=== PATIENT | male | born 1950 | race Caucasian/White ===

== ENCOUNTER 2021-05-01 14:42 | Outpatient (REF) | payer MEDICARE, MEDICAID, SELFPAY ==
--- NOTE | ~2021-05-01 | MR_ITS ---
EXAMINATION: MR LUMBAR SPINE WITHOUT AND WITH CONTRAST CLINICAL INFORMATION: Low back pain. COMPARISON: Lumbar spine MRI 07/14/2019. TECHNIQUE: MRI of the lumbar spine was obtained using routine sequences without and with intravenous contrast. A total of 10 mL Gadavist was intravenously administered. FINDINGS: The lumbar vertebral bodies maintain normal heights and alignment. There is mild disc height loss at L3-L4. No bone marrow edema is seen. The distal spinal cord appears normal. The conus medullaris terminates normally at the L1 level. No abnormal cauda equina nerve root enhancement is seen. The extraspinal soft tissues are within normal limits. SPINAL LEVELS: L1-L2: Disc bulging. No spinal canal or neural foraminal stenosis. L2-L3: Disc bulging with ligamentum flavum infolding and mild to moderate facet arthropathy. Asymmetric narrowing of left subarticular zone, similar to prior. Mild bilateral neural foraminal stenosis. L3-L4: Posterior decompression. Disc bulging with moderate facet arthropathy. Left foraminal protrusion results in severe left-sided neural foraminal stenosis with significant compression of the exiting left L3 nerve root. Bulging disc extends the right neural foramen and results in moderate to severe neural foraminal stenosis, similar to prior. L4-L5: Disc bulging with ligamentum flavum infolding and moderate facet arthropathy. Moderate spinal canal stenosis with compression of both traversing L5 nerve roots in the subarticular zones, progressed from prior. Mild to moderate right and mild left neural foraminal stenosis. L5-S1: Disc bulging with ligamentum flavum infolding moderate facet arthropathy resulting in bilateral subarticular stenosis with compression of the traversing right more than left S1 nerve roots, similar to prior. Mild to moderate spinal canal stenosis. MR/MR lumbar spine wo/w con IMPRESSION: Multilevel degenerative spondylotic changes with interval progression compared with 2019. At L3-L4 there is left foraminal protrusion resulting in severe left-sided neural foraminal stenosis with significant compression of the exiting left L3 nerve root, new from prior. Similar appearance of moderate to severe right-sided neural foraminal stenosis. At L4-L5 there is moderate spinal canal stenosis with compression of both traversing L5 nerve roots, progressed from prior. At L5-S1 there is bilateral subarticular stenosis with compression of the traversing right more than left S1 nerve root, similar prior. Mild to moderate spinal canal stenosis.
== END 2021-05-01 14:43 | disposition home or self-care (01) ==
LOC: HO.MRI 14:42
PROVIDERS: PCP Internal Medicine; Visit Provider Internal Medicine
DX: M54.50 Low back pain, unspecified (principal)
CPT/HCPCS: 72158; A9585

== ENCOUNTER 2023-01-08 09:56 | Outpatient (REF) | payer MEDICARE, MEDICAID, SELFPAY ==
[2023-01-08 12:16] LABS: Alanine Aminotransferase 30 U/L (0-40); Albumin Level 4.5 g/dL (3.5-5.0); Alkaline Phosphatase 42 U/L (39-117); Anion Gap 15 (12-20); Aspartate Amino Transferase 32 U/L (5-37); Bilirubin Direct 0.2 mg/dL (0.0-0.5); Bilirubin Total 0.6 mg/dL (0.0-1.0); Blood Urea Nitrogen 12 mg/dL (9-16); Calcium 9.8 mg/dL (8.4-10.2); Carbon Dioxide 23 mmol/L (22-29); Chloride 105 mmol/L (96-108); Estimated Glomerular Filt Rate > 60; Glucose Random 121 mg/dL (60-115); Potassium 4.1 mmol/L (3.3-5.1); Sodium 139 mmol/L (135-145); Total Protein 7.5 g/dL (6.5-8.0)
== END 2023-01-08 09:57 | disposition home or self-care (01) ==
LOC: HO.HHCL 09:56
PROVIDERS: Visit Provider Internal Medicine
DX: E11.42 Type 2 diabetes mellitus with diabetic polyneuropathy (principal); E78.2 Mixed hyperlipidemia; I10 Essential (primary) hypertension; Z79.4 Long term (current) use of insulin
CPT/HCPCS: 36415; 80048; 80061; 80076

== ENCOUNTER 2023-06-22 12:07 | Outpatient (REF) | payer MEDICARE, MEDICAID, SELFPAY ==
--- NOTE | ~2023-06-22 | XR_ITS ---
EXAMINATION: XR KNEE, LEFT CLINICAL INFORMATION: Left knee pain for 6 months, worsening COMPARISON: Left knee x-ray on 04/28/2013, 04/15/2013 TECHNIQUE: Four views of the left knee. FINDINGS: BONES: Bony structures are intact. Healed left tibial plateau fracture, fixation with surgical staple is again visualized. A sessile bony protuberance is seen protruding from left medial femoral condyle. There is no focal bone destruction or periosteal reaction seen. JOINTS: Alignment of joints is normal. There is mild asymmetric decrease in lateral compartment left tibiofemoral joint space. SOFT TISSUE: Soft tissue is normal. Multiple surgical clips are seen in distal left thigh. No radiopaque foreign body or abnormal air collection is seen. XR/XR knee LT 4V IMPRESSION: 1. 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 2. Unchanged chronic healed left tibial plateau fracture, fixation with surgical staple. 3. Interval development of right medial femoral condyle exostosis. 4. No acute or new fracture or dislocation or signs of osteomyelitis are found.
== END 2023-06-22 12:08 | disposition home or self-care (01) ==
LOC: HO.HHCX 12:07
PROVIDERS: Visit Provider Internal Medicine
DX: M25.562 Pain in left knee (principal)
CPT/HCPCS: 73564

== ENCOUNTER 2023-07-06 09:41 | Outpatient (AMB) | payer MEDICARE, MEDICAID, SELFPAY ==
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
[2023-07-06 09:45] VITALS: BMI 31.8
== END 2023-07-06 10:07 | disposition home or self-care (01) ==
PROVIDERS: PCP Internal Medicine; Visit Provider Orthopaedic Surgery
DX: M25.562 Pain in left knee (principal)
CPT/HCPCS: 99202

== ENCOUNTER → 2023-07-06 09:41 | Outpatient (BNVA) | payer MEDICARE, MEDICAID, SELFPAY | PROVIDERS: PCP Internal Medicine; Visit Provider Orthopaedic Surgery | DX: M25.562 Pain in left knee (principal) | CPT/HCPCS: 99202 ==

== ENCOUNTER 2023-10-11 07:35 | Day surgery (SDC) | payer MEDICARE, MEDICAID, SELFPAY ==
[2023-09-30 14:38] VITALS: BMI 31.8
[2023-10-01 13:25] VITALS: BMI 31.8
[2023-10-11 08:08] VITALS: BMI 32.0
--- NOTE | 2023-10-11 08:45 | HO.ANESPROP2 ---
HPI - Anesthesia Eval Consult details Narrative: 73 yo male patient for Right Cataract extraction, IOL insertion Anesthesia Pre-Procedure Meds Is the patient on any of the following meds?: GLP1/DPP4 (Last dose of dulaglutide 09/27/23) If yes to any meds - educate patient: Pt education - increased risk of aspiration and/or euvolemic DKA PMFSH Active Problems Active Problems: All Active Problems Left knee pain (Acute) EKG with inverted T waves on monitor. Patient asymptomatic. H/o CAD with CABGx3 2002. Review of old records reveal presence of T wave inversion in the past. No new changes. Will proceed with surgery Smoker Last dose of plavix about 6 days ago PVD CAD. Only very occasional chest pain since CABG. Sublingual NTG prn. Denies recent CP Past Medical History Medical History Ambulates with cane Wears dentures Arthritis Back pain Diabetes GERD (gastroesophageal reflux disease) Renal calculi Cataracts, bilateral Numbness and tingling of left leg HLD (hyperlipidemia) HTN (hypertension) Smoker Family History Family history of problems with anesthesia: No Surgical History Surgical History Hx of cystoscopy Hx of colonoscopy Hx of CABG (~2002) History of back surgery Hx of left knee surgery (~1981) History of Problems with Anesthesia: No Social History Social History Household Members: Spouse Housing: Apartment Are you a primary child care development specialist to a significant other at home: No Do you presently have visiting nurse or other home services: No Patient Tobacco Use Status: Current everyday Tobacco user Tobacco use type: Cigarette Cigarettes Per Day: 6 Smoked in Last 30 Days: Yes Use of substances other than those prescribed or required for medical reasons: No Have you been hit, kicked, punched, or otherwise hurt by someone within the past year? If so, by whom?: No Are you DNR?: No Advance Directives: No Advance Directives Information Provided: Yes Advance Directives on File: No Recently lost weight without trying: No Nutrition Risks: No Nutritional Risk Meds Allergies Allergy/AdvReac Type Severity Reaction Status Date / Time fenofibrate [From TRICOR] Allergy Severe RASH Verified 10/11/23 08:02 isosorbide [From Imdur] Allergy Severe H/A Verified 10/11/23 08:02 propoxyphene Allergy Severe RASH Verified 10/11/23 08:02 [From Darshannoncet-N 100] shellfish derived Allergy Severe Anaphylaxis Verified 10/11/23 08:02 gemfibrozil Allergy Itching Verified 10/11/23 08:02 Active Medications: Current Medications Povidone Iodine (Povidone Iodine 5 % Ophth Soln 30 Ml Bottle) 1 appl EYE-RIGHT PREOP PRN PRN Reason: Pre-Op Surgical Implant Prophy Home Medications ?Medication ?Instructions ?Recorded ?Confirmed ?Last Taken ?Type ezetimibe 10 mg tablet 10 mg PO DAILY 07/06/23 09/29/23 09/29/23 History ibuprofen 200 mg tablet 200 mg PO Q8H PRN mild pain 07/06/23 09/29/23 Unknown History lisinopril 20 mg tablet 20 mg PO DAILY 07/06/23 09/29/23 Unknown History metformin 500 mg tablet,extended 1,000 mg PO BID 07/06/23 09/29/23 Unknown History release 24 hr metoprolol tartrate 50 mg tablet 50 mg PO BID 07/06/23 09/29/23 10/11/23 History oxycodone 10 mg tablet,crush 10 mg PO BID 07/06/23 09/29/23 Unknown History resistant,extended release 12 hr (OxyContin) propranolol 80 mg tablet 80 mg PO BID 07/06/23 09/29/23 10/11/23 History rosuvastatin 40 mg tablet 40 mg PO BEDTIME 07/06/23 09/29/23 Unknown History albuterol sulfate 90 mcg/actuation 2 puff inhalation Q4-6H PRN 09/29/23 09/29/23 Unknown History aerosol inhaler Shortness Of Breath Or Wheezing aspirin 81 mg chewable tablet 81 mg PO DAILY 09/29/23 09/29/23 Unknown History clopidogrel 75 mg tablet 75 mg PO DAILY 09/29/23 09/29/23 Unknown History duloxetine 20 mg capsule,delayed 20 mg PO DAILY 09/29/23 09/29/23 Unknown History release hydrocodone 10 mg-acetaminophen 1 tab PO Q4H PRN severe pain 09/29/23 09/29/23 Unknown History 325 mg tablet omega 9-fpx-ugf-fish oil 1,200 mg 1 cap PO BID 09/29/23 09/29/23 Unknown History (144 mg-216 mg) capsule (Fish Oil) pantoprazole 40 mg tablet,delayed 40 mg PO BID 09/29/23 09/29/23 Unknown History release primidone 50 mg tablet 100 mg PO QPM 09/29/23 09/29/23 Unknown History primidone 50 mg tablet 150 mg PO DAILY 09/29/23 09/29/23 10/11/23 History dulaglutide 1.5 mg/0.5 mL 1.5 mg subcut .QMONDAY 10/01/23 10/01/23 Unknown History subcutaneous pen injector (Trulicity) insulin degludec 100 unit/mL 22 unit subcut BEDTIME 10/01/23 10/01/23 Unknown History subcutaneous solution (Tresiba U-100 Insulin) Exam Height,Weight and Vital Signs: Height 5 ft 6 in Weight 89.811 kg Vital Signs Temp Pulse Resp BP Pulse Ox O2 Del Method 10/11/23 08:48 96.9 F 61 18 136/61 100 Room Air Pertinent Lab Results Pertinent Lab Results: Lab Results 10/11/23 Range/Units 08:42 POC Glucose 143 H (60-115) mg/dL Airway Mallampati Class: II TM Dist: >3cm Neck ROM: Full Denture: Upper and Lower Heart: RRR Lungs: CTAB Assessment and Plan Assessment Anesthesia Assessment: Anesthesia Plan Discussed and Chart Reviewed Final Anesthetic Review Family History of Problems with Anesthesia: No History of Problems with Anesthesia: No NPO: Yes ASA Class: III Final Preanesthetic Review: No Changes in Pt Med Stat, Meds/Allgs Chart Reviewed, Consent Obtained/Reviewed and Anes Risks/Benef Reviewed Patient Risk: Intermediate Procedure Risk: Low Assessment/Block/Sedation in SS: Assess/Block/Sedation-SS Anesthetic Plan Anesthetic Plan: MAC: Disposition: Standard PACU
[2023-10-11 08:46] LABS: Glucose, Whole Blood 143 mg/dL (60-115)
[2023-10-11 08:48] VITALS: BP 136/61; PULSE 61; RESP 18; TEMP 36.1; O2SAT 100
[2023-10-11] MEDS: Tetracaine HCl/PF 0.5% Oph Sol 4 ML DROPS 1 DROP EYE-RIGHT ×2 (08:50→08:52)
[2023-10-11] MEDS: Ketorolac Tromethamine 0.5% Op 10 ML DROPS 1 DROP EYE-RIGHT ×3 (08:52→08:57)
[2023-10-11] MEDS: Cyclopentolate 1 % Ophth Sol 2 ML DRPBTL 1 DROP EYE-RIGHT ×3 (08:52→08:57)
[2023-10-11] MEDS: Tropicamide 1 % Ophth Sol 3 ML BTL 1 DROP EYE-RIGHT ×3 (08:53→08:58)
[2023-10-11] MEDS: Phenylephrine HCL 2.5% Oph SoL 2 ML BOTTLE 1 DROP EYE-RIGHT ×3 (08:53→08:57)
--- NOTE | 2023-10-11 09:11 | P.PCNO_ITS ---
Ophthalmology Procedure Procedure Date of Service: 10/11/23 Ophthalmology Viscoelastic: Healon Duet Dual Pack Pro Ophthalmology Lenses: IOL Acrysof MP - [id number] (22) Procedure Notes: PREOPERATIVE DIAGNOSIS: Decreased visual acuity right eye secondary to cataract POSTOPERATIVE DIAGNOSIS: Same PROCEDURE: Right cataract extraction with intraocular lens insertion SURGEON: Praveen Willingham M.D. ANESTHESIA: Topical/MAC ESTIMATED BLOOD LOSS: None COMPLICATIONS: None After obtaining informed consent, the patient was brought to the operating room suite and placed in the supine position. After adequate sedation per anesthesia, topical drops of Tetracaine were given to the right eye. The eye was then prepped and draped in the usual sterile fashion. The operating room microscope was then positioned over the operative eye and a lid speculum placed. A paracentesis was created. Viscoelastic was then instilled into the anterior chamber. A three plane incision was then created temporally, utilizing a 2.85 mm keratome. Capsulotomy forceps were then utilized to create a circular tear capsulotomy. Hydrodissection and hydrodelineation were carried out until adequate mobilization of the nucleus occurred. Phacoemulsification was then utilized to remove the dense central nucl eus followed by removal of the cortical material utilizing the automated aspiration irrigation unit. Viscoelastic was instilled into the posterior capsular bag followed by placement of a posterior chamber intraocular lens without difficulty. The residual Viscoelastic was then removed utilizing the automated IA machine. The wound was checked and found to be watertight. The patient tolerated the procedure well and the lid speculum was removed. Intracameral injection of Vigamox 0.1 mL followed by a subtenon injection of Kenalog-40 0.2 mL were administered. The patient will be seen in the a.m.
--- NOTE | 2023-10-11 09:11 | MHC.SHP ---
Pre-Procedural Eval Section A - 24 Hr Update-Section A only Date of Service: 10/11/23 The patient is an INPATIENT: No Changes since office visit: No Cold of Flu in the past 2 weeks, No New Medical Problems, No Changes in Medication and No Patient answered all questions The patient has been examined within 24 hours of the surgical procedure. The History & Physical has been completed within 30 days and I have reviewed it.: Yes Section B - Complete if H&P > 30 days Chief Complaint: Age-related nuclear cataract, right eye Allergies: Allergies Allergy/AdvReac Type Severity Reaction Status Date / Time fenofibrate [From TRICOR] Allergy Severe RASH Verified 10/11/23 08:02 isosorbide [From Imdur] Allergy Severe H/A Verified 10/11/23 08:02 propoxyphene Allergy Severe RASH Verified 10/11/23 08:02 [From Darvocet-N 100] shellfish derived Allergy Severe Anaphylaxis Verified 10/11/23 08:02 gemfibrozil Allergy Itching Verified 10/11/23 08:02 Plan Diagnosis/Plan: Unchanged I have reviewed the history and physical and performed a pertinent physical examination on my patient. No changes have occurred unless specified. Time Spent With Patient Time: Total time managing care of this patient today ____ minutes.
[2023-10-11 09:36] VITALS: BP 135/58; PULSE 67; RESP 16; TEMP 36.2; O2SAT 98
== END 2023-10-11 09:54 | disposition home or self-care (01) ==
PROVIDERS: PCP Internal Medicine; Visit Provider Ophthalmology
PROC: (CPT 66985; principal; 2023-10-11 09:10)
DX: H25.11 Age-related nuclear cataract, right eye (principal); H54.7 Unspecified visual loss; I10 Essential (primary) hypertension; E78.00 Pure hypercholesterolemia, unspecified; E11.9 Type 2 diabetes mellitus without complications; Z79.82 Long term (current) use of aspirin; Z79.84 Long term (current) use of oral hypoglycemic drugs; Z79.85 Long-term (current) use of injectable non-insulin antidiabetic drugs; Z79.899 Other long term (current) drug therapy; Z88.8 Allergy status to other drugs, medicaments and biological substances; F17.210 Nicotine dependence, cigarettes, uncomplicated; Z98.890 Other specified postprocedural states
CPT/HCPCS: 66984; 82947; J2250; J3010; J3301; V2630

== ENCOUNTER 2023-10-25 07:17 | Day surgery (SDC) | payer MEDICARE, MEDICAID, SELFPAY ==
[2023-09-30 14:46] VITALS: BMI 31.8
[2023-10-25 08:41] VITALS: BP 120/75; PULSE 59; RESP 18; TEMP 36.4; O2SAT 98
[2023-10-25 08:42] LABS: Glucose, Whole Blood 93 mg/dL (60-115)
[2023-10-25] MEDS: Cyclopentolate 1 % Ophth Sol 2 ML DRPBTL 1 DROP EYE-LEFT ×3 (08:45→08:47)
[2023-10-25] MEDS: Tetracaine HCl/PF 0.5% Oph Sol 4 ML DROPS 1 DROP EYE-LEFT (08:45)
[2023-10-25] MEDS: Tropicamide 1 % Ophth Sol 3 ML BTL 1 DROP EYE-LEFT ×3 (08:45→08:47)
[2023-10-25] MEDS: Lactated Ringers 500 ML 20 ML IVCONT (08:45)
[2023-10-25] MEDS: Phenylephrine HCL 2.5% Oph SoL 2 ML BOTTLE 1 DROP EYE-LEFT ×3 (08:46→08:47)
[2023-10-25] MEDS: Ketorolac Tromethamine 0.5% Op 10 ML DROPS 1 DROP EYE-LEFT ×3 (08:46→08:48)
--- NOTE | 2023-10-25 09:20 | HO.ANESPROP2 ---
HPI - Anesthesia Eval Consult details Narrative: 73 yo M presenting for left cataract extraction IOL insertion. Had right eye done previously. Anesthesia Pre-Procedure Meds Is the patient on any of the following meds?: GLP1/DPP4 If yes to any meds - educate patient: Pt education - increased risk of aspiration and/or euvolemic DKA PMFSH Active Problems Active Problems: All Active Problems Left knee pain (Acute) Past Medical History Medical History Ambulates with cane Wears dentures Arthritis Back pain Diabetes GERD (gastroesophageal reflux disease) Renal calculi Cataracts, bilateral Numbness and tingling of left leg HLD (hyperlipidemia) HTN (hypertension) Smoker Family History Family history of problems with anesthesia: No Surgical History Surgical History Hx of cystoscopy Hx of colonoscopy Hx of CABG (~2002) History of back surgery Hx of left knee surgery (~1981) History of Problems with Anesthesia: No Social History Social History Household Members: Spouse Housing: Apartment Are you a primary home care and home health aides teacher to a significant other at home: No Do you presently have visiting nurse or other home services: No Patient Tobacco Use Status: Current everyday Tobacco user Tobacco use type: Cigarette Cigarettes Per Day: 6 Smoked in Last 30 Days: Yes Use of substances other than those prescribed or required for medical reasons: No Have you been hit, kicked, punched, or otherwise hurt by someone within the past year? If so, by whom?: No Are you DNR?: No Advance Directives: No Advance Directives Information Provided: Yes Advance Directives on File: No Healthcare Proxy: No Recently lost weight without trying: No Nutrition Risks: No Nutritional Risk Meds Allergies Allergy/AdvReac Type Severity Reaction Status Date / Time fenofibrate [From TRICOR] Allergy Severe RASH Verified 10/11/23 08:02 isosorbide [From Imdur] Allergy Severe H/A Verified 10/11/23 08:02 propoxyphene Allergy Severe RASH Verified 10/11/23 08:02 [From Darvocet-N 100] shellfish derived Allergy Severe Anaphylaxis Verified 10/11/23 08:02 gemfibrozil Allergy Itching Verified 10/11/23 08:02 Active Medications: Current Medications Lactated Ringer's (Lr) 500 mls @ 20 mls/hr IVCONT .Q24H DALI Last Admin: 10/25/23 08:45 Dose: 20 mls/hr Povidone Iodine (Povidone Iodine 5 % Ophth Soln 30 Ml Bottle) 1 appl EYE-LEFT PREOP PRN PRN Reason: Pre-Op Surgical Implant Prophy Home Medications ?Medication ?Instructions ?Recorded ?Confirmed ?Last Taken ?Type ezetimibe 10 mg tablet 10 mg PO DAILY 07/06/23 09/29/23 10/25/23 History ibuprofen 200 mg tablet 200 mg PO Q8H PRN mild pain 07/06/23 09/29/23 Unknown History lisinopril 20 mg tablet 20 mg PO DAILY 07/06/23 09/29/23 Unknown History metformin 500 mg tablet,extended 1,000 mg PO BID 07/06/23 09/29/23 Unknown History release 24 hr metoprolol tartrate 50 mg tablet 50 mg PO BID 07/06/23 09/29/23 10/25/23 History oxycodone 10 mg tablet,crush 10 mg PO BID 07/06/23 09/29/23 10/25/23 History resistant,extended release 12 hr (OxyContin) propranolol 80 mg tablet 80 mg PO BID 07/06/23 09/29/23 10/11/23 History rosuvastatin 40 mg tablet 40 mg PO BEDTIME 07/06/23 09/29/23 Unknown History albuterol sulfate 90 mcg/actuation 2 puff inhalation Q4-6H PRN 09/29/23 09/29/23 Unknown History aerosol inhaler Shortness Of Breath Or Wheezing aspirin 81 mg chewable tablet 81 mg PO DAILY 09/29/23 09/29/23 Unknown History clopidogrel 75 mg tablet 75 mg PO DAILY 09/29/23 09/29/23 10/05/23 History duloxetine 20 mg capsule,delayed 20 mg PO DAILY 09/29/23 09/29/23 Unknown History release hydrocodone 10 mg-acetaminophen 1 tab PO Q4H PRN severe pain 09/29/23 09/29/23 10/25/23 History 325 mg tablet omega 8-ven-jrp-fish oil 1,200 mg 1 cap PO BID 09/29/23 09/29/23 Unknown History (144 mg-216 mg) capsule (Fish Oil) pantoprazole 40 mg tablet,delayed 40 mg PO BID 09/29/23 09/29/23 10/25/23 History release primidone 50 mg tablet 100 mg PO QPM 09/29/23 09/29/23 Unknown History primidone 50 mg tablet 150 mg PO DAILY 09/29/23 09/29/23 10/25/23 History dulaglutide 1.5 mg/0.5 mL 1.5 mg subcut .QMONDAY 10/01/23 10/01/23 10/18/23 History subcutaneous pen injector (Trulicity) insulin degludec 100 unit/mL 22 unit subcut BEDTIME 10/01/23 10/01/23 Unknown History subcutaneous solution (Tresiba U-100 Insulin) Exam Exam Date and Time: October 25, 2023921 Height,Weight and Vital Signs: Height 5 ft 6 in Weight 89.358 kg Last Vital Signs Temp 97.6 F 10/25/23 08:41 Pulse 59 10/25/23 08:41 Resp 18 10/25/23 08:41 BP 120/75 10/25/23 08:41 Pulse Ox 98 10/25/23 08:41 O2 Del Method Room Air 10/25/23 08:41 Pertinent Lab Results Pertinent Lab Results: Laboratory Tests 10/25/23 08:38 POC Glucose 93 Airway Mallampati Class: II TM Dist: >3cm Neck ROM: Full Denture: Upper and Lower Heart: S1S2 Lungs: CTAB Assessment and Plan Assessment Anesthesia Assessment: Anesthesia Plan Discussed and Chart Reviewed Final Anesthetic Review Family History of Problems with Anesthesia: No History of Problems with Anesthesia: No NPO: Yes ASA Class: III Final Preanesthetic Review: No Changes in Pt Med Stat, Meds/Allgs Chart Reviewed, Consent Obtained/Reviewed and Anes Risks/Benef Reviewed Patient Risk: Intermediate Procedure Risk: Low Anesthetic Plan Anesthetic Plan: MAC: and Agree w/ Assess. and Plan Disposition: Standard PACU
--- NOTE | 2023-10-25 09:43 | MHC.SHP ---
Pre-Procedural Eval Section A - 24 Hr Update-Section A only Date of Service: 10/25/23 The patient is an INPATIENT: No Changes since office visit: Yes Cold of Flu in the past 2 weeks, Yes New Medical Problems, Yes Changes in Medication and Yes Patient answered all questions Section B - Complete if H&P > 30 days Chief Complaint: Age-related nuclear cataract, left eye Allergies: Allergies Allergy/AdvReac Type Severity Reaction Status Date / Time fenofibrate [From TRICOR] Allergy Severe RASH Verified 10/11/23 08:02 isosorbide [From Imdur] Allergy Severe H/A Verified 10/11/23 08:02 propoxyphene Allergy Severe RASH Verified 10/11/23 08:02 [From Darvocet-N 100] shellfish derived Allergy Severe Anaphylaxis Verified 10/11/23 08:02 gemfibrozil Allergy Itching Verified 10/11/23 08:02 Plan I have reviewed the history and physical and performed a pertinent physical examination on my patient. No changes have occurred unless specified. Time Spent With Patient Time: Total time managing care of this patient today ____ minutes.
--- NOTE | 2023-10-25 09:44 | MHC.SHP ---
Pre-Procedural Eval Section A - 24 Hr Update-Section A only Date of Service: 10/25/23 The patient is an INPATIENT: No Changes since office visit: No Cold of Flu in the past 2 weeks, No New Medical Problems, No Changes in Medication and No Patient answered all questions The patient has been examined within 24 hours of the surgical procedure. The History & Physical has been completed within 30 days and I have reviewed it.: Yes Section B - Complete if H&P > 30 days Chief Complaint: Age-related nuclear cataract, left eye Allergies: Allergies Allergy/AdvReac Type Severity Reaction Status Date / Time fenofibrate [From TRICOR] Allergy Severe RASH Verified 10/11/23 08:02 isosorbide [From Imdur] Allergy Severe H/A Verified 10/11/23 08:02 propoxyphene Allergy Severe RASH Verified 10/11/23 08:02 [From Darvocet-N 100] shellfish derived Allergy Severe Anaphylaxis Verified 10/11/23 08:02 gemfibrozil Allergy Itching Verified 10/11/23 08:02 Plan Diagnosis/Plan: Unchanged I have reviewed the history and physical and performed a pertinent physical examination on my patient. No changes have occurred unless specified. Time Spent With Patient Time: Total time managing care of this patient today ____ minutes.
--- NOTE | 2023-10-25 09:44 | HO.PNOPHT ---
Ophthalmology Procedure Procedure Date of Service: 10/25/23 Ophthalmology Viscoelastic: Healon Duet Dual Pack Pro Ophthalmology Lenses: IOL Acrysof MP - MA60AC (22) Procedure Notes: PREOPERATIVE DIAGNOSIS: Decreased visual acuity left eye secondary to cataract POSTOPERATIVE DIAGNOSIS: Same PROCEDURE: Left cataract extraction with intraocular lens insertion SURGEON: Praveen Willingham M.D. ANESTHESIA: Topical/MAC ESTIMATED BLOOD LOSS: None COMPLICATIONS: None After obtaining informed consent, the patient was brought to the operation room suite and placed in the supine position. After adequate sedation per anesthesia, topical drops of Tetracaine were given to the left eye. The eye was then prepped and draped in the usual sterile fashion. The operating room microscope was then positioned over the operative eye and a lid speculum placed. A paracentesis was created. Viscoelastic was then instilled into the anterior chamber. A three plane incision was then created temporally, utilizing a 2.85 mm keratome. Capsulotomy forceps were then utilized to create a circular tear capsulotomy. Hydrodissection and hydrodelineation were carried out until adequate mobilization of the nucleus occurred. Phacoemulsification was then utilized to remove the dense central nucleus followed by removal of the cortical material utilizing the automated aspiration irrigation unit. Viscoat elastic was instilled into the posterior capsular bag followed by placement of a posterior chamber intraocular lens without difficulty. The residual Viscoat elastic was then removed utilizing the automated IA machine. The wound was check and found to be watertight. The patient tolerated the procedure well and the lid speculum was removed. Intracameral injection of Vigamox 0.1 mL followed by a subtenon injection of Kenalog-40 0.2 mL were administered. The patient will be seen in the a.m.
[2023-10-25 10:07] VITALS: BP 111/53; PULSE 60; RESP 16; TEMP 36.2; O2SAT 97
== END 2023-10-25 10:23 | disposition home or self-care (01) ==
PROVIDERS: PCP Internal Medicine; Visit Provider Ophthalmology
PROC: (CPT 66985; principal; 2023-10-25 09:30)
DX: H25.12 Age-related nuclear cataract, left eye (principal); H54.7 Unspecified visual loss; E11.42 Type 2 diabetes mellitus with diabetic polyneuropathy; I10 Essential (primary) hypertension; E78.00 Pure hypercholesterolemia, unspecified; Z79.4 Long term (current) use of insulin; Z79.84 Long term (current) use of oral hypoglycemic drugs; Z79.85 Long-term (current) use of injectable non-insulin antidiabetic drugs; Z79.82 Long term (current) use of aspirin; Z79.899 Other long term (current) drug therapy; Z88.8 Allergy status to other drugs, medicaments and biological substances; F17.210 Nicotine dependence, cigarettes, uncomplicated
CPT/HCPCS: 66984; 82947; J2250; J3301; V2630

== ENCOUNTER 2023-12-02 10:02 | Outpatient (REF) | payer MEDICARE, MEDICAID, SELFPAY ==
[2023-12-02 11:10] LABS: MANUAL DIFF FLAG NO
[2023-12-02 11:21] LABS: Basophils Absolute Auto 0.1 X10*3/uL (0.0-0.2); Basophils Percent Auto 1.1 % (0-2); Eosinophils Absolute Auto 0.1 X10*3/uL (0.0-0.4); Hematocrit 35.9 % (42.0-52.0); Hemoglobin 11.6 g/dl (14.0-18.0); Imm Gran Abs Auto 0.02 X10*3/uL (0.00-0.03); Imm Gran Pct Auto 0.4 % (0.0-0.4); Lymphocytes Absolute Auto 2.2 X10*3/uL (1.2-4.9); Lymphocytes Percent Auto 39.6 % (20-40); Mean Corpuscular HGB Conc 32.3 g/dl (31.0-36.0); Mean Corpuscular Hemoglobin 29.1 pg (27.0-33.0); Mean Platelet Volume 9.7 fL (9.4-12.4); Monocytes Absolute Auto 0.7 X10*3/uL (0.1-1.2); Monocytes Percent Auto 13.1 % (2-11); Neutrophils Absolute Auto 2.4 x10*3/uL (2.0-8.3); Neutrophils Percent Auto 43.8 % (45-73); Platelet Count 269 X10*3/uL (160-400); Red Blood Count 3.99 X10*6/uL (4.60-5.80); Red Cell Distribution Width 15.4 % (11.0-16.0); White Blood Count 5.5 X10*3/uL (4.8-10.8)
[2023-12-02 11:54] LABS: Alanine Aminotransferase 87 U/L (0-40); Albumin Level 4.1 g/dL (3.5-5.0); Alkaline Phosphatase 60 U/L (39-117); Anion Gap 14 (12-20); Aspartate Amino Transferase 118 U/L (5-37); Bilirubin Total 0.3 mg/dL (0.0-1.0); Blood Urea Nitrogen 11 mg/dL (9-16); Calcium 9.7 mg/dL (8.4-10.2); Carbon Dioxide 25 mmol/L (22-29); Chloride 106 mmol/L (96-108); Cholesterol 140 mg/dL (<200); Estimated Glomerular Filt Rate > 60; Glucose Random 106 mg/dL (60-115); HDL Cholesterol 47 mg/dL (>40); LDL Cholesterol Calculated 58 mg/dL (<100); Potassium 4.6 mmol/L (3.3-5.1); Sodium 140 mmol/L (135-145); Triglycerides 177 mg/dL (<150)
[2023-12-02 12:03] LABS: Microalbum/Creatinine Ratio Ur 45.1 ug/mg cr (<30)
[2023-12-02 12:09] LABS: Prostate Specific Antigen Scr 0.59 ng/mL (<0.05-4.0)
== END 2023-12-02 10:03 | disposition home or self-care (01) ==
LOC: HO.HHCL 10:02
PROVIDERS: Visit Provider Internal Medicine
DX: Z00.00 Encounter for general adult medical examination without abnormal findings (principal); E11.42 Type 2 diabetes mellitus with diabetic polyneuropathy; Z79.4 Long term (current) use of insulin; E78.2 Mixed hyperlipidemia; L98.491 Non-pressure chronic ulcer of skin of other sites limited to breakdown of skin; Z12.5 Encounter for screening for malignant neoplasm of prostate
CPT/HCPCS: 36415; 80053; 80061; 82043; 82570; 84153; 85025

== ENCOUNTER 2023-12-08 12:02 | Outpatient (REF) | payer MEDICARE, MEDICAID, SELFPAY ==
[2023-12-08 13:43] LABS: Alanine Aminotransferase 58 U/L (0-40); Albumin Level 4.5 g/dL (3.5-5.0); Alkaline Phosphatase 60 U/L (39-117); Aspartate Amino Transferase 34 U/L (5-37); Bilirubin Direct 0.2 mg/dL (0.0-0.5); Bilirubin Total 0.6 mg/dL (0.0-1.0); Total Protein 7.7 g/dL (6.5-8.0)
[2023-12-08 13:58] LABS: ~HepC Num1 0.16 S/CO (0.00-0.79); ~Hepatitis C Antibody Nonreactive (Nonreactive)
[2023-12-08 14:14] LABS: Hepatitis A Antibody IgM 0.22 Index (0-0.79); ~Hepatitis A Antibody IgM Nonreactive (Nonreactive)
== END 2023-12-08 12:03 | disposition home or self-care (01) ==
LOC: HO.HHCL 12:02
PROVIDERS: Visit Provider Internal Medicine
DX: Z00.00 Encounter for general adult medical examination without abnormal findings (principal); E11.42 Type 2 diabetes mellitus with diabetic polyneuropathy; Z79.4 Long term (current) use of insulin; E78.2 Mixed hyperlipidemia; R79.89 Other specified abnormal findings of blood chemistry; K75.9 Inflammatory liver disease, unspecified
CPT/HCPCS: 36415; 80076; 86709; 86803

== ENCOUNTER 2024-06-16 14:07 | Outpatient (REF) | payer MEDICARE, MEDICAID, SELFPAY ==
--- OUTSIDE RECORDS SUMMARY | 2024-06-16 15:49 | XMS_ITS | Encounter Summary ---
Author Organization [employer] Address [address] [facility] 7[address] [place] [address] Care Team Providers Care Insurance Customer Service Specialist Name Role Phone Santi Landry MD Primary Care Provide r Reason for Visit * Reason Onset Date Comments Med Refill 09/15/2023 Encounter Details Date Type Department Care Team ([facility] st Contact Info) Description 09/15/2023 Refill [facility] MEDICINE [address] [place] [address] Santi Landry MD [address] [place] [address] Social History Tobacco Use Types Packs/Day Years Used Date Smoking Tobacco: Some Days Cigarettes Passive Smoke Exposure: Current Smokeless Tobacco: Never Alcohol Use Standard Drinks/Week Comments Never 0 (1 standard drink = 0.6 oz pur e alcohol) Depression Answer Date Recorded Patient Health Questionnaire-9 Score 6 06/22/2023 Patient Health Questionnaire-9 Score 6 06/22/2023 Last PHQ-9: Questionnaire Data Not on file 0 06/22/2023 Housing Stability Answer Date Recorded What is your housing situation today? I have shorty sing 06/22/[address] you li ve. Do you have problems with any of the following? None of the above 06/22/2023 Food Insecurity Answer Date Recorded Within the past 12 months, y ou worried that your food would run out before you got money to buy more: Never True 06/22/2023 Within the past 12 months,th e food you bought just didn't last and you didn't have enough money to get more: Never True Transportation Answer Date Recorded In the past 12 months, has l ack of transportation kept you from medical appts, meetings, work or from getting things needed for daily living? No 06/22/2023 Utilities Answer Date Recorded In the past 12 months, has t he electric, gas, oil or water company threatened to shut off services in your home? No 06/22/2023 Depression Answer Date Recorded Patient Health Questionnaire-2 Score 2 06/22/2023 Sex and Gender Information Value Date Recorded Sex Assigned at Male 02/02/2022 10:16 AM EDT Legal Sex Male 10:16 AM EDT Gender Identity Male 02/02/2022 10:16 AM EDT Sexual Orientation Straight 02/02/2022 10 :16 AM EDT documented as of this encounter Plan of Treatment Upcoming Encounters Date Type Department Care Team (Late st Contact Info) Description 09/11/2024 10:00 AM EDT Telemedicine [facility] MED & PEDS [address] [place] [address] Karishma Rose, RN [address] [place] [address] documented as of this encounter Visit Diagnoses Not on filedocumented in this encounter Additional Health Concerns Assessment Noted Time PHQ-9 Depression Total Score: 6 06/22/19 24 11:07 AM EDT documented as of this encounter Care Teams Insurance Customer Service Specialist Relationship Specialty Start Date End Date Santi Landry MD [address] [place] [address] PCP - General Internal Medicine 06/14/14 documented as of this encounter
--- OUTSIDE RECORDS SUMMARY | 2024-06-16 15:49 | XMS_ITS | Encounter Summary ---
Author Organization [employer] Address [address] [place] [address] [address] [address] Care Team Providers Care Press Assistant And Feeder Name Role Phone Santi Landry MD Primary Care Provide r Reason for Visit * Reason Onset Date Comments Med Refill 10/01/2022 Encounter Details Date Type Department Care Team ([facility] Contact Info) Description 10/01/2022 Refill [facility] MEDICINE [address] [place] [address] Santi Landry MD [address] [place] [address] Chronic midline low back pain without sciatica Social History Tobacco Use Types Packs/Day Years Used Date Smoking Tobacco: Former Cigarettes Smokeless Tobacco: Never Alcohol Use Standard Drinks/Week Comments Never 0 (1 standard drink = 0.6 oz pur e alcohol) Depression Answer Date Recorded Patient Health Questionnaire-9 Score 0 06/09/2022 Depression Answer Date Recorded Patient Health Questionnaire-2 Score 0 06/09/2022 Sex and Gender Information Value Date Recorded Sex Assigned at Male 02/02/2022 10:16 AM EDT Legal Sex Male 10:16 AM EDT Gender Identity Male 02/02/2022 10:16 AM EDT Sexual Orientation Straight 02/02/2022 10 :16 AM EDT documented as of this encounter Plan of Treatment Upcoming Encounters Date Type Department Care Team ([facility] Contact Info) Description 09/11/2024 10:00 AM EDT Telemedicine [facility] & PEDS [address] [place] [address] Karishma Rose, FATEMEH [address] [place] [address] documented as of this encounter Visit Diagnoses Diagnosis Chronic midline low back pain without sciatica documented in this encounter Additional Health Concerns Assessment Noted Time PHQ-9 Depression Total Score: 0 06/10/19 23 11:13 AM EST documented as of this encounter Care Teams Press Assistant And Feeder Relationship Specialty Start Date End Date Santi Landry MD [address] [place] [id number] PCP - General Internal Medicine 06/14/14 documented as of this encounter
--- OUTSIDE RECORDS SUMMARY | 2024-06-16 15:49 | XMS_ITS | Encounter Summary ---
Author Organization [employer] Address [address] [facility] 7[address] [place] [address] Care Team Providers Care Information Systems Audit Manager Name Role Phone Santi Landry MD Primary Care Provide r Reason for Visit * Reason Comments Med Refill Encounter Details Date Type Department Care Team ([facility] st Contact Info) Description 06/05/2024 Refill [facility] MEDICINE [address] [place], [place] [phone] Santi Landry MD [address] [place] [address] Atherosclerosis of [place] coronary artery of [place] heart without angina pectoris Social History Tobacco Use Types Packs/Day Years Used Date Smoking Tobacco: Former Cigarettes Passive Smoke Exposure: Past Smokeless Tobacco: Never Alcohol Use Standard Drinks/Week Comments Never 0 (1 standard drink = 0.6 oz pur e alcohol) Depression Answer Date Recorded Patient Health Questionnaire-9 Score 0 11/09/2023 Patient Health Questionnaire-9 Score 0 11/09/2023 Last PHQ-9: Questionnaire Data Not on file 0 11/09/2023 Housing Stability Answer Date Recorded What is your housing situation today? I have shorty trevizo 06/22/[address] you li [...] Date Recorded Patient Health Questionnaire-2 Score 0 11/09/2023 Sex and Gender Information Value Date Recorded Sex Assigned at Male 02/02/2022 10:16 AM EDT Legal Sex Male 10:16 AM EDT Gender Identity Male 02/02/2022 10:16 AM EDT Sexual Orientation Straight 02/02/2022 10 :16 AM EDT documented as of this encounter Plan of Treatment Upcoming Encounters Date Type Department Care Team ([facility] st Contact Info) Description 09/11/2024 10:00 AM EDT Telemedicine [facility] MED & PEDS [address] [place] [address] Karishma Rose, RN [address] [place] [address] documented as of this encounter Visit Diagnoses Diagnosis Atherosclerosis of [place] coronary artery of [place] heart without angina pectoris documented in this encounter Additional Health Concerns Assessment Noted Time PHQ-9 Depression Total Score: 0 11/09/19 24 10:18 AM EDT documented as of this encounter Care Teams Information Systems Audit Manager Relationship Specialty Start Date End Date Santi Landry MD [address] [place] [id number] PCP - General Internal Medicine 06/14/14 documented as of this encounter
--- OUTSIDE RECORDS SUMMARY | 2024-06-16 15:49 | XMS_ITS | Encounter Summary ---
Author Organization [employer] Address [address] [place] [address] [address] [address] Care Team Providers Care Roller Leveler Name Role Phone Santi Landry MD Primary Care Provide r Reason for Visit * Reason Comments Med Refill Encounter Details Date Type Department Care Team ([facility] Contact Info) Description 12/21/2022 Refill [facility] MEDICINE [address] [place] [address] Santi Landry MD [address] [place] [address] Social History Tobacco Use Types Packs/Day Years [...] Upcoming Encounters Date Type Department Care Team ([facility] Contact Info) Description 09/11/2024 10:00 AM EDT Telemedicine [facility] MED & PEDS [address] [place], [place] [phone] Karishma Rose RN [address] [place] [address] documented as of this encounter Visit Diagnoses Not on filedocumented in this encounter Additional Health Concerns Assessment Noted Time PHQ-9 Depression Total Score: 0 06/10/19 23 11:13 AM EST documented as of this encounter Care Teams Roller Leveler Relationship Specialty Start Date End Date Santi Landry MD [address] [facility] [place] [address] PCP - General Internal Medicine 06/14/14 documented as of this encounter
--- OUTSIDE RECORDS SUMMARY | 2024-06-16 15:49 | XMS_ITS | Encounter Summary ---
Author Organization [employer] Address [address] [place] [address] Care Team Providers Care Reflexologist Name Role Phone Santi Landry MD Primary Care Provide r Encounter Details Date Type Department Care Team (Latest Contact Info) Description 06/16/2024 Travel Social History Tobacco Use Types Packs/Day Years [...] Info) Description 09/11/2024 10:00 AM EDT Telemedicine [facility] MED & PEDS [address] [place] [address] Karishma Rose, FATEMEH [address] [place] [address] documented as of this encounter Visit Diagnoses Not on filedocumented in this encounter Additional Health Concerns Assessment Noted Time PHQ-9 Depression Total Score: 0 11/09/19 24 10:18 AM EDT documented as of this encounter Care Teams Reflexologist Relationship Specialty Start Date End Date Santi Landry MD [address] [place] [address] PCP - General Internal Medicine 06/14/14 documented as of this encounter
--- OUTSIDE RECORDS SUMMARY | 2024-06-16 15:49 | XMS_ITS | Encounter Summary ---
Author Organization [employer] Address [address] [facility] [address] [place] [address] Care Team Providers Care Electroplater Automatic Name Role Phone Santi Landry MD Primary Care Provide r Reason for Visit * Reason Onset Date Comments Med Refill 08/18/2023 Encounter Details Date Type Department Care Team ([facility] st Contact Info) Description 08/18/2023 Refill [facility] MEDICINE [address] [place] [address] Michelle Carmona MD [address] [place] [address] Social History Tobacco Use Types Packs/Day Years [...] Upcoming Encounters Date Type Department Care Team ([facility] st Contact Info) Description 09/11/2024 10:00 AM EDT Telemedicine [facility] MED & PEDS [address] [place] [address] Karishma Rose, FATEMEH [address] [place] [address] documented as of this encounter Visit Diagnoses Not on filedocumented in this encounter Additional Health Concerns Assessment Noted Time PHQ-9 Depression Total Score: 6 06/22/19 24 11:07 AM EDT documented as of this encounter Care Teams Electroplater Automatic Relationship Specialty Start Date End Date Santi Landry MD [address] [place] [address] PCP - General Internal Medicine 06/14/14 documented as of this encounter
--- OUTSIDE RECORDS SUMMARY | 2024-06-16 15:49 | XMS_ITS | Clinical Summary ---
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 022 Active albuterol 108 (90 Base) MCG/ACT inhaler Inhale 2 puffs every 4 (four) hours if needed. 020 Active metFORMIN XR (Glucophage-XR) 500 MG 24 hr tabletIndicatio ns:Type 2 diabetes mellitus with diabetic polyneuropathy, with long-term current use of insulin (CMS/HCC) TAKE 2 TABLETS BY MOUTH TWICE DAILY 360 tablet 1 024 Active dulaglutide (Trulicity) 1.5 MG/0.5ML solution pen-injectorInd ications:Type 2 diabetes mellitus with diabetic polyneuropathy, with long-term current use of insulin (CMS/HCC) Inject 1.5 mg under the skin 1 (one) time per week. 4 each 024 Active ezetimibe (Zetia) 10 MG tablet TAKE 1 TABLET BY MOUTH EVERY DAY 90 tablet 1 024 Active lisinopril 20 MG tablet TAKE 1 TABLET BY MOUTH EVERY DAY 90 tablet 1 024 Active pantoprazole (ProtoNix) 40 MG EC tabletIndicatio ns:Gastroesopha geal reflux disease, unspecified whether esophagitis present TAKE 1 TABLET(40 MG) BY MOUTH TWICE DAILY. DO NOT CRUSH, CHEW, OR SPLIT 180 tablet 1 024 Active glucose blood (FREESTYLE LITE) test strip USE TO TEST BLOOD SUGAR EVERY DAY 50 strip 11 Active bacitracin 500 UNIT/GM ointmentIndicat ions:Chronic skin ulcer, limited to breakdown of skin (CMS/HCC) APPLY 1 GRAM TOPICALLY TO AFFECTED AREA(S) TWICE DAILY DIRECTED 14 g 3 024 Active lactulose (Chronulac) 10 GM/15ML solution TAKE 15ML BY MOUTH EVERY DAY NEEDED FOR CONSTIPATION 1350 mL 024 Active insulin syringe 29G X 1/2 0.5 mL misc USE TO INJECT EVERY DAY DIRECTED 100 each 1 024 Active Blood Pressure Monitoring (Omron 3 Series BP Monitor) deviceIndicatio ns:Type 2 diabetes mellitus with diabetic polyneuropathy, with long-term current use of insulin ([facility]),Prima ry hypertension USE TO CHECK BLOOD PRESSURE EVERY DAY 1 each 024 Active FreeStyle lancets 1 each by Other route 3 times daily. USE TO TEST BLOOD SUGAR THREE TIMES A DAY 100 each 11 024 Active pen needle 32G x 4 mm misc Use to inject insulin once daily 100 each 2 024 Active clopidogrel (Plavix) 75 MG tabletIndicatio ns:Type 2 diabetes mellitus with diabetic polyneuropathy, with long-term current use of insulin ([facility]) TAKE 1 TABLET BY MOUTH EVERY DAY 90 tablet 024 Active DULoxetine (Cymbalta) [address] capsule TAKE 1 CAPSULE BY MOUTH EVERY DAY 90 capsule 024 Active metoprolol tartrate (Lopressor) 50 MG tabletIndicatio ns:Primary hypertension TAKE 1 TABLET BY MOUTH TWICE DAILY 180 tablet 1 025 Active Insulin Degludec FlexTouch 100 UNIT/ML solution pen-injector Inject 22 Units under the skin at bedtime. 3 mL 2 025 Active nitroglycerin (Nitrostat) 0.4 MG SL tabletIndicatio ns:[place] coronary artery [place] heart without angina pectoris DISSOLVE 1 TABLET UNDER THE TONGUE EVERY 5 MINUTES UP TO 3 TIMES NEEDED FOR CHEST PAIN 100 tablet 025 Active gabapentin (Neurontin) 800 MG tablet TAKE 1 TABLET BY MOUTH THREE TIMES DAILY 90 tablet 2 025 Active oxyCODONE ER (OxyCONTIN) 10 MG 12 hr tabletIndicatio ns:Chronic midline low back pain without sciatica Take 1 tablet (10 mg) by mouth every 12 (twelve) hours. Do not crush, chew, or split. Do not start before June 13, 2024. 56 tablet 025 Active naloxone (Narcan) 4 mg/0.1 mL nasal spray Administer 1 spray (4 mg) into affected nostril(s) if needed for opioid reversal. May repeat every 2-3 minutes if needed, alternating nostrils, until medical assistance becomes available. 2 each 2 025 2025 Active rosuvastatin (Crestor) 40 MG tablet TAKE 1 TABLET BY MOUTH EVERY DAY AT BEDTIME 90 tablet 025 Active nitroglycerin (Nitrostat) 0.4 MG SL tabletIndicatio ns:[place]theros[place] coronary artery of [place] heart without angina pectoris DISSOLVE 1 TABLET UNDER THE TONGUE EVERY 5 MINUTES IF NEEDED FOR CHEST PAIN 100 tablet 023 2024 Discontinued insulin degludec (Tresiba) 100 UNIT/ML injection Inject 22 Units under the skin at bedtime. 10 mL 11 024 2024 Discontinued(F ormulary change) metoprolol tartrate (Lopressor) 50 MG tabletIndicatio ns:Primary hypertension TAKE 1 TABLET BY MOUTH TWICE DAILY 180 tablet 1 024 2024 Discontinued gabapentin (Neurontin) 800 MG tablet TAKE 1 TABLET BY MOUTH THREE TIMES A DAY 90 tablet 2 024 2024 Discontinued insulin degludec (Tresiba FlexTouch) 100 UNIT/ML injection Inject 22 Units under the skin at bedtime. 3 mL 1 024 2024 Discontinued(F ormulary change) rosuvastatin (Crestor) 40 MG tablet TAKE 1 TABLET BY MOUTH EVERY DAY AT BEDTIME 90 tablet 024 2024 Discontinued(R eorder (will not trigger notification to Pharmacy)) HYDROcodone-brien taminophen ([place]) 10-325 MG tabletIndicatio ns:Chronic midline low back pain without sciatica Take 1 tablet by mouth every 4 (four) hours if needed for severe pain for up to 28 days. 168 tablet 025 2024 OxyCONTIN 10 MG 12 hr tabletIndicatio ns:Chronic midline low back pain without sciatica TAKE 1 TABLET BY MOUTH EVERY TWELVE HOURS FOR 28 DAYS. DO NOT BREAK, CRUSH, DISSOLVE OR CHEW. 56 tablet 025 2024 Discontinued(R eorder (will not trigger notification to Pharmacy)) Active Problems Problem Noted Date Diagnosed Date Long-term current use of opiate analgesic 2024 Acute pseudomembranous candidiasis of mouth 04/06 Preventative health care 11/09/2023 Assessment & Plan (11/09/2023 10:41 AM EDT): PSA: 01/01/2022 : Normal 0.26 Colonoscopy: 02/08/2019 Dr Estrada Tubular Adenoma, 5 yr f/u needed. Pneumovax: 04/02/04 Non-healing ulcer 11/09/2023 Assessment & Plan (12/09/2023 12:56 PM EDT): Previous visit . Patient presented with multiple non healing ulcers on his back and abdomen x 3 weeks associated with itching, no discharge, no other associated symptoms Patient was referred to Derm clinic, appointment scheduled for next month Might need Biopsy. For now will use topical antibiotic to prevent superinfection CBC showed mild anemia Assessment & Plan (11/09/2023 10:50 AM EDT): Pt with multiple non healing ulcers on his back and abdomen x 3 weeks associated with itching, no discharge, no other associated symptoms Plan: will refer to Derm clinic, Obtain CBC, BMP. Might need Biopsy. For now will use topical antibiotic to prevent superinfection Age-related cataract of both eyes 09/30/2023 Assessment & Plan (09/30/2023 1:25 PM EDT): Patient is here for a preoperative exam Patient is scheduled for:cataract surgery On:October 10 and the left of October 24 right By: [facility] Anesthesia: local After careful review of patient's medical conditions EKG: Not needed And today's Physical examination I do not see any contraindication for patient to undergo this: low Risk surgical intervention. 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 Hx of injury in the past Plan: Plain films left knee Ortho eval Complete edentulism 05/11/2023 Class 1 obesity due to exces s calories with serious comorbidity in adult 03/18/2023 Assessment & Plan (11/09/2023 10:43 AM EDT): Patient has been counseled and educated about diet and exercise. Personal goal of weight loss discussedPatient has comorbidity of: DM Assessment & Plan (03/18/2023 1:12 PM EST): Patient has been counseled and educated about diet and exercise. Personal goal of weight loss discussedPatient has comorbidity of: DM Retained dental root 03/09/2023 Dental abscess 03/09/2023 Dental caries 01/20/2023 Intention tremor 03/06/2022 Assessment & Plan (03/06/2022 4:27 PM EST): Pt with c/o bilateral intention tremor seen in the past by Neurologist Dr Craven previous visit referred back He was last seen by Neurologist 11/26/2021, started on Primidone 50 mg 2 tabs BID It appears he was also started on Propranolol 80 mg BID but unclear if he is actually taking it He recommended a 3 month f/u Lesion of liver greater than 1 cm in diameter with no liver disease or history of malignant neoplasm 03/06/2022 Assessment & Plan (03/06/2022 4:31 PM EST): Pt had an incidental finding of a liver lesion while undergoing a CT for abdominal pain. done on 09/29/2015. Radiologist recommended an MRI of liver MRI showed : Nonspecific focal signal abnormality as well as marginal enhancement is noted within the gallbladder bed and adjacent part of the liver parenchyma. Differential diagnostic consideration would include recent postsurgical changes versus developing phlegmon/abscess formation. Clinical correlation as well as lab correlation and if appropriate, follow-up targeted ultrasound and/or image-guided aspiration as appropriate may be considered for further clarification. Given this findings Us was done and showed: Status post cholecystectomy with heterogeneous 2.9 x 3.5 x 2.9 cm collection within the gallbladder fossa. This finding requires additional clinical correlation. If patient has postoperative right upper quadrant pain and fever, then abscess would be considered. A postoperative hematoma could have a similar appearance. Case discussed with surgeon Dr Damon who recommended NO further work up or intervention since these are likely post op changes in the setting of a 100% asymptomatic pt. Hx of CABG 03/06/2022 Chronic low back pain 02/20/2022 Overview (03/06/2022): Previously cased discussed with Pain management ctr and pt's rough rounder, pt did not qualify for treatment given that he is on both Asa and Plavix, Assessment & Plan (06/09/2022 11:23 AM EST): Patient is here for a f/u visit patient with chronic and severe low back pain. 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 No focal disc protrusion. Mild central canal stenosis at L2-L3. Severe central canal stenosis and thecal sac compression at L3-L4. [id number] central canal stenosis at L4-L5 with spondylitic Changes. Hypertrophic facet arthropathy and mild disc bulge at L5-S1 with moderate central canal stenosis and bony spurring encroaching upon the right subarticular zone. Pt sent for Neurosurgery evaluation 09/15/2016 who recommended a Left L3-L4 laminoforaminotomy through a minimally invasive approach, as well as a contralateral decompression of the right lateral recess and ligamentum flavum. Repeat MRI 05/01/2021 showed: Multilevel degenerative spondylotic changes with interval progression compared with 2019. At L3-L4 there is left foraminal protrusion resulting in severe left-sided neural foraminal stenosis with significant compression of the exiting left L3 nerve root, new from prior. Similar appearance of moderate to severe right-sided neural foraminal stenosis. At L4-L5 there is moderate spinal canal stenosis with compression of both traversing L5 nerve roots, progressed from prior. At L5-S1 there is bilateral subarticular stenosis with compression of the traversing right more than left S1 nerve root, similar prior. Mild to moderate spinal canal stenosis. Patient was finally seen [place] [facility] [place] Their impression was that he was not a candidate for neuraxial intervention given his Hx of CAD and PVD ( risk to jennifer o discontinue DAPT for 10 day They recommended to continue Cymbalta and Vicodin per PCP pain/cramping/burning suggestive of neuropathic component Patient did not tolerate the higher dose of Cymbalta Pt was interested in going to back to Neurosurgery to review the MRI and discuss if any surgical options available Pt was seen 09/08/[address] Sparrow recommended unroofing of nerve root via complete facetectomy Current Medical Regimen: Oxycontin 10 mg once a day, Hydrocodone 10 q 4 hrs and Gabapentin 800 mg TID Pt underwent ALIF 10/03/2021 still c/o pain but not the cramps. Today pt c/o pain 8/10 despite medical regimen, discussed risks of increasing narcotic regimen, pt verbalized understanding Plan: Increase Oxycontin to 10 mg po BID f/u 3 months Assessment & Plan (03/06/2022 4:24 PM EST): Patient is here for a f/u visit patient with chronic and severe low back pain. 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 No focal disc protrusion. Mild central canal stenosis at L2-L3. Severe central canal stenosis and thecal sac compression at L3-L4. [id number] central canal stenosis at L4-L5 with spondylitic Changes. Hypertrophic facet arthropathy and mild disc bulge at L5-S1 with moderate central canal stenosis and bony spurring encroaching upon the right subarticular zone. Pt sent for Neurosurgery evaluation 09/15/2016 who recommended a Left L3-L4 laminoforaminotomy through a minimally invasive approach, as well as a contralateral decompression of the right lateral recess and ligamentum flavum. Repeat MRI 05/01/2021 showed: Multilevel degenerative spondylotic changes with interval progression compared with 2019. At L3-L4 there is left foraminal protrusion resulting in severe left-sided neural foraminal stenosis with significant compression of the exiting left L3 nerve root, new from prior. Similar appearance of moderate to severe right-sided neural foraminal stenosis. At L4-L5 there is moderate spinal canal stenosis with compression of both traversing L5 nerve roots, progressed from prior. At L5-S1 there is bilateral subarticular stenosis with compression of the traversing right more than left S1 nerve root, similar prior. Mild to moderate spinal canal stenosis. Patient was finally seen at [facility] 03/31/2021 Their impression was that he was not a candidate for neuraxial intervention given his Hx of CAD and PVD ( risk to jennifer o discontinue DAPT for 10 day They recommended to continue Cymbalta and Vicodin per PCP pain/cramping/burning suggestive of neuropathic component Patient did not tolerate the higher dose of Cymbalta Pt was interested in going to back to Neurosurgery to review the MRI and discuss if any surgical options available Pt was seen 09/08/[address] Sparrow recommended unroofing of nerve root via complete facetectomy Current Medical Regimen: Oxycontin 10 mg once a day, Hydrocodone 10 q 4 hrs and Gabapentin 800 mg TID Pt underwent ALIF 10/03/2021 still c/o pain but not the cramps. Plan: continue current regimen f/u 3 months PAD (peripheral artery disease) 02/20/2022 Assessment & Plan (06/22/2023 11:13 AM EDT): He has a long hx of Severe PVD, unable to walk 1 block without having significant pain. Pt follows with Dr Bell now . He had balloon angioplasty and a stent put in previously. Had a previous Hospitalization for acute LLE ischemia and underwent a Left AK pop bypass with PTFE graft fasciotomies by Dr. Bell 03/14 LLE US to r/o a DVT was negative Pt will continue with Vascular surgeon per pts report. Last seen 06/03/2023. He recommended conservative management and f/u with them in 6 months Assessment & Plan (12/29/2022 10:44 AM EDT): He has a long hx of Severe PVD, unable to walk 1 block without having significant pain. Pt follows with Dr Arabella garibay . He had balloon angioplasty and a stent put in previously. Had a previous Hospitalization for acute LLE ischemia and underwent a Left AK pop bypass with PTFE graft fasciotomies by Dr. Bell 03/14 LLE US to r/o a DVT was negative Pt will continue with Vascular surgeon per pts report. Last seen 10/07/2022. He recommended conservative management and f/u with them in 6 months Assessment & Plan (03/06/2022 4:29 PM EST): He has a long hx of Severe PVD, unable to walk 1 block without having significant pain. Pt follows with Dr Arabella garibay . He had balloon angioplasty and a stent put in previously. Had a previous Hospitalization for acute LLE ischemia and underwent a Left AK pop bypass with PTFE graft fasciotomies by Dr. Bell 03/14 LLE US to r/o a DVT was negative Pt will continue with Vascular surgeon per pts report. Last seen 08/28/2021. 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 Discussed with patient that the use of Nitrostat is an ABSOLUTE CONTRAINDICATION, and that he cannot take Viagra while using Nitrostat, pt assures me that he has not taken Nitrostat in months and in the past rarely used it. He also tells me that he knows very well that he should not take Nitrostat when taking Viagra and promised not to ever do it. 5 pills with no refills given. I also asked that he discuss with his Technology Architect to let him know that he will be taking it. Primary hypertension 12/21/2013 Assessment & Plan (09/30/2023 1:29 PM EDT): Patient here for a f/u Blood pressure currently slightly elevated on a regimen of: Lisinopril 20 MG PO daily and Metoprolol 50 MG bid For now will continue with current medical regimen. If elevated in one month will adjust regimen Most recent electrolytes, Bun and Creatinine done on: 01/08/2023 were within normal limits. Patient advised to adhere to a low sodium diet, encouraged about medication compliance, counseled about weight loss. 3 months f/u In terms of his surgical procedure he has been advised to take both of his antihypertensive medications the morning of the procedure with a small sip of water Assessment & Plan (03/18/2023 1:20 PM EST): Patient here for a f/u Blood pressure currently slightly elevated on a regimen of: Lisinopril 20 MG PO daily and Metoprolol 50 MG bid For now will continue with current medical regimen. If elevated in one month will adjust regimen Most recent electrolytes, Bun and Creatinine done on: 01/08/2023 were within normal limits. Patient advised to adhere to a low sodium diet, encouraged about medication compliance, counseled about weight loss. 3 months f/u Assessment & Plan (12/29/2022 11:01 AM EDT): Patient here for a f/u Blood pressure currently slightly elevated on a regimen of: Lisinopril 20 MG PO daily and Metoprolol 50 MG bid For now will continue with current medical regimen. If elevated in one month will adjust regimen Most recent electrolytes, Bun and Creatinine done on: 03/03/2022 were within normal limits. Patient advised to adhere to a low sodium diet, encouraged about medication compliance, counseled about weight loss. 1 month f/u Will repeat Labs Assessment & Plan (06/09/2022 11:17 AM EST): Patient here for a f/u Blood pressure currently controlled on a regimen of: Lisinopril 20 MG PO daily and Metoprolol 50 MG bid Given adequate blood pressure control will continue with current medical regimen. Most recent electrolytes, Bun and Creatinine done on: 03/03/2022 were within normal limits. Patient advised to adhere to a low sodium diet, encouraged about medication compliance, counseled about weight loss. 3 month f/u Assessment & Plan (03/06/2022 4:18 PM EST): Patient here for a f/u Blood pressure currently controlled on a regimen of: Lisinopril 20 MG PO daily and Metoprolol 50 MG bid Given adequate blood pressure control will continue with current medical regimen. Most recent electrolytes, Bun and Creatinine done on: 03/03/2022 were within normal limits. Patient advised to adhere to a low sodium diet, encouraged about medication compliance, counseled about weight loss. 3 month f/u Kidney stone 12/21/2013 Gastroesophageal reflux disease 06/21/2013 Atherosclerosis of coronary artery 12/18/2011 Assessment & Plan (03/10/2022 10:21 AM EST): Pt is under [facility] last note 11/2020, recommendation was for pt to f/u with Dr Baig. Depressive disorder 12/18/2011 Hyperlipidemia 12/18/2011 Assessment & Plan (12/09/2023 12:54 PM EDT): Patient is here for a f/u Most recent lipid profile from: Lab Results Component Value Date TRIG 177 (H) 12/02/2023 TRIG 230 (H) 01/08/2023 CHOL 140 12/02/2023 CHOL 137 01/08/2023 LDLCHOLCAL 58 12/02/2023 LDLCHOLCAL 46 01/08/2023 HDL 47 12/02/2023 HDL 45 01/08/2023 Currently on a regimen of: Crestor 40mg po daily, Zetia 10mg po daily and Fish oil 1000 mg po TID. For now will continue with current regimen. Patient advised to try to adhere to a low cholesterol diet, counseled and educated about diet and exercise, Patient encouraged to come up with a personal goal for weight loss. Assessment & Plan (11/09/2023 10:42 AM EDT): Patient is here for a f/u Most recent lipid profile from: 01/08/2023 shows Component Ref Range & Units (01/08/23) (03/03/22) (04/14/21) (04/14/21) Triglycerides <150 mg/dL 230 High 491 High CM 434 High CM 434 Abnormal R Comment: Desirable Triglyceride: less than 150 mg/dLBorderline High Triglyceride 150-199 mg/dLHigh Triglyceride: 200-499 mg/dLVery High Triglyceride: greater than or equal to 5OO mg/dL Cholesterol <200 mg/dL 137 195 R Comment: Desirable Cholesterol: less than 200 mg/dLBorderline High Cholesterol: 200-239 mg/dLHigh Cholesterol: greater than 239 mg/dL LDL Cholesterol Calculated <100 mg/dL 46 Comment: Desirable LDL: less than 100 mg/dLNear Optimal/Above Optimal LDL: 110- 129 mg/dLBorderline High LDL: 130-159 mg/dLHigh LDL: 160-189 mg/dLVery High LDL: greater than or equal to 190 mg/dL HDL Cholesterol >40 mg/dL 45 36 Low R 35 Low R Currently on a regimen of: Crestor 40mg po daily, Zetia 10mg po daily and Fish oil 1000 mg po TID. For now will continue with current regimen. Patient advised to try to adhere to a low cholesterol diet, counseled and educated about diet and exercise, Patient encouraged to come up with a personal goal for weight loss. Assessment & Plan (03/18/2023 1:00 PM EST): Patient is here for a f/u Most recent lipid profile from: 01/08/2023 shows Component Ref Range & Units 2 mo ago (01/08/23) 1 yr ago (03/03/22) 1 yr ago (04/14/21) 1 yr ago (04/14/21) Triglycerides <150 mg/dL 230??High?? 491??High?? CM 434??High?? CM 434??Abnormal?? R Comment: Desirable Triglyceride: ? less than 150 mg/dLBorderline High Triglyceride ??150-199 mg/dLHigh Triglyceride: ?200-499 mg/dLVery High Triglyceride: ? greater than or equal to ?5OO mg/dL Cholesterol <200 mg/dL 137 195 R Comment: Desirable Cholesterol: ?less than 200 mg/dLBorderline High Cholesterol: ??200-239 mg/dLHigh Cholesterol: ? greater than 239 mg/dL LDL Cholesterol Calculated <100 mg/dL 46 Comment: Desirable LDL: ? less than 100 mg/dLNear Optimal/Above Optimal LDL: ??110-129 mg/dLBorderline High LDL: ? 130-159 mg/dLHigh LDL: ?160-189 mg/dLVery High LDL: ? greater than or equal to ? 190 mg/dL HDL Cholesterol >40 mg/dL 45 36??Low?? R 35??Low?? R Currently on a regimen of: Crestor 40mg po daily, Zetia 10mg po daily and Fish oil 1000 mg po TID. For now will continue with current regimen. Patient advised to try to adhere to a low cholesterol diet, counseled and educated about diet and exercise, Patient encouraged to come up with a personal goal for weight loss. Assessment & Plan (12/29/2022 10:45 AM EDT): Patient is here for a f/u Most recent lipid profile from: 03/03/2022 shows a total cholesterol 204 Triglycerides 491 HDL of: 36 and LDL of: not performed due to elevated triglycerides Currently on a regimen of: Crestor 40mg po daily, Zetia 10mg po daily and Fish oil 1000 mg po TID. For now will continue with current regimen. Will repeat Lipid profile Patient advised to try to adhere to a low cholesterol diet, counseled and educated about diet and exercise, Patient encouraged to come up with a personal goal for weight loss. Assessment & Plan (06/09/2022 11:20 AM EST): Patient is here for a f/u Most recent lipid profile from: 03/03/2022 shows a total cholesterol 204 Triglycerides 491 HDL of: 36 and LDL of: not performed due to elevated triglycerides Currently on a regimen of: Crestor 40mg po daily, Zetia 10mg po daily and Fish oil 1000 mg po TID. For now will continue with current regimen. Patient advised to try to adhere to a low cholesterol diet, counseled and educated about diet and exercise, Patient encouraged to come up with a personal goal for weight loss. Assessment & Plan (03/06/2022 4:20 PM EST): Patient is here for a f/u Most recent lipid profile from: 03/03/2022 shows a total cholesterol 204 Triglycerides 491 HDL of: 36 and LDL of: not performed due to elevated triglycerides Currently on a regimen of: Crestor 40mg po daily, Zetia 10mg po daily and Fish oil 1000 mg po TID. For now will continue with current regimen. Patient advised to try to adhere to a low cholesterol diet, counseled and educated about diet and exercise, Patient encouraged to come up with a personal goal for weight loss. Type 2 diabetes mellitus wit h neurologic complication, with long-term current use of insulin 12/18/2011 Assessment & Plan (12/09/2023 1:07 PM EDT): Pt here for f/u He is on a regimen of Tresiba 22 units sc q pm, Metformin XR 500 mg 2 tabs po BID and Trulicity 1.5 mg once a week Hgb A1c 12/09/2023: 7 from 7.5 Pt denies any Hx of pancreatitis or Medullary thyroid CA or Fam hx of thyroid CA. Eye exam 03/23/2023 Dr. Leal Microalbumin 04/14/2021 was 3.9. Pt on an BRIEN inhibitor will repeat Pt reports compliance with Asa 81 mg po daily Plan: Continue current regimen follow up in 4 months Pt advised to: adhere to diabetic diet check your blood sugars regularly check your feet on a daily basis Assessment & Plan (11/09/2023 10:39 AM EDT): Pt here for f/u He is on a regimen of Tresiba 22 units sc q pm, Metformin XR 500 mg 2 tabs po BID and Trulicity 1.5 mg once a week Hgb A1c 11/09/2023: from 7.5 from 8.3 Pt denies any Hx of pancreatitis or Medullary thyroid CA or Fam hx of thyroid CA. Eye exam 03/23/2023 Dr. Leal Microalbumin 04/14/2021 was 3.9. Pt on an BRIEN inhibitor will repeat Pt reports compliance with Asa 81 mg po daily Plan: follow up in 4 months Pt advised to: adhere to diabetic diet check your blood sugars regularly check your feet on a daily basis Assessment & Plan (09/30/2023 1:41 PM EDT): Pt here for f/u He is on a regimen of Tresiba 22 units sc q pm, Metformin XR 500 mg 2 tabs po BID and Trulicity 1.5 mg once a week Hgb A1c 09/30/2023: 7.5 from 8.3 Pt denies any Hx of pancreatitis or Medullary thyroid CA or Fam hx of thyroid CA. Eye exam 03/23/2023 Dr. Leal Microalbumin 04/14/2021 was 3.9. Pt on an BRIEN inhibitor Pt reports compliance with Asa 81 mg po daily Plan: follow up in 3 months Pt advised to: adhere to diabetic diet check your blood sugars regularly check your feet on a daily basis In terms of the suegical procedure he was instructed to : inject only half of his usual dose of Levemir the night prior to the procedure. Hold the morning dose of Metformin the day of the procedure and continue with Trulicity as prescribed Assessment & Plan (06/22/2023 11:16 AM EDT): Pt here for f/u He is on a regimen of Levemir 22 units sc q pm, Metformin XR 500 mg 2 tabs po BID and Trulicity 1.5 mg once a week Hgb A1c 06/22/2023: 8.3 Pt denies any Hx of pancreatitis or Medullary thyroid CA or Fam hx of thyroid CA. Eye exam 03/23/2023 Dr. Leal Microalbumin 04/14/2021 was 3.9. Pt on an BRIEN inhibitor Pt reports compliance with Asa 81 mg po daily Plan: follow up in 3 months Pt advised to: adhere to diabetic diet check your blood sugars regularly check your feet on a daily basis Assessment & Plan (03/18/2023 1:20 PM EST): Pt here for f/u He is on a regimen of Levemir 22 units sc q pm, Metformin XR 500 mg 2 tabs po BID and Trulicity 0.75 mg once a week Hgb A1c 03/18/2023: 8.1 Pt denies any Hx of pancreatitis or Medukllary thyroid CA or Fam hx of thyroid CA. Eye exam 03/06/2016 Dr. Jaimie Atkins Microalbumin 04/14/2021 was 3.9. Pt on an BRIEN inhibitor Pt reports compliance with Asa 81 mg po daily Plan: Increase Trulicity 1.5 once a week Pt advised to: adhere to diabetic diet check your blood sugars regularly check your feet on a daily basis f/u 3 months Assessment & Plan (12/29/2022 10:52 AM EDT): Pt here for f/u He is on a regimen of Levemir 22 units sc q pm, Metformin XR 500 mg 2 tabs po BID and Glipizide 10 mg po daily Hgb A1c 12/29/2022: 7.8 On 02/05/2022 I recommended to start Trulicity 0.7 mg once a week. Pt denies any Hx of pancreatitis or Medukllary thyroid CA or Fam hx of thyroid CA. Pt never started it because he wanted to try with adhering to a diabetic diet Eye exam 03/06/2016 Dr. Jaimie Atkins Microalbumin 04/14/2021 was 3.9. Pt on an BRIEN inhibitor Pt reports compliance with Asa 81 mg po daily Plan: Stop Glipizide start Trulicity 0.75 once a week Pt advised to: adhere to diabetic diet check your blood sugars regularly check your feet on a daily basis f/u 1 month Assessment & Plan (06/09/2022 11:27 AM EST): Pt here for f/u He is on a regimen of Levemir 22 units sc q pm, Metformin XR 500 mg 2 tabs po BID and Glipizide 10 mg po BID Hgb A1c 06/09/2022 was: 6.6 Pt reports BG readings as low as 65 On 02/05/2022 I recommended to start Trulicity 0.7 mg once a week. Pt denies any Hx of pancreatitis or Medukllary thyroid CA or Fam hx of thyroid CA. Pt never started it because he wanted to try with adhering to a diabetic diet Eye exam 03/06/2016 Dr. Jaimie Atkins Microalbumin 04/14/2021 was 3.9. Pt on an BRIEN inhibitor Pt reports compliance with Asa 81 mg po daily Plan: lower glipizide to 10 mg po daily Pt advised to: adhere to diabetic diet check your blood sugars regularly check your feet on a daily basis f/u 3 months Assessment & Plan (03/10/2022 10:18 AM EST): Pt here for f/u Last visit pt's DM was uncontrolled He is on a regimen of Levemir 22 units sc q pm, Metformin XR 500 mg 2 tabs po BID and Glipizide 10 mg po BID Hgb A1c 02/05/2022 was 8.6 On 02/05/2022 I recommended to start Trulicity 0.7 mg once a week. Pt denies any Hx of pancreatitis or Medukllary thyroid CA or Fam hx of thyroid CA. Today patient tells me he never started it because he wanted to try with adhering to a diabetic diet and glucometer now shows average of 126 Eye exam 03/06/2016 Dr. Jaimie Atkins Microalbumin 04/14/2021 was 3.9. Pt on an BRIEN inhibitor Foot check today is risk of: zero Pt reports compliance with Asa 81 mg po daily Plan: STOP Trulicity (Pt never used) continue with current regimen Pt advised to: adhere to diabetic diet check your blood sugars regularly check your feet on a daily basis f/u 3 months Resolved Problems Problem Noted Date Diagnosed Date Resolved Date Constipation 06/21/2013 03/06/2022 Migraine 12/18/2011 03/06/2022 Encounters Date Type Department Care Team Description 06/16/2024 10:30 AM EDT Clinical Support [facility] [address] [place], [place] [address], [place] [address] Karishma Rose RN Chronic midline low back pain without sciatica (Primary Dx); Long-term current use of opiate analgesic 06/16/2024 Travel 06/12/2024 Refill [facility] [address] [facility] [place] [address] Santi Landry MD Chronic midline low back pain without sciatica 06/09/2024 Refill [facility] [address] [facility] [place] [address] Santi Landry MD 06/09/2024 Refill [facility] [address] [facility] [place] [address] Santi Landry MD Type 2 diabetes mellitus without complications ([facility]) 06/09/2024 Refill [facility] [address] [facility] [place] [address] Santi Landry MD Chronic midline low back pain without sciatica 06/07/2024 Refill [facility] [address] [facility] [place] [address] Santi Landry MD 06/06/2024 Refill [facility] [address] [facility] [place] [address] Santi Landry MD Chronic midline low back pain without sciatica 06/05/2024 Refill [facility] [address] [facility] [place] [address] Santi Landry MD Atherosclerosis of [place] coronary artery of [place] heart without angina pectoris 06/05/2024 Refill [facility] [address] [facility] [place] [address] Michelle Carmona MD Atherosclerosis of [place] coronary artery of [place] heart without angina pectoris 06/04/2024 Telephone [facility] [address] [facility] [address] [place], [place] [phone] Santi Landry MD Med Refill 05/23/2024 Refill [facility] [address] [facility] [place] [address] Gregoria Sinclair RN 05/23/2024 Refill [facility] [address] [place] [address] Santi Landry MD Primary hypertension 05/15/2024 Refill [facility] [address] [place] [address] Santi Landry MD Chronic midline low back pain without sciatica 05/15/2024 Refill [facility] [address] [place] [address] Santi Landry MD Chronic midline low back pain without sciatica 05/12/2024 Refill [facility] [address] [place], [place] [phone] Santi Landry MD Chronic midline low back pain without sciatica 04/26/2024 10:00 AM EST Office Visit [facility] [address] [place] [address] Jeovanny Katz DDS Acute pseudomembranous candidiasis of mouth (Primary Dx) 04/18/2024 Refill [facility] [address] [place] [address] Santi Landry MD Chronic midline low back pain without sciatica 04/17/2024 Refill [facility] [address] [place] [address] Santi Landry MD Chronic midline low back pain without sciatica 04/17/2024 Refill [facility] [address] [place] [address] Santi Landry MD Chronic midline low back pain without sciatica 04/14/2024 Refill [facility] [address] [place], [place] [phone] Santi Landry MD Chronic midline low back pain without sciatica 03/27/2024 10:00 AM EST Telemedicine [facility] [address] [place] [address] Karishma Rose RN Chronic midline low back pain without sciatica 03/27/2024 Travel 03/20/2024 Refill [facility] [address] [place] [address] Santi Landry MD Chronic midline low back pain without sciatica 03/20/2024 Refill [facility] [address] [place] [address] Santi Landry MD Type 2 diabetes mellitus with diabetic polyneuropathy, with long-term current use of insulin ([facility]) 03/20/2024 Refill [facility] [address] [place] [address] Santi Landry MD Chronic midline low back pain without sciatica 03/20/2024 Refill [facility] [address] [place] [address] Santi Landry MD Chronic midline low back pain without sciatica 03/18/2024 Refill [facility] [address] [place] [address] Santi Landry MD 03/18/2024 Refill [facility] [address] [place] [address] Queenie Saini DO Type 2 diabetes mellitus with diabetic polyneuropathy, with long-term current use of insulin ([facility]) from Last 3 Months Immunizations Name Administration Dates Next Due Influenza High-dose Quadriva lent Preservative Free 02/05/2022,01/16/2021 Influenza injectable quadriv alent IIV4 with preservative 04/20/2017 Influenza injectable quadriv alent preservative free 12/29/2022,01/10/2019,03/08/2018,07/23 Influenza, IIV3, injectable 12/21/2013, 0 Influenza, Split (incl. gordo fied surface antigen) 12/18/2011 Pfizer Covid-19 Vaccine 12+ 06/12/2021,,10/01/2020 Pfizer Covid-19 Vaccine 12+ alexey-sucrose ([place] Cap) 06/12/2021 Pneumococcal Conjugate PCV 13 11/11/2016, 017 Pneumococcal Polysaccharide PPSV23 01/16/2021,,04/02/2004 TD (adult), 2 Lf tetanus tox oid, preservative free, adsorbed 09/03/2004 Tdap 07/23/2016 Social History Tobacco Use Types Packs/Day Years Used Date Smoking Tobacco: Former Cigarettes Passive Smoke Exposure: Past Smokeless Tobacco: Never Tobacco Cessation:Counseling Given: Not Answered Alcohol Use Standard Drinks/Week Comments Never 0 [...] Orientation Straight 02/02/2022 10 :16 AM EDT Last Filed Vital Signs Vital Sign Reading Time Taken Comments Blood Pressure 126/80 04/26/2024 9:36 AM EST Pulse 68 12/09/2023 12:57 PM EDT Temperature 35.5 ??C (95.9 ??F) 12/09/2023 12:57 PM E DT Respiratory Rate 20 12/09/2023 12:57 PM EDT Oxygen Saturation 98% 12/09/2023 12:57 PM EDT Inhaled Oxygen Concentration - - Weight 86.6 kg (191 lb) 12/09/2023 12:57 PM EDT Height 167.6 cm (5' 6 ) 12/09/2023 12:57 PM EDT Body Mass Index 30.83 12/09/2023 12:57 PM EDT Plan of Treatment Upcoming Encounters Date Type Department Care Team (Late st Contact Info) Description 09/11/2024 10:00 AM EDT Telemedicine [facility] [address] [place] [address] Karishma Rose, RN [address] [place] [address] Health Maintenance Due Date Last Done Comments CT Colonography 1950 FIT DNA/Cologuard 1950 FIT 1950 FOBT 1950 Sigmoidoscopy 1950 Diabetes: Foot Exam 1960 Eye Exam 1960 Alcohol/Substance Use Screening 1962 Hepatitis A Vaccines (1 of 2 - Risk 2-dose series) 1969 Zoster Vaccines (1 of 2) 2000 Hepatitis B Vaccines (1 of 3 - Risk 3-dose series) 2010 RSV Patients and Patients Aged 60 years or older (1 - Risk 60-74 years 1-dose series) 2010 Dental Prophylaxis 08/22/2013 02/21/2013 Dental X-Ray: Bitewings 05/10/2014 05/09/2013, 06/23 Dental Oral Exam 07/23/2023 01/20/2023, 05/09/2013 COVID-19 Vaccine ( season) 2023 06/12/2021, 06/12/2021, 10/31/2020, Additional history exists Influenza Vaccine (#1) 2023 , 02/05/2022, 01/16/2021, Additional history exists Colonoscopy 02/09/2024 02/08/2019 Colorectal Cancer Screening 02/09/2024 Diabetes: Hemoglobin A1C 03/09/2024 024, 09/30/2023, 06/22/2023, Additional history exists SDOH Screening 06/21/2024 06/22/2023 Depression Screening 11/08/2024 11/09/2023, 11/09/19 Diabetes: Urine Protein Screening 12/01/2024 12/02/2023, 04/14/2021 Lipid Panel 12/01/2024 12/02/2023, 10/0 09/2022, 03/03/2022, Additional history exists Tobacco Screening 04/26/2025 04/26/2024 DTaP/Tdap/Td Vaccines (2 - Td or Tdap) 07/23/2026 07/23/2016, 09/03/2004 Dental X-Ray: Full Mouth 04/27/2027 025, 01/20/2023, 06/23/2012 Pneumococcal Vaccine: 50+ Years Completed 01/16/2021, 11/11/2016, 07/23/2016, Additional history exists Hepatitis C Screening Completed 12/08/2023, 022 HIB Vaccines Aged Out No longer eligi ble based on patient's age to complete this topic HPV Vaccines Aged Out No longer eligi ble based on patient's age to complete this topic IPV Vaccines Aged Out No longer eligi ble based on patient's age to complete this topic Meningococcal Vaccine Aged Out No tristan wil eligible based on patient's age to complete this topic RSV under 20 months Aged Out No longe r eligible based on patient's age to complete this topic Rotavirus Vaccines Aged Out No longer eligible based on patient's age to complete this topic Procedures Procedure Name Priority Date/Time Associated Diagnosis Comments POCT OSCAR-14 URINE DRUG SCREEN Routine 06/16/2024 10:36 AM EDT Long-term current use of opiate analgesic Chronic midline low back pain without sciatica LIMITED ORAL EVALUATION - PROBLEM FOCUSED Routine 04/26/2024 10:00 AM EST CASE PRESENTATION, DETAILED AND EXTENSIVE TREATMENT PLANNING Routine 04/26/2024 10:00 AM EST PANORAMIC RADIOGRAPHIC IMAGE Routine 04/26/2024 10:00 AM EST POCT GLYCATED HEMOGLOBIN, TOTAL Routine 12/09/2023 12:59 PM EDT Type 2 diabetes mellitus with diabetic polyneuropathy, with long-term current use of insulin ([facility]) HEPATITIS C AB W/REFL TO HCV RNA, QN, PCR Routine 12/08/2023 12:04 PM EDT Type 2 diabetes mellitus with diabetic polyneuropathy, with long-term current use of insulin ([facility]) Preventative health care Mixed hyperlipidemia Elevated LFTs Hepatitis ALBUMIN, RANDOM URINE W/CREATININE Routine 12/02/2023 10:25 AM EDT Type 2 diabetes mellitus with diabetic polyneuropathy, with long-term current use of insulin ([facility]) LIPID PANEL, STANDARD Routine 12/02/2023 10:09 AM EDT Mixed hyperlipidemia PERIODIC ORAL EVALUATION - ESTABLISHED PATIENT Routine 01/20/2023 9:00 AM EDT HM COLONOSCOPY Routine 02/08/2019 BITEWINGS - 4 RADIOGRAPHIC IMAGES Routine 05/09/2013 12:00 AM EST PROPHYLAXIS - ADULT Routine 02/21/2013 1 2:00 AM EST from Last 3 Months or Most Recently Relevant to Health Maintenance Results * POCT OSCAR-14 Urine Drug Screen (06/16/2024 10:36 AM EDT) Opiate Screen, Urine Positive Barbiturate Screen, Urine Positive Oxycodone Screen, Urine Positive Urine Urine specimen obtained by clean catch procedure / Unknown 06/16/2024 10:36 AM EDT Santi Toscano MD POINT OF CARE TEST EN TER/EDIT ORDERABLES Final Result * (ABNORMAL) POCT HGB A1C (12/09/2023 12:59 PM EDT) Hemoglobin A1C 7.0(A) 4.0 - 6.0 % QC Media Lot # [id number] Lot# Expiration Date [id number] Blood 12/09/2023 12:5 9 PM EDT us Santi Toscano MD POINT OF CARE TEST EN TER/EDIT ORDERABLES Final Result * Hepatitis C Antibody with Reflex to HCV, RNA, Quantitative, Real-Time PCR (12/08/2023 12:04 PM EDT) Hepatitis C Antibody Nonreactive Nonreactive [facility] Comment:Antibodies to HCV no t detected; does not exclude early acuteHCV infection. Blood Venous blood specimen / Unknown 12/08/2023 12:04 PM EDT 12/08/2023 1:14 PM EDT us Santi Toscano MD LAB BLOOD ORDERABLES Final Result Performing Organization Address [facility] Co de Phone Number [facility] [address] [place] [phone] * (ABNORMAL) Albumin, Random Urine W/Creatinine (12/02/2023 10:25 AM EDT) Creatinine, Urine 427.73 mg/dL [facility] Microalbumin Urine 193.0 mg/L H [facility] Microalbum Creatinine Ratio Ur 45.1(H) <30 ug/mg cr [facility] Comment:Albumin/Creatinine R atio Reference Ranges: Normal: < 30 ug/mg creatinine Microalbuminuria: 30 - 300 ug/mg creatinineClinical Albuminuria: > 300 ug/mg creatinine Urine (Urine, Random) 12/02/2023 10:25 AM EDT 12/02/2023 10:58 AM EDT us Santi Toscano MD LAB URINE ORDERABLES Final Result Performing Organization Address City/[facility]/ZIP Co de Phone Number [facility] [address] [place] [phone] * (ABNORMAL) Lipid Panel, Standard (12/02/2023 10:09 AM EDT) Triglycerides 177(H) <150 mg/dL [facility] Comment:Desirable Triglyceri de: less than 150 mg/dLBorderline High Triglyceride 150-199 mg/dLHigh Triglyceride: 200-499 mg/dLVery High Triglyceride: greater than or equal to 5OO mg/dL Cholesterol 140 <200 mg/dL [facility] Comment:Desirable Cholestero l: less than 200 mg/dLBorderline High Cholesterol: 200-239 mg/dLHigh Cholesterol: greater than 239 mg/dL LDL Cholesterol Calculated 58 <100 mg/dL [facility] Comment:Desirable LDL: less than 100 mg/dLNear Optimal/Above Optimal LDL: 110- 129 mg/dLBorderline High LDL: 130-159 mg/dLHigh LDL: 160-189 mg/dLVery High LDL: greater than or equal to 190 mg/dL HDL Cholesterol 47 >40 mg/dL [facility] Comment:Desirable HDL: great er than 40 mg/dL Note: This HDL assay may give artificially low results in patients with liver disease. Blood Venous blood specimen / Unknown 12/02/2023 10:09 AM EDT 12/02/2023 11:05 AM EDT Santi Toscano MD LAB BLOOD ORDERABLES Final Result [facility] [address] [place] [phone] * Colonoscopy (02/08/2019) Colonoscopy Tubular Adenoma Comment:Dr Estrada Historical Provider HEALTH MAINTENANCE Edited Result - Final from Last 3 Months or Most Recently Relevant to Health Maintenance [facility] Care Teams Elevator Mechanic Apprentice Relationship Specialty Start Date End Date Santi Landry MD [address] [place] [address] PCP - General Internal Medicine 06/14/14
--- OUTSIDE RECORDS SUMMARY | 2024-06-16 15:49 | XMS_ITS | Encounter Summary ---
Author Organization [employer] Address [address] [place] [address] Care Team Providers Care Metal Room Dental Technician Name Role Phone Santi Landry MD Primary Care Provide r Reason for Visit * Reason Onset Date Comments Med Refill 08/31/2023 Encounter Details Date Type Department Care Team ([facility] st Contact Info) Description 08/31/2023 Refill [facility] [address] [place] [address] Santi Landry MD [address] [place] [address] Social History Tobacco Use Types Packs/Day Years [...] Info) Description 09/11/2024 10:00 AM EDT Telemedicine [facility] [address] [place] [address] Karishma Rose, RN [address] [place] [address] documented as of this encounter Visit Diagnoses Not on filedocumented in this encounter Additional Health Concerns Assessment Noted Time PHQ-9 Depression Total Score: 6 06/22/19 24 11:07 AM EDT documented as of this encounter Care Teams Metal Room Dental Technician Relationship Specialty Start Date End Date Santi Landry MD [address] [place] [address] PCP - General Internal Medicine 06/14/14 documented as of this encounter
--- OUTSIDE RECORDS SUMMARY | 2024-06-16 15:49 | XMS_ITS | Encounter Summary ---
Author Organization [employer] Address [address] [facility] 7t [place] [address] Care Team Providers Care Box Stamper Name Role Phone Santi Landry MD Primary Care Provide r Reason for Visit * Reason Comments controlled substance treatment Encounter Details Date Type Department Care Team (Latest Contact Info) Description 06/16/2024 10:30 AM EDT Clinical Support [facility] MEDICINE [address] [place] [address] Karishma Rose RN 505 [place] [address] Chronic midline low back pain without sciatica (Primary Dx); Long-term current use of opiate analgesic Social History Tobacco Use Types Packs/Day Years [...] your housing situation today? I have shorty joseline 06/22/[address] you li [...] AM EDT documented as of this encounter Progress Notes * Karishma Rose RN - 06/16/2024 10:30 AM EDT S: SAMPLE TESTER GRINDER Televisit. Current rx Oxycontin 10 mg q 12 hrs and Hydrocodone/ Acetaminophen 10/325 one tablet q 4 hrs prn. States has been taking as prescribed. States he just woke up and took medications. Reports no adverse reactions. Current pain level 8/10 located in shoulders, lower back, legs. Statesmedications provide about 30% pain relief. Patient denies ETOH or illicit drug use. States recentlyquit smoking cigarettes, congratulated! Last visit with PCP 12/09/23. .Chronic pain group pamphlet given, patient not interested at this time, but maybe in the future. No questions/ concerns at this time. O: APPLICATIONS PACKAGER verified. Pill count performed. Pt has 49 Oxycontin pills at this time, at least 49 expected. Pt has 105 Hydrocodone pills, 99 expected. Medications are not overused by patient. .BPI updated today. Pain severity score of (8), activity interference score of (7.5). Previous BPI completed (10/15/23) with pain severity score of (7.5), activity interference score of (8). Utox performed, positivefor OXY, MOP, BAR. negative AMP, BUP, BZO, DONOVAN, FTY, MDMA, MET, MTD, PCP, TCA, THC. Sending it out to the lab for BAR confirmation. PCP notified. A: SAMPLE TESTER GRINDER Visit; Chronic opioid use related to pain. P: Patient to continue taking medication only as prescribed; Next SAMPLE TESTER GRINDER NV appointment scheduled for 09/11/24 at 10 am. Reminder slip given. f/u sooner PRN. Patient verbalized understanding and agreed toplan. documented in this encounter Plan of Treatment Upcoming Encounters Date Type Department Care Team ([facility] st Contact Info) Description 09/11/2024 10:00 AM EDT Telemedicine [facility] MED & PEDS [address] [place] [address] Karishma Rose RN [address] [place] [address] Scheduled Orders Name Type Priority Associated Diagnoses Orde r Schedule Barbiturates, Urine Lab Routine Long-term current use of opiate analgesic Chronic midline low back pain without sciatica Ordered: 06/16/2024 documented as of this encounter Procedures Procedure Name Priority Date/Time Associated Diagnosis Comments POCT OSCAR-14 URINE DRUG SCREEN Routine 06/16/2024 10:36 AM EDT Long-term current use of opiate analgesic Chronic midline low back pain without sciatica documented in this encounter Results * POCT OSCAR-14 Urine Drug Screen (06/16/2024 10:36 AM EDT) Opiate Screen, Urine Positive Barbiturate Screen, Urine Positive Oxycodone Screen, Urine Positive Urine Urine specimen obtained by clean catch procedure / Unknown 06/16/2024 10:36 AM EDT Santi Toscano MD POINT OF CARE TEST EN TER/EDIT ORDERABLES Final Result documented in this encounter Visit Diagnoses Diagnosis Chronic midline low back pain without sciatica- Primary Long-term current use of opiate analgesic Encounter for long-term (current) use of other medications documented in this encounter Additional Health Concerns Assessment Noted Time PHQ-9 Depression Total Score: 0 11/09/19 24 10:18 AM EDT documented as of this encounter Care Teams Box Stamper Relationship Specialty Start Date End Date Santi Landry MD [address] [place] [address] PCP - General Internal Medicine 06/14/14 documented as of this encounter
--- OUTSIDE RECORDS SUMMARY | 2024-06-16 15:49 | XMS_ITS | Encounter Summary ---
Author Organization [employer] Address [address] [facility] 7t [place] [address] Care Team Providers Care Telephone Engineer Name Role Phone Santi Landry MD Primary Care Provide r Reason for Visit * Reason Onset Date Comments Med Refill 09/24/2023 Encounter Details Date Type Department Care Team ([facility] st Contact Info) Description 09/24/2023 Refill [facility] MEDICINE [address] [place] [address] Santi Landry MD 230 [place] [address] Social History Tobacco Use Types Packs/Day Years [...] Info) Description 09/11/2024 10:00 AM EDT Telemedicine [facility] MED & PEDS 505 [place] [address] Karishma Rose, RN 505 [place] [address] documented as of this encounter Visit Diagnoses Not on filedocumented in this encounter Additional Health Concerns Assessment Noted Time PHQ-9 Depression Total Score: 6 06/22/19 24 11:07 AM EDT documented as of this encounter Care Teams Telephone Engineer Relationship Specialty Start Date End Date Santi Landry MD [address] [place] [address] PCP - General Internal Medicine 06/14/14 documented as of this encounter
--- OUTSIDE RECORDS SUMMARY | 2024-06-16 15:49 | XMS_ITS | Encounter Summary ---
Author Organization [employer] Address [address] [place] [address] [address], [place] [address] Care Team Providers Care Clinical Biostatistician Name Role Phone Santi Landry MD Primary Care Provide r Reason for Visit * Reason Onset Date Comments Med Refill 10/01/2022 Encounter Details Date Type Department Care Team ([facility] st Contact Info) Description 10/01/2022 Telephone [facility] MEDICINE 230 [place] [address] Santi Landry MD [address] [place] [address] Med Refill Social History Tobacco Use Types Packs/Day Years [...] AM EDT documented as of this encounter Miscellaneous Notes * Telephone Encounter - Catrachita Beverlynez - 10/01/2022 8:47 AM EDT Tc from patient requesting a med refill on medication hydrocodone 10 mg and oxycodone ER [address] Messina documented in this encounter Plan of Treatment Upcoming Encounters Date Type Department Care Team (Late st Contact Info) Description 09/11/2024 10:00 AM EDT Telemedicine [facility] MED & PEDS 505 [place] [address] Karishma Rose, RN 505 [place] [address] documented as of this encounter Visit Diagnoses Not on filedocumented in this encounter Additional Health Concerns Assessment Noted Time PHQ-9 Depression Total Score: 0 06/10/19 23 11:13 AM EST documented as of this encounter Care Teams Clinical Biostatistician Relationship Specialty Start Date End Date Santi Landry MD 230 [place] [address] PCP - General Internal Medicine 06/14/14 documented as of this encounter
--- OUTSIDE RECORDS SUMMARY | 2024-06-16 15:49 | XMS_ITS | Encounter Summary ---
Author Organization [employer] Address [address] [facility] 7t [place] [address] Care Team Providers Care Child Monitor Name Role Phone Santi Landry MD Primary Care Provide r Reason for Visit * Reason Onset Date Comments Med Refill 09/15/2023 Encounter Details Date Type Department Care Team ([facility] st Contact Info) Description 09/15/2023 Refill [facility] MEDICINE [address] [place] [address] Santi Landry MD [address] [place] [address] Social History Tobacco Use Types Packs/Day Years [...] Description 09/11/2024 10:00 AM EDT Telemedicine [facility] MED & PEDS [address] [place] [address] Karishma Rose, RN 505 [place] [address] documented as of this encounter Visit Diagnoses Not on filedocumented in this encounter Additional Health Concerns Assessment Noted Time PHQ-9 Depression Total Score: 6 06/22/19 24 11:07 AM EDT documented as of this encounter Care Teams Child Monitor Relationship Specialty Start Date End Date Santi Landry MD [address] [place] [address] PCP - General Internal Medicine 06/14/14 documented as of this encounter
--- OUTSIDE RECORDS SUMMARY | 2024-06-16 15:49 | XMS_ITS | Encounter Summary ---
Author Organization [employer] Address [address] [facility] 7t [place] [address] Care Team Providers Care Vault Attendant Name Role Phone Santi Landry MD Primary Care Provide r Reason for Visit * Reason Onset Date Comments Med Refill 09/28/2023 Encounter Details Date Type Department Care Team ([facility] st Contact Info) Description 09/28/2023 Refill [facility] MED [facility]EDS [address] [place] [address] Santi Landry MD [address] [place] [address] Social History Tobacco Use Types Packs/Day Years [...] is your housing situation today? I have shortymedina trevizo 06/22/[address] you [...] Upcoming Encounters Date Type Department Care Team ([facility] st Contact Info) Description 09/11/2024 10:00 AM EDT Telemedicine [facility] MED & PEDS 505 [place] [address] Karishma Rose, RN 505 [place] [address] documented as of this encounter Visit Diagnoses Not on filedocumented in this encounter Additional Health Concerns Assessment Noted Time PHQ-9 Depression Total Score: 6 06/22/19 24 11:07 AM EDT documented as of this encounter Care Teams Vault Attendant Relationship Specialty Start Date End Date Santi Landry MD [address] [place] [address] PCP - General Internal Medicine 06/14/14 documented as of this encounter
--- OUTSIDE RECORDS SUMMARY | 2024-06-16 15:49 | XMS_ITS | Encounter Summary ---
Author Organization [employer] Address [address] [facility] 7[address] [place] [address] Care Team Providers Care Extrusion Process Operator Name Role Phone Santi Landry MD Primary Care Provide r Reason for Visit * Reason Onset Date Comments Med Refill 08/11/2023 Encounter Details Date Type Department Care Team ([facility] st Contact Info) Description 08/11/[address] [facility] MEDICINE 230 [place] [address] Santi Landry MD 230 [place] [address] Med Refill Social History Tobacco Use Types [...] encounter Miscellaneous Notes * Telephone Encounter - Manoj Toscano - 08/12/2023 3:25 PM EDT Tc from the patients spouse requesting status in regards to the message below * Telephone Encounter - Cari Cancino - 08/11/2023 11:05 AM EDT TC from pt requesting medication refill. Medications needing refill : HYDROcodone-acetaminophen ([place]) 10-325 MG tablet To be sent to: [facility] - [place], [place] - [address] [facility] documented in this encounter Plan of Treatment Upcoming Encounters Date Type Department Care Team (Late st Contact Info) Description 09/11/2024 10:00 AM EDT Telemedicine [facility] MED & PEDS 505 [place] [address] Karishma Rose, FATEMEH 505 [place] [address] documented as of this encounter Visit Diagnoses Not on filedocumented in this encounter Additional Health Concerns Assessment Noted Time PHQ-9 Depression Total Score: 6 06/22/19 24 11:07 AM EDT documented as of this encounter Care Teams Extrusion Process Operator Relationship Specialty Start Date End Date Santi Landry MD [address] [place] [address] PCP - General Internal Medicine 06/14/14 documented as of this encounter
--- OUTSIDE RECORDS SUMMARY | 2024-06-16 15:49 | XMS_ITS | Encounter Summary ---
Author Organization [employer] Address [address] [facility] 7t [place] [address] Care Team Providers Care Cephalometric Tracer Name Role Phone Santi Landry MD Primary Care Provide r Reason for Visit * Reason Onset Date Comments Med Refill 06/12/2024 Encounter Details Date Type Department Care Team ([facility] st Contact Info) Description 06/12/2024 Refill [facility] MEDICINE 230 [place] [address] Santi Landry MD [address] [place] [address] Chronic midline low back pain without sciatica [...] Info) Description 09/11/2024 10:00 AM EDT Telemedicine [facility] MED & PEDS 505 [place] [address] Karishma Rose, FATEMEH 505 [place] [address] documented as of this encounter Visit Diagnoses Diagnosis Chronic midline low back pain without sciatica documented in this encounter Additional Health Concerns Assessment Noted Time PHQ-9 Depression Total Score: 0 11/09/19 24 10:18 AM EDT documented as of this encounter Care Teams Cephalometric Tracer Relationship Specialty Start Date End Date Santi Landry MD [address] [place] [address] PCP - General Internal Medicine 06/14/14 documented as of this encounter
--- OUTSIDE RECORDS SUMMARY | 2024-06-16 15:49 | XMS_ITS | Encounter Summary ---
Author Organization [employer] Address [address] [facility] 7t [place] [address] Care Team Providers Care Clinical Staff Rn Name Role Phone Santi Landry MD Primary Care Provide r Reason for Visit * Reason Onset Date Comments Med Refill 09/07/2023 Encounter Details Date Type Department Care Team ([facility] st Contact Info) Description 09/07/2023 Refill [facility] PEDS [address] [place] [address] Santi Landry MD [address] [place] [address] Social History Tobacco Use Types Packs/Day Years [...] Upcoming Encounters Date Type Department Care Team ([facility] st Contact Info) Description 09/11/2024 10:00 AM EDT Telemedicine [facility] MED & PEDS 505 [place] [address] Karishma Rose, RN 505 [place] [address] documented as of this encounter Visit Diagnoses Not on filedocumented in this encounter Additional Health Concerns Assessment Noted Time PHQ-9 Depression Total Score: 6 06/22/19 24 11:07 AM EDT documented as of this encounter Care Teams Clinical Staff Rn Relationship Specialty Start Date End Date Santi Landry MD [address] [place] [address] PCP - General Internal Medicine 06/14/14 documented as of this encounter
--- OUTSIDE RECORDS SUMMARY | 2024-06-16 15:49 | XMS_ITS | Encounter Summary ---
Author Organization [employer] Address [address] [facility] 7t [place] [address] Care Team Providers Care Business Practices Officer Name Role Phone Santi Landry MD Primary Care Provide r Reason for Visit * Reason Onset Date Comments Med Refill 08/18/2023 Encounter Details Date Type Department Care Team ([facility] st Contact Info) Description 08/18/2023 Refill [facility] MEDICINE 230 [place] [address] Santi Landry MD 230 [place] [address] Social History Tobacco Use Types Packs/Day Years [...] 09/11/2024 10:00 AM EDT Telemedicine [facility] MED & PEDS 505 [place] [address] Karishma Rose, RN 505 [place] [address] documented as of this encounter Visit Diagnoses Not on filedocumented in this encounter Additional Health Concerns Assessment Noted Time PHQ-9 Depression Total Score: 6 06/22/19 24 11:07 AM EDT documented as of this encounter Care Teams Business Practices Officer Relationship Specialty Start Date End Date Santi Landry MD [address] [place] [address] PCP - General Internal Medicine 06/14/14 documented as of this encounter
--- OUTSIDE RECORDS SUMMARY | 2024-06-16 15:49 | XMS_ITS | Encounter Summary ---
Author Organization [employer] Address [address] [facility] 7t [place] [address] Care Team Providers Care Electrical And Instrument Engineer Name Role Phone Santi Landry MD Primary Care Provide r Reason for Visit * Reason Onset Date Comments Med Refill 08/30/2023 Encounter Details Date Type Department Care Team ([facility] st Contact Info) Description 08/30/2023 Refill [facility] MEDICINE 230 [place] [address] Santi Landry MD 230 [place] [address] Social History Tobacco Use Types Packs/Day Years [...] Info) Description 09/11/2024 10:00 AM EDT Telemedicine [facility] MED & PEDS 505 [place] [address] Karishma Rose, RN 505 [place] [address] documented as of this encounter Visit Diagnoses Not on filedocumented in this encounter Additional Health Concerns Assessment Noted Time PHQ-9 Depression Total Score: 6 06/22/19 24 11:07 AM EDT documented as of this encounter Care Teams Electrical And Instrument Engineer Relationship Specialty Start Date End Date Santi Landry MD [address] [place] [address] PCP - General Internal Medicine 06/14/14 documented as of this encounter
--- OUTSIDE RECORDS SUMMARY | 2024-06-16 15:49 | XMS_ITS | Encounter Summary ---
Author Organization [employer] Address [address] [facility] 7t [place] [address] Care Team Providers Care Child Care Center Assistant Director Name Role Phone Santi Landry MD Primary Care Provide r Reason for Visit * Reason Onset Date Comments Med Refill 05/24/2023 Encounter Details Date Type Department Care Team ([facility] st Contact Info) Description 05/24/2023 Refill [facility] MEDICINE [address] [place] [address] Michelle Carmona MD [address] [place] [address] Type 2 diabetes mellitus with diabetic polyneuropathy, with long-term current use of insulin ([facility]) Social History Tobacco Use Types Packs/Day Years Used Date Smoking Tobacco: Former Cigarettes Passive Smoke Exposure: Past Smokeless Tobacco: Never Alcohol Use Standard Drinks/Week Comments Never 0 (1 standard drink = 0.6 oz pur e alcohol) Depression Answer Date Recorded Patient Health Questionnaire-9 Score 0 06/09/2022 Housing Stability Answer Date Recorded What is your housing situation today? I have shortymedina trevizo 01/18/[address] you li ve. Do you have problems with any of the following? None of the above 01/18/2023 Food Insecurity Answer Date Recorded Within the past 12 months, y ou worried that your food would run out before you got money to buy more: Never True 01/18/2023 Within the past 12 months,th e food you bought just didn't last and you didn't have enough money to get more: Never True 10/ Transportation Answer Date Recorded In the past 12 months, has l ack of transportation kept you from medical appts, meetings, work or from getting things needed for daily living? No 01/18/2023 Utilities Answer Date Recorded In the past 12 months, has t he electric, gas, oil or water company threatened to shut off services in your home? No 01/18/2023 Depression Answer Date Recorded Patient Health Questionnaire-2 Score 0 06/09/2022 Sex and Gender Information Value Date Recorded Sex Assigned at Male 02/02/2022 10:16 AM EDT Legal Sex Male 10:16 AM EDT Gender Identity Male 02/02/2022 10:16 AM EDT Sexual Orientation Straight 02/02/2022 10 :16 AM EDT documented as of this encounter Plan of Treatment Upcoming Encounters Date Type Department Care Team ([facility] st Contact Info) Description 09/11/2024 10:00 AM EDT Telemedicine [facility] MED & PEDS 505 [place] [address] Karishma Rose RN 505 [place] [address] documented as of this encounter Visit Diagnoses Diagnosis Type 2 diabetes mellitus with diabetic polyneuropathy, with long-term current use of insulin ([facility]) documented in this encounter Additional Health Concerns Assessment Noted Time PHQ-9 Depression Total Score: 0 06/10/19 23 11:13 AM EST documented as of this encounter Care Teams Child Care Center Assistant Director Relationship Specialty Start Date End Date Santi Landry MD [address] [place] [address] PCP - General Internal Medicine 06/14/14 documented as of this encounter
--- OUTSIDE RECORDS SUMMARY | 2024-06-16 15:49 | XMS_ITS | Encounter Summary ---
Author Organization [employer] Address [address] [place] [address], [place] [address] Care Team Providers Care Cell Manager Name Role Phone Santi Landry MD Primary Care Provide r Reason for Visit * Reason Onset Date Comments Med Refill 11/24/2022 Encounter Details Date Type Department Care Team ([facility] Contact Info) Description 11/24/2022 Refill [facility] MEDICINE 230 [place] [address] Santi Landry MD 230 [place] [address] Chronic midline low back pain without sciatica [...] Upcoming Encounters Date Type Department Care Team ([facility] Contact Info) Description 09/11/2024 10:00 AM EDT Telemedicine [facility] PEDS 505 [place] [address] Karishma Rose, FATEMEH 505 [place] [address] documented as of this encounter Visit Diagnoses Diagnosis Chronic midline low back pain without sciatica documented in this encounter Additional Health Concerns Assessment Noted Time PHQ-9 Depression Total Score: 0 06/10/19 23 11:13 AM EST documented as of this encounter Care Teams Cell Manager Relationship Specialty Start Date End Date Santi Landry MD [address] [place] [address] PCP - General Internal Medicine 06/14/14 documented as of this encounter
--- OUTSIDE RECORDS SUMMARY | 2024-06-16 15:49 | XMS_ITS | Encounter Summary ---
Author Organization [employer] Address [address] [place] [address] 7 [place] [address] Care Team Providers Care Pawn Broker Name Role Phone Santi Landry MD Primary Care Provide r Encounter Details Date Type Department Care Team ([facility] Contact Info) Description 12/22/2022 Orders Only [facility] MED & PEDS [address] [place] [address] Essie Can LPN Social History Tobacco Use Types Packs/Day Years [...] Encounters Date Type Department Care Team (Late Contact Info) Description 09/11/2024 10:00 AM EDT Telemedicine [facility] MED & PEDS [address] [place] [address] Karishma Rose, FATEMEH 505 [place] [address] documented as of this encounter Procedures Procedure Name Priority Date/Time Associated Diagnosis Comments GLUCOSE, WHOLE BLOOD Routine 10/25/2023 8:38 AM EDT GLUCOSE, WHOLE BLOOD Routine 10/11/2023 8:42 AM EDT documented in this encounter Results * Glucose, Whole Blood (10/25/2023 8:38 AM EDT) Glucose, Whole Blood 93 60 - 115 mg/dL [facility] Comment:METER #: [id number] 10/25/2023 8:38 AM EDT 10/25/2023 8:42 AM EDT us Generic External Data Provider LAB BLOOD ORDERAB LES Final Result Performing Organization Address [facility]/ZIP Co de Phone Number [facility] [address] [place] [phone] * (ABNORMAL) Glucose, Whole Blood (10/11/2023 8:42 AM EDT) Glucose, Whole Blood 143(H) 60 - 115 mg/dL [facility] Comment:METER #: [id number] 10/11/2023 8:42 AM EDT 10/11/2023 8:46 AM EDT us Generic External Data Provider LAB BLOOD ORDERAB LES Final Result Performing Organization Address City/[facility]/ZIP Co de Phone Number [facility] [address] [place] [phone] documented in this encounter Visit Diagnoses Not on filedocumented in this encounter Additional Health Concerns Assessment Noted Time PHQ-9 Depression Total Score: 0 06/10/19 23 11:13 AM EST documented as of this encounter Care Teams Pawn Broker Relationship Specialty Start Date End Date Santi Landry MD [address] [place] [id number] PCP - General Internal Medicine 06/14/14 documented as of this encounter
--- OUTSIDE RECORDS SUMMARY | 2024-06-16 15:50 | XMS_ITS | Encounter Summary ---
Author Organization [employer] Address 75 [facility] 7t [place] [address] Care Team Providers Care Access Specialist Name Role Phone Santi Landry MD Primary Care Provide r Reason for Visit * Reason Onset Date Comments Med Refill 03/18/2024 Encounter Details Date Type Department Care Team ([facility] st Contact Info) Description 03/18/2024 Refill [facility] MEDICINE 230 [place] [address] Queenie Saini DO 230 [place] [address] Type 2 diabetes mellitus with diabetic polyneuropathy, with long-term current use of insulin ([facility]) Social History Tobacco Use Types Packs/Day Years [...] Description 09/11/2024 10:00 AM EDT Telemedicine [facility] MED & PEDS 505 [place] [address] Karishma Rose, FATEMEH 505 [place] [address] documented as of this encounter Visit Diagnoses Diagnosis Type 2 diabetes mellitus with diabetic polyneuropathy, with long-term current use of insulin ([facility]) documented in this encounter Additional Health Concerns Assessment Noted Time PHQ-9 Depression Total Score: 0 11/09/19 24 10:18 AM EDT documented as of this encounter Care Teams Access Specialist Relationship Specialty Start Date End Date Santi Landry MD [address] [place] [address] PCP - General Internal Medicine 06/14/14 documented as of this encounter
--- OUTSIDE RECORDS SUMMARY | 2024-06-16 15:50 | XMS_ITS | Encounter Summary ---
Author Organization [employer] Address 75 [facility] 7t [place] [address] Care Team Providers Care Assistant Dean Name Role Phone Santi Landry MD Primary Care Provide r Reason for Visit * Reason Onset Date Comments Med Refill 04/17/2024 Encounter Details Date Type Department Care Team ([facility] st Contact Info) Description 04/17/2024 Refill [facility] & PEDS [address] [place] [address] Santi Landry MD [address] [place] [address] Chronic midline low back pain without sciatica [...] Description 09/11/2024 10:00 AM EDT Telemedicine [facility] MED & PEDS 505 [place] [address] Karishma Rose, FATEMEH 505 [place] [address] documented as of this encounter Visit Diagnoses Diagnosis Chronic midline low back pain without sciatica documented in this encounter Additional Health Concerns Assessment Noted Time PHQ-9 Depression Total Score: 0 11/09/19 24 10:18 AM EDT documented as of this encounter Care Teams Assistant Dean Relationship Specialty Start Date End Date Santi Landry MD [address] [place] [address] PCP - General Internal Medicine 06/14/14 documented as of this encounter
--- OUTSIDE RECORDS SUMMARY | 2024-06-16 15:50 | XMS_ITS | Encounter Summary ---
Author Organization [employer] Address 75 [facility] 7t [place] [address] Care Team Providers Care Hospital Clinic Assistant Name Role Phone Santi Landry MD Primary Care Provide r Reason for Visit * Reason Onset Date Comments Med Refill 04/08/2023 Encounter Details Date Type Department Care Team ([facility] st Contact Info) Description 04/08/2023 Refill [facility] MEDICINE 230 [place] [address] Santi Landry MD 230 [place] [address] Type 2 diabetes mellitus with diabetic polyneuropathy, with long-term current use of insulin ([facility]) Social History Tobacco Use Types Packs/Day Years Used Date Smoking Tobacco: Former Cigarettes Passive Smoke Exposure: Past Smokeless Tobacco: Never Alcohol Use Standard Drinks/Week Comments Never 0 (1 standard drink = 0.6 oz pur e alcohol) Depression Answer Date Recorded Patient Health Questionnaire-9 Score 0 06/09/2022 Housing Stability Answer Date Recorded What is your housing situation today? I have shortymedina rtevizo 01/18/[address] you li [...] Info) Description 09/11/2024 10:00 AM EDT Telemedicine [facility] MED & PEDS 505 [place] [address] Karishma Rose RN 505 [place] [address] documented as of this encounter Visit Diagnoses Diagnosis Type 2 diabetes mellitus with diabetic polyneuropathy, with long-term current use of insulin ([facility]) documented in this encounter Additional Health Concerns Assessment Noted Time PHQ-9 Depression Total Score: 0 06/10/19 23 11:13 AM EST documented as of this encounter Care Teams Hospital Clinic Assistant Relationship Specialty Start Date End Date Santi Landry MD [address] [place] [address] PCP - General Internal Medicine 06/14/14 documented as of this encounter
--- OUTSIDE RECORDS SUMMARY | 2024-06-16 15:50 | XMS_ITS | Encounter Summary ---
Author Organization [employer] Address 75 [facility] 7t [place] [address] Care Team Providers Care Applications Consultant Name Role Phone Santi Landry MD Primary Care Provide r Reason for Visit * Reason Onset Date Comments Med Refill 02/15/2023 Encounter Details Date Type Department Care Team ([facility] st Contact Info) Description 02/15/2023 Refill [facility] MEDICINE 230 [place] [address] Santi Landry MD 230 [place] [address] Chronic midline low back pain without sciatica [...] housing situation today? I have shorty trevizo 01/18/[address] you [...] Description 09/11/2024 10:00 AM EDT Telemedicine [facility] MED & PEDS 505 [place] [address] Karishma Rose, FATEMEH 505 [place] [address] documented as of this encounter Visit Diagnoses Diagnosis Chronic midline low back pain without sciatica documented in this encounter Additional Health Concerns Assessment Noted Time PHQ-9 Depression Total Score: 0 06/10/19 23 11:13 AM EST documented as of this encounter Care Teams Applications Consultant Relationship Specialty Start Date End Date Santi Landry MD 230 [place] [address] PCP - General Internal Medicine 06/14/14 documented as of this encounter
--- OUTSIDE RECORDS SUMMARY | 2024-06-16 15:50 | XMS_ITS | Encounter Summary ---
Author Organization [employer] Address 75 [facility] 7t [place] [address] Care Team Providers Care Senior Android Software Engineer Name Role Phone Santi Landry MD Primary Care Provide r Reason for Visit * Reason Onset Date Comments Med Refill 03/12/2023 Encounter Details Date Type Department Care Team ([facility] st Contact Info) Description 03/12/2023 Refill [facility] MEDICINE 230 [place] [address] Santi Landry MD 230 [place] [address] Chronic midline low back pain without sciatica [...] [facility] 505 [place] [address] Karishma Rose, FATEMEH 505 [place] [address] documented as of this encounter Visit Diagnoses Diagnosis Chronic midline low back pain without sciatica documented in this encounter Additional Health Concerns Assessment Noted Time PHQ-9 Depression Total Score: 0 06/10/19 23 11:13 AM EST documented as of this encounter Care Teams Senior Android Software Engineer Relationship Specialty Start Date End Date Santi Landry MD [address] [place] [address] PCP - General Internal Medicine 06/14/14 documented as of this encounter
--- OUTSIDE RECORDS SUMMARY | 2024-06-16 15:50 | XMS_ITS | Encounter Summary ---
Author Organization [employer] Address 75 [facility] 7[place] [address] Care Team Providers Care Cash Applications Clerk Name Role Phone Santi Landry MD Primary Care Provide r Reason for Visit * Reason Onset Date Comments Med Refill 05/10/2023 Encounter Details Date Type Department Care Team ([facility] st Contact Info) Description 05/10/2023 Refill [facility] MEDICINE 230 [place] [address] Santi Landry MD 230 [place] [address] Social History Tobacco Use Types Packs/Day Years [...] Info) Description 09/11/2024 10:00 AM EDT Telemedicine [facility] MED & PEDS 505 [place] [address] Karishma Rose RN 505 [place] [address] documented as of this encounter Visit Diagnoses Not on filedocumented in this encounter Additional Health Concerns Assessment Noted Time PHQ-9 Depression Total Score: 0 06/10/19 23 11:13 AM EST documented as of this encounter Care Teams Cash Applications Clerk Relationship Specialty Start Date End Date Santi Landry MD 230 [place] [address] PCP - General Internal Medicine 06/14/14 documented as of this encounter
--- OUTSIDE RECORDS SUMMARY | 2024-06-16 15:50 | XMS_ITS | Encounter Summary ---
Author Organization [employer] Address 75 [facility] 7t [place] [address] Care Team Providers Care Ceo Na Name Role Phone Santi Landry MD Primary Care Provide r Reason for Visit * Reason Onset Date Comments Med Refill 01/24/2024 Encounter Details Date Type Department Care Team ([facility] st Contact Info) Description 01/24/2024 Refill [facility] MEDICINE 230 [place] [address] Santi Landry MD 230 [place] [address] Chronic midline low back pain without sciatica [...] 09/11/2024 10:00 AM EDT Telemedicine [facility] MED & PEDS 505 [place] [address] Karishma Rose, FATEMEH 505 [place] [address] documented as of this encounter Visit Diagnoses Diagnosis Chronic midline low back pain without sciatica documented in this encounter Additional Health Concerns Assessment Noted Time PHQ-9 Depression Total Score: 0 11/09/19 24 10:18 AM EDT documented as of this encounter Care Teams Ceo Na Relationship Specialty Start Date End Date Santi Landry MD [address] [place] [address] PCP - General Internal Medicine 06/14/14 documented as of this encounter
--- OUTSIDE RECORDS SUMMARY | 2024-06-16 15:50 | XMS_ITS | Encounter Summary ---
Author Organization [employer] Address 75 [facility] 7t [place] [address] Care Team Providers Care Wedding Day Coordinator Name Role Phone Santi Landry MD Primary Care Provide r Reason for Visit * Reason Onset Date Comments Med Refill 06/05/2024 Encounter Details Date Type Department Care Team ([facility] st Contact Info) Description 06/05/2024 Refill [facility] MEDICINE 230 [place] [address] Michelle Carmona MD 230 [place] [address] Atherosclerosis of [place] coronary artery of [place] heart without angina pectoris Social History Tobacco [...] 09/11/2024 10:00 AM EDT Telemedicine [facility] MED & PEDS 505 [place] [address] Karishma Rose, FATEMEH 505 [place] [address] documented as of this encounter Visit Diagnoses Diagnosis Atherosclerosis of [place] coronary artery of [place] heart without angina pectoris documented in this encounter Additional Health Concerns Assessment Noted Time PHQ-9 Depression Total Score: 0 11/09/19 24 10:18 AM EDT documented as of this encounter Care Teams Wedding Day Coordinator Relationship Specialty Start Date End Date Santi Landry MD [address] [place] [address] PCP - General Internal Medicine 06/14/14 documented as of this encounter
--- OUTSIDE RECORDS SUMMARY | 2024-06-16 15:50 | XMS_ITS | Encounter Summary ---
Author Organization [employer] Address 75 [facility] 7t [place] [address] Care Team Providers Care Motorized Squad Captain Name Role Phone Santi Landry MD Primary Care Provide r Reason for Visit * Reason Comments Med Refill Encounter Details Date Type Department Care Team ([facility] st Contact Info) Description 03/20/2024 Refill [facility] MED & PEDS [address] [place], [place] [phone] Santi Landry MD [address] [place] [address] Chronic midline low back pain without sciatica [...] Upcoming Encounters Date Type Department Care Team ([facility] st Contact Info) Description 09/11/2024 10:00 AM EDT Telemedicine [facility] MED & PEDS 505 [place] [address] Karishma Rose, RN 505 [place] [address] documented as of this encounter Visit Diagnoses Diagnosis Chronic midline low back pain without sciatica documented in this encounter Additional Health Concerns Assessment Noted Time PHQ-9 Depression Total Score: 0 11/09/19 24 10:18 AM EDT documented as of this encounter Care Teams Motorized Squad Captain Relationship Specialty Start Date End Date Santi Landry MD [address] [place] [address] PCP - General Internal Medicine 06/14/14 documented as of this encounter
--- OUTSIDE RECORDS SUMMARY | 2024-06-16 15:50 | XMS_ITS | Encounter Summary ---
Author Organization [employer] Address 75 [facility] 7t [place] [address] Care Team Providers Care Oil Well Service Unit Operator Name Role Phone Santi Landry MD Primary Care Provide r Reason for Visit * Reason Onset Date Comments Med Refill 06/04/2024 Encounter Details Date Type Department Care Team ([facility] st Contact Info) Description 06/04/2024 Telephone [facility] MED & PEDS [address] [place], [place] [phone] Santi Landry MD 230 [place] [address] Med Refill Social History Tobacco Use Types [...] encounter Miscellaneous Notes * Telephone Encounter - Karishma Rose RN - 06/16/2024 10:37 AM EDT Fyi. Pt here for STEAM METER READER. Utox pos. BAR, sending out to the lab for BAR confirmation. * Telephone Encounter - Karishma Rose RN - 06/16/2024 10:17 AM EDT .What STEAM METER READER Tier would you like this patient to be? Tier 1 = HIGH RISK, Monthly STEAM METER READER visits Tier 2 = MODerate RISK, Q3 Month visits Tier 3 = LOW RISK = Q4-6 month visits documented in this encounter Plan of Treatment Upcoming Encounters Date Type Department Care Team (Late st Contact Info) Description 09/11/2024 10:00 AM EDT Telemedicine [facility] MED & PEDS 505 [place] [address] Karishma Rose RN 505 [place] [address] documented as of this encounter Visit Diagnoses Diagnosis Chronic midline low back pain without sciatica documented in this encounter Additional Health Concerns Assessment Noted Time PHQ-9 Depression Total Score: 0 11/09/19 24 10:18 AM EDT documented as of this encounter Care Teams Oil Well Service Unit Operator Relationship Specialty Start Date End Date Santi Landry MD [address] [place] [address] PCP - General Internal Medicine 06/14/14 documented as of this encounter
--- OUTSIDE RECORDS SUMMARY | 2024-06-16 15:50 | XMS_ITS | Encounter Summary ---
Author Organization [employer] Address 75 [facility] 7t [place] [address] Care Team Providers Care Rail Splitter Name Role Phone Santi Landry MD Primary Care Provide r Reason for Visit * Reason Comments Med Refill Encounter Details Date Type Department Care Team ([facility] st Contact Info) Description 02/29/2024 Refill [facility] MEDICINE 230 [place] [address] Michelle Carmona MD 230 [place] [address] Type 2 diabetes mellitus without complications (CMS/HCC) Social History Tobacco Use Types Packs/Day Years [...] Upcoming Encounters Date Type Department Care Team ([facility] st Contact Info) Description 09/11/2024 10:00 AM EDT Telemedicine [facility] MED & PEDS 505 [place] [address] Karishma Rose, RN 505 [place] [address] documented as of this encounter Visit Diagnoses Diagnosis Type 2 diabetes mellitus without complications (CMS/HCC) documented in this encounter Additional Health Concerns Assessment Noted Time PHQ-9 Depression Total Score: 0 11/09/19 24 10:18 AM EDT documented as of this encounter Care Teams Rail Splitter Relationship Specialty Start Date End Date Santi Landry MD [address] [place] [address] PCP - General Internal Medicine 06/14/14 documented as of this encounter
--- OUTSIDE RECORDS SUMMARY | 2024-06-16 15:50 | XMS_ITS | Encounter Summary ---
Author Organization [employer] Address 75 [facility] 7t [place] [address] Care Team Providers Care Twenty One Dealer Name Role Phone Santi Landry MD Primary Care Provide r Reason for Visit * Reason Onset Date Comments Med Refill 06/06/2024 Encounter Details Date Type Department Care Team ([facility] st Contact Info) Description 06/06/2024 Refill [facility] MEDICINE 230 [place] [address] Santi Landry MD 230 [place] [address] Chronic midline low back pain without sciatica [...] Info) Description 09/11/2024 10:00 AM EDT Telemedicine [facility] MED & PEDS 505 [place] [address] Karishma Rose, FATEMEH 505 [place] [address] documented as of this encounter Visit Diagnoses Diagnosis Chronic midline low back pain without sciatica documented in this encounter Additional Health Concerns Assessment Noted Time PHQ-9 Depression Total Score: 0 11/09/19 24 10:18 AM EDT documented as of this encounter Care Teams Twenty One Dealer Relationship Specialty Start Date End Date Santi Landry MD [address] [place] [address] PCP - General Internal Medicine 06/14/14 documented as of this encounter
--- OUTSIDE RECORDS SUMMARY | 2024-06-16 15:50 | XMS_ITS | Encounter Summary ---
Author Organization [employer] Address 75 [facility] [address] [address] Care Team Providers Care Director Pediatric Name Role Phone Santi Landry MD Primary Care Provide r Reason for Visit * Reason Onset Date Comments Med Refill 02/12/2023 Encounter Details Date Type Department Care Team ([facility] st Contact Info) Description 02/12/2023 Refill [facility] MEDICINE 230 [place] [address] Santi Landry MD 230 [place] [address] Social History Tobacco Use Types Packs/Day Years [...] Info) Description 09/11/2024 10:00 AM EDT Telemedicine [facility] MED & PEDS 505 [place] [address] Karishma Rose RN 505 [place] [address] documented as of this encounter Visit Diagnoses Not on filedocumented in this encounter Additional Health Concerns Assessment Noted Time PHQ-9 Depression Total Score: 0 06/10/19 23 11:13 AM EST documented as of this encounter Care Teams Director Pediatric Relationship Specialty Start Date End Date Santi Landry MD 230 [place] [address] PCP - General Internal Medicine 06/14/14 documented as of this encounter
--- OUTSIDE RECORDS SUMMARY | 2024-06-16 15:50 | XMS_ITS | Encounter Summary ---
Author Organization [employer] Address 75 [facility] 7t [place] [address] Care Team Providers Care Inspector Precision Assembly Name Role Phone Santi Landry MD Primary Care Provide r Reason for Visit * Reason Onset Date Comments Med Refill 06/09/2024 Encounter Details Date Type Department Care Team ([facility] st Contact Info) Description 06/09/2024 Refill [facility] MEDICINE 230 [place] [address] Santi Landry MD 230 [place] [address] Chronic midline low back pain without sciatica [...] Description 09/11/2024 10:00 AM EDT Telemedicine [facility] MED & PEDS 505 [place] [address] Karishma Rose, FATEMEH 505 [place] [address] documented as of this encounter Visit Diagnoses Diagnosis Chronic midline low back pain without sciatica documented in this encounter Additional Health Concerns Assessment Noted Time PHQ-9 Depression Total Score: 0 11/09/19 24 10:18 AM EDT documented as of this encounter Care Teams Inspector Precision Assembly Relationship Specialty Start Date End Date Santi Landry MD [address] [place] [address] PCP - General Internal Medicine 06/14/14 documented as of this encounter
--- OUTSIDE RECORDS SUMMARY | 2024-06-16 15:50 | XMS_ITS | Encounter Summary ---
Author Organization [employer] Address 75 [facility] 7t [place] [address] Care Team Providers Care Financial Management Analyst Name Role Phone Santi Landry MD Primary Care Provide r Reason for Visit * Reason Onset Date Comments Med Refill 05/23/2024 Encounter Details Date Type Department Care Team ([facility] st Contact Info) Description 05/23/2024 Refill [facility] MEDICINE 230 [place] [address] Gregoria Sinclair, RN 230 [place] [address] Social History Tobacco Use Types Packs/Day Years [...] encounter Miscellaneous Notes * Telephone Encounter - Gregoria Sinclair RN - 05/23/2024 1:51 PM EST Incoming fax from [facility] in pharmacy that states Tresiba pen no longer covered by insurance. They are requesting we send new script for generic Insulin Degludac pen as that is new preferred drug by pt's insurance. Queued. documented in this encounter Plan of Treatment Upcoming Encounters Date Type Department Care Team (Late st Contact Info) Description 09/11/2024 10:00 AM EDT Telemedicine [facility] MED & PEDS 505 [place] [address] Karishma Rose, RN 505 [place] [address] documented as of this encounter Visit Diagnoses Not on filedocumented in this encounter Additional Health Concerns Assessment Noted Time PHQ-9 Depression Total Score: 0 11/09/19 24 10:18 AM EDT documented as of this encounter Care Teams Financial Management Analyst Relationship Specialty Start Date End Date Santi Landry MD [address] [place] [address] PCP - General Internal Medicine 06/14/14 documented as of this encounter
--- OUTSIDE RECORDS SUMMARY | 2024-06-16 15:50 | XMS_ITS | Encounter Summary ---
Author Organization [employer] Address 75 [facility] 7t [place] [address] Care Team Providers Care Motor Coach Chauffeur Name Role Phone Santi Landry MD Primary Care Provide r Reason for Visit * Reason Comments Med Refill Encounter Details Date Type Department Care Team ([facility] st Contact Info) Description 02/22/2024 Refill [facility] MEDICINE 230 [place], [place] [phone] Santi Landry MD 230 [place], [place] [phone] Chronic midline low back pain without sciatica [...] Upcoming Encounters Date Type Department Care Team ([facility] st Contact Info) Description 09/11/2024 10:00 AM EDT Telemedicine [facility] MED & PEDS 505 [place] [address] Karishma Rose, FATEMEH 505 [place] [address] documented as of this encounter Visit Diagnoses Diagnosis Chronic midline low back pain without sciatica documented in this encounter Additional Health Concerns Assessment Noted Time PHQ-9 Depression Total Score: 0 11/09/19 24 10:18 AM EDT documented as of this encounter Care Teams Motor Coach Chauffeur Relationship Specialty Start Date End Date Santi Landry MD 230 [place] [address] PCP - General Internal Medicine 06/14/14 documented as of this encounter
--- OUTSIDE RECORDS SUMMARY | 2024-06-16 15:50 | XMS_ITS | Encounter Summary ---
Author Organization [email or web address] Address 75 [facility] 7t [place] [address] Care Team Providers Care Paster Hat Lining Name Role Phone Santi Landry MD Primary Care Provide r Reason for Visit * Reason Onset Date Comments Med Refill 05/15/2024 Encounter Details Date Type Department Care Team ([facility] st Contact Info) Description 05/15/2024 Refill [facility] MED & PEDS [address] [place] [address] Santi Landry MD [address] [place] [address] Chronic midline low back pain without sciatica [...] Info) Description 09/11/2024 10:00 AM EDT Telemedicine [facility] MED & PEDS 505 [place] [address] Karishma Rose, FATEMEH 505 [place] [address] documented as of this encounter Visit Diagnoses Diagnosis Chronic midline low back pain without sciatica documented in this encounter Additional Health Concerns Assessment Noted Time PHQ-9 Depression Total Score: 0 11/09/19 24 10:18 AM EDT documented as of this encounter Care Teams Paster Hat Lining Relationship Specialty Start Date End Date Santi Landry MD [address] [place] [phone] PCP - General Internal Medicine 06/14/14 documented as of this encounter
--- OUTSIDE RECORDS SUMMARY | 2024-06-16 15:50 | XMS_ITS | Encounter Summary ---
Author Organization [employer] Address [address] [place] [address] 7[place] [address] Care Team Providers Care Dry Pan Operator Name Role Phone Santi Landry MD Primary Care Provide r Encounter Details Date Type Department Care Team (Late Contact Info) Description 02/20/2022 Abstract [facility] MEDICINE 230 [place] [address] Santi Landry MD 230 [place] [address] Social History Tobacco Use Types Packs/Day Years Used Date Smoking Tobacco: Never Assessed Sex and Gender Information Value Date Recorded Sex Assigned at Male 02/02/2022 10:16 AM EDT Legal Sex Male 10:16 AM EDT Gender Identity Male 02/02/2022 10:16 AM EDT Sexual Orientation Straight 02/02/2022 10 :16 AM EDT documented as of this encounter Plan of Treatment Upcoming Encounters Date Type Department Care Team (Late Contact Info) Description 09/11/2024 10:00 AM EDT Telemedicine [facility] CH[facility] MED & PEDS 505 [place] [address] Karishma Rose, FATEMEH 505 [place] [address] documented as of this encounter Procedures Procedure Name Priority Date/Time Associated Diagnosis Comments LIPID PANEL, STANDARD Routine 04/14/2021 BASIC METABOLIC PANEL Routine 04/14/2021 HM COLONOSCOPY Routine 02/08/2019 documented in this encounter Results * (ABNORMAL) Lipid Panel, Standard (04/14/2021) LDL HDL Ratio 5.6 Triglycerides 434(A) 40 - 160 mg/dL Cholesterol 195 0 - 200 mg/dL HDL Cholesterol 35 35 - 70 mg/dL Blood Venous blood specimen / Unknown Historical Provider LAB BLOOD ORDERABLES Lilly l Result * Basic Metabolic Panel (04/14/2021) Glucose 139 mg/dL Creatinine 1.0 0.6 - 1.3 mg/dL Potassium 4.7 3.4 - 5.5 mmol/L Sodium 137 137 - 147 mmol/L Blood Venous blood specimen / Unknown [facility] Provider LAB BLOOD ORDERABLES Lilly l Result * Colonoscopy (02/08/2019) Colonoscopy Tubular Adenoma Comment:Dr Estrada Historical Provider [facility] Edited Result - Final documented in this encounter Visit Diagnoses Not on filedocumented in this encounter Care Teams Dry Pan Operator Relationship Specialty Start Date End Date Santi Landry MD [address] [place] [id number] PCP - General Internal Medicine 06/14/14 documented as of this encounter
--- OUTSIDE RECORDS SUMMARY | 2024-06-16 15:50 | XMS_ITS | Encounter Summary ---
Author Organization [employer] Address 75 [facility] 7t [place] [address] Care Team Providers Care Photostat Operator Helper Name Role Phone Santi Landry MD Primary Care Provide r Reason for Visit * Reason Comments Med Refill Encounter Details Date Type Department Care Team ([facility] st Contact Info) Description 03/17/2023 Refill [facility] MEDICINE 230 [place], [place] [phone] Santi Landry MD 230 [place], [place] [phone] Chronic midline low back pain without sciatica [...] Upcoming Encounters Date Type Department Care Team ([facility] st Contact Info) Description 09/11/2024 10:00 AM EDT Telemedicine [facility] MED & PEDS 505 [place] [address] Karishma Rose, FATEMEH 505 [place] [address] documented as of this encounter Visit Diagnoses Diagnosis Chronic midline low back pain without sciatica documented in this encounter Additional Health Concerns Assessment Noted Time PHQ-9 Depression Total Score: 0 06/10/19 23 11:13 AM EST documented as of this encounter Care Teams Photostat Operator Helper Relationship Specialty Start Date End Date Santi Landry MD [address] [place] [address] PCP - General Internal Medicine 06/14/14 documented as of this encounter
--- OUTSIDE RECORDS SUMMARY | 2024-06-16 15:50 | XMS_ITS | Encounter Summary ---
Author Organization [employer] Address 75 [facility] [address] [place] [address] Care Team Providers Care Sales Representative Sales Manager Name Role Phone Santi Landry MD Primary Care Provide r Reason for Visit * Reason Onset Date Comments Med Refill 06/03/2023 Encounter Details Date Type Department Care Team ([facility] st Contact Info) Description 06/03/2023 Refill [facility] MEDICINE 230 [place] [address] Santi Landry MD 230 [place] [address] Social History Tobacco Use Types Packs/Day Years [...] Info) Description 09/11/2024 10:00 AM EDT Telemedicine [facility] CH[facility] MED & PEDS 505 [place] [address] Karishma Rose RN 505 [place] [address] documented as of this encounter Visit Diagnoses Not on filedocumented in this encounter Additional Health Concerns Assessment Noted Time PHQ-9 Depression Total Score: 0 06/10/19 23 11:13 AM EST documented as of this encounter Care Teams Sales Representative Sales Manager Relationship Specialty Start Date End Date Santi Landry MD 230 [place] [address] PCP - General Internal Medicine 06/14/14 documented as of this encounter
--- OUTSIDE RECORDS SUMMARY | 2024-06-16 15:50 | XMS_ITS | Encounter Summary ---
Author Organization [employer] Address [address] [facility] 7t [place] [address] Care Team Providers Care Vp Global Marketing [employer] Name Role Phone Santi Landry MD Primary Care Provide r Reason for Visit * Reason Onset Date Comments Med Refill 03/11/2023 Encounter Details Date Type Department Care Team ([facility] st Contact Info) Description 03/11/2023 Refill [facility] MEDICINE 230 [place] [address] Santi Landry MD 230 [place] [address] Type 2 diabetes mellitus with diabetic polyneuropathy, with long-term current use of insulin ([facility]) Social History Tobacco Use Types Packs/Day Years [...] [facility] MED & PEDS 505 [place] [address] Karishma Rose RN 505 [place] [address] documented as of this encounter Visit Diagnoses Diagnosis Type 2 diabetes mellitus with diabetic polyneuropathy, with long-term current use of insulin ([facility]) documented in this encounter Additional Health Concerns Assessment Noted Time PHQ-9 Depression Total Score: 0 06/10/19 23 11:13 AM EST documented as of this encounter Care Teams Vp Global Marketing [employer] Relationship Specialty Start Date End Date Santi Landry MD [address] [place] [phone] PCP - General Internal Medicine 06/14/14 documented as of this encounter
--- OUTSIDE RECORDS SUMMARY | 2024-06-16 15:50 | XMS_ITS | Encounter Summary ---
Author Organization [employer] Address 75 [facility] 7t [place] [address] Care Team Providers Care Dialysis Chief Equipment Technician Name Role Phone Santi Landry MD Primary Care Provide r Reason for Visit * Reason Onset Date Comments Med Refill 01/21/2024 Encounter Details Date Type Department Care Team ([facility] st Contact Info) Description 01/21/2024 Refill [facility] MED & PEDS [address] [place] [address] Santi Landry MD [address] [place] [address] Chronic midline low back pain without sciatica [...] Description 09/11/2024 10:00 AM EDT Telemedicine [facility] MED & PEDS 505 [place] [address] Karishma Rose, FATEMEH 505 [place] [address] documented as of this encounter Visit Diagnoses Diagnosis Chronic midline low back pain without sciatica documented in this encounter Additional Health Concerns Assessment Noted Time PHQ-9 Depression Total Score: 0 11/09/19 24 10:18 AM EDT documented as of this encounter Care Teams Dialysis Chief Equipment Technician Relationship Specialty Start Date End Date Santi Landry MD [address] [place] [address] PCP - General Internal Medicine 06/14/14 documented as of this encounter
--- OUTSIDE RECORDS SUMMARY | 2024-06-16 15:50 | XMS_ITS | Encounter Summary ---
Author Organization [employer] Address 75 [facility] 7t [place] [address] Care Team Providers Care Client Leader Name Role Phone Santi Landry MD Primary Care Provide r Reason for Visit * Reason Comments Med Refill Encounter Details Date Type Department Care Team ([facility] st Contact Info) Description 06/09/2024 Refill [facility] MEDICINE 230 [place], [place] [phone] Santi Landry MD 230 [place], [place] [phone] Type 2 diabetes mellitus without complications (CMS/HCC) [...] Upcoming Encounters Date Type Department Care Team ([facility] st Contact Info) Description 09/11/2024 10:00 AM EDT Telemedicine [facility] MED & PEDS 505 [place] [address] Karishma Rose, RN 505 [place] [address] documented as of this encounter Visit Diagnoses Diagnosis Type 2 diabetes mellitus without complications (CMS/HCC) documented in this encounter Additional Health Concerns Assessment Noted Time PHQ-9 Depression Total Score: 0 11/09/19 24 10:18 AM EDT documented as of this encounter Care Teams Client Leader Relationship Specialty Start Date End Date Santi Landry MD [address] [place] [address] PCP - General Internal Medicine 06/14/14 documented as of this encounter
--- OUTSIDE RECORDS SUMMARY | 2024-06-16 15:50 | XMS_ITS | Encounter Summary ---
Author Organization [employer] Address 75 [facility] 7t [place] [address] Care Team Providers Care Elementary School Reading Teacher Name Role Phone Santi Landry MD Primary Care Provide r Reason for Visit * Reason Onset Date Comments Med Refill 02/12/2023 Encounter Details Date Type Department Care Team ([facility] st Contact Info) Description 02/12/2023 Refill [facility] MED & PEDS [address] [place] [address] Santi Landry MD 230 [place] [address] Social History Tobacco Use Types Packs/Day Years [...] Description 09/11/2024 10:00 AM EDT Telemedicine [facility] MED & PEDS 505 [place] [address] Karishma Rose, FATEMEH 505 [place] [address] documented as of this encounter Visit Diagnoses Not on filedocumented in this encounter Additional Health Concerns Assessment Noted Time PHQ-9 Depression Total Score: 0 06/10/19 23 11:13 AM EST documented as of this encounter Care Teams Elementary [employer] Reading Teacher Relationship Specialty Start Date End Date Santi Landry MD [address] [place] [address] PCP - General Internal Medicine 06/14/14 documented as of this encounter
--- OUTSIDE RECORDS SUMMARY | 2024-06-16 15:50 | XMS_ITS | Encounter Summary ---
Author Organization [employer] Address 75 [facility] 7t [place] [address] Care Team Providers Care Pressed Or Blown Glass Worker Name Role Phone Santi Landry MD Primary Care Provide r Reason for Visit * Reason Onset Date Comments Med Refill 05/10/2023 Encounter Details Date Type Department Care Team ([facility] st Contact Info) Description 05/10/2023 Refill [facility] MEDICINE 230 [place] [address] Michelle Carmona MD 230 [place] [address] Type 2 diabetes mellitus with diabetic polyneuropathy, with long-term current use of insulin ([facility]) Social History Tobacco Use Types Packs/Day Years [...] Upcoming Encounters Date Type Department Care Team ([facility] st Contact Info) Description 09/11/2024 10:00 AM EDT Telemedicine [facility] MED & PEDS 505 [place] [address] Karishma Rose RN 505 [place] [address] documented as of this encounter Visit Diagnoses Diagnosis Type 2 diabetes mellitus with diabetic polyneuropathy, with long-term current use of insulin ([facility]) documented in this encounter Additional Health Concerns Assessment Noted Time PHQ-9 Depression Total Score: 0 06/10/19 23 11:13 AM EST documented as of this encounter Care Teams Pressed Or Blown Glass Worker Relationship Specialty Start Date End Date Santi Landry MD [address] [place] [address] PCP - General Internal Medicine 06/14/14 documented as of this encounter
--- OUTSIDE RECORDS SUMMARY | 2024-06-16 15:50 | XMS_ITS | Encounter Summary ---
Author Organization [employer] Address 75 [facility] 7t [place] [address] Care Team Providers Care Ice Carver Name Role Phone Santi Landry MD Primary Care Provide r Reason for Visit * Reason Onset Date Comments Med Refill 04/14/2023 Encounter Details Date Type Department Care Team ([facility] st Contact Info) Description 04/14/2023 Refill [facility] MEDICINE 230 [place] [address] Santi Landry MD 230 [place] [address] Type 2 diabetes mellitus with diabetic polyneuropathy, with long-term current use of insulin ([facility]) Social History Tobacco Use Types Packs/Day Years [...] Info) Description 09/11/2024 10:00 AM EDT Telemedicine [facility] MED & PEDS 505 [place] [address] Karishma Rose RN 505 [place] [address] documented as of this encounter Visit Diagnoses Diagnosis Type 2 diabetes mellitus with diabetic polyneuropathy, with long-term current use of insulin ([facility]) documented in this encounter Additional Health Concerns Assessment Noted Time PHQ-9 Depression Total Score: 0 06/10/19 23 11:13 AM EST documented as of this encounter Care Teams Ice Carver Relationship Specialty Start Date End Date Santi Landry MD [address] [place] [phone] PCP - General Internal Medicine 06/14/14 documented as of this encounter
--- OUTSIDE RECORDS SUMMARY | 2024-06-16 15:50 | XMS_ITS | Encounter Summary ---
Author Organization [employer] Address [address] [facility] [address] 7t [place] [address] Care Team Providers Care Cinema Operator Name Role Phone Santi Landry MD Primary Care Provide r Reason for Visit * Reason Onset Date Comments Med Refill 04/20/2023 Encounter Details Date Type Department Care Team ([facility] st Contact Info) Description 04/20/2023 Refill [facility] MED & PEDS [address] [place], [place] [phone] Santi Landry MD [address] [place] [address] Chronic midline low back pain without sciatica [...] Info) Description 09/11/2024 10:00 AM EDT Telemedicine [facility] MED & PEDS 505 [place] [address] Karishma Rose, RN 505 [place] [address] documented as of this encounter Visit Diagnoses Diagnosis Chronic midline low back pain without sciatica documented in this encounter Additional Health Concerns Assessment Noted Time PHQ-9 Depression Total Score: 0 06/10/19 23 11:13 AM EST documented as of this encounter Care Teams Cinema Operator Relationship Specialty Start Date End Date Santi Landry MD 230 [place] [address] PCP - General Internal Medicine 06/14/14 documented as of this encounter
--- OUTSIDE RECORDS SUMMARY | 2024-06-16 15:50 | XMS_ITS | Encounter Summary ---
Author Organization [employer] Address 75 [facility] 7t [place] [address] Care Team Providers Care Financial Service Representative Name Role Phone Santi Landry MD Primary Care Provide r Reason for Visit * Reason Comments Med Refill Encounter Details Date Type Department Care Team ([facility] st Contact Info) Description 06/07/2024 Refill [facility] MEDICINE 230 [place], [place] [phone] Santi Landry MD 230 [place] [address] Social History Tobacco Use Types Packs/Day Years [...] [facility] MED & PEDS 505 [place] [address] Karishma Rose RN 505 [place] [address] documented as of this encounter Visit Diagnoses Not on filedocumented in this encounter Additional Health Concerns Assessment Noted Time PHQ-9 Depression Total Score: 0 11/09/19 24 10:18 AM EDT documented as of this encounter Care Teams Financial Service Representative Relationship Specialty Start Date End Date Santi Landry MD 230 [place] [address] PCP - General Internal Medicine 06/14/14 documented as of this encounter
--- OUTSIDE RECORDS SUMMARY | 2024-06-16 15:50 | XMS_ITS | Encounter Summary ---
Author Organization [employer] Address 75 [facility] 7t [place] [address] Care Team Providers Care Core Loader Name Role Phone Santi Landry MD Primary Care Provide r Reason for Visit * Reason Comments Med Refill Encounter Details Date Type Department Care Team ([facility] st Contact Info) Description 05/23/2024 Refill [facility] MEDICINE 230 [place], [place] [phone] Santi Landry MD 230 [place] [address] Primary hypertension Social History Tobacco Use Types Packs/Day Years [...] 09/11/2024 10:00 AM EDT Telemedicine [facility] MED & PEDS 505 [place] [address] Karishma Rose RN 505 [place] [address] documented as of this encounter Visit Diagnoses Diagnosis Primary hypertension Unspecified essential hypertension documented in this encounter Additional Health Concerns Assessment Noted Time PHQ-9 Depression Total Score: 0 11/09/19 24 10:18 AM EDT documented as of this encounter Care Teams Core Loader Relationship Specialty Start Date End Date Santi Landry MD 230 [place] [address] PCP - General Internal Medicine 06/14/14 documented as of this encounter
--- OUTSIDE RECORDS SUMMARY | 2024-06-16 15:50 | XMS_ITS | Encounter Summary ---
Author Organization [employer] Address 75 [facility] 7 [place] [address] Care Team Providers Care Accounts Manager Name Role Phone Santi Landry MD Primary Care Provide r Reason for Visit * Reason Onset Date Comments Med Refill 06/09/2024 Encounter Details Date Type Department Care Team ([facility] st Contact Info) Description 06/09/2024 Refill [facility] MEDICINE 230 [place] [address] Santi Landry MD 230 [place] [address] Social History Tobacco Use Types Packs/Day Years [...] [facility]S 505 [place] [address] Karishma Rose, RN 505 [place] [address] documented as of this encounter Visit Diagnoses Not on filedocumented in this encounter Additional Health Concerns Assessment Noted Time PHQ-9 Depression Total Score: 0 11/09/19 24 10:18 AM EDT documented as of this encounter Care Teams Accounts Manager Relationship Specialty Start Date End Date Santi Landry MD 230 [place] [address] PCP - General Internal Medicine 06/14/14 documented as of this encounter
--- OUTSIDE RECORDS SUMMARY | 2024-06-16 15:50 | XMS_ITS | Encounter Summary ---
Author Organization [employer] Address 75 [facility] 7t [place] [address] Care Team Providers Care Neuroscience Specialist Name Role Phone Santi Landry MD Primary Care Provide r Reason for Visit * Reason Comments Med Refill Encounter Details Date Type Department Care Team ([facility] st Contact Info) Description 04/18/[address] [facility] MED & PEDS [address] [place], [place] [phone] Santi Landry MD [address] [place] [address] Chronic midline low back pain without sciatica [...] Upcoming Encounters Date Type Department Care Team ([facility] st Contact Info) Description 09/11/2024 10:00 AM EDT Telemedicine [facility] MED & PEDS 505 [place] [address] Karishma Rose, RN 505 [place] [address] documented as of this encounter Visit Diagnoses Diagnosis Chronic midline low back pain without sciatica documented in this encounter Additional Health Concerns Assessment Noted Time PHQ-9 Depression Total Score: 0 11/09/19 24 10:18 AM EDT documented as of this encounter Care Teams Neuroscience Specialist Relationship Specialty Start Date End Date Santi Landry MD [address] [place] [address] PCP - General Internal Medicine 06/14/14 documented as of this encounter
--- OUTSIDE RECORDS SUMMARY | 2024-06-16 15:50 | XMS_ITS | Encounter Summary ---
Author Organization [employer] Address 75 [facility] 7t [place] [address] Care Team Providers Care Polish Compounder Name Role Phone Santi Landry MD Primary Care Provide r Reason for Visit * Reason Onset Date Comments Med Refill 02/12/2023 Encounter Details Date Type Department Care Team ([facility] st Contact Info) Description 02/12/2023 Refill [facility]C MED & PEDS [address] [place], [place] [phone] Santi Landry MD [address] [place] [address] Type 2 diabetes mellitus with diabetic polyneuropathy, with long-term current use of insulin ([facility]) Social History Tobacco Use Types Packs/Day [...] 09/11/2024 10:00 AM EDT Telemedicine [facility] MED & PEDS 505 [place] [address] Karishma Rose RN 505 [place] [address] documented as of this encounter Visit Diagnoses Diagnosis Type 2 diabetes mellitus with diabetic polyneuropathy, with long-term current use of insulin ([facility]) documented in this encounter Additional Health Concerns Assessment Noted Time PHQ-9 Depression Total Score: 0 06/10/19 23 11:13 AM EST documented as of this encounter Care Teams Polish Compounder Relationship Specialty Start Date End Date Santi Landry MD [address] [place] [id number] PCP - General Internal Medicine 06/14/14 documented as of this encounter
--- OUTSIDE RECORDS SUMMARY | 2024-06-16 15:50 | XMS_ITS | Encounter Summary ---
Author Organization [employer] Address [address] [facility] 7t [place] [address] Care Team Providers Care Platform Material Handler Manager Name Role Phone Santi Landry MD Primary Care Provide r Reason for Visit * Reason Onset Date Comments Med Refill 03/20/2024 Encounter Details Date Type Department Care Team ([facility] st Contact Info) Description 03/20/2024 Refill [facility] & [facility]EDS [address] [place] [address] Santi Landry MD [address] [place] [address] Chronic midline low back pain without sciatica [...] [facility] MED & PEDS 505 [place] [address] Karishma Rose, FATEMEH 505 [place] [address] documented as of this encounter Visit Diagnoses Diagnosis Chronic midline low back pain without sciatica documented in this encounter Additional Health Concerns Assessment Noted Time PHQ-9 Depression Total Score: 0 11/09/19 24 10:18 AM EDT documented as of this encounter Care Teams Platform Material Handler Manager Relationship Specialty Start Date End Date Santi Landry MD [address] [place] [id number] PCP - General Internal Medicine 06/14/14 documented as of this encounter
--- OUTSIDE RECORDS SUMMARY | 2024-06-16 15:50 | XMS_ITS | Encounter Summary ---
Author Organization [employer] Address [address] [facility] 7t [place] [address] Care Team Providers Care Dragsaw Operator Name Role Phone Santi Landry MD Primary Care Provide r Reason for Visit * Reason Onset Date Comments Med Refill 12/26/2023 Encounter Details Date Type Department Care Team ([facility] st Contact Info) Description 12/26/2023 Refill [facility] MEDICINE 230 [place] [address] Santi Landry MD 230 [place] [address] Social History Tobacco Use Types Packs/Day Years [...] Description 09/11/2024 10:00 AM EDT Telemedicine [facility] MED & PEDS 505 [place] [address] Karishma Rose, RN 505 [place] [address] documented as of this encounter Visit Diagnoses Not on filedocumented in this encounter Additional Health Concerns Assessment Noted Time PHQ-9 Depression Total Score: 0 11/09/19 24 10:18 AM EDT documented as of this encounter Care Teams Dragsaw Operator Relationship Specialty Start Date End Date Santi Landry MD 230 [place] [address] PCP - General Internal Medicine 06/14/14 documented as of this encounter
--- OUTSIDE RECORDS SUMMARY | 2024-06-16 15:50 | XMS_ITS | Encounter Summary ---
Author Organization [employer] Address [address] [facility] 7 [place] [address] Care Team Providers Care Plumbing Foreman Name Role Phone Santi Landry MD Primary Care Provide r Reason for Visit * Reason Onset Date Comments Med Refill 01/02/2024 Encounter Details Date Type Department Care Team ([facility] st Contact Info) Description 01/02/2024 Refill [facility] 230 [place] [address] Santi Landry MD 230 [place] [address] Social History Tobacco Use Types Packs/Day Years [...] Info) Description 09/11/2024 10:00 AM EDT Telemedicine [facility] MED & PEDS 505 [place] [address] Karishma Rose, RN 505 [place] [address] documented as of this encounter Visit Diagnoses Not on filedocumented in this encounter Additional Health Concerns Assessment Noted Time PHQ-9 Depression Total Score: 0 11/09/19 24 10:18 AM EDT documented as of this encounter Care Teams Plumbing Foreman Relationship Specialty Start Date End Date Santi Landry MD 230 [place] [address] PCP - General Internal Medicine 06/14/14 documented as of this encounter
--- OUTSIDE RECORDS SUMMARY | 2024-06-16 15:50 | XMS_ITS | Encounter Summary ---
Author Organization [employer] Address [address] [facility] 7t [place] [address] Care Team Providers Care Wallet Assembler Name Role Phone Santi Landry MD Primary Care Provide r Reason for Visit * Reason Onset Date Comments Med Refill 05/18/2023 Encounter Details Date Type Department Care Team ([facility] st Contact Info) Description 05/18/[address] [facility] MEDICINE 230 [place] [address] Michelle Carmona MD 230 [place] [address] Social History Tobacco Use Types Packs/Day Years [...] Encounters Date Type Department Care Team ([facility] st Contact Info) Description 09/11/2024 10:00 AM EDT Telemedicine [facility] MED & PEDS 505 [place] [address] Karishma Rose, RN 505 [place] [address] documented as of this encounter Visit Diagnoses Not on filedocumented in this encounter Additional Health Concerns Assessment Noted Time PHQ-9 Depression Total Score: 0 06/10/19 23 11:13 AM EST documented as of this encounter Care Teams Wallet Assembler Relationship Specialty Start Date End Date Santi Landry MD 230 [place] [address] PCP - General Internal Medicine 06/14/14 documented as of this encounter
--- OUTSIDE RECORDS SUMMARY | 2024-06-16 15:50 | XMS_ITS | Encounter Summary ---
Author Organization [employer] Address 75 [facility] 7t [place] [address] Care Team Providers Care Wind Instrument Repairer Name Role Phone Santi Landry MD Primary Care Provide r Reason for Visit * Reason Onset Date Comments Med Refill 03/17/2023 Encounter Details Date Type Department Care Team ([facility] st Contact Info) Description 03/17/2023 Telephone [facility]IC[facility] 230 [place] [address] Santi Landry MD 230 [place] [address] Med Refill Social History Tobacco Use Types [...] encounter Miscellaneous Notes * Telephone Encounter - Wilbur Ugalde - 03/17/2023 9:17 AM EST Tc from pt requesting medication HYDROcodone-acetaminophen (Joaquin) 10-325 MG tablet and oxyCODONE ER (OxyCONTIN) 10 MG 12 hr tablet be sent to [facility] - [place], [place] - [address] [facility] instead of [id number] - [place], [place] - [address] [facility] documented in this encounter Plan of Treatment Upcoming Encounters Date Type Department Care Team ([facility] st Contact Info) Description 09/11/2024 10:00 AM EDT Telemedicine [facility] MED & PEDS 505 [place] [address] Karishma Rose RN 505 [place] [address] documented as of this encounter Visit Diagnoses Not on filedocumented in this encounter Additional Health Concerns Assessment Noted Time PHQ-9 Depression Total Score: 0 06/10/19 23 11:13 AM EST documented as of this encounter Care Teams Wind Instrument Repairer Relationship Specialty Start Date End Date Santi Landry MD 230 [place] [address] PCP - General Internal Medicine 06/14/14 documented as of this encounter
--- OUTSIDE RECORDS SUMMARY | 2024-06-16 15:50 | XMS_ITS | Encounter Summary ---
Author Organization [employer] Address [address] [facility] 7t [place] [address] Care Team Providers Care Board Finisher Name Role Phone Santi Landry MD Primary Care Provide r Reason for Visit * Reason Onset Date Comments Med Refill 03/14/2023 Encounter Details Date Type Department Care Team ([facility] st Contact Info) Description 03/14/2023 Refill [facility] MEDICINE 230 [place] [address] Santi Landry MD 230 [place] [address] Chronic midline low back pain without sciatica [...] EDT Telemedicine [facility] MED & PEDS 505 [place] [address] Karishma Rose, FATEMEH 505 [place] [address] documented as of this encounter Visit Diagnoses Diagnosis Chronic midline low back pain without sciatica documented in this encounter Additional Health Concerns Assessment Noted Time PHQ-9 Depression Total Score: 0 06/10/19 23 11:13 AM EST documented as of this encounter Care Teams Board Finisher Relationship Specialty Start Date End Date Santi Landry MD 230 [place] [address] PCP - General Internal Medicine 06/14/14 documented as of this encounter
--- OUTSIDE RECORDS SUMMARY | 2024-06-16 15:50 | XMS_ITS | Encounter Summary ---
Author Organization [employer] Address [address] [facility] 7t [place] [address] Care Team Providers Care Watch Parts Grinder Name Role Phone Santi Landry MD Primary Care Provide r Reason for Visit * Reason Onset Date Comments Med Refill 03/18/2024 Encounter Details Date Type Department Care Team ([facility] st Contact Info) Description 03/18/2024 Refill [facility]EDS [address] [place] [address] Santi Landry MD 230 [place] [address] Social History Tobacco Use Types Packs/Day Years [...] [facility] 505 [place] [address] Karishma Rose, RN 505 [place] [address] documented as of this encounter Visit Diagnoses Not on filedocumented in this encounter Additional Health Concerns Assessment Noted Time PHQ-9 Depression Total Score: 0 11/09/19 24 10:18 AM EDT documented as of this encounter Care Teams Watch Parts Grinder Relationship Specialty Start Date End Date Santi Landry MD 230 [place] [address] PCP - General Internal Medicine 06/14/14 documented as of this encounter
--- OUTSIDE RECORDS SUMMARY | 2024-06-16 15:50 | XMS_ITS | Encounter Summary ---
Author Organization [employer] Address 75 [facility] 7t [place] [address] Care Team Providers Care Floatman Name Role Phone Santi Landry MD Primary Care Provide r Reason for Visit * Reason Comments Med Refill Encounter Details Date Type Department Care Team ([facility] st Contact Info) Description 04/17/2024 Refill [facility] MED & PEDS [address] [place], [place] [phone] Santi Landry MD [address] [place] [address] Chronic midline low back pain without sciatica [...] Upcoming Encounters Date Type Department Care Team ([facility] st Contact Info) Description 09/11/2024 10:00 AM EDT Telemedicine [facility] MED & PEDS 505 [place] [address] Karishma Rose, RN 505 [place] [address] documented as of this encounter Visit Diagnoses Diagnosis Chronic midline low back pain without sciatica documented in this encounter Additional Health Concerns Assessment Noted Time PHQ-9 Depression Total Score: 0 11/09/19 24 10:18 AM EDT documented as of this encounter Care Teams Floatman Relationship Specialty Start Date End Date Santi Landry MD [address] [place] [address] PCP - General Internal Medicine 06/14/14 documented as of this encounter
--- OUTSIDE RECORDS SUMMARY | 2024-06-16 15:51 | XMS_ITS | Encounter Summary ---
Author Organization [employer] Address [address] [facility] 7t [place] [address] Care Team Providers Care Hack Saw Operator Name Role Phone Santi Landry MD Primary Care Provide r Reason for Visit * Reason Onset Date Comments Med Refill 02/12/2023 Encounter Details Date Type Department Care Team ([facility] st Contact Info) Description 02/12/2023 Refill [facility] MED & PEDS [address] [place] [address] Santi Landry MD 230 [place] [address] Social History Tobacco Use Types Packs/Day Years [...] [facility] 505 [place] [address] Karishma Rose, FATEMEH 505 [place] [address] documented as of this encounter Visit Diagnoses Not on filedocumented in this encounter Additional Health Concerns Assessment Noted Time PHQ-9 Depression Total Score: 0 06/10/19 23 11:13 AM EST documented as of this encounter Care Teams Hack Saw Operator Relationship Specialty Start Date End Date Santi Landry MD [address] [place] [address] PCP - General Internal Medicine 06/14/14 documented as of this encounter
--- OUTSIDE RECORDS SUMMARY | 2024-06-16 15:51 | XMS_ITS | Encounter Summary ---
Author Organization [employer] Address [address] [facility] [address] [place] [address] Care Team Providers Care Hand Collator Name Role Phone Santi Landry MD Primary Care Provide r Reason for Visit * Reason Onset Date Comments Med Refill 02/12/2023 Encounter Details Date Type Department Care Team ([facility] st Contact Info) Description 02/12/2023 Refill [facility] MEDICINE 230 [place] [address] Santi Landry MD 230 [place] [address] Social History Tobacco Use Types Packs/Day Years [...] Info) Description 09/11/2024 10:00 AM EDT Telemedicine [facility] MED & PEDS 505 [place] [address] Karishma Rose RN 505 [place] [address] documented as of this encounter Visit Diagnoses Not on filedocumented in this encounter Additional Health Concerns Assessment Noted Time PHQ-9 Depression Total Score: 0 06/10/19 23 11:13 AM EST documented as of this encounter Care Teams Hand Collator Relationship Specialty Start Date End Date Santi Landry MD 230 [place] [address] PCP - General Internal Medicine 06/14/14 documented as of this encounter
--- OUTSIDE RECORDS SUMMARY | 2024-06-16 15:51 | XMS_ITS | Encounter Summary ---
Author Organization [employer] Address [address] [facility] 7t [place] [address] Care Team Providers Care Compound Coating Machine Offbearer Name Role Phone Santi aLndry MD Primary Care Provide r Reason for Visit * Reason Onset Date Comments Med Refill 02/12/2023 Encounter Details Date Type Department Care Team ([facility] st Contact Info) Description 02/12/2023 Refill [facility] MEDICINE 230 [place] [address] Santi Landry MD 230 [place] [address] Type 2 diabetes mellitus with diabetic polyneuropathy, with long-term current use of insulin ([facility]) Social History Tobacco Use Types Packs/Day [...] Info) Description 09/11/2024 10:00 AM EDT Telemedicine [facility] MED & PEDS 505 [place] [address] Karishma Rose RN 505 [place] [address] documented as of this encounter Visit Diagnoses Diagnosis Type 2 diabetes mellitus with diabetic polyneuropathy, with long-term current use of insulin ([facility]) documented in this encounter Additional Health Concerns Assessment Noted Time PHQ-9 Depression Total Score: 0 06/10/19 23 11:13 AM EST documented as of this encounter Care Teams Compound Coating Machine Offbearer Relationship Specialty Start Date End Date Santi Landry MD [address] [place] [address] PCP - General Internal Medicine 06/14/14 documented as of this encounter
--- OUTSIDE RECORDS SUMMARY | 2024-06-16 15:51 | XMS_ITS | Encounter Summary ---
Author Organization [employer] Address [address] [facility] 7t [place] [address] Care Team Providers Care International Bank Manager Name Role Phone Santi Landry MD Primary Care Provide r Reason for Visit * Reason Onset Date Comments Med Refill 11/18/2023 Encounter Details Date Type Department Care Team ([facility] st Contact Info) Description 11/18/2023 Refill [facility] MEDICINE 230 [place] [address] Santi Landry MD 230 [place] [address] Social History Tobacco Use Types Packs/Day Years [...] Info) Description 09/11/2024 10:00 AM EDT Telemedicine [facility] MED & PEDS 505 [place] [address] Karishma Rose, RN 505 [place] [address] documented as of this encounter Visit Diagnoses Not on filedocumented in this encounter Additional Health Concerns Assessment Noted Time PHQ-9 Depression Total Score: 0 11/09/19 24 10:18 AM EDT documented as of this encounter Care Teams International Bank Manager Relationship Specialty Start Date End Date Santi Landry MD 230 [place] [address] PCP - General Internal Medicine 06/14/14 documented as of this encounter
--- OUTSIDE RECORDS SUMMARY | 2024-06-16 15:51 | XMS_ITS | Encounter Summary ---
Author Organization [employer] Address 75 [facility] 7t [place] [address] Care Team Providers Care Incident Manager Name Role Phone Santi Landry MD Primary Care Provide r Reason for Visit * Reason Onset Date Comments Med Refill 02/12/2023 Encounter Details Date Type Department Care Team ([facility] st Contact Info) Description 02/12/2023 Refill [facility] MED & PEDS [address] [place] [address] Santi Landry MD 230 [place] [address] Social History Tobacco Use Types Packs/Day Years Used Date Smoking Tobacco: Former Cigarettes Passive Smoke Exposure: Past Smokeless Tobacco: Never Alcohol Use Standard Drinks/Week Comments Never 0 (1 standard drink = 0.6 oz pur e alcohol) Depression Answer Date Recorded Patient Health Questionnaire-9 Score 0 06/09/2022 Housing Stability Answer Date Recorded What is your housing situation today? I have shotry trevizo 01/18/[address] you [...] Description 09/11/2024 10:00 AM EDT Telemedicine [facility] MED & PEDS 505 [place] [address] Karishma Rose, FATEMEH 505 [place] [address] documented as of this encounter Visit Diagnoses Not on filedocumented in this encounter Additional Health Concerns Assessment Noted Time PHQ-9 Depression Total Score: 0 06/10/19 23 11:13 AM EST documented as of this encounter Care Teams Incident Manager Relationship Specialty Start Date End Date Santi Landry MD [address] [place] [address] PCP - General Internal Medicine 06/14/14 documented as of this encounter
--- OUTSIDE RECORDS SUMMARY | 2024-06-16 15:51 | XMS_ITS | Encounter Summary ---
Author Organization [employer] Address [address] [facility] 7t [place] [address] Care Team Providers Care Dollyman Name Role Phone Santi Landry MD Primary Care Provide r Reason for Visit * Reason Onset Date Comments Med Refill 02/12/2023 Encounter Details Date Type Department Care Team ([facility] st Contact Info) Description 02/12/2023 Refill [facility] MEDICINE 230 [place] [address] Santi Landry MD 230 [place] [address] Gastroesophageal reflux disease, unspecified whether esophagitis present Social History Tobacco Use Types Packs/Day Years [...] Info) Description 09/11/2024 10:00 AM EDT Telemedicine [facility] MED & PEDS 505 [place] [address] Karishma Rose, RN 505 [place] [address] documented as of this encounter Visit Diagnoses Diagnosis Gastroesophageal reflux disease, unspecified whether esophagitis present documented in this encounter Additional Health Concerns Assessment Noted Time PHQ-9 Depression Total Score: 0 06/10/19 23 11:13 AM EST documented as of this encounter Care Teams Dollyman Relationship Specialty Start Date End Date Santi Landry MD 230 [place] [address] PCP - General Internal Medicine 06/14/14 documented as of this encounter
--- OUTSIDE RECORDS SUMMARY | 2024-06-16 15:51 | XMS_ITS | Encounter Summary ---
Author Organization [employer] Address [address] [facility] 7t [place] [address] Care Team Providers Care Curb Attendant Name Role Phone Santi Landry MD Primary Care Provide r Reason for Visit * Reason Comments Med Refill Encounter Details Date Type Department Care Team ([facility] st Contact Info) Description 11/02/2023 Refill [facility] MEDICINE 230 [place], [place] [phone] Santi Landry MD 230 [place], [place] [phone] Chronic midline low back pain without sciatica [...] Info) Description 09/11/2024 10:00 AM EDT Telemedicine [facility] MED & PEDS 505 [place] [address] Karishma Rose, RN 505 [place] [address] documented as of this encounter Visit Diagnoses Diagnosis Chronic midline low back pain without sciatica documented in this encounter Additional Health Concerns Assessment Noted Time PHQ-9 Depression Total Score: 6 06/22/19 24 11:07 AM EDT documented as of this encounter Care Teams Curb Attendant Relationship Specialty Start Date End Date Santi Landry MD 230 [place] [address] PCP - General Internal Medicine 06/14/14 documented as of this encounter
--- OUTSIDE RECORDS SUMMARY | 2024-06-16 15:51 | XMS_ITS | Encounter Summary ---
Author Organization [employer] Address [address] [facility] 7t [place] [address] Care Team Providers Care Infrastructure Manager Name Role Phone Santi Landry MD Primary Care Provide r Reason for Visit * Reason Onset Date Comments Med Refill 11/18/2023 Encounter Details Date Type Department Care Team ([facility] st Contact Info) Description 11/18/2023 Refill [facility] MEDICINE [address] [place] [address] Santi Landry MD 230 [place] [address] Social History Tobacco Use Types Packs/Day Years [...] [facility] MED & PEDS 505 [place] [address] Karishma Rose, RN 505 [place] [address] documented as of this encounter Visit Diagnoses Not on filedocumented in this encounter Additional Health Concerns Assessment Noted Time PHQ-9 Depression Total Score: 0 11/09/19 24 10:18 AM EDT documented as of this encounter Care Teams Infrastructure Manager Relationship Specialty Start Date End Date Santi Landry MD 230 [place] [address] PCP - General Internal Medicine 06/14/14 documented as of this encounter
--- OUTSIDE RECORDS SUMMARY | 2024-06-16 15:51 | XMS_ITS | Encounter Summary ---
Author Organization [employer] Address [address] [facility] [address] [place] [address] Care Team Providers Care Heat Treat Operator Name Role Phone Santi Landry MD Primary Care Provide r Reason for Visit * Reason Onset Date Comments Med Refill 11/05/2023 Encounter Details Date Type Department Care Team ([facility] st Contact Info) Description 11/05/2023 Telephone [facility] MEDICINE 230 [place] [address] Santi Landry MD [address] [place] [address] Med Refill Social History Tobacco Use Types [...] encounter Miscellaneous Notes * Telephone Encounter - Sandrine Manley - 11/05/2023 11:02 AM EDT TC from pt requesting medication refill. Medications needing refill : OxyContin 10 mg To be sent to: [facility] Pharmacy documented in this encounter Plan of Treatment Upcoming Encounters Date Type Department Care Team (Late st Contact Info) Description 09/11/2024 10:00 AM EDT Telemedicine [facility] MED & PEDS [address] [place] [address] Karishma Roes, FATEMEH 505 [place] [address] documented as of this encounter Visit Diagnoses Not on filedocumented in this encounter Additional Health Concerns Assessment Noted Time PHQ-9 Depression Total Score: 6 06/22/19 24 11:07 AM EDT documented as of this encounter Care Teams Heat Treat Operator Relationship Specialty Start Date End Date Santi Landry MD [address] [place] [address] PCP - General Internal Medicine 06/14/14 documented as of this encounter
--- OUTSIDE RECORDS SUMMARY | 2024-06-16 15:51 | XMS_ITS | Encounter Summary ---
Author Organization [employer] Address [address] [facility] 7t [place] [address] Care Team Providers Care Knitting Machine Operator Automatic Name Role Phone Santi Landry MD Primary Care Provide r Reason for Visit * Reason Onset Date Comments Med Refill 02/12/2023 Encounter Details Date Type Department Care Team ([facility] st Contact Info) Description 02/12/2023 Refill [facility] MEDICINE [address] [place] [address] Santi Landry MD 230 [place] [address] Primary hypertension Social History Tobacco Use Types [...] [facility] MED [facility] PED[facility] [address] [place] [address] Karishma Rose, FATEMEH [address] [place] [address] documented as of this encounter Visit Diagnoses Diagnosis Primary hypertension Unspecified essential hypertension documented in this encounter Additional Health Concerns Assessment Noted Time PHQ-9 Depression Total Score: 0 06/10/19 23 11:13 AM EST documented as of this encounter Care Teams Knitting Machine Operator Automatic Relationship Specialty Start Date End Date Santi Landry MD [address] [place] [address] PCP - General Internal Medicine 06/14/14 documented as of this encounter
--- OUTSIDE RECORDS SUMMARY | 2024-06-16 15:51 | XMS_ITS | Encounter Summary ---
Author Organization [employer] Address [address] [facility] [address] [place] [address] Care Team Providers Care Fireworks Assembler Name Role Phone Santi Landry MD Primary Care Provide r Reason for Visit * Reason Onset Date Comments Med Refill 02/12/2023 Encounter Details Date Type Department Care Team ([facility] st Contact Info) Description 02/12/2023 Refill [facility] MEDICINE 230 [place] [address] Santi Landry MD 230 [place] [address] Social History Tobacco Use Types Packs/Day Years [...] Info) Description 09/11/2024 10:00 AM EDT Telemedicine [facility] MED & PEDS 505 [place] [address] Karishma Rose RN 505 [place] [address] documented as of this encounter Visit Diagnoses Not on filedocumented in this encounter Additional Health Concerns Assessment Noted Time PHQ-9 Depression Total Score: 0 06/10/19 23 11:13 AM EST documented as of this encounter Care Teams Fireworks Assembler Relationship Specialty Start Date End Date Santi Landry MD [address] [place] [address] PCP - General Internal Medicine 06/14/14 documented as of this encounter
--- OUTSIDE RECORDS SUMMARY | 2024-06-16 15:51 | XMS_ITS | Encounter Summary ---
Author Organization [employer] Address [address] [facility] [address] [place] [address] Care Team Providers Care Auto Seat Cover Installer Name Role Phone Santi Landry MD Primary Care Provide r Reason for Visit * Reason Onset Date Comments Med Refill 02/12/2023 Encounter Details Date Type Department Care Team ([facility] st Contact Info) Description 02/12/2023 Refill [facility] MEDICINE 230 [place] [address] Santi Landry MD 230 [place] [address] Social History Tobacco Use Types Packs/Day Years [...] Info) Description 09/11/2024 10:00 AM EDT Telemedicine [facility] MED & PEDS 505 [place] [address] Karishma Rose RN 505 [place] [address] documented as of this encounter Visit Diagnoses Not on filedocumented in this encounter Additional Health Concerns Assessment Noted Time PHQ-9 Depression Total Score: 0 06/10/19 23 11:13 AM EST documented as of this encounter Care Teams Auto Seat Cover Installer Relationship Specialty Start Date End Date Santi Landry MD 230 [place] [address] PCP - General Internal Medicine 06/14/14 documented as of this encounter
--- OUTSIDE RECORDS SUMMARY | 2024-06-16 15:51 | XMS_ITS | Encounter Summary ---
Author Organization [employer] Address [address] [facility] 7t [place] [address] Care Team Providers Care Commercial Insurance Underwriter Name Role Phone Santi Landry MD Primary Care Provide r Reason for Visit * Reason Onset Date Comments Med Refill 11/18/2023 Encounter Details Date Type Department Care Team ([facility] st Contact Info) Description 11/18/2023 Refill [facility] MEDICINE 230 [place] [address] Santi Landry MD [address] [place] [address] Primary hypertension Social History Tobacco Use Types [...] [facility] 505 [place] [address] Karishma Rose, RN 505 [place] [address] documented as of this encounter Visit Diagnoses Diagnosis Primary hypertension Unspecified essential hypertension documented in this encounter Additional Health Concerns Assessment Noted Time PHQ-9 Depression Total Score: 0 11/09/19 24 10:18 AM EDT documented as of this encounter Care Teams Commercial Insurance Underwriter Relationship Specialty Start Date End Date Santi Landry MD 230 [place] [address] PCP - General Internal Medicine 06/14/14 documented as of this encounter
--- OUTSIDE RECORDS SUMMARY | 2024-06-16 15:51 | XMS_ITS | Encounter Summary ---
Author Organization [employer] Address [address] [facility] 7t [place] [address] Care Team Providers Care General Repair Mechanic Name Role Phone Santi Landry MD Primary Care Provide r Reason for Visit * Reason Onset Date Comments Med Refill 02/12/2023 Encounter Details Date Type Department Care Team ([facility] st Contact Info) Description 02/12/2023 Refill [facility] MEDICINE [address] [place] [address] Michelle Carmona MD 230 [place] [address] Social History Tobacco Use Types Packs/Day Years [...] Encounters Date Type Department Care Team ([facility] st Contact Info) Description 09/11/2024 10:00 AM EDT Telemedicine [facility] MED & PEDS 505 [place] [address] Karishma Rose, RN 505 [place] [address] documented as of this encounter Visit Diagnoses Not on filedocumented in this encounter Additional Health Concerns Assessment Noted Time PHQ-9 Depression Total Score: 0 06/10/19 23 11:13 AM EST documented as of this encounter Care Teams General Repair Mechanic Relationship Specialty Start Date End Date Santi Landry MD 230 [place] [address] PCP - General Internal Medicine 06/14/14 documented as of this encounter
--- OUTSIDE RECORDS SUMMARY | 2024-06-16 15:51 | XMS_ITS | Encounter Summary ---
Author Organization [employer] Address 75 [facility] 7t [place] [address] Care Team Providers Care Wood Dowel Machine Operator Name Role Phone Santi Landry MD Primary Care Provide r Reason for Visit * Reason Onset Date Comments Med Refill 11/08/2023 Encounter Details Date Type Department Care Team ([facility] st Contact Info) Description 11/08/2023 Refill [facility] MEDICINE 230 [place] [address] Santi Landry MD 230 [place] [address] Primary hypertension Social History Tobacco Use Types [...] 09/11/2024 10:00 AM EDT Telemedicine [facility] MED & PEDS 505 [place] [address] Karishma Rose, RN 505 [place] [address] documented as of this encounter Visit Diagnoses Diagnosis Primary hypertension Unspecified essential hypertension documented in this encounter Additional Health Concerns Assessment Noted Time PHQ-9 Depression Total Score: 6 06/22/19 24 11:07 AM EDT documented as of this encounter Care Teams Wood Dowel Machine Operator Relationship Specialty Start Date End Date Santi Landry MD 230 [place] [address] PCP - General Internal Medicine 06/14/14 documented as of this encounter
--- OUTSIDE RECORDS SUMMARY | 2024-06-16 15:51 | XMS_ITS | Encounter Summary ---
Author Organization [employer] Address [address] [facility] 7t [place] [address] Care Team Providers Care Oncology Registrar Name Role Phone Santi Landry MD Primary Care Provide r Reason for Visit * Reason Onset Date Comments Med Refill 02/12/2023 Encounter Details Date Type Department Care Team ([facility] st Contact Info) Description 02/12/[address] 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
[2024-06-16 17:52] LABS: Barbiturates, Urine POSITIVE (Not Detect)
== END 2024-06-16 14:08 | disposition home or self-care (01) ==
LOC: HO.HHCLNP 14:07
PROVIDERS: Visit Provider Internal Medicine
DX: M54.50 Low back pain, unspecified (principal); G89.29 Other chronic pain; Z79.891 Long term (current) use of opiate analgesic
CPT/HCPCS: 80307

== ENCOUNTER 2024-11-14 08:19 | Outpatient (REF) | payer MEDICARE, MEDICAID, SELFPAY ==
--- NOTE | ~2024-11-14 | XR_ITS ---
EXAMINATION: XR SHOULDER 2 OR MORE VIEWS BILATERAL HISTORY: M25.511 - Pain in right shoulder COMPARISON: Comparison is made with the prior examination of the right shoulder dated 03/14/2018 and the prior examination of the left shoulder dated 10/01/2016. FINDINGS: Four views of the bilateral shoulders are submitted. Osseous mineralization is normal. There is no fracture or dislocation. There is moderate osteoarthritis of the AC joints with joint space narrowing and osteophyte formation. The glenohumeral joints are maintained. There are soft tissue calcifications in the muscles overlying the proximal humeral metaphyses of both shoulders. XR/XR Shoulder Ihsan min 2V IMPRESSION: 1. 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 2. Soft tissue calcifications in the muscles overlying the proximal humeral metaphyses of both shoulders which may represent myositis ossificans. Electronically signed by: Colton Cristina MD 11/15/2024 07:26 AM EDT
--- OUTSIDE RECORDS SUMMARY | 2024-11-15 08:25 | XMS_ITS | Encounter Summary ---
Author Organization [employer] Address 75 [facility] 7 [place] [address] Care Team Providers Care Protection Specialist Name Role Phone Santi Landry MD Primary Care Provide r Reason for Visit * Reason Onset Date Comments Med Refill 09/28/2023 Encounter Details Date Type Department Care Team ([facility] st Contact Info) Description 09/28/2023 Refill [facility] MED & PEDS [address] [place] [address] Santi Landry MD [address] [place] [address] Social History Tobacco Use Types Packs/Day Years [...] Care Team (Late st Contact Info) Description 12/28/2024 2:00 PM EDT Clinical Support [facility] MED & PEDS [address] [place] [address] Karishma Rose, RN [address] [place] [address] 01/30/2025 11:30 AM EDT Office Visit [facility] MEDICINE [address] [place] [address] Santi Landry MD [address] [place] [address] documented as of this encounter Visit Diagnoses Not on filedocumented in this encounter Additional Health Concerns Assessment Noted Time PHQ-9 Depression Total Score: 6 06/22/19 24 11:07 AM EDT documented as of this encounter Care Teams Protection Specialist Relationship Specialty Start Date End Date Santi Landry MD [address] [place] [address] PCP - General Internal Medicine 06/14/14 documented as of this encounter
--- OUTSIDE RECORDS SUMMARY | 2024-11-15 08:25 | XMS_ITS | Patient Health Record ---
Author Organization [facility] Address [address] [place] [address] Care Team Providers Care Vice President Fixed Income Name Role Phone Mayuri Toscano MD, Santi Primary Care Provide Colton Queen [phone] Allergies Allergen (clinical drug ingredient) Drug/Non Drug [...] Problem Status W/U Status Risk Notes Problem 451283588 Encounter for screening for malignant neoplasm of colon (Z12.11) Active confirmed Problem 579601689 History of adenomatous polyp of colon (Z86.010) Active confirmed Problem 699241576833873 Preprocedural examination (Z01.818) Active confirmed Problem 372562097 Long-term use of aspirin therapy (Z79.82) Active confirmed Plan Of Treatment Pending Test Test Name Order Date GI BIOPSY 02/08/2019 Future Test Test Name Order Date COLONOSCOPY 06/20/2013 COLONOSCOPY 12/08/2018 Next Appt Details Provider Name:Colotn Estrada , 03/15/2025 11:00:00 AM, [address] [facility], [address], [place], [address], Insurance Providers Payer Name Payer Address Payer Phone Subscriber Number Group Number Insured Name Patient Relationship to Insured Coverage Start Date Coverage End Date MEDICARE OF [place] [address] [place] [id number] NANCY MONTES DE OCA Self - patient is the insured [facility] [address] [place] [address] [id number] NANCY MONTES DE OCA Self - patient is the insured Medical (General) History Medical History History ICD Code 02/09/2003 Colonoscopy--neg except hyperplastic polyps and internal hemorrhoids HTN IDDM Hyperlipidemia 2001-large duodenal ulcer an d a small gastric ulcer with a GI bleed--treated for H.pylori--F/U EGD in 2002 revealed healing of the ulcers-bx was neg for H.pylori Coronary artery disease--no [place]-3V CABG 2 003--fine since Denies [place],CVA,Lung disease,renal disease diabetes mellitus PVD--has a stent in the RLE Kidney stone on left Arthritis-especially, shoulders and back Colonoscopy 08/2013 with a all tubular adenoma, diverticulosis, and internal hemorrhoids Surgical History Surgery Date(Month/Year) CABG as above 2002 Knee surgery-left Left LE vascular surgery 03/14/2018 Back surgery [facility] [address] Damon
== END 2024-11-14 08:20 | disposition home or self-care (01) ==
LOC: HO.HOSX 08:19
PROVIDERS: Visit Provider Orthopaedic Surgery
DX: M75.42 Impingement syndrome of left shoulder (principal); M25.811 Other specified joint disorders, right shoulder; M25.512 Pain in left shoulder; M25.511 Pain in right shoulder
CPT/HCPCS: 20610; 73030; 99212; J1010; J2003

== ENCOUNTER 2024-11-14 15:03 | Outpatient (AMB) | payer MEDICARE, MEDICAID, SELFPAY ==
--- NOTE | 2024-11-14 15:14 | A.OFFVIS_ITS ---
Vital Signs 11/14/24 15:18 Height 5 ft 6 in Weight 190 lb BMI 30.7 Intake Visit Reasons: OV-B/L shoulder pain Intake Note: Immanuel is a 74 year old male right hand dominant who presents with complaints of bilateral shoulder pains. He describes his pains as sharp in nature. He has tried Tylenol and ibuprofen which gave him mild relief. He did have cortisone injections given into his shoulder several years ago which gave him fairly good relief. He has tried physical therapy exercises which aggravated his pain. Allergies fenofibrate (From TRICOR) Allergy (Severe, Verified 11/14/24 15:18) RASH isosorbide (From Imdur) Allergy (Severe, Verified 11/14/24 15:18) H/A propoxyphene (From Darvocet-N 100) Allergy (Severe, Verified 11/14/24 15:18) RASH shellfish derived Allergy (Severe, Verified 11/14/24 15:18) Anaphylaxis gemfibrozil Allergy (Verified 11/14/24 15:18) Itching Medication List - Last Reconciled 11/14/24 by Nathan Ackerman MD albuterol sulfate 90 mcg/actuation 2 puffs inhalation Q4-6H PRN aspirin 81 mg PO DAILY bupropion HCl 100 mg PO BID clopidogrel 75 mg PO DAILY cyclobenzaprine 5 mg PO DAILY PRN dulaglutide (Trulicity) 1.5 mg subcut .QMONDAY duloxetine 40 mg PO DAILY ezetimibe 10 mg PO DAILY famotidine 20 mg PO DAILY glipizide 10 mg PO DAILY hydrocodone-acetaminophen 10-325 mg 1 tab PO Q4H PRN hydroxyzine HCl 25 mg PO Q8H PRN ibuprofen 200 mg PO Q8H PRN insulin degludec (Tresiba U-100 Insulin) 22 units subcut BEDTIME insulin detemir U-100 units subcut lactulose 10 grams PO DAILY lisinopril 20 mg PO DAILY metformin ER 500 mg PO DAILY metoprolol tartrate 50 mg PO BID omega 2-rqp-nrt-fish oil 1,200 (144-216) mg (Fish Oil) 1 cap PO BID omeprazole 40 mg PO DAILY oxycodone ER (OxyContin) 10 mg PO BID primidone 150 mg PO DAILY propranolol 120 mg PO BID rosuvastatin 40 mg PO BEDTIME sertraline 50 mg PO DAILY PFSH Medical History Coronary artery disease Low back pain Anxiety and depression High cholesterol Vasculopathy Ambulates with cane Wears dentures Arthritis Back pain Diabetes GERD (gastroesophageal reflux disease) Renal calculi Cataracts, bilateral Numbness and tingling of left leg HLD (hyperlipidemia) HTN (hypertension) Smoker Surgical History (Updated 10/05/24 @ 10:57 by Sharon Sinclair MA) S/P triple vessel bypass Hx of cystoscopy Hx of colonoscopy Hx of CABG (~2002) History of back surgery Hx of left knee surgery (~1981) Family History (Updated 10/02/24 @ 15:00 by Sharon Sinclair MA) Father Heart attack Hypertension Daughter Heart attack Hypertension Social History (Updated 11/14/24 @ 15:19 by Eliana Alva) Household Members: Spouse Housing: Apartment Are you a primary healthcare administration internship to a significant other at home: No Do you presently have visiting nurse or other home services: No Patient Tobacco Use Status: Current everyday Tobacco user Tobacco use type: Cigarette Cigarettes Per Day: 6 Current occupational status: disabled Physical Exam Vital Signs: BMI result Body Mass Index 30.7 Const Other: Well-nourished well-developed very friendly male awake alert and oriented x3 in no acute distress Extrem Other: Bilateral shoulder examination shows tenderness over his acromioclavicular joint, 4+ out of 5 strength with supraspinatus testing, positive impingement signs, no instability Office Procedures AMB Joint Injection/Aspiration Joint Injection/Aspiration Primary Site: left shoulder Prep: site was prepped using aseptic technique Injected: 40 mg of, DepoMedrol and 1% plain lidocaine Procedure: The patient tolerated the procedure well Coding 42277 - Large joint Procedure code (CPT) selection complete AMB Joint Injection/Aspiration Joint Injection/Aspiration Primary Site: right shoulder Prep: site was prepped using aseptic technique Injected: 40 mg of, DepoMedrol and 1% plain lidocaine Procedure: The patient tolerated the procedure well Coding 65231 - Large joint Procedure code (CPT) selection complete Results Reviewed Results Reviewed: X-rays of the patient's bilateral shoulders show severe acromioclavicular joint narrowing type 2 acromion, no acute bony abnormalities Assessment & Plan Assessment & Plan (1) Impingement syndrome of left shoulder: Code(s): M75.42 - Impingement syndrome of left shoulder Category: Medical (2) Impingement of right shoulder: Code(s): M25.811 - Other specified joint disorders, right shoulder Category: Medical Plan Mr. Aftab Medina presents with bilateral shoulder pains due to impingement syndrome. The risks and benefits of bilateral shoulder cortisone injections were discussed at length with the patient. The patient wished to proceed. He tolerated the injections well. He will continue with his home stretching program. Will contact me prior to his follow-up appointment in 3 months should any questions or concerns arise. Feel free to call me at any time should questions regarding his orthopedic management arise. I spent 20 minutes in reviewing the patient's records and imaging studies, seeing the patient and documenting in the medical record. Orders: Orders AMB Joint Injection/Aspiration Today M25.811 - Other specified joint disorders, right shoulder XR Shoulder Ihsan min 2V Today M25.511 - Pain in right shoulder, M25.512 - Pain in left shoulder AMB Joint Injection/Aspiration Today M75.42 - Impingement syndrome of left shou lder Coding Level of Care Code Est Pt Level 3 (63524) Complex EM visit Add On G2211 Diagnoses Impingement syndrome of left shoulder M75.42 Impingement of right shoulder M25.811 CPT Codes Coding - 76663 Large joint: 45646 - Large joint ([id number]) Coding - 72991 Large joint: 28771 - Large joint ([id number])
[2024-11-14 15:18] VITALS: BMI 30.7
--- OUTSIDE RECORDS SUMMARY | 2024-11-14 15:55 | XMS_ITS | Patient Health Record ---
Author Organization [facility] Address [address] [place] [address] Care Team Providers Care Terminal Operator Name Role Phone Mayuri Toscano MD, Santi Primary Care Provide Colton Queen [phone] Allergies Allergen (clinical drug ingredient) Drug/Non Drug Allergy documented on EMR Reaction Allergy Type Onset Date Status fenofibrate Tricor Unknown Drug Allergy Activ e Endur-Acin Unknown Drug Allergy Active Darvocet A500 Unknown Drug Allergy Act xi Reason For Referral No Information Medications Medication SIG (Take, Route, Frequency, Duration) Notes Start Date End Date Status Aspir-Low 81 MG 1 tablet Orally Once a day for 30 day(s) Active NitroQuick .04mg prn po prn Ac tive Vicodin 5-300 MG 1 tablet as needed O rally every 6 hrs Active Fish Oil 1200 MG 1 capsule Orally Twi ce a day Active metFORMIN HCl 1000 MG 1 tablet with a me al Orally twice a day Active Zetia 10 MG 1 tablet Orally Once a day Active Metoprolol Tartrate 50 MG 1 tablet with food Orally Twice a day Active glipiZIDE ER 10 MG TK 1 T PO Q 12 H Ora l Once a day Active Plavix 75 MG 1 tablet Orally Once a day Active Levemir 100 UNIT/ML ADM 22 UNI SC QD HS Subcutaneous as directed Active Omeprazole 20 MG 1 capsule Orally Once a day Active Lisinopril 20 MG 1 tablet Orally Once a day Active Crestor 40 MG 1 tablet Orally Once a day Active Immunizations Vaccine Route Administration Date Status Comme nts Influenza Unknown 12/30/2017 Administered Social History Tobacco Use: Social History Observation Description Date Details (start date - stop date) Former Smoker NA - NA Tobacco Use/Smoking Question Answer Notes Patient is a former smoker How long has it been since you last smoked? 1-5 years Section Notes: Nonsmoker since 2011; no sig alcohol Nonsmoker since 2015; no sig alcohol Problems Problem Type SNOMED Code ICD Code Onset Dates Problem Status W/U Status Risk Notes Problem 070916338 Encounter for screening for malignant neoplasm of colon (Z12.11) Active confirmed Problem 182328899 History of adenomatous polyp of colon (Z86.010) Active confirmed Problem 720556369456450 Preprocedural examination (Z01.818) Active confirmed Problem 258336638 Long-term use of aspirin therapy (Z79.82) Active confirmed Plan Of Treatment Pending Test Test Name Order Date GI BIOPSY 02/08/2019 Future Test Test Name Order Date COLONOSCOPY 06/20/2013 COLONOSCOPY 12/08/2018 Next Appt Details Provider Name:Colton Estrada , 03/15/2025 11:00:00 AM, [address] [facility], [address], [place], [address], Insurance Providers Payer Name Payer Address Payer Phone Subscriber Number Group Number Insured Name Patient Relationship to Insured Coverage Start Date Coverage End Date MEDICARE OF [place] [address] [place] [id number] NANCY MONTES DE OCA Self - patient is the insured [facility]ID OF [facility] [address] [place] [address] [id number] NANCY MONTES DE OCA Self - patient is the insured Medical (General) History Medical History History ICD Code 02/09/2003 Colonoscopy--neg except hyperplastic polyps and internal hemorrhoids HTN IDDM Hyperlipidemia 2001-large duodenal ulcer an d a small gastric ulcer with a GI bleed--treated for H.pylori--F/U EGD in 2002 revealed healing of the ulcers-bx was neg for H.pylori Coronary artery disease--no [place]-3V CABG 2 003--fine since Denies [place],CVA,Lung disease,renal disease diabetes mellitus PVD--has a stent in the RLE Kidney stone on left Arthritis-especially, shoulders and back Colonoscopy 08/2013 with a all tubular adenoma, diverticulosis, and internal hemorrhoids Surgical History Surgery Date(Month/Year) CABG as above 2002 Knee surgery-left Left LE vascular surgery 03/14/2018 Back surgery [facility] [address] Damon
== END 2024-11-14 15:47 | disposition home or self-care (01) ==
LOC: HO.HOS 15:04
PROVIDERS: PCP Internal Medicine; Visit Provider Orthopaedic Surgery
DX: M75.42 Impingement syndrome of left shoulder (principal); M25.811 Other specified joint disorders, right shoulder
CPT/HCPCS: 20610; 99213

== ENCOUNTER → 2024-11-14 15:08 | Outpatient (BNV) | payer MEDICARE, MEDICAID, SELFPAY | PROVIDERS: Visit Provider Radiology Diagnostic Radiology | DX: M19.011 Primary osteoarthritis, right shoulder (principal); M19.012 Primary osteoarthritis, left shoulder | CPT/HCPCS: 73030 ==

== ENCOUNTER 2024-11-17 09:55 | Outpatient (AMB) | payer MEDICARE, MEDICAID, SELFPAY ==
--- NOTE | 2024-11-17 09:59 | MHC.OFFVIS ---
Vital Signs 11/17/24 10:09 Height 5 ft 6 in Weight 194 lb BMI 31.3 BP 117/56 L Blood Pressure Location Rt brachial Position Sitting Pulse 80 Pulse Source Pulse Oximeter Pulse Oximetry (%) 97 Oxygen Delivery Method Room Air Intake Visit Reasons: CHRONIC MIDLINE LOW BACK PAIN Intake Note: Pain today 12/13 Project Archivist Required: No Project Archivist Name: Janina- daughter Accompanied by: Daughter Allergies fenofibrate (From TRICOR) Allergy (Severe, Verified 11/17/24 10:11) RASH isosorbide (From Imdur) Allergy (Severe, Verified 11/17/24 10:11) H/A propoxyphene (From Darvocet-N 100) Allergy (Severe, Verified 11/17/24 10:11) RASH shellfish derived Allergy (Severe, Verified 11/17/24 10:11) Anaphylaxis gemfibrozil Allergy (Verified 11/17/24 10:11) Itching Medication List - Last Reconciled 11/17/24 by KANNAN Vargas albuterol sulfate 90 mcg/actuation 2 puffs inhalation Q4-6H PRN aspirin 81 mg PO DAILY bupropion HCl 100 mg PO BID clopidogrel 75 mg PO DAILY cyclobenzaprine 5 mg PO DAILY PRN dulaglutide (Trulicity) 1.5 mg subcut .QMONDAY duloxetine 40 mg PO DAILY ezetimibe 10 mg PO DAILY famotidine 20 mg PO DAILY gabapentin 800 mg PO TID glipizide 10 mg PO DAILY hydrocodone-acetaminophen 10-325 mg 1 tab PO Q4H PRN hydroxyzine HCl 25 mg PO Q8H PRN ibuprofen 200 mg PO Q8H PRN insulin degludec (Tresiba U-100 Insulin) 22 units subcut BEDTIME insulin detemir U-100 units subcut lactulose 10 grams PO DAILY lisinopril 20 mg PO DAILY metformin ER 500 mg PO DAILY metoprolol tartrate 50 mg PO BID naloxone 4 mg/actuation intranasal omega 0-wby-wso-fish oil 1,200 (144-216) mg (Fish Oil) 1 cap PO BID omeprazole 40 mg PO DAILY oxycodone ER (OxyContin) 10 mg PO BID primidone 150 mg PO DAILY propranolol 120 mg PO BID rosuvastatin 40 mg PO BEDTIME sertraline 50 mg PO DAILY HPI Comments Details: The patient is a 74-year-old male presenting with chronic low back pain. The pain is described as severe and chronic, affecting the mid and lower back, with a constant stabbing quality and a pain level of 8 to 9 out of 10. The pain radiates to both legs, more pronounced on the right side, and is exacerbated by movement, weather changes, and walking. 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 He underwent a neurosurgery evaluation in 2016, which recommended a left L3-L4 laminectomy with a minimally invasive approach. A repeat lumbar spine MRI in 2021 showed multilevel degenerative changes with interval progression compared to 2019. The patient has been on long-term opioid therapy, including Oxycontin and hydrocodone, and has tried physical and massage therapy with minimal improvement. He is not a candidate for physical therapy due to severe peripheral vascular disease and has been advised against neuroaxial interventions due to high risk associated with his chronic arterial disease. The patient reports widespread body pain affecting daily activities, sleep, and mobility, with pain described as cramping, tingling, stinging, and aching. He has a history of type 2 diabetes mellitus, managed with insulin and metformin, with a recent A1c of approximately 7. The patient also has a history of peripheral artery disease, status post triple vessel coronary artery bypass grafting, and chronic tremors. He denies smoking or drinking; consumes 4 to 5 cups of black coffee daily. - Onset and Timing: Chronic, severe pain present for several years - Quality and Character: Constant stabbing, cramping, tingling, stinging, aching, heavy, radiating, and spreading pain - Severity: Constant, 8-9/10 - Primary Location: Mid and lower back - Areas of Radiation: Radiates to both legs, more pronounced on the right - Exacerbating Factors: Movement, weather changes, walking - Relieving Factors: Laying down provides minimal relief - Interference with Activities: Affects daily activities, functioning, sleeping, and mobility - Affect: Pain impacts daily activities and functioning, causing disability - Analgesia: Currently on Oxycontin 10 mg BID, hydrocodone 10 mg every 4 hours, and gabapentin 800 mg TID - Adverse Effects: No specific adverse effects discussed - Activities of Daily Living: Pain interferes with daily activities, sleep, and mobility - Aberrant Drug Related Behaviors: No aberrant behaviors reported, but issues with prescription timing and pharmacy delays noted Oswestry Neck Pain Disability Score=41 PFSH Medical History Coronary artery disease Low back pain Anxiety and depression High cholesterol Vasculopathy Ambulates with cane Wears dentures Arthritis Back pain Diabetes GERD (gastroesophageal reflux disease) Renal calculi Cataracts, bilateral Numbness and tingling of left leg HLD (hyperlipidemia) HTN (hypertension) Smoker Surgical History S/P triple vessel bypass Hx of cystoscopy Hx of colonoscopy Hx of CABG (~2002) History of back surgery Hx of left knee surgery (~1981) Family History Father Heart attack Hypertension Daughter Heart attack Hypertension Social History Household Members: Spouse Housing: Apartment Are you a primary acute care registered nurse to a significant other at home: No Do you presently have visiting nurse or other home services: No Patient Tobacco Use Status: Current everyday Tobacco user Tobacco use type: Cigarette Cigarettes Per Day: 6 Current occupational status: disabled Review of Systems Const Details: - Musculoskeletal: Reports chronic, severe mid and lower back pain, radiating to both legs, more pronounced on the right; reports cramping, tingling, stinging, aching, and heaviness - Neurological: Reports chronic tremors, denies bladder or bowel dysfunction or saddle anesthesia All systems reviewed & are unremarkable except as noted in HPI and below Physical Exam Vital Signs: Last Vital Signs Pulse 80 11/17/24 10:09 BP 117/56 L 11/17/24 10:09 Pulse Ox 97 11/17/24 10:09 Oxygen Delivery Method Room Air 11/17/24 10:09 BMI result Body Mass Index 31.3 General: Appears afebrile. Alert and oriented. Mood and affect appropriate. Follows and participates in conversation appropriately. Respiratory effort is unlabored. No cough. Able to transition from sit to stand unassisted. Uses cane with ambulation. Ambulates with bilaterally normal heel strike and toe off. Back/Spine/Pelvis Cervical Spine: cervical muscular tenderness, pain with cervical ROM and No Cervical spine tenderness Thoracic/Lumbar Spine: thoracic and lumbar spine normal to inspection, Thoracic/lumbar spine scar(s), Lasegue's sign negative, straight leg raise negative bilaterally, pain with thoraco-lumbar ROM, paraspinal muscle tenderness, thoraco-lumbar ROM limited, No thoracic spinal tenderness and No lumbar spinal tenderness Sacroiliac joints: bilaterally tender to palpation Results Reviewed Results Reviewed: MR LUMBAR SPINE WITHOUT AND WITH CONTRAST 05/01/21 CLINICAL INFORMATION: Low back pain. COMPARISON: Lumbar spine MRI 07/14/2019. TECHNIQUE: MRI of the lumbar spine was obtained using routine sequences without and with intravenous contrast. A total of 10 mL Gadavist was intravenously administered. FINDINGS: The lumbar vertebral bodies maintain normal heights and alignment. There is mild disc height loss at L3-L4. No bone marrow edema is seen. The distal spinal cord appears normal. The conus medullaris terminates normally at the L1 level. No abnormal cauda equina nerve root enhancement is seen. The extraspinal soft tissues are within normal limits. SPINAL LEVELS: L1-L2: Disc bulging. No spinal canal or neural foraminal stenosis. L2-L3: Disc bulging with ligamentum flavum infolding and mild to moderate facet arthropathy. Asymmetric narrowing of left subarticular zone, similar to prior. Mild bilateral neural foraminal stenosis. L3-L4: Posterior decompression. Disc bulging with moderate facet arthropathy. Left foraminal protrusion results in severe left-sided neural foraminal stenosis with significant compression of the exiting left L3 nerve root. Bulging disc extends the right neural foramen and results in moderate to severe neural foraminal stenosis, similar to prior. L4-L5: Disc bulging with ligamentum flavum infolding and moderate facet arthropathy. Moderate spinal canal stenosis with compression of both traversing L5 nerve roots in the subarticular zones, progressed from prior. Mild to moderate right and mild left neural foraminal stenosis. L5-S1: Disc bulging with ligamentum flavum infolding moderate facet arthropathy resulting in bilateral subarticular stenosis with compression of the traversing right more than left S1 nerve roots, similar to prior. Mild to moderate spinal canal stenosis. IMPRESSION: Multilevel degenerative spondylotic changes with interval progression compared with 2019. At L3-L4 there is left foraminal protrusion resulting in severe left-sided neural foraminal stenosis with significant compression of the exiting left L3 nerve root, new from prior. Similar appearance of moderate to severe right-sided neural foraminal stenosis. At L4-L5 there is moderate spinal canal stenosis with compression of both traversing L5 nerve roots, progressed from prior. At L5-S1 there is bilateral subarticular stenosis with compression of the traversing right more than left S1 nerve root, similar prior. Mild to moderate spinal canal stenosis. Assessment & Plan Assessment & Plan (1) Chronic low back pain with sciatica: Code(s): M54.40 - Lumbago with sciatica, unspecified side; G89.29 - Other chronic pain Category: Medical (2) Lumbar post-laminectomy syndrome: Code(s): M96.1 - Postlaminectomy syndrome, not elsewhere classified Category: Medical (3) Chronic pain syndrome: Code(s): G89.4 - Chronic pain syndrome Category: Medical Plan The patient is advised to consider opioid rotation as a potential strategy to manage his chronic pain, given the current limitations with his opioid regimen. A spinal cord stimulator trial was discussed as a potential intervention to manage his chronic low back pain and associated symptoms, with the possibility of a permanent implant if successful. Other options such as radiofrequency ablation and neuromodulation with Sprint PNS trial were also presented as alternatives to manage his pain. The patient is hesitant towards intervenitonal treatments, he is encouraged to discuss these options with his family and consider the potential benefits and risks of each intervention. Informational pamphlets were provided in Panamanian for family and Irish for patient. All questions and concerns have been answered and patient agreed with the treatment plan. Follow up as needed. Patient was informed and verbally consented to the use of an ambient scribe for clinic note documentation during this visit. Coding Level of Care Code New Pt Level 4 (07012) Diagnoses Chronic low back pain with sciatica M54.40; G89.29 Lumbar post-laminectomy syndrome M96.1 Chronic pain syndrome G89.4
[2024-11-17 10:09] VITALS: BP 117/56; PULSE 80; O2SAT 97; BMI 31.3
--- OUTSIDE RECORDS SUMMARY | 2024-11-17 10:12 | XMS_ITS | Patient Health Record ---
Author Organization [facility] Address [address] [place] [address] Care Team Providers Care Hydraulic Jack Adjuster Name Role Phone Mayuri Toscano MD, Santi Primary Care Provide Colton Queen [phone] Allergies Allergen (clinical drug ingredient) Drug/Non Drug [...] Problem Status W/U Status Risk Notes Problem [id number] Encounter for screening for malignant neoplasm of colon (Z12.11) Active confirmed Problem 006777165 History of adenomatous polyp of colon (Z86.010) Active confirmed Problem [id number] Preprocedural examination (Z01.818) Active confirmed Problem [id number] Long-term use of aspirin therapy (Z79.82) Active confirmed Plan Of Treatment Pending Test Test Name Order Date GI BIOPSY 02/08/2019 Future Test Test Name Order Date COLONOSCOPY 06/20/2013 COLONOSCOPY 12/08/2018 Next Appt Details Provider Name:Colton Estrada , 03/15/2025 11:00:00 AM, [address] [facility], [address], [place], [address], Insurance Providers Payer Name Payer Address Payer Phone Subscriber Number Group Number Insured Name Patient Relationship to Insured Coverage Start Date Coverage End Date MEDICARE OF [place] [address] [place] [id number] NANCY MONTES DE OCA Self - patient is the insured [facility] [address] [place] [address] [id number] NANCY MONTES DE OCA Self - patient is the insured Medical (General) History Medical History History ICD Code 02/09/2003 Colonoscopy--neg except hyperplastic polyps and internal hemorrhoids HTN IDDM Hyperlipidemia 2001-large duodenal ulcer an d a small gastric ulcer with a GI bleed--treated for H.pylori--F/U EGD in 2002 revealed healing of the ulcers-bx was neg for H.pylori Coronary artery disease--no NC-3V CABG 2 003--fine since Denies NC,CVA,Lung disease,renal disease diabetes mellitus PVD--has a stent in the RLE Kidney stone on left Arthritis-especially, shoulders and back Colonoscopy 08/2013 with a all tubular adenoma, diverticulosis, and internal hemorrhoids Surgical History Surgery Date(Month/Year) CABG as above 2002 Knee surgery-left Left LE vascular surgery 03/14/2018 Back surgery [facility] [address] Damon
--- OUTSIDE RECORDS SUMMARY | 2024-11-17 10:12 | XMS_ITS | Encounter Summary ---
Author Organization [employer] [facility] Address [address] [facility] 7 [place] [address] Care Team Providers Care Tint Layer Name Role Phone Santi Landry MD Primary Care Provide r Reason for Visit * Reason Onset Date Comments Med Refill 09/28/2023 Encounter Details Date Type Department Care Team ([facility] st Contact Info) Description 09/28/2023 Refill [facility] [address] [place] [address] Santi Landry MD [address] [place] [address] Social History Tobacco Use Types Packs/Day Years [...] Description 12/28/2024 2:00 PM EDT Clinical Support [facility] [address] [place] [address] Karishma Rose, RN [address] [place] [address] 01/30/2025 11:30 AM EDT Office Visit [facility] [address] [place] [address] Santi Landry MD [address] [place] [address] documented as of this encounter Visit Diagnoses Not on filedocumented in this encounter Additional Health Concerns Assessment Noted Time PHQ-9 Depression Total Score: 6 06/22/19 24 11:07 AM EDT documented as of this encounter Care Teams Tint Layer Relationship Specialty Start Date End Date Santi Landry MD [address] [place] [id number] PCP - General Internal Medicine 06/14/14 documented as of this encounter
== END 2024-11-17 10:43 | disposition home or self-care (01) ==
LOC: HO.PMC 09:56
PROVIDERS: PCP Internal Medicine; Visit Provider Nurse Practitioner Family
DX: M54.40 Lumbago with sciatica, unspecified side (principal); G89.29 Other chronic pain; M96.1 Postlaminectomy syndrome, not elsewhere classified; G89.4 Chronic pain syndrome
CPT/HCPCS: 99204

== ENCOUNTER → 2024-11-17 09:55 | Outpatient (BNVA) | payer MEDICARE, MEDICAID, SELFPAY | PROVIDERS: PCP Internal Medicine; Visit Provider Nurse Practitioner Family | DX: M54.50 Low back pain, unspecified (principal); M96.1 Postlaminectomy syndrome, not elsewhere classified; G89.4 Chronic pain syndrome | CPT/HCPCS: 99202 ==

== ENCOUNTER 2024-11-29 09:26 | Outpatient (REF) | payer MEDICARE, MEDICAID, SELFPAY ==
--- NOTE | ~2024-11-29 | XR_ITS ---
EXAMINATION: XR HIP 2 OR MORE VIEWS RIGHT HISTORY: right hip pain COMPARISON: Comparison is made with the prior examination of the pelvis dated 03/14/2018. FINDINGS: Two views of the right hip are submitted. Osseous mineralization is normal. There is no fracture or dislocation. There is mild joint space narrowing. There is soft tissue calcifications adjacent to the greater trochanter. There are vascular calcifications. XR/XR hip RT min 2V IMPRESSION: Mild joint space narrowing. Electronically signed by: Colton Cristina MD 11/29/2024 10:28 AM EDT
--- OUTSIDE RECORDS SUMMARY | 2024-11-29 10:01 | XMS_ITS | Encounter Summary ---
Author Organization [employer] Address [address] [facility] 7 [place] [address] Care Team Providers Care Hr Shared Services Consultant Name Role Phone Santi Landry MD Primary Care Provide r Reason for Visit * Reason Comments Med Refill Encounter Details Date Type Department Care Team ([facility] st Contact Info) Description 07/04/2024 Refill [facility] MED [facility] PEDS [address] [place], [place] [phone] Santi Landry MD [address] [place] [address] Chronic midline low back pain without sciatica [...] Description 12/28/2024 2:00 PM EDT Clinical Support [facility] [address] [place] [address] Karishma Rose, RN [address] [place] [address] 01/30/2025 11:30 AM EDT Office Visit [facility] [address] [place] [address] Santi Landry MD [address] [place] [address] documented as of this encounter Visit Diagnoses Diagnosis Chronic midline low back pain without sciatica documented in this encounter Additional Health Concerns Assessment Noted Time PHQ-9 Depression Total Score: 0 11/09/19 24 10:18 AM EDT documented as of this encounter Care Teams Hr Shared Services Consultant Relationship Specialty Start Date End Date Santi Landry MD [address] [place] [phone] PCP - General Internal Medicine 06/14/14 documented as of this encounter
--- OUTSIDE RECORDS SUMMARY | 2024-11-29 10:01 | XMS_ITS | Encounter Summary ---
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 [...] Description 12/28/2024 2:00 PM EDT Clinical Support [facility] [address] [place] [address] Karishma Rose, FATEMEH [address] [place] [address] 01/30/2025 11:30 AM EDT Office Visit [facility] [address] [place] [address] Santi Landry MD [address] [place] [address] documented as of this encounter Visit Diagnoses Diagnosis Chronic midline low back 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
--- OUTSIDE RECORDS SUMMARY | 2024-11-29 10:01 | XMS_ITS | Encounter Summary ---
Author Organization [employer] Address [address] [facility] 7 [place] [address] Care Team Providers Care Fuel Assembler Name Role Phone Santi Landry MD Primary Care Provide r Reason for Visit * Reason Onset Date Comments Med Refill 09/28/2023 Encounter Details Date Type Department Care Team ([facility] st Contact Info) Description 09/28/2023 Refill [facility] [address] [place] [address] Santi Landry MD [address] [place] [address] Social History Tobacco Use Types Packs/Day Years [...] Description 12/28/2024 2:00 PM EDT Clinical Support [facility] [address] [place] [address] Karishma Rose, RN [address] [place] [address] 01/30/2025 11:30 AM EDT Office Visit [facility] [address] [place] [address] Santi Landry MD [address] [place] [address] documented as of this encounter Visit Diagnoses Not on filedocumented in this encounter Additional Health Concerns Assessment Noted Time PHQ-9 Depression Total Score: 6 06/22/19 24 11:07 AM EDT documented as of this encounter Care Teams Fuel Assembler Relationship Specialty Start Date End Date Santi Landry MD [address] [place] [phone] PCP - General Internal Medicine 06/14/14 documented as of this encounter
--- OUTSIDE RECORDS SUMMARY | 2024-11-29 10:01 | XMS_ITS | Encounter Summary ---
Author Organization [employer] Address [address] [place] [address] [address] [place] [address] Care Team Providers Care Principal Cloud Architect Name Role Phone Santi Landry MD Primary Care Provide r Reason for Visit * Reason Onset Date Comments Med Refill 08/31/2023 Encounter Details Date Type Department Care Team ([facility] st Contact Info) Description 08/31/2023 Refill [facility] [address] [place] [address] Santi Landry MD [address] [place] [address] Social History Tobacco Use Types Packs/Day Years [...] 2:00 PM EDT Clinical Support [facility] [address] [place] [address] Karishma Rose, RN [address] [place] [address] 01/30/2025 11:30 AM EDT Office Visit [facility] [address] [place] [address] Santi Landry MD [address] [place] [address] documented as of this encounter Visit Diagnoses Not on filedocumented in this encounter Additional Health Concerns Assessment Noted Time PHQ-9 Depression Total Score: 6 06/22/19 24 11:07 AM EDT documented as of this encounter Care Teams Principal Cloud Architect Relationship Specialty Start Date End Date Santi Landry MD [address] [place] [phone] PCP - General Internal Medicine 06/14/14 documented as of this encounter
--- OUTSIDE RECORDS SUMMARY | 2024-11-29 10:01 | XMS_ITS | Encounter Summary ---
Author Organization [employer] Address [address] [place] [address] 7 [place] [address] Care Team Providers Care Water Taxi Driver Name Role Phone Santi Landry MD Primary Care Provide r Reason for Visit * Reason Onset Date Comments Med Refill 2024 Encounter Details Date Type Department [facility] Description 2024 Telephone [facility] [address] [place] [address] Santi Landry MD [address] [place] [address] Med Refill Social History Tobacco Use Types [...] encounter Miscellaneous Notes * Telephone Encounter - Ayana Aceves - 2024 11:09 AM EDT TC from pt requesting medication refill. Medications needing refill : HYDROcodone-acetaminophen ([place]) 10-325 MG tablet To be sent to: [facility] - [place], [place] - [address] [place] [address] documented in this encounter Plan of Treatment Upcoming Encounters Date Type Department Care Team (Late st Contact Info) Description 12/28/2024 2:00 PM EDT Clinical Support [facility] [address] [place] [address] Karishma Rose RN [address] [place] [address] 01/30/2025 11:30 AM EDT Office Visit [facility] [address] [place] [address] Santi Landry MD [address] [place] [address] documented as of this encounter Visit Diagnoses Not on filedocumented in this encounter Additional Health Concerns Assessment Noted Time PHQ-9 Depression Total Score: 0 11/09/19 24 10:18 AM EDT documented as of this encounter Care Teams Water Taxi Driver Relationship Specialty Start Date End Date Santi Landry MD [address] [place] [address] PCP - General Internal Medicine 06/14/14 documented as of this encounter
--- OUTSIDE RECORDS SUMMARY | 2024-11-29 10:01 | XMS_ITS | Patient Health Record ---
Author Organization [facility] Address [address] [place] [address] Care Team Providers Care Egg Factory Worker Name Role Phone Mayuri Toscano MD, Santi Primary Care Provide Colton Queen [phone] Allergies Allergen (clinical drug ingredient) Drug/Non Drug [...] Problem Status W/U Status Risk Notes Problem 886919105 Encounter for screening for malignant neoplasm of colon (Z12.11) Active confirmed Problem 534041278 History of adenomatous polyp of colon (Z86.010) Active confirmed Problem [id number] Preprocedural examination (Z01.818) Active confirmed Problem 887624163 Long-term use of aspirin therapy (Z79.82) Active confirmed Plan Of Treatment Pending Test Test Name Order Date GI BIOPSY 02/08/2019 Future Test Test Name Order Date COLONOSCOPY 06/20/2013 COLONOSCOPY 12/08/2018 Next Appt Details Provider Name:Colton Estrada , 03/15/2025 11:00:00 AM, [address] [facility], [address], [place], [address], Insurance Providers Payer Name Payer Address Payer Phone Subscriber Number Group Number Insured Name Patient Relationship to Insured Coverage Start Date Coverage End Date MEDICARE OF [place] [address] [place] [id number] NANCY MONTES DE OCA Self - patient is the insured [facility] [address] [place] [address] [id number] NANCY MONTES DE OCA Self - patient is the insured Medical (General) History Medical History History ICD Code 02/09/2003 Colonoscopy--neg except hyperplastic polyps and internal hemorrhoids HTN IDDM Hyperlipidemia 2001-large duodenal ulcer an d a small gastric ulcer with a GI bleed--treated for H.pylori--F/U EGD in 2002 revealed healing of the ulcers-bx was neg for H.pylori Coronary artery disease--no [place]-3V CABG 2 003--fine since Denies [place],CVA,Lung disease,renal disease diabetes mellitus PVD--has a stent in the RLE Kidney stone on left Arthritis-especially, shoulders and back Colonoscopy 08/2013 with a all tubular adenoma, diverticulosis, and internal hemorrhoids Surgical History Surgery Date(Month/Year) CABG as above 2002 Knee surgery-left Left LE vascular surgery 03/14/2018 Back surgery [facility] [address] Damon
--- OUTSIDE RECORDS SUMMARY | 2024-11-29 10:01 | XMS_ITS | Encounter Summary ---
Author Organization [employer] Address [address] [facility] 7 [place] [address] Care Team Providers Care Manager Center Name Role Phone Santi Landry MD Primary Care Provide r Reason for Visit * Reason Onset Date Comments Med Refill 09/07/2023 Encounter Details Date Type Department Care Team ([facility] st Contact Info) Description 09/07/2023 Refill [facility] [address] [place] [address] Santi Landry MD 230 [place] [address] Social History Tobacco Use Types Packs/Day Years [...] Description 12/28/2024 2:00 PM EDT Clinical Support [facility] 505 [place] [address] Karishma Rose, RN 505 [place] [address] 01/30/2025 11:30 AM EDT Office Visit [facility] 230 [place] [address] Santi Landry MD [address] [place] [address] documented as of this encounter Visit Diagnoses Not on filedocumented in this encounter Additional Health Concerns Assessment Noted Time PHQ-9 Depression Total Score: 6 06/22/19 24 11:07 AM EDT documented as of this encounter Care Teams Manager Center Relationship Specialty Start Date End Date Santi Landry MD [address] [place] [address] PCP - General Internal Medicine 06/14/14 documented as of this encounter
--- OUTSIDE RECORDS SUMMARY | 2024-11-29 10:01 | XMS_ITS | Encounter Summary ---
Author Organization [employer] Address [address] [place] [address] 7 [place] [address] Care Team Providers Care Sugar Trucker Name Role Phone Santi Landry MD Primary Care Provide r Reason for Visit * Reason Onset Date Comments Med Refill 2024 Encounter Details Date Type Department Care Team ([facility] st Contact Info) Description 2024 Refill [facility]INE 230 [place] [address] Santi Landry MD 230 [place] [address] Social History Tobacco Use Types Packs/Day Years [...] 2:00 PM EDT Clinical Support [facility] 505 [place] [address] Karishma Rose, RN 505 [place] [address] 01/30/2025 11:30 AM EDT Office Visit [facility] [address] [place] [address] Santi Landry MD [address] [place] [address] documented as of this encounter Visit Diagnoses Not on filedocumented in this encounter Additional Health Concerns Assessment Noted Time PHQ-9 Depression Total Score: 0 11/09/19 24 10:18 AM EDT documented as of this encounter Care Teams Sugar Trucker Relationship Specialty Start Date End Date Santi Landry MD [address] [place] [address] PCP - General Internal Medicine 06/14/14 documented as of this encounter
--- OUTSIDE RECORDS SUMMARY | 2024-11-29 10:01 | XMS_ITS | Encounter Summary ---
Author Organization [employer] Address [address] [place] [address] 7 [place] [address] Care Team Providers Care Resource Management Specialist Name Role Phone Santi Landry MD Primary Care Provide r Reason for Visit * Reason Onset Date Comments Med Refill 10/04/2024 Encounter Details Date Type Department Care Team ([facility] Contact Info) Description 10/04/2024 Telephone [facility]INE 230 [place] [address] Santi Landry MD 230 [place] [address] Med Refill Social History Tobacco Use Types [...] encounter Miscellaneous Notes * Telephone Encounter - Gustavo Melchor - 10/04/2024 12:12 PM EDT TC from pt requesting medication refill. Medications needing refill : oxyCODONE ER (OxyCONTIN) 10 MG 12 hr tablet To be sent to: [facility] - [place], [place] - [address] [place] [address] documented in this encounter Plan of Treatment Upcoming Encounters Date Type Department Care Team ([facility] st Contact Info) Description 12/28/2024 2:00 PM EDT Clinical Support [facility] 505 [place] [address] Karishma Rose RN 505 [place] [address] 01/30/2025 11:30 AM EDT Office Visit [facility] 230 [place] [address] Santi Landry MD 230 [place] [address] documented as of this encounter Visit Diagnoses Not on filedocumented in this encounter Additional Health Concerns Assessment Noted Time PHQ-9 Depression Total Score: 0 11/09/19 24 10:18 AM EDT documented as of this encounter Care Teams Resource Management Specialist Relationship Specialty Start Date End Date Santi Landry MD 230 [place] [address] PCP - General Internal Medicine 06/14/14 documented as of this encounter
--- OUTSIDE RECORDS SUMMARY | 2024-11-29 10:01 | XMS_ITS | Encounter Summary ---
Author Organization [employer] Address [address] [place] [address] 7 [place] [address] Care Team Providers Care Aquatics Lifeguard Name Role Phone Santi Landry MD Primary Care Provide r Reason for Visit * Reason Onset Date Comments Med Refill 06/30/2024 Encounter Details Date Type Department Care Team ([facility] st Contact Info) Description 06/30/2024 Refill [facility]INE [address] [place] [address] Santi Landry MD 230 [place] [address] Social History Tobacco Use Types Packs/Day Years [...] Description 12/28/2024 2:00 PM EDT Clinical Support [facility] 505 [place] [address] Karishma Rose, RN 505 [place] [address] 01/30/2025 11:30 AM EDT Office Visit [facility] 230 [place] [address] Santi Landry MD [address] [place] [address] documented as of this encounter Visit Diagnoses Not on filedocumented in this encounter Additional Health Concerns Assessment Noted Time PHQ-9 Depression Total Score: 0 11/09/19 24 10:18 AM EDT documented as of this encounter Care Teams Aquatics Lifeguard Relationship Specialty Start Date End Date Santi Landry MD [address] [place] [address] PCP - General Internal Medicine 06/14/14 documented as of this encounter
--- OUTSIDE RECORDS SUMMARY | 2024-11-29 10:01 | XMS_ITS | Encounter Summary ---
Author Organization [employer] Address [address] [place] [address] 7 [place] [address] Care Team Providers Care Blindstitch Machine Operator Name Role Phone Santi Landry MD Primary Care Provide r Reason for Visit * Reason Onset Date Comments Med Refill 09/24/2023 Encounter Details Date Type Department Care Team ([facility] st Contact Info) Description 09/24/2023 Refill [facility] 230 [place] [address] Santi Landry MD 230 [place] [address] Social History Tobacco Use Types Packs/Day Years [...] Description 12/28/2024 2:00 PM EDT Clinical Support [facility] 505 [place] [address] Karishma Rose, RN 505 [place] [address] 01/30/2025 11:30 AM EDT Office Visit [facility] 230 [place] [address] Santi Landry MD [address] [place] [address] documented as of this encounter Visit Diagnoses Not on filedocumented in this encounter Additional Health Concerns Assessment Noted Time PHQ-9 Depression Total Score: 6 06/22/19 24 11:07 AM EDT documented as of this encounter Care Teams Blindstitch Machine Operator Relationship Specialty Start Date End Date Santi Landry MD [address] [place] [address] PCP - General Internal Medicine 06/14/14 documented as of this encounter
--- OUTSIDE RECORDS SUMMARY | 2024-11-29 10:01 | XMS_ITS | Encounter Summary ---
Author Organization [employer] Address [address] [place] [address] 7 [place] [address] Care Team Providers Care Clinical Data Programmer Name Role Phone Santi Landry MD Primary Care Provide r Reason for Visit * Reason Onset Date Comments Med Refill 06/21/2024 Encounter Details Date Type Department Care Team ([facility] st Contact Info) Description 06/21/2024 Refill [facility] 230 [place] [address] Santi Landry MD 230 [place] [address] Type 2 diabetes mellitus with diabetic polyneuropathy, with long-term current use of insulin ([facility]) Social History Tobacco Use Types Packs/Day Years [...] 2:00 PM EDT Clinical Support [facility] 505 [place] [address] Karishma Rose, FATEMEH 505 [place] [address] 01/30/2025 11:30 AM EDT Office Visit [facility] 230 [place] [address] Santi Ladnry MD 230 [place] [address] documented as of this encounter Visit Diagnoses Diagnosis Type 2 diabetes mellitus with diabetic polyneuropathy, with long-term current use of insulin ([facility]) documented in this encounter Additional Health Concerns Assessment Noted Time PHQ-9 Depression Total Score: 0 11/09/19 24 10:18 AM EDT documented as of this encounter Care Teams Clinical Data Programmer Relationship Specialty Start Date End Date Santi Landry MD [address] [place] [address] PCP - General Internal Medicine 06/14/14 documented as of this encounter
--- OUTSIDE RECORDS SUMMARY | 2024-11-29 10:01 | XMS_ITS | Encounter Summary ---
Author Organization [employer] Address [address] [place] [address] 7 [place] [address] Care Team Providers Care Locate Technician Name Role Phone Santi Landry MD Primary Care Provide r Reason for Visit * Reason Onset Date Comments Med Refill 08/18/2023 Encounter Details Date Type Department Care Team ([facility] st Contact Info) Description 08/18/2023 Refill [facility] 230 [place] [address] Santi Landry MD 230 [place] [address] Social History Tobacco Use Types Packs/Day Years [...] 2:00 PM EDT Clinical Support [facility] 505 [place] [address] Karishma Rose, RN 505 [place] [address] 01/30/2025 11:30 AM EDT Office Visit [facility] 230 [place] [address] Santi Landry MD [address] [place] [address] documented as of this encounter Visit Diagnoses Not on filedocumented in this encounter Additional Health Concerns Assessment Noted Time PHQ-9 Depression Total Score: 6 06/22/19 24 11:07 AM EDT documented as of this encounter Care Teams Locate Technician Relationship Specialty Start Date End Date Santi Landry MD [address] [place] [address] PCP - General Internal Medicine 06/14/14 documented as of this encounter
--- OUTSIDE RECORDS SUMMARY | 2024-11-29 10:01 | XMS_ITS | Encounter Summary ---
Author Organization [employer] Address [address] [place] [address] 7 [place] [address] Care Team Providers Care Director Of Critical Care Name Role Phone Santi Landry MD Primary Care Provide r Reason for Visit * Reason Onset Date Comments Med Refill 08/30/2023 Encounter Details Date Type Department Care Team ([facility] st Contact Info) Description 08/30/2023 Refill [facility] 230 [place] [address] Santi Landry MD 230 [place] [address] Social History Tobacco Use Types Packs/Day Years [...] Description 12/28/2024 2:00 PM EDT Clinical Support [facility] 505 [place] [address] Karishma Rose, RN 505 [place] [address] 01/30/2025 11:30 AM EDT Office Visit [facility] [address] [place] [address] Santi Landry MD [address] [place] [address] documented as of this encounter Visit Diagnoses Not on filedocumented in this encounter Additional Health Concerns Assessment Noted Time PHQ-9 Depression Total Score: 6 06/22/19 24 11:07 AM EDT documented as of this encounter Care Teams Director Of Critical Care Relationship Specialty Start Date End Date Santi Landry MD [address] [place] [address] PCP - General Internal Medicine 06/14/14 documented as of this encounter
--- OUTSIDE RECORDS SUMMARY | 2024-11-29 10:01 | XMS_ITS | Encounter Summary ---
Author Organization [employer] Address [address] [place] [address] 7 [place] [address] Care Team Providers Care Employment Clerk Name Role Phone Santi Landry MD Primary Care Provide r Reason for Visit * Reason Onset Date Comments Med Refill 09/15/2023 Encounter Details Date Type Department Care Team ([facility] st Contact Info) Description 09/15/2023 Refill [facility] 230 [place] [address] Santi Landry MD 230 [place] [address] Social History Tobacco Use Types Packs/Day Years [...] Description 12/28/2024 2:00 PM EDT Clinical Support [facility] 505 [place] [address] Karishma Rose, RN 505 [place] [address] 01/30/2025 11:30 AM EDT Office Visit [facility] 230 [place] [address] Santi Landry MD [address] [place] [address] documented as of this encounter Visit Diagnoses Not on filedocumented in this encounter Additional Health Concerns Assessment Noted Time PHQ-9 Depression Total Score: 6 06/22/19 24 11:07 AM EDT documented as of this encounter Care Teams Employment Clerk Relationship Specialty Start Date End Date Santi Landry MD [address] [place] [address] PCP - General Internal Medicine 06/14/14 documented as of this encounter
--- OUTSIDE RECORDS SUMMARY | 2024-11-29 10:01 | XMS_ITS | Encounter Summary ---
Author Organization [employer] Address [address] [place] [address] 7 [place] [address] Care Team Providers Care Guest Service Supervisor Name Role Phone Santi Landry MD Primary Care Provide r Reason for Visit * Reason Onset Date Comments Med Refill 09/15/2023 Encounter Details Date Type Department Care Team ([facility] st Contact Info) Description 09/15/2023 Refill [facility] 230 [place] [address] Santi Landry MD 230 [place] [address] Social History Tobacco Use Types Packs/Day Years [...] Description 12/28/2024 2:00 PM EDT Clinical Support [facility] 505 [place] [address] Karishma Rose, RN 505 [place] [address] 01/30/2025 11:30 AM EDT Office Visit [facility] 230 [place] [address] Santi Landry MD [address] [place] [address] documented as of this encounter Visit Diagnoses Not on filedocumented in this encounter Additional Health Concerns Assessment Noted Time PHQ-9 Depression Total Score: 6 06/22/19 24 11:07 AM EDT documented as of this encounter Care Teams Guest Service Supervisor Relationship Specialty Start Date End Date Santi Landry MD [address] [place] [address] PCP - General Internal Medicine 06/14/14 documented as of this encounter
--- OUTSIDE RECORDS SUMMARY | 2024-11-29 10:02 | XMS_ITS | Encounter Summary ---
Author Organization [employer] Address [address] [place] [address] 7 [place] [address] Care Team Providers Care Cnc Milling Machine Operator Name Role Phone Santi Landry MD Primary Care Provide r Encounter Details Date Type Department Care Team ([facility] Contact Info) Description 12/22/2022 Orders Only [facility] [address] [place] [address] Essie Can LPN Social History Tobacco Use [...] Upcoming Encounters Date Type Department Care Team ([facility] Contact Info) Description 12/28/2024 2:00 PM EDT Clinical Support [facility] [address] [place] [address] Karishma Rose, FATEMEH 505 [place] [address] 01/30/2025 11:30 AM EDT Office Visit [facility] MEDICINE 230 [place] [address] Santi Landry MD 230 [facility] [place] [address] documented as of this encounter Procedures Procedure Name Priority Date/Time Associated Diagnosis Comments GLUCOSE, WHOLE BLOOD Routine 10/25/2023 8:38 AM EDT GLUCOSE, WHOLE BLOOD Routine 10/11/2023 8:42 AM EDT documented in this encounter Results * Glucose, Whole Blood (10/25/2023 8:38 AM EDT) Glucose, Whole Blood 93 60 - 115 mg/dL [facility] Comment:METER #: [id number] 10/25/2023 8:38 AM EDT 10/25/2023 8:42 AM EDT us Generic External Data Provider LAB BLOOD ORDERAB LES Final Result Performing Organization Address City/[facility]/ZIP Co de Phone Number [facility] [address] [place] [phone] * (ABNORMAL) Glucose, Whole Blood (10/11/2023 8:42 AM EDT) Glucose, Whole Blood 143(H) 60 - 115 mg/dL [facility] Comment:METER #: [id number] 10/11/2023 8:42 AM EDT 10/11/2023 8:46 AM EDT Generic External Data Provider LAB BLOOD ORDERAB LES Final Result Performing Organization Address City/[facility] Co de Phone Number [facility] [address] [place] [phone] documented in this encounter Visit Diagnoses Not on filedocumented in this encounter Additional Health Concerns Assessment Noted Time PHQ-9 Depression Total Score: 0 06/10/19 23 11:13 AM EST documented as of this encounter Care Teams Cnc Milling Machine Operator Relationship Specialty Start Date End Date Santi Landry MD 230 [place] [address] PCP - General Internal Medicine 06/14/14 documented as of this encounter
--- OUTSIDE RECORDS SUMMARY | 2024-11-29 10:02 | XMS_ITS | Encounter Summary ---
Author Organization [employer] Address [address] [place] [address] 7 [place] [address] Care Team Providers Care Hide Dyer Name Role Phone Santi Landry MD Primary Care Provide r Reason for Visit * Reason Onset Date Comments Med Refill 07/17/2024 Encounter Details Date Type Department Care Team ([facility] st Contact Info) Description 07/17/2024 Refill [facility] MEDICINE 230 [place] [address] Santi Landry MD 230 [place] [address] Social History Tobacco Use Types Packs/Day Years [...] Description 12/28/2024 2:00 PM EDT Clinical Support [facility]S 505 [place] [address] Karishma Rose, RN 505 [place] [address] 01/30/2025 11:30 AM EDT Office Visit [facility] MEDICINE 230 [place] [address] Santi Landry MD [address] [place] [address] documented as of this encounter Visit Diagnoses Not on filedocumented in this encounter Additional Health Concerns Assessment Noted Time PHQ-9 Depression Total Score: 0 11/09/19 24 10:18 AM EDT documented as of this encounter Care Teams Hide Dyer Relationship Specialty Start Date End Date Santi Landry MD [address] [place] [address] PCP - General Internal Medicine 06/14/14 documented as of this encounter
--- OUTSIDE RECORDS SUMMARY | 2024-11-29 10:02 | XMS_ITS | Encounter Summary ---
Author Organization [employer] Address [address] [place] [address] 7 [place] [address] Care Team Providers Care Development Engineer Name Role Phone Santi Landry MD Primary Care Provide r Reason for Visit * Reason Onset Date Comments Med Refill 08/11/2023 Encounter Details Date Type Department Care Team ([facility] Contact Info) Description 08/11/2023 Telephone [facility] MEDICINE 230 [place] [address] Santi Landry MD 230 [place] [address] Med Refill Social History Tobacco Use Types [...] medication refill. Medications needing refill : HYDROcodone-acetaminophen ([place]) 10-325 MG tablet To be sent to: [facility] - [place], [place] - [address] [place] [address] documented in this encounter Plan of Treatment Upcoming Encounters Date Type Department Care Team (Late st Contact Info) Description 12/28/2024 2:00 PM EDT Clinical Support [facility] 505 [place] [address] Karishma Rose, FATEMEH 505 [place] [address] 01/30/2025 11:30 AM EDT Office Visit [facility] MED[facility]INE [address] [place] [address] Santi Landry MD [address] [place] [address] documented as of this encounter Visit Diagnoses Not on filedocumented in this encounter Additional Health Concerns Assessment Noted Time PHQ-9 Depression Total Score: 6 06/22/19 24 11:07 AM EDT documented as of this encounter Care Teams Development Engineer Relationship Specialty Start Date End Date Santi Landry MD [address] [facility] [place] [address] PCP - General Internal Medicine 06/14/14 documented as of this encounter
--- OUTSIDE RECORDS SUMMARY | 2024-11-29 10:02 | XMS_ITS | Encounter Summary ---
Author Organization [employer] Address [address] [facility] 7 [place] [address] Care Team Providers Care Date Night Caregiver Name Role Phone Santi Landry MD Primary Care Provide r Reason for Visit * Reason Onset Date Comments Med Refill 05/24/2023 Encounter Details Date Type Department Care Team ([facility] st Contact Info) Description 05/24/2023 Refill [facility] MEDICINE [address] [place] [address] Michelle Carmona MD 230 [place] [address] Type 2 diabetes mellitus with diabetic polyneuropathy, with long-term current use of insulin ([facility]) Social History Tobacco Use Types [...] Description 12/28/2024 2:00 PM EDT Clinical Support [facility] CHC MED & PEDS 505 [place] [address] Karishma Rose RN 505 [place] [address] 01/30/2025 11:30 AM EDT Office Visit [facility] MEDICINE [address] [place] [address] Santi Landry MD [address] [place] [address] documented as of this encounter Visit Diagnoses Diagnosis Type 2 diabetes mellitus with diabetic polyneuropathy, with long-term current use of insulin ([facility]) documented in this encounter Additional Health Concerns Assessment Noted Time PHQ-9 Depression Total Score: 0 06/10/19 23 11:13 AM EST documented as of this encounter Care Teams Date Night Caregiver Relationship Specialty Start Date End Date Santi Landry MD [address] [place] [address] PCP - General Internal Medicine 06/14/14 documented as of this encounter
--- OUTSIDE RECORDS SUMMARY | 2024-11-29 10:02 | XMS_ITS | Encounter Summary ---
Author Organization [employer] Address 75 [facility] 7 [place] [address] Care Team Providers Care Education Program Manager Name Role Phone Santi Landry MD Primary Care Provide r Reason for Visit * Reason Comments Med Refill Encounter Details Date Type Department Care Team ([facility] st Contact Info) Description 04/17/2024 Refill [facility] CHC MED & PEDS [address] [place], [place] [phone] Santi Landry MD [address] [place] [address] Chronic midline low back pain without sciatica [...] Description 12/28/2024 2:00 PM EDT Clinical Support [facility] CHC MED & PEDS 505 [place] [address] Karishma Rose, RN 505 [place] [address] 01/30/2025 11:30 AM EDT Office Visit [facility] MEDICINE 230 [place] [address] Santi Landry MD [address] [place] [address] documented as of this encounter Visit Diagnoses Diagnosis Chronic midline low back pain without sciatica documented in this encounter Additional Health Concerns Assessment Noted Time PHQ-9 Depression Total Score: 0 11/09/19 24 10:18 AM EDT documented as of this encounter Care Teams Education Program Manager Relationship Specialty Start Date End Date Santi Landry MD [address] [place] [address] PCP - General Internal Medicine 06/14/14 documented as of this encounter
--- OUTSIDE RECORDS SUMMARY | 2024-11-29 10:02 | XMS_ITS | Encounter Summary ---
Author Organization [email or web address] Address 75 [facility] 7 [place] [address] Care Team Providers Care Leadership Development Manager Name Role Phone Santi Landry MD Primary Care Provide r Reason for Visit * Reason Comments Med Refill Encounter Details Date Type Department Care Team ([facility] st Contact Info) Description 07/31/2024 Refill [facility] CHC MED & PEDS [address] [place], [place] [phone] Santi Landry MD [address] [place] [address] Chronic midline low back pain without sciatica [...] Description 12/28/2024 2:00 PM EDT Clinical Support [facility] CHC MED & PEDS 505 [place] [address] Karishma Rose, RN 505 [place] [address] 01/30/2025 11:30 AM EDT Office Visit [facility] MEDICINE 230 [place] [address] Santi Landry MD [address] [place] [address] documented as of this encounter Visit Diagnoses Diagnosis Chronic midline low back pain without sciatica documented in this encounter Additional Health Concerns Assessment Noted Time PHQ-9 Depression Total Score: 0 11/09/19 24 10:18 AM EDT documented as of this encounter Care Teams Leadership Development Manager Relationship Specialty Start Date End Date Santi Landry MD [address] [place] [address] PCP - General Internal Medicine 06/14/14 documented as of this encounter
--- OUTSIDE RECORDS SUMMARY | 2024-11-29 10:02 | XMS_ITS | Encounter Summary ---
Author Organization [employer] Address 75 [facility] 7 [place] [address] Care Team Providers Care Waybill Clerk Name Role Phone Santi Landry MD Primary Care Provide r Reason for Visit * Reason Comments Med Refill Encounter Details Date Type Department Care Team ([facility] st Contact Info) Description 04/18/2024 Refill [facility] CHC MED & PEDS [address] [place], [place] [phone] Santi Landry MD [address] [place] [address] Chronic midline low back pain without sciatica [...] Description 12/28/2024 2:00 PM EDT Clinical Support [facility] CHC MED & PEDS 505 [place] [address] Karishma Rose, RN 505 [place] [address] 01/30/2025 11:30 AM EDT Office Visit [facility] MEDICINE 230 [place] [address] Santi Landry MD [address] [place] [address] documented as of this encounter Visit Diagnoses Diagnosis Chronic midline low back pain without sciatica documented in this encounter Additional Health Concerns Assessment Noted Time PHQ-9 Depression Total Score: 0 11/09/19 24 10:18 AM EDT documented as of this encounter Care Teams Waybill Clerk Relationship Specialty Start Date End Date Santi Landry MD [address] [place] [phone] PCP - General Internal Medicine 06/14/14 documented as of this encounter
--- OUTSIDE RECORDS SUMMARY | 2024-11-29 10:02 | XMS_ITS | Encounter Summary ---
Author Organization [employer] Address 75 [facility] 7 [place] [address] Care Team Providers Care Food Services Manager Name Role Phone Santi Landyr MD Primary Care Provide r Reason for Visit * Reason Onset Date Comments Med Refill 06/05/2024 Encounter Details Date Type Department Care Team ([facility] st Contact Info) Description 06/05/2024 Refill [facility] MEDICINE [address] [place] [address] Michelle Carmona MD 230 [place] [address] Atherosclerosis of [place] coronary artery of [place] heart without angina pectoris Social History Tobacco [...] Description 12/28/2024 2:00 PM EDT Clinical Support [facility] CHC MED & PEDS 505 [place] [address] Karishma Rose RN 505 [place] [address] 01/30/2025 11:30 AM EDT Office Visit [facility] MEDICINE [address] [place] [address] Santi Landry MD 230 [place] [address] documented as of this encounter Visit Diagnoses Diagnosis Atherosclerosis of [place] coronary artery of [place] heart without angina pectoris documented in this encounter Additional Health Concerns Assessment Noted Time PHQ-9 Depression Total Score: 0 11/09/19 24 10:18 AM EDT documented as of this encounter Care Teams Food Services Manager Relationship Specialty Start Date End Date Santi Landry MD 230 [place] [address] PCP - General Internal Medicine 06/14/14 documented as of this encounter
--- OUTSIDE RECORDS SUMMARY | 2024-11-29 10:02 | XMS_ITS | Encounter Summary ---
Author Organization [employer] Address [address] [place] [address] 7 [place] [address] Care Team Providers Care American History Professor Name Role Phone Santi Landry MD Primary Care Provide r Reason for Visit * Reason Onset Date Comments Med Refill 11/02/2024 Encounter Details Date Type Department Care Team ([facility] Contact Info) Description 11/02/2024 Telephone [facility] MEDICINE 230 [place] [address] Santi Landry MD 230 [place] [address] Med Refill Social History Tobacco Use Types Packs/Day Years Used Date Smoking Tobacco: Former Cigarettes Passive Smoke Exposure: Past Smokeless Tobacco: Never Alcohol Use Standard Drinks/Week Comments Never 0 (1 standard drink = 0.6 oz pur e alcohol) Depression Answer Date Recorded Patient Health Questionnaire-9 Score 21 11/02/2024 Patient Health Questionnaire-9 Score 21 11/02/2024 Last PHQ-9: Questionnaire Data Not on file 0 11/02/2024 Housing Stability Answer Date Recorded What is your housing situation today? I have shorty trevizo 10/26/[address] you li ve. Do you have problems with any of the following? None of the above 10/26/2024 Food Insecurity Answer Date Recorded Within the past 12 months, y ou worried that your food would run out before you got money to buy more: Never True 10/26/2024 Within the past 12 months,th e food you bought just didn't last and you didn't have enough money to get more: Never True Transportation Answer Date Recorded In the past 12 months, has l ack of transportation kept you from medical appts, meetings, work or from getting things needed for daily living? No 10/26/2024 Utilities Answer Date Recorded In the past 12 months, has t he electric, gas, oil or water company threatened to shut off services in your home? No 10/26/2024 Depression Answer Date Recorded Patient Health Questionnaire-2 Score 6 11/02/2024 Internet Access Answer Date Recorded Internet Access Q1 Yes 10/26/2024 Internet Access Q2 Not on file 10/26/2024 Sex and Gender Information Value Date Recorded Sex Assigned at Male 02/02/2022 10:16 AM EDT Legal Sex Male 10:16 AM EDT Gender Identity Male 02/02/2022 10:16 AM EDT Sexual Orientation Straight 02/02/2022 10 :16 AM EDT documented as of this encounter Functional Status * Over the past 2 weeks, how often have you been bothered by any of the following problems? Question Answer Date of Assessment Author Patient Health Questionnaire-2 Score 6 11/02/2024 10:16 AM EDT Jas Ferguson MA * Little interest or pleasure in doing things Answer Date of Assessment Author Nearly every day 11/02/2024 10:16 AM EDT Alta Rivera MA * Feeling down, depressed, or hopeless Answer Date of Assessment Author Nearly every day 11/02/2024 10:16 AM EDT Alta Rivera MA * Trouble falling or staying asleep, or sleeping too much Answer Date of Assessment Author Nearly every day 11/02/2024 10:16 AM EDT Alta Rivera MA * Feeling tired or having little energy Answer Date of Assessment Author Nearly every day 11/02/2024 10:16 AM KACYT Alta Rivera MA * Poor appetite or overeating Answer Date of Assessment Author Nearly every day 11/02/2024 10:16 AM KACYT Alta Rivera MA * Feeling bad about yourself - or that you are a failure or have let yourself or your family down Answer Date of Assessment Author Not at all 11/02/2024 10:16 AM Alta Rasheed MA * Trouble concentrating on things, such as reading the newspaper or watching television Answer Date of Assessment Author Nearly every day 11/02/2024 10:16 AM Alta Paz MA * Moving or speaking so slowly that other people could have noticed? Or the opposite - being so fidgety or restless that you have been moving around a lot more than usual. Answer Date of Assessment Author Nearly every day 11/02/2024 10:16 AM Alta Paz MA * Thoughts that you would be better off or hurting yourself in some way Answer Date of Assessment Author Not at all 11/02/2024 10:16 AM Alta Rasheed MA * Patient Health Questionnaire-9 Score Answer Date of Assessment Author 11/02/2024 10:16 AM Alta Rasheed MA * How difficult have these problems made it for you to do your work, take care of things at home, or get along with other people? Answer Date of Assessment Author Very difficult 11/02/2024 10:16 AM Alta Rasheed MA * Over the last 2 weeks, how often have you been bothered by any of the following problems? Question Answer Date of Assessment Author Feeling nervous, anxious, or on edge 1 11/02/2024 10:15 AM Anand Rasheed MA Not being able to stop or control worrying 3 11/02/2024 10:15 AM Anand Rasheed MA Worrying too much about different things 3 11/02/2024 10:15 AM Anand Rasheed MA Trouble relaxing 1 11/02/2024 10:15 AM Alta Rasheed MA Being so restless that it is hard to sit still 0 11/02/2024 10:15 AM Anand Rasheed MA Becoming easily annoyed or irritable 0 11/02/2024 10:15 AM Anand Rasheed MA Feeling afraid as if something awful might happen 0 11/02/2024 10:15 AM EDT Alta Rivera MA LAURI-7 Total Score 8 11/02/2024 10:15 AM EDT Alta Ferguson MA documented as of this encounter Miscellaneous Notes * Telephone Encounter - Alem Diamond - 11/02/2024 12:28 PM EDT TC from pt requesting medication refill. Medications needing refill : - OxyCONTIN 10 MG 12 hr tablet To be sent to: - [facility] [place] - [address] [place] [address] documented in this encounter Plan of Treatment Upcoming Encounters Date Type Department Care Team (Late st Contact Info) Description 12/28/2024 2:00 PM EDT Clinical Support [facility] MED & PEDS 505 [place] [address] Karsihma Rose, RN 505 [place] [address] 01/30/2025 11:30 AM EDT Office Visit [facility] MEDICINE 230 [place] [address] Santi Landry MD 230 [place] [address] documented as of this encounter Visit Diagnoses Not on filedocumented in this encounter Additional Health Concerns Assessment Noted Time PHQ-9 Depression Total Score: 21 025 10:16 AM EDT documented as of this encounter Care Teams American History Professor Relationship Specialty Start Date End Date Santi Landry MD 230 [place] [address] PCP - General Internal Medicine 06/14/14 documented as of this encounter
--- OUTSIDE RECORDS SUMMARY | 2024-11-29 10:02 | XMS_ITS | Encounter Summary ---
Author Organization [employer] Address 75 [facility] 7 [place] [address] Care Team Providers Care Wedding Photographer Name Role Phone Santi Landry MD Primary Care Provide r Reason for Visit * Reason Onset Date Comments Med Refill 06/04/2024 Encounter Details Date Type Department Care Team ([facility] st Contact Info) Description 06/04/2024 Telephone [facility] CHC MED & PEDS [address] [place], [place] [phone] Santi Landry MD 230 [place] [address] Med Refill Social History Tobacco Use Types [...] 10:37 AM EDT Fyi. Pt here for REVERSER. Utox pos. BAR, sending out to the lab for BAR confirmation. * Telephone Encounter - Karishma Rose RN - 06/16/2024 10:17 AM EDT .What REVERSER Tier would you like this patient to be? Tier 1 = HIGH RISK, Monthly REVERSER visits Tier 2 = MODerate RISK, Q3 Month visits Tier 3 = LOW RISK = Q4-6 month visits documented in this encounter Plan of Treatment Upcoming Encounters Date Type Department Care Team (Late st Contact Info) Description 12/28/2024 2:00 PM EDT Clinical Support [facility] CHC MED & PEDS 505 [place] [address] Karishma Rose, FATEMEH 505 [place] [address] 01/30/2025 11:30 AM EDT Office Visit [facility] MEDICINE 230 [place] [address] Santi Landry MD 230 [place] [address] documented as of this encounter Visit Diagnoses Diagnosis Chronic midline low back pain without sciatica documented in this encounter Additional Health Concerns Assessment Noted Time PHQ-9 Depression Total Score: 0 11/09/19 24 10:18 AM EDT documented as of this encounter Care Teams Wedding Photographer Relationship Specialty Start Date End Date Santi Landry MD 230 [place] [address] PCP - General Internal Medicine 06/14/14 documented as of this encounter
--- OUTSIDE RECORDS SUMMARY | 2024-11-29 10:02 | XMS_ITS | Encounter Summary ---
Author Organization [employer] Address [address] [place] [address] 7 [place] [address] Care Team Providers Care Moth Proofer Name Role Phone Santi Landry MD Primary Care Provide r Reason for Visit * Reason Comments Med Refill Encounter Details Date Type Department Care Team ([facility] Contact Info) Description 11/28/2024 Refill [facility] MEDICINE 230 [place], [place] [phone] Santi Landry MD 230 [place], [place] [phone] Chronic midline low back pain without sciatica [...] housing situation today? I have shorty joseline 10/26/[address] you li [...] Description 12/28/2024 2:00 PM EDT Clinical Support [facility] CHC MED & PEDS 505 [place] [address] Karishma Rose RN 505 [place] [address] 01/30/2025 11:30 AM EDT Office Visit [facility] MEDICINE 230 [place] [address] Santi Landry MD 230 [place] [address] documented as of this encounter Visit Diagnoses Diagnosis Chronic midline low back pain without sciatica documented in this encounter Additional Health Concerns Assessment Noted Time PHQ-9 Depression Total Score: 21 025 10:16 AM EDT documented as of this encounter Care Teams Moth Proofer Relationship Specialty Start Date End Date Santi Landry MD [address] [place] [address] PCP - General Internal Medicine 06/14/14 documented as of this encounter
--- OUTSIDE RECORDS SUMMARY | 2024-11-29 10:02 | XMS_ITS | Encounter Summary ---
Author Organization [employer] Address [address] [place] [address] 7 [place] [address] Care Team Providers Care Farm Instructor Name Role Phone Santi Landry MD Primary Care Provide r Reason for Visit * Reason Onset Date Comments Med Refill 06/03/2023 Encounter Details Date Type Department Care Team ([facility] st Contact Info) Description 06/03/2023 Refill [facility] MEDICINE [address] [place] [address] Santi Landry MD 230 [place] [address] Social History Tobacco Use Types Packs/Day Years [...] 2:00 PM EDT Clinical Support [facility] CHC MED & PEDS 505 [place] [address] Karishma Rose RN 505 [place] [address] 01/30/2025 11:30 AM EDT Office Visit [facility] MEDICINE [address] [place] [address] Santi Landry MD 230 [place] [address] documented as of this encounter Visit Diagnoses Not on filedocumented in this encounter Additional Health Concerns Assessment Noted Time PHQ-9 Depression Total Score: 0 06/10/19 23 11:13 AM EST documented as of this encounter Care Teams Farm Instructor Relationship Specialty Start Date End Date Santi Landry MD 230 [place] [address] PCP - General Internal Medicine 06/14/14 documented as of this encounter
--- OUTSIDE RECORDS SUMMARY | 2024-11-29 10:02 | XMS_ITS | Encounter Summary ---
Author Organization [employer] Address [address] [place] [address] 7 [place] [address] Care Team Providers Care Senior Teradata Developer Name Role Phone Santi Landry MD Primary Care Provide r Reason for Visit * Reason Onset Date Comments Med Refill 08/18/2023 Encounter Details Date Type Department Care Team ([facility] st Contact Info) Description 08/18/2023 Refill [facility] MEDICINE 230 [place] [address] Michelle Carmona MD [address] [place] [address] Social History Tobacco Use Types Packs/Day Years [...] Description 12/28/2024 2:00 PM EDT Clinical Support [facility] CHC MED & PEDS 505 [place] [address] Karishma Rose, RN 505 [place] [address] 01/30/2025 11:30 AM EDT Office Visit [facility] MEDICINE 230 [place] [address] Santi Landry MD [address] [place] [address] documented as of this encounter Visit Diagnoses Not on filedocumented in this encounter Additional Health Concerns Assessment Noted Time PHQ-9 Depression Total Score: 6 06/22/19 24 11:07 AM EDT documented as of this encounter Care Teams Senior Teradata Developer Relationship Specialty Start Date End Date Santi Landry MD [address] [place] [address] PCP - General Internal Medicine 06/14/14 documented as of this encounter
--- OUTSIDE RECORDS SUMMARY | 2024-11-29 10:02 | XMS_ITS | Encounter Summary ---
Author Organization [employer] Address [address] [place] [address] 7 [place] [address] Care Team Providers Care Linotype Mechanic Name Role Phone Santi Landry MD Primary Care Provide r Reason for Visit * Reason Comments Med Refill Encounter Details Date Type Department Care Team ([facility] Contact Info) Description 11/02/2024 Refill [facility] MEDICINE 230 [place], [place] [phone] Santi Landry MD 230 [place], [place] [phone] Chronic midline low back pain without sciatica [...] 10:16 AM KACYT Alta Rivera MA * Trouble falling or staying asleep, or sleeping too much Answer Date of Assessment Author Nearly every day 11/02/2024 10:16 AM Alta Paz MA * Feeling tired or having little [...] Ferguson MA documented as of this encounter Plan of Treatment Upcoming Encounters Date Type Department Care Team (Late st Contact Info) Description 12/28/2024 2:00 PM EDT Clinical Support [facility] CHC MED & PEDS [address] [facility] [place] [address] Karishma Rose, FATEMEH 505 [place] [address] 01/30/2025 11:30 AM EDT Office Visit [facility] MEDICINE 230 [facility] [address] Santi Landry MD 230 [place] [address] documented as of this encounter Visit Diagnoses Diagnosis Chronic midline low back pain without sciatica documented in this encounter Additional Health Concerns Assessment Noted Time PHQ-9 Depression Total Score: 21 025 10:16 AM EDT documented as of this encounter Care Teams Linotype Mechanic Relationship Specialty Start Date End Date Santi Landry MD 230 [place] [address] PCP - General Internal Medicine 06/14/14 documented as of this encounter
--- OUTSIDE RECORDS SUMMARY | 2024-11-29 10:02 | XMS_ITS | Encounter Summary ---
Author Organization [employer] Address [address] [place] [address] Care Team Providers Care Restaurant And Bar Manager Name Role Phone Santi Landry MD Primary Care Provide r Reason for Visit * Reason Comments Med Refill Encounter Details Date Type Department Care Team ([facility] Contact Info) Description 12/21/2022 Refill [facility] MEDICINE [address] [place] [address] Santi Landry MD [address] [place] [address] Social History Tobacco Use Types Packs/Day Years [...] Upcoming Encounters Date Type Department Care Team ([facility] Contact Info) Description 12/28/2024 2:00 PM EDT Clinical Support [facility] CHC MED & PEDS 505 [place], [place] [phone] Karishma Rose RN 505 [place] [address] 01/30/2025 11:30 AM EDT Office Visit [facility] MEDICINE [address] [place] [address] Santi Landry MD [address] [place] [address] documented as of this encounter Visit Diagnoses Not on filedocumented in this encounter Additional Health Concerns Assessment Noted Time PHQ-9 Depression Total Score: 0 06/10/19 23 11:13 AM EST documented as of this encounter Care Teams Restaurant And Bar Manager Relationship Specialty Start Date End Date Santi Landry MD [address] [place] [address] PCP - General Internal Medicine 06/14/14 documented as of this encounter
--- OUTSIDE RECORDS SUMMARY | 2024-11-29 10:02 | XMS_ITS | Encounter Summary ---
Author Organization [employer] Address [address] [place] [address] 7 [place] [address] Care Team Providers Care Utility Tractor Operator Name Role Phone Santi Landry MD Primary Care Provide r Reason for Visit * Reason Comments Med Refill Encounter Details Date Type Department Care Team ([facility] Contact Info) Description 06/09/2024 Refill [facility] [address] [place], [place] [phone] Santi Landry MD [address] [place], [place] [phone] Type 2 diabetes mellitus without complications (CMS/HCC) [...] Description 12/28/2024 2:00 PM EDT Clinical Support [facility] [address] [place] [address] Karishma Rose, FATEMEH [address] [place] [address] 01/30/2025 11:30 AM EDT Office Visit [facility] [address] [place] [address] Santi Landry MD [address] [place] [phone] documented as of this encounter Visit Diagnoses Diagnosis Type 2 diabetes mellitus without complications (CMS/HCC) documented in this encounter Additional Health Concerns Assessment Noted Time PHQ-9 Depression Total Score: 0 11/09/19 24 10:18 AM EDT documented as of this encounter Care Teams Utility Tractor Operator Relationship Specialty Start Date End Date Santi Landry MD [address] [place] [id number] PCP - General Internal Medicine 06/14/14 documented as of this encounter
--- OUTSIDE RECORDS SUMMARY | 2024-11-29 10:02 | XMS_ITS | Encounter Summary ---
Author Organization [employer] Address [address] [place] [address] Care Team Providers Care Aerophysics Engineer Name Role Phone Santi Landry MD Primary Care Provide r Reason for Visit * Reason Onset Date Comments Med Refill 11/24/2022 Encounter Details Date Type Department Care Team ([facility] Contact Info) Description 11/24/2022 Refill [facility] [address] [place] [address] Santi Landry MD [address] [place] [address] Chronic midline low back pain without sciatica [...] Upcoming Encounters Date Type Department Care Team ([facility] Contact Info) Description 12/28/2024 2:00 PM EDT Clinical Support [facility] [address] [place] [address] Karishma Rose, RN [address] [place] [address] 01/30/2025 11:30 AM EDT Office Visit [facility] [address] [place] [address] Santi Landry MD [address] [place] [phone] documented as of this encounter Visit Diagnoses Diagnosis Chronic midline low back pain without sciatica documented in this encounter Additional Health Concerns Assessment Noted Time PHQ-9 Depression Total Score: 0 06/10/19 23 11:13 AM EST documented as of this encounter Care Teams Aerophysics Engineer Relationship Specialty Start Date End Date Santi Landry MD [address] [place] [id number] PCP - General Internal Medicine 06/14/14 documented as of this encounter
--- OUTSIDE RECORDS SUMMARY | 2024-11-29 10:02 | XMS_ITS | Encounter Summary ---
Author Organization [employer] Address [address] [place] [address] 7 [place] [address] Care Team Providers Care Advertising Space Clerk Name Role Phone Santi Landry MD Primary Care Provide r Reason for Visit * Reason Onset Date Comments Med Refill 05/18/2023 Encounter Details Date Type Department Care Team ([facility] st Contact Info) Description 05/18/2023 Refill [facility] [address] [place] [address] Michelle Carmona MD [address] [place] [address] Social History Tobacco Use Types Packs/Day Years [...] 12/28/2024 2:00 PM EDT Clinical Support [facility] [address] [place] [address] Karishma Rose RN [address] [place] [address] 01/30/2025 11:30 AM EDT Office Visit [facility] [address] [place] [address] Santi Landry MD [address] [place] [address] documented as of this encounter Visit Diagnoses Not on filedocumented in this encounter Additional Health Concerns Assessment Noted Time PHQ-9 Depression Total Score: 0 06/10/19 23 11:13 AM EST documented as of this encounter Care Teams Advertising Space Clerk Relationship Specialty Start Date End Date Santi Landry MD [address] [place] [address] PCP - General Internal Medicine 06/14/14 documented as of this encounter
--- OUTSIDE RECORDS SUMMARY | 2024-11-29 10:02 | XMS_ITS | Encounter Summary ---
Author Organization [employer] Address [address] [place] [id number] Care Team Providers Care Silk Presser Name Role Phone Santi Landry MD Primary Care Provide r Reason for Visit * Reason Onset Date Comments Med Refill 10/01/2022 Encounter Details Date Type Department Care Team ([facility] st Contact Info) Description 10/01/2022 Telephone [facility] [address] [place] [address] Santi Landry MD [address] [place] [address] Med Refill Social History Tobacco Use Types [...] Description 12/28/2024 2:00 PM EDT Clinical Support [facility] [address] [place] [address] Karishma Rose, RN [address] [place] [address] 01/30/2025 11:30 AM EDT Office Visit [facility] [address] [place] [address] Santi Landry MD [address] [place] [address] documented as of this encounter Visit Diagnoses Not on filedocumented in this encounter Additional Health Concerns Assessment Noted Time PHQ-9 Depression Total Score: 0 06/10/19 23 11:13 AM EST documented as of this encounter Care Teams Silk Presser Relationship Specialty Start Date End Date Santi Landry MD [address] [place] [address] PCP - General Internal Medicine 06/14/14 documented as of this encounter
--- OUTSIDE RECORDS SUMMARY | 2024-11-29 10:02 | XMS_ITS | Encounter Summary ---
Author Organization [employer] Address [address] [place] [address] 7 [place] [address] Care Team Providers Care Electrolog Operator Name Role Phone Santi Landry MD Primary Care Provide r Reason for Visit * Reason Onset Date Comments Med Refill 05/10/2023 Encounter Details Date Type Department Care Team ([facility] st Contact Info) Description 05/10/2023 Refill [facility] [address] [place] [address] Santi Landry MD [address] [place] [address] Social History Tobacco Use Types Packs/Day Years [...] Description 12/28/2024 2:00 PM EDT Clinical Support [facility] [address] [place] [address] Karishma Rose RN [address] [place] [address] 01/30/2025 11:30 AM EDT Office Visit [facility] [address] [place] [address] Santi Landry MD [address] [place] [address] documented as of this encounter Visit Diagnoses Not on filedocumented in this encounter Additional Health Concerns Assessment Noted Time PHQ-9 Depression Total Score: 0 06/10/19 23 11:13 AM EST documented as of this encounter Care Teams Electrolog Operator Relationship Specialty Start Date End Date Santi Landry MD [address] [place] [address] PCP - General Internal Medicine 06/14/14 documented as of this encounter
--- OUTSIDE RECORDS SUMMARY | 2024-11-29 10:02 | XMS_ITS | Encounter Summary ---
Author Organization [employer] Address [address] [place] [address] 7 [place] [address] Care Team Providers Care [facility] Name Role Phone Santi Landry MD Primary Care Provide r Reason for Visit * Reason Onset Date Comments Med Refill 06/09/2024 Encounter Details Date Type Department Care Team ([facility] st Contact Info) Description 06/09/2024 Refill [facility] [address] [place] [address] Santi Landry MD [address] [place] [address] Social History Tobacco Use Types Packs/Day Years [...] Description 12/28/2024 2:00 PM EDT Clinical Support [facility] [address] [place] [address] Karishma Rose, RN [address] [place] [address] 01/30/2025 11:30 AM EDT Office Visit [facility] [address] [place] [address] Santi Landry MD [address] [place] [address] documented as of this encounter Visit Diagnoses Not on filedocumented in this encounter Additional Health Concerns Assessment Noted Time PHQ-9 Depression Total Score: 0 11/09/19 24 10:18 AM EDT documented as of this encounter Care Teams [facility] Relationship Specialty Start Date End Date Santi Landry MD [address] [place] [id number] PCP - General Internal Medicine 06/14/14 documented as of this encounter
--- OUTSIDE RECORDS SUMMARY | 2024-11-29 10:02 | XMS_ITS | Clinical Summary ---
Author Organization [email or web address] Address [address] [place] [address] [address] [place] [address] Care Team Providers Care Data Collection Interviewer Name Role Phone Santi Landry MD Primary Care Provide r Allergies Active Allergy Reactions Criticality Noted Date Comments Fenofibrate Itching 02/20/2014 Gemfibrozil Itching 04/01/2010 Propoxyphene Itching 02/20/2014 Medications naloxone (Narcan) 4 mg/0.1 mL nasal spray Administer 0.1 mL into affected nostril(s) if needed. 022 Active albuterol 108 (90 Base) MCG/ACT inhaler Inhale 2 puffs every 4 (four) hours if needed. 020 Active glucose blood (FREESTYLE LITE) test strip USE TO TEST BLOOD SUGAR EVERY DAY 50 strip 11 024 Active bacitracin 500 UNIT/GM ointmentIndicat ions:Chronic skin [...] polyneuropathy, with long-term current use of insulin (CMS/HCC),Prima ry hypertension USE TO CHECK BLOOD PRESSURE EVERY DAY 1 each Active FreeStyle lancets 1 each by Other route 3 times daily. 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 May repeat every 2-3 minutes if needed, alternating nostrils, until medical assistance becomes available. 2 each 2 025 2025 Active DULoxetine (Cymbalta) [address] capsule TAKE 1 CAPSULE BY MOUTH EVERY DAY 90 capsule 025 Active metFORMIN XR (Glucophage-XR) 500 MG 24 hr tabletIndicatio ns:Type 2 diabetes mellitus with diabetic polyneuropathy, with long-term current use of insulin ([facility]) TAKE 2 TABLETS BY MOUTH TWICE DAILY 360 tablet 025 Active ezetimibe (Zetia) 10 MG tablet TAKE 1 TABLET BY MOUTH EVERY DAY 90 tablet 025 Active pantoprazole (ProtoNix) 40 MG EC tabletIndicatio ns:Gastroesopha geal reflux disease, unspecified whether esophagitis present TAKE 1 TABLET BY MOUTH TWICE DAILY. DO NOT BREAK, CRUSH, DISSOLVE OR CHEW 180 tablet 025 Active lisinopril 20 MG tablet TAKE 1 TABLET BY MOUTH EVERY DAY 90 tablet 1 025 Active rosuvastatin (Crestor) 40 MG tablet TAKE 1 TABLET BY MOUTH EVERY DAY AT BEDTIME 90 tablet 025 Active clopidogrel (Plavix) 75 MG tabletIndicatio ns:Type 2 diabetes mellitus with diabetic polyneuropathy, with long-term current use of insulin (CMS/HCC) TAKE 1 TABLET BY MOUTH EVERY DAY 90 tablet 1 025 Active Trulicity 1.5 MG/0.5ML solution auto-injectorIn dications:Type 2 diabetes mellitus with diabetic polyneuropathy, with long-term current use of insulin (CMS/HCC) INJECT ONE PEN (=1.5MG) SUBCUTANEOUSLY ONCE A WEEK DIRECTED 2 mL 11 025 Active gabapentin (Neurontin) 800 MG tablet Take 1 tablet (800 mg) by mouth every 8 (eight) hours if needed (tid prn). 90 tablet 2 025 Active Insulin Degludec FlexTouch 100 UNIT/ML solution pen-injector INJECT 22 UNITS SUBCUTANEOUSLY AT BEDTIME 15 mL 3 025 Active HYDROcodone-brien taminophen ([place]) 10-325 MG tabletIndicatio ns:Chronic midline low back pain without sciatica Take 1 tablet by mouth every 4 (four) hours if needed for severe pain for up to 28 days. 168 tablet 025 2024 Active OxyCONTIN 10 MG 12 hr tabletIndicatio ns:Chronic midline low back pain without sciatica TAKE 1 TABLET BY MOUTH EVERY TWELVE HOURS DO NOT BREAK, CRUSH, DISSOLVE OR CHEW 56 tablet 025 Active Insulin Degludec FlexTouch 100 UNIT/ML solution pen-injector Inject 22 Units under the skin at bedtime. 3 mL 2 025 2024 Discontinued OxyCONTIN 10 MG 12 hr tabletIndicatio ns:Chronic midline low back pain without sciatica TAKE 1 TABLET BY MOUTH EVERY TWELVE HOURS DO NOT BREAK, CRUSH, DISSOLVE OR CHEW 56 tablet 025 2024 Discontinued(R eorder (will not trigger notification to Pharmacy)) HYDROcodone-brien taminophen ([place]) 10-325 MG tabletIndicatio ns:Chronic midline low back pain without sciatica Take 1 tablet by mouth every 4 (four) hours if needed for severe pain for up to 28 days. Do not start before October 20, 2024. 168 tablet 025 2024 Discontinued(R eorder (will not trigger notification to Pharmacy)) oxyCODONE ER (OxyCONTIN) 10 MG 12 hr tabletIndicatio ns:Chronic midline low back pain without sciatica Take 1 tablet (10 mg) by mouth every 12 (twelve) hours. Do not crush, chew, or split. 56 tablet 025 2024 Discontinued Active Problems Problem Noted Date Diagnosed Date Right hip pain 11/02/2024 Assessment & Plan (11/02/2024 9:50 AM EDT): New onset Painful ROM Plan: Plain films, cannot take NSAIDS May need Ortho Long-term current use of opiate analgesic 2024 Acute pseudomembranous candidiasis of mouth 04/06 Preventative health care 11/09/2023 Assessment & Plan (11/02/2024 9:05 AM EDT): PSA: 12/02/2023 : Normal 0.59 Colonoscopy: 02/08/2019 Dr Estrada Tubular Adenoma, 5 yr f/u needed.Referred back Assessment & Plan (11/09/2023 10:41 AM EDT): PSA: 01/01/2022 : Normal 0.26 Colonoscopy: 02/08/2019 Dr Estrada Tubular Adenoma, 5 yr f/u needed. Pneumovax: 04/02/04 Age-related cataract of both eyes 09/30/2023 Assessment & Plan (09/30/2023 1:25 PM EDT): Patient is here for a preoperative exam Patient is scheduled for:cataract surgery On:October 10 and the left of October 24 right By: [facility] Anesthesia: local After careful review of patient's [...] comorbidity in adult 03/18/2023 Assessment & Plan (11/02/2024 9:02 AM EDT): Patient has been counseled and educated about diet and exercise. Personal goal of weight loss discussedPatient has comorbidity of: DM Dietary Recommendations: Fruits, vegetables, whole grains, protein foods, and fat-free or low-fat dairy products are healthy choices. Eat different types of protein foods in your diet. This can include seafood, lean meats, poultry, beans, peas, lentils, nuts, seeds, soy products, and eggs. Limit foods and beverages higher in added sugars, saturated fat, and sodium. Exercise Recommendations: At least 150 minutes of low-intensity physical activity per week, pt has PAD Assessment & Plan (11/09/2023 10:43 AM EDT): [...] 01/20/2023 Intention tremor 03/06/2022 Assessment & Plan (11/02/2024 9:31 AM EDT): Pt with c/o bilateral intention tremor Seen in the past by Neurologist Dr Craven Last note on record seen by Neurologist 11/26/2021, started on Primidone 50 mg 2 tabs BID and Propranolol 80 mg BID Pt tells me he has a follow up in November. Assessment & Plan (03/06/2022 4:27 PM EST): [...] the setting of a 100% asymptomatic pt. 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 No focal disc protrusion. Mild central canal stenosis at L2-L3. Severe central canal stenosis and thecal sac compression at L3-L4. [id number] central canal stenosis at L4-L5 with spondylitic [...] canal stenosis. Patient was finally seen at [facility] 03/31/2021 Their impression was that [...] facetectomy Current Medical Regimen: Oxycontin 10 mg po BID, Hydrocodone 10 q 4 hrs and Gabapentin 800 mg TID Pt underwent ALIF 10/03/2021 still c/o pain but not the cramps. Pt tells me his pain is uncontrolled and is interested in a second opinion by pain clinic Plan: Continue current regimen f/u 3 months Assessment & Plan (06/09/2022 11:23 AM EST): [...] stenosis and thecal sac compression at L3-L4. [id number] central canal stenosis at L4-L5 with spondylitic [...] canal stenosis. Patient was finally seen at [facility] 03/31/2021 Their impression was that [...] stenosis and thecal sac compression at L3-L4. [id number] central canal stenosis at L4-L5 with spondylitic [...] canal stenosis. Patient was finally seen at [facility] 03/31/2021 Their impression was that [...] (peripheral artery disease) 02/20/2022 Assessment & Plan (11/02/2024 9:38 AM EDT): Patient here for a follow up He has a long hx of Severe PVD, unable to walk 1 block without having significant pain. Pt follows with Dr Bell. He had balloon angioplasty and a stent put in previously. Had a previous Hospitalization for acute LLE ischemia and underwent a Left AK pop bypass with PTFE graft fasciotomies by Dr. Bell. Pt will continue with Vascular surgeon per pts report. Last note on record 06/03/2023. He recommended conservative management and f/u with them in 6 months Pt tells me he has an upcoming appointment 11/23/2024 Assessment & Plan (06/22/2023 11:13 AM EDT): [...] them in 6 months Tubular adenoma 07/19/2014 Assessment & Plan (11/02/2024 9:06 AM EDT): Overdue for colonoscopy, referred back Vitamin D deficiency 02/20/2014 Impotence of organic [...] also asked that he discuss with his Rework Operator to let him know that he will be taking it. Primary hypertension 12/21/2013 Assessment & Plan (11/02/2024 8:55 AM EDT): Patient here for a f/u Blood pressure : He is on a regimen of: Lisinopril 20 MG PO daily and Metoprolol 50 MG bid Plan: For now will continue with current medical regimen. Most recent electrolytes, Bun and Creatinine done on: Lab Results Component Value Date NA 140 12/02/2023 NA 139 01/08/2023 K 4.6 12/02/2023 K 4.1 01/08/2023 CL 106 12/02/2023 CL 105 01/08/2023 BUN 11 12/02/2023 BUN 12 01/08/2023 CREATININE 1.05 12/02/2023 CREATININE 0.90 01/08/2023 were within normal limits. Patient advised to adhere to a low sodium diet, encouraged about medication compliance, counseled about weight loss. 3 months f/u Repeat BMP Assessment & Plan (09/30/2023 1:29 PM EDT): [...] of coronary artery 12/18/2011 Assessment & Plan (11/02/2024 9:40 AM EDT): Pt is supposed to be under [facility] last note 07/28/2023, Daughter will call to schedule appointment Assessment & Plan (03/10/2022 10:21 AM EST): Pt is under [facility] last note 11/2020, recommendation was for pt to f/u with Dr Baig. Depressive disorder 12/18/2011 Hyperlipidemia 12/18/2011 Assessment & Plan (11/02/2024 9:00 AM EDT): Patient is here for a [...] with a personal goal for weight loss. Repeat Lipid profile Assessment & Plan (12/09/2023 12:54 PM EDT): [...] 1 yr ago (04/14/21) Triglycerides <150 mg/dL 230 High 491 [...] less than 100 mg/dLNear Optimal/Above Optimal LDL: 110-129 mg/dLBorderline High LDL: 130-159 mg/dLHigh LDL: 160-189 [...] use of insulin 12/18/2011 Assessment & Plan (11/02/2024 9:35 AM EDT): Pt here for f/u He is on a regimen of Tresiba 22 units sc q pm, Metformin XR 500 mg 2 tabs po BID and Trulicity 1.5 mg once a week Hgb A1c 11/02/2024: 7.1 Eye exam 03/23/2023 Dr. Leal. Pt tells me he was seen recently. Records requested Microalbumin 12/02/2023 was 193. Pt on an BRIEN inhibitor Pt reports compliance with Asa 81 mg po daily Plan: Continue current regimen follow up in 4 months Pt advised to: adhere to diabetic diet check your blood sugars regularly check your feet on a daily basis Assessment & Plan (12/09/2023 1:07 PM EDT): [...] Problem Noted Date Diagnosed Date Resolved Date Non-healing ulcer 11/09/2023 11/02/2024 Assessment & Plan (12/09/2023 12:56 PM EDT): [...] will use topical antibiotic to prevent superinfection Constipation 06/21/2013 03/06/2022 Migraine 12/18/2011 03/06/2022 Encounters Date Type Department Care Team Description 11/28/2024 Refill [facility] [address] [place] [address] Santi Landry MD Chronic midline low back pain without sciatica 11/28/2024 Refill [facility] [address] [place] [address] Santi Landry MD Chronic midline low back pain without sciatica 11/15/2024 Refill [facility] [address] [place] [address] Santi Landry MD Chronic midline low back pain without sciatica 11/02/2024 9:15 AM EDT Office Visit [facility] [address] [place] [address] Santi Landry MD Type 2 diabetes mellitus with diabetic polyneuropathy, with long-term current use of insulin (CMS/[facility]) (Primary Dx); Primary hypertension; S/P triple vessel bypass; PAD (peripheral artery disease) (CMS/HCC); Mixed hyperlipidemia; 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; Class 1 obesity due to excess calories with serious comorbidity and body mass index (BMI) of 30.0 to 30.9 in adult; Tubular adenoma; Chronic midline low back pain without sciatica; Dietary counseling; Exercise counseling; Intention tremor; Preventative health care; Right hip pain 11/02/2024 Telephone [facility] [address] [place] [address] Santi Landry MD Med Refill 11/02/2024 Refill [facility] [address] [place] [address] Santi Landry MD Chronic midline low back pain without sciatica 11/02/2024 Travel 11/01/2024 Refill [facility] [address] [place] [address] Santi Landry MD Chronic midline low back pain without sciatica 11/01/2024 Telephone [facility] [address] [place] [address] Santi Landry MD CHART PREP 11/01/2024 Travel 10/31/2024 Refill [facility] [address] [place] [address] Santi Landry MD 10/26/2024 Patient Outreach [facility] [address] [place] [address] Santi Landry MD Pre-visit Planning (SDOH Screening negative and Tobacco screening negative) 10/17/2024 Refill [facility] [address] [place] [address] Santi Landry MD Chronic midline low back pain without sciatica 10/08/2024 Refill [facility] [address] [place] [address] Santi Landry MD Type 2 diabetes mellitus with diabetic polyneuropathy, with long-term current use of insulin ([facility]) 10/04/2024 Telephone [facility] [address] [place] [address] Santi Landry MD Med Refill 10/04/2024 Refill [facility] [address] [place] [address] Santi Landry MD Chronic midline low back pain without sciatica 10/04/2024 Refill [facility] [address] [place] [address] Santi Landry MD Chronic midline low back pain without sciatica 10/02/2024 Refill [facility] [address] [place] [address] Santi Landry MD Type 2 diabetes mellitus with diabetic polyneuropathy, with long-term current use of insulin ([facility]) 09/25/2024 Refill [facility] [address] [place] [address] Santi Landry MD Type 2 diabetes mellitus with diabetic polyneuropathy, with long-term current use of insulin ([facility]) 09/20/2024 Refill [facility] [address] [place] [address] Santi Landry MD Chronic midline low back pain without sciatica 09/15/2024 Refill [facility] [address] [place] [address] Santi Landry MD 09/11/2024 10:00 AM EDT Telemedicine [facility] [address] [place] [address] Karishma Rose RN Chronic midline low back pain without sciatica 09/11/2024 Travel 09/04/2024 Refill [facility] [address] [place] [phone] Priyanka Zaragoza MD Chronic midline low back pain without sciatica from Last 3 Months Immunizations Immunization Administration Dates Next Due Influenza High-dose Quadriva [...] Sign Reading Time Taken Comments Blood Pressure 132/64 11/02/2024 9:24 AM EDT Pulse 76 11/02/2024 9:24 AM EDT Temperature 36.6 C (97.9 F) 11/02/2024 9:24 AM EDT Respiratory Rate 12 11/02/2024 9:24 AM EDT Oxygen Saturation 98% 11/02/2024 9:24 AM EDT Inhaled Oxygen Concentration - - Weight 91 kg (200 lb 9.6 oz) 11/02/2024 9:24 AM EDT Height 167.6 cm (5' 6 ) 11/02/2024 9:24 AM EDT Body Mass Index 32.38 11/02/2024 9:24 AM EDT Plan of Treatment Upcoming Encounters Date Type Department Care Team (Late st Contact Info) Description 12/28/2024 2:00 PM EDT Clinical Support [facility] [address] [place] [address] Karishma Rose, RN [address] [place] [address] 01/30/2025 11:30 AM EDT Office Visit [facility] [address] [place] [address] Santi Landry MD [address] [place] [address] Health Maintenance Due Date Last Done Comments CT Colonography 1950 FIT DNA/Cologuard 1950 FIT 1950 FOBT 1950 Sigmoidoscopy 1950 Diabetes: Foot Exam 1960 Eye Exam 1960 Hepatitis A Vaccines (1 of 2 - [...] 2023 06/12/2021, 06/12/2021, 10/31/2020, Additional history exists Colonoscopy 02/09/2024 02/08/2019 Colorectal Cancer Screening 02/09/2024 Diabetes: Urine Protein Screening 12/01/2024 12/02/2023, 04/14/2021 Lipid Panel 12/01/2024 12/02/2023, 1009/2022, 03/03/2022, Additional history exists Influenza Vaccine (#1) 2024 , 02/05/2022, 01/16/2021, Additional history exists Diabetes: Hemoglobin A1C 02/02/2025 025, 12/09/2023, 09/30/2023, Additional history exists Depression Monitoring 05/05/2025 11/02/2024, 025 SDOH Screening 10/26/2025 10/26/2024 Alcohol/Substance Use Screening 11/02/2025 11/02/2024 Tobacco Screening 11/02/2025 11/02/2024 DTaP/Tdap/Td Vaccines (2 - Td or Tdap) [...] patient's age to complete this topic Meningococcal B Vaccine Aged Out No l onger eligible based on patient's age to complete [...] Name Priority Date/Time Associated Diagnosis Comments POCT GLYCATED HEMOGLOBIN, TOTAL Routine 11/02/2024 9:27 AM EDT Type 2 diabetes mellitus with diabetic polyneuropathy, with long-term current use of insulin ([facility]) POCT GLUCOSE Routine 11/02/2024 9:26 AM EDT Type 2 diabetes mellitus with diabetic polyneuropathy, with long-term current use of insulin ([facility]) PANORAMIC RADIOGRAPHIC IMAGE Routine 04/26/2024 10:00 AM EST HEPATITIS C AB W/REFL TO HCV RNA, QN, PCR Routine 12/08/2023 12:04 PM EDT Type 2 diabetes mellitus with diabetic polyneuropathy, with long-term current use of insulin ([facility]) Preventative health care Mixed hyperlipidemia Elevated LFTs Hepatitis ALBUMIN, RANDOM URINE W/CREATININE Routine 12/02/2023 10:25 AM EDT Type 2 diabetes mellitus with diabetic polyneuropathy, with long-term current use of insulin (CMS/HCC) LIPID PANEL, STANDARD Routine 12/02/2023 10:09 AM EDT Mixed hyperlipidemia PERIODIC ORAL EVALUATION - ESTABLISHED PATIENT Routine 01/20/2023 9:00 AM EDT HM COLONOSCOPY Routine 02/08/2019 BITEWINGS - 4 RADIOGRAPHIC IMAGES Routine 05/09/2013 12:00 AM EST PROPHYLAXIS - ADULT Routine 02/21/2013 1 2:00 AM EST from Last 3 Months or Most Recently Relevant to Health Maintenance Results * (ABNORMAL) POCT HGB A1C (11/02/2024 9:27 AM EDT) Pathologist [facility] Hemoglobin A1C 7.1(A) 4.0 - 5.7 % QC Media Lot # [id number] Lot# Expiration Date , Blood 11/02/2024 9:27 AM EDT Santi Toscano MD POINT OF CARE TEST EN TER/EDIT ORDERABLES Final Result * (ABNORMAL) POCT Glucose (11/02/2024 9:26 AM EDT) Pathologist [facility] Glucose Blood, POC 201(A) 60 - 200 mg/dL QC Media Lot # [id number] Lot# Expiration Date ,623,329 Blood Capillary blood specimen / Unknown 11/02/2024 9:26 AM EDT Santi Toscano MD POINT OF CARE TEST EN TER/EDIT ORDERABLES Final Result * Hepatitis C Antibody with Reflex to HCV, RNA, Quantitative, Real-Time PCR (12/08/2023 12:04 PM EDT) Pathologist [facility] Hepatitis C Antibody Nonreactive Nonreactive [facility] Comment:Antibodies to HCV no t detected; does not exclude early acuteHCV infection. Blood Venous blood specimen / Unknown 12/08/2023 12:04 PM EDT 12/08/2023 1:14 PM EDT Santi Toscano MD LAB BLOOD ORDERABLES Final Result Performing Organization Address [facility] Co de Phone Number [facility] [address] [place] [phone] * (ABNORMAL) Albumin, Random Urine W/Creatinine (12/02/2023 10:25 AM EDT) Creatinine, Urine 427.73 mg/dL [facility] Microalbumin Urine 193.0 mg/L [facility] Microalbum Creatinine Ratio Ur 45.1(H) <30 ug/mg cr [facility] Comment:Albumin/Creatinine R atio Reference Ranges: Normal: < 30 ug/mg creatinine Microalbuminuria: 30 - 300 ug/mg creatinineClinical Albuminuria: > 300 ug/mg creatinine Urine (Urine, Random) 12/02/2023 10:25 AM EDT 12/02/2023 10:58 AM EDT Santi Toscano MD LAB URINE ORDERABLES Final Result Performing Organization Address [facility] Co de Phone Number [facility] [address] [place] [phone] * (ABNORMAL) Lipid Panel, Standard (12/02/2023 10:09 AM EDT) Triglycerides 177(H) <150 mg/dL [facility] Comment:Desirable Triglyceri de: less than 150 mg/dLBorderline High Triglyceride 150-199 mg/dLHigh Triglyceride: 200-499 mg/dLVery High Triglyceride: greater than or equal to 5OO mg/dL Cholesterol 140 <200 mg/dL [facility] Comment:Desirable Cholestero l: less than 200 mg/dLBorderline High Cholesterol: 200-239 mg/dLHigh Cholesterol: greater than 239 mg/dL LDL Cholesterol Calculated 58 <100 mg/dL [facility] Comment:Desirable LDL: less than 100 mg/dLNear Optimal/Above Optimal LDL: 110- 129 mg/dLBorderline High LDL: 130-159 mg/dLHigh LDL: 160-189 mg/dLVery High LDL: greater than or equal to 190 mg/dL HDL Cholesterol 47 >40 mg/dL [facility] Comment:Desirable HDL: great er than 40 mg/dL Note: This HDL assay may give artificially low results in patients with liver disease. Blood Venous blood specimen / Unknown 12/02/2023 10:09 AM EDT 12/02/2023 11:05 AM EDT Santi Toscano MD LAB BLOOD ORDERABLES Final Result [facility] [address] [place] [phone] * Colonoscopy (02/08/2019) Colonoscopy Tubular Adenoma Comment:Dr Estrada Historical Provider HEALTH MAINTENANCE Edited Result - Final from Last 3 Months or Most Recently Relevant to Health Maintenance Insurance [place] [address] [place] [id number] [facility] STAND ADULT [address] [facility] [address] [place] Care Teams Data Collection Interviewer Relationship Specialty Start Date End Date Santi Landry MD [address] [place] [phone] PCP - General Internal Medicine 06/14/14
--- OUTSIDE RECORDS SUMMARY | 2024-11-29 10:02 | XMS_ITS | Encounter Summary ---
Author Organization [employer] Address [address] [place] [address] 7 [place] [address] Care Team Providers Care Lab Specialist Name Role Phone Santi Lnadry MD Primary Care Provide r Reason for Visit * Reason Onset Date Comments Med Refill 11/28/2024 Encounter Details Date Type Department Care Team ([facility] st Contact Info) Description 11/28/2024 Refill [facility] MEDICINE [address] [place] [address] Santi Landry MD 230 [place] [address] Chronic midline low back pain without sciatica [...] Description 12/28/2024 2:00 PM EDT Clinical Support [facility] CHC MED & PEDS 505 [place] [address] Karishma Rose, RN 505 [place] [address] 01/30/2025 11:30 AM EDT Office Visit [facility] MEDICINE 230 [place] [address] Santi Landry MD 230 [place] [address] documented as of this encounter Visit Diagnoses Diagnosis Chronic midline low back pain without sciatica documented in this encounter Additional Health Concerns Assessment Noted Time PHQ-9 Depression Total Score: 21 025 10:16 AM EDT documented as of this encounter Care Teams Lab Specialist Relationship Specialty Start Date End Date Santi Landry MD [address] [place] [address] PCP - General Internal Medicine 06/14/14 documented as of this encounter
--- OUTSIDE RECORDS SUMMARY | 2024-11-29 10:02 | XMS_ITS | Encounter Summary ---
Author Organization [employer] Address [address] [place] [address] Care Team Providers Care Rheumatologist Name Role Phone Santi Landry MD Primary Care Provide r Reason for Visit * Reason Onset Date Comments Med Refill 10/01/2022 Encounter Details Date Type Department Care Team ([facility] Contact Info) Description 10/01/2022 Refill [facility] MEDICINE 230 [place] [address] Santi Landry MD 230 [place] [address] Chronic midline low back pain without sciatica [...] Upcoming Encounters Date Type Department Care Team ([facility] Contact Info) Description 12/28/2024 2:00 PM EDT Clinical Support [facility] CHC MED & PEDS 505 [place] [address] Karishma Rose, RN 505 [place] [address] 01/30/2025 11:30 AM EDT Office Visit [facility] MEDICINE 230 [place] [address] Santi Landry MD [address] [place] [address] documented as of this encounter Visit Diagnoses Diagnosis Chronic midline low back pain without sciatica documented in this encounter Additional Health Concerns Assessment Noted Time PHQ-9 Depression Total Score: 0 06/10/19 23 11:13 AM EST documented as of this encounter Care Teams Rheumatologist Relationship Specialty Start Date End Date Santi Landry MD [address] [place] [address] PCP - General Internal Medicine 06/14/14 documented as of this encounter
--- OUTSIDE RECORDS SUMMARY | 2024-11-29 10:02 | XMS_ITS | Encounter Summary ---
Author Organization [employer] Address [address] [place] [address] 7 [place] [address] Care Team Providers Care Marshmallow Machine Worker Name Role Phone Santi Landry MD Primary Care Provide r Reason for Visit * Reason Onset Date Comments Med Refill 06/06/2024 Encounter Details Date Type Department Care Team ([facility] st Contact Info) Description 06/06/2024 Refill [facility] MEDICINE 230 [place] [address] Santi Landry MD 230 [place] [address] Chronic midline low back pain without sciatica [...] 2:00 PM EDT Clinical Support [facility] CHC MED & PEDS 505 [place] [address] Karishma Rose, FATEMEH 505 [place] [address] 01/30/2025 11:30 AM EDT Office Visit [facility] MEDICINE 230 [place] [address] Santi Landry MD 230 [place] [address] documented as of this encounter Visit Diagnoses Diagnosis Chronic midline low back pain without sciatica documented in this encounter Additional Health Concerns Assessment Noted Time PHQ-9 Depression Total Score: 0 11/09/19 24 10:18 AM EDT documented as of this encounter Care Teams Marshmallow Machine Worker Relationship Specialty Start Date End Date Santi Landry MD 230 [place] [address] PCP - General Internal Medicine 06/14/14 documented as of this encounter
--- OUTSIDE RECORDS SUMMARY | 2024-11-29 10:02 | XMS_ITS | Encounter Summary ---
Author Organization [employer] Address [address] [place] [address] 7 [place] [address] Care Team Providers Care Chronometer Adjuster Name Role Phone Santi Landry MD Primary Care Provide r Reason for Visit * Reason Onset Date Comments Med Refill 06/12/2024 Encounter Details Date Type Department Care Team ([facility] st Contact Info) Description 06/12/2024 Refill [facility] MED[facility]INE 230 [place] [address] Santi Landry MD 230 [place] [address] Chronic midline low back pain without sciatica [...] Description 12/28/2024 2:00 PM EDT Clinical Support [facility] CH[facility] MED & PEDS 505 [place] [address] Karishma Rose, FATEMEH 505 [place] [address] 01/30/2025 11:30 AM EDT Office Visit [facility] MEDICINE 230 [place] [address] Santi Landry MD 230 [place] [address] documented as of this encounter Visit Diagnoses Diagnosis Chronic midline low back pain without sciatica documented in this encounter Additional Health Concerns Assessment Noted Time PHQ-9 Depression Total Score: 0 11/09/19 24 10:18 AM EDT documented as of this encounter Care Teams Chronometer Adjuster Relationship Specialty Start Date End Date Santi Landry MD 230 [place] [address] PCP - General Internal Medicine 06/14/14 documented as of this encounter
--- OUTSIDE RECORDS SUMMARY | 2024-11-29 10:02 | XMS_ITS | Encounter Summary ---
Author Organization [employer] Address [address] [place] [address] 7 [place] [address] Care Team Providers Care Mobility Specialist Name Role Phone Santi Landry MD Primary Care Provide r Reason for Visit * Reason Onset Date Comments Med Refill 08/14/2024 Encounter Details Date Type Department Care Team ([facility] st Contact Info) Description 08/14/2024 Refill [facility] MEDICINE 230 [place] [address] Santi Landry MD 230 [place] [address] Social History Tobacco Use Types Packs/Day Years [...] Description 12/28/2024 2:00 PM EDT Clinical Support [facility] CHC MED & PEDS 505 [place] [address] Karishma Rose, RN 505 [place] [address] 01/30/2025 11:30 AM EDT Office Visit [facility] MEDICINE 230 [place] [address] Santi Landry MD [address] [place] [address] documented as of this encounter Visit Diagnoses Not on filedocumented in this encounter Additional Health Concerns Assessment Noted Time PHQ-9 Depression Total Score: 0 11/09/19 24 10:18 AM EDT documented as of this encounter Care Teams Mobility Specialist Relationship Specialty Start Date End Date Santi Landry MD [address] [place] [address] PCP - General Internal Medicine 06/14/14 documented as of this encounter
--- OUTSIDE RECORDS SUMMARY | 2024-11-29 10:02 | XMS_ITS | Encounter Summary ---
Author Organization [employer] Address [address] [place] [address] Care Team Providers Care Family Partner Name Role Phone Santi Landry MD Primary Care Provide r Encounter Details Date Type Department Care Team (Late Contact Info) Description 02/20/2022 Abstract [facility] MEDICINE [address] [place] [phone] Santi Landry MD 230 [place], [place] [phone] Social History Tobacco Use Types Packs/Day Years [...] Upcoming Encounters Date Type Department Care Team ([facility] Contact Info) Description 12/28/2024 2:00 PM EDT Clinical Support [facility] CHC MED & PEDS 505 [place] [address] Karishma Rose, FATEMEH 505 [place] [address] 01/30/2025 11:30 AM EDT Office Visit [facility] MEDICINE 230 [place] [address] Santi Landry MD 230 [place], [place] [phone] documented as of this encounter Procedures Procedure Name Priority Date/Time Associated Diagnosis Comments LIPID PANEL, STANDARD Routine 04/14/2021 BASIC METABOLIC PANEL Routine 04/14/2021 COLONOSCOPY Routine 02/08/2019 documented in this encounter [...] mmol/L Blood Venous blood specimen / Unknown Historical Provider LAB BLOOD ORDERABLES Lilly l Result * Colonoscopy (02/08/2019) Colonoscopy Tubular Adenoma Comment:Dr Estrada Historical Provider [facility] MAINTENANCE Edited Result - Final documented in this encounter Visit Diagnoses Not on filedocumented in this encounter Care Teams Family Partner Relationship Specialty Start Date End Date Santi Landry MD 230 [place] [address] PCP - General Internal Medicine 06/14/14 documented as of this encounter
--- OUTSIDE RECORDS SUMMARY | 2024-11-29 10:02 | XMS_ITS | Encounter Summary ---
Author Organization [employer] Address [address] [facility] 7 [place] [address] Care Team Providers Care Occupational Health Nursing Director Name Role Phone Santi Landry MD Primary Care Provide r Reason for Visit * Reason Comments Med Refill Encounter Details Date Type Department Care Team ([facility] Contact Info) Description 10/08/2024 Refill [facility] MEDICINE 230 [place], [place] [phone] Santi Landry MD 230 [place], [place] [phone] Type 2 diabetes mellitus with diabetic polyneuropathy, with long-term current use of insulin ([facility]) Social History Tobacco Use Types Packs/Day [...] Description 12/28/2024 2:00 PM EDT Clinical Support [facility] CHC MED & PEDS 505 [place] [address] Karishma Rose, FATEMEH 505 [place] [address] 01/30/2025 11:30 AM EDT Office Visit [facility] MEDICINE 230 [place] [address] Santi Landry MD [address] [place] [address] documented as of this encounter Visit Diagnoses Diagnosis Type 2 diabetes mellitus with diabetic polyneuropathy, with long-term current use of insulin ([facility]) documented in this encounter Additional Health Concerns Assessment Noted Time PHQ-9 Depression Total Score: 0 11/09/19 24 10:18 AM EDT documented as of this encounter Care Teams Occupational Health Nursing Director Relationship Specialty Start Date End Date Satni Landry MD [address] [place] [address] PCP - General Internal Medicine 06/14/14 documented as of this encounter
--- OUTSIDE RECORDS SUMMARY | 2024-11-29 10:03 | XMS_ITS | Encounter Summary ---
Author Organization [employer] Address [address] [place] [address] 7 [place] [address] Care Team Providers Care Senior Information Security Consultant Name Role Phone Santi Landry MD Primary Care Provide r Reason for Visit * Reason Onset Date Comments Med Refill 03/18/2024 Encounter Details Date Type Department Care Team ([facility] st Contact Info) Description 03/18/2024 Refill [facility] MEDICINE 230 [place] [address] Queenie Saini DO 230 [place] [address] Type 2 diabetes mellitus with diabetic polyneuropathy, with long-term current use of insulin ([facility]) Social History Tobacco Use Types [...] [facility] 505 [place] [address] Karishma Rose, FATEMEH 505 [place] [address] 01/30/2025 11:30 AM EDT Office Visit [facility] MEDICINE 230 [place] [address] Santi Landry MD 230 [place] [address] documented as of this encounter Visit Diagnoses Diagnosis Type 2 diabetes mellitus with diabetic polyneuropathy, with long-term current use of insulin ([facility]) documented in this encounter Additional Health Concerns Assessment Noted Time PHQ-9 Depression Total Score: 0 11/09/19 24 10:18 AM EDT documented as of this encounter Care Teams Senior Information Security Consultant Relationship Specialty Start Date End Date Santi Landry MD [address] [place] [address] PCP - General Internal Medicine 06/14/14 documented as of this encounter
--- OUTSIDE RECORDS SUMMARY | 2024-11-29 10:03 | XMS_ITS | Encounter Summary ---
Author Organization [employer] Address [address] [facility] 7 [place] [address] Care Team Providers Care Ceramic Capacitor Processor Name Role Phone Santi Landry MD Primary Care Provide r Reason for Visit * Reason Comments Med Refill Encounter Details Date Type Department Care Team ([facility] st Contact Info) Description 03/17/2023 Refill [facility] MEDICINE 230 [place], [place] [phone] Santi Landry MD 230 [place], [place] [phone] Chronic midline low back pain without sciatica [...] [facility]EDS 505 [place] [address] Karishma Rose RN 505 [place] [address] 01/30/2025 11:30 AM EDT Office Visit [facility] MEDICINE 230 [place] [address] Santi Landry MD 230 [place] [address] documented as of this encounter Visit Diagnoses Diagnosis Chronic midline low back pain without sciatica documented in this encounter Additional Health Concerns Assessment Noted Time PHQ-9 Depression Total Score: 0 06/10/19 23 11:13 AM EST documented as of this encounter Care Teams Ceramic Capacitor Processor Relationship Specialty Start Date End Date Santi Landry MD 230 [place] [address] PCP - General Internal Medicine 06/14/14 documented as of this encounter
--- OUTSIDE RECORDS SUMMARY | 2024-11-29 10:03 | XMS_ITS | Encounter Summary ---
Author Organization [employer] Address [address] [facility] 7 [place] [address] Care Team Providers Care Pmo Project Manager Name Role Phone Santi Landry MD Primary Care Provide r Reason for Visit * Reason Onset Date Comments Med Refill 03/18/2024 Encounter Details Date Type Department Care Team ([facility] st Contact Info) Description 03/18/2024 Refill [facility] MED & PEDS [address] [place] [address] Santi Landry MD 230 [place] [address] Social History Tobacco Use Types Packs/Day Years [...] 2:00 PM EDT Clinical Support [facility] CHC MED & PEDS 505 [place] [address] Karishma Rose, RN 505 [place] [address] 01/30/2025 11:30 AM EDT Office Visit [facility] MEDICINE 230 [place] [address] Santi Landry MD 230 [place] [address] documented as of this encounter Visit Diagnoses Not on filedocumented in this encounter Additional Health Concerns Assessment Noted Time PHQ-9 Depression Total Score: 0 11/09/19 24 10:18 AM EDT documented as of this encounter Care Teams Pmo Project Manager Relationship Specialty Start Date End Date Santi Landry MD [address] [place] [address] PCP - General Internal Medicine 06/14/14 documented as of this encounter
--- OUTSIDE RECORDS SUMMARY | 2024-11-29 10:03 | XMS_ITS | Encounter Summary ---
Author Organization [employer] Address [address] [place] [address] 7 [place] [address] Care Team Providers Care Search Engine Optimization Manager Name Role Phone Santi Landry MD Primary Care Provide r Reason for Visit * Reason Onset Date Comments Med Refill 01/24/2024 Encounter Details Date Type Department Care Team ([facility] st Contact Info) Description 01/24/2024 Refill [facility] MEDICINE 230 [place] [address] Santi Landry MD 230 [place] [address] Chronic midline low back pain without sciatica [...] Clinical Support [facility] CHC MED & PEDS 505 [place] [address] Karishma Rose, FATEMEH 505 [place] [address] 01/30/2025 11:30 AM EDT Office Visit [facility] MEDICINE 230 [place] [address] Santi Landry MD 230 [place] [address] documented as of this encounter Visit Diagnoses Diagnosis Chronic midline low back pain without sciatica documented in this encounter Additional Health Concerns Assessment Noted Time PHQ-9 Depression Total Score: 0 11/09/19 24 10:18 AM EDT documented as of this encounter Care Teams Search Engine Optimization Manager Relationship Specialty Start Date End Date Santi Landry MD 230 [place] [address] PCP - General Internal Medicine 06/14/14 documented as of this encounter
--- OUTSIDE RECORDS SUMMARY | 2024-11-29 10:03 | XMS_ITS | Encounter Summary ---
Author Organization [employer] Address [address] [facility] 7 [place] [address] Care Team Providers Care Machine Packager Name Role Phone Santi Landry MD Primary Care Provide r Reason for Visit * Reason Onset Date Comments Med Refill 02/12/2023 Encounter Details Date Type Department Care Team ([facility] st Contact Info) Description 02/12/2023 Refill [facility] MED & PEDS [address] [place] [address] Santi Landry MD 230 [place] [address] Social History Tobacco Use Types Packs/Day Years [...] 2:00 PM EDT Clinical Support [facility] MED & PEDS 505 [place] [address] Karishma Rose, FATEMEH 505 [place] [address] 01/30/2025 11:30 AM EDT Office Visit [facility] MEDICINE 230 [place] [address] Santi Landry MD 230 [place] [address] documented as of this encounter Visit Diagnoses Not on filedocumented in this encounter Additional Health Concerns Assessment Noted Time PHQ-9 Depression Total Score: 0 06/10/19 23 11:13 AM EST documented as of this encounter Care Teams Machine Packager Relationship Specialty Start Date End Date Santi Landry MD 230 [place] [address] PCP - General Internal Medicine 06/14/14 documented as of this encounter
--- OUTSIDE RECORDS SUMMARY | 2024-11-29 10:03 | XMS_ITS | Encounter Summary ---
Author Organization [employer] Address [address] [facility] 7 [place] [address] Care Team Providers Care Burrer Machine Name Role Phone Santi Landry MD Primary Care Provide r Reason for Visit * Reason Onset Date Comments Med Refill 03/11/2023 Encounter Details Date Type Department Care Team ([facility] st Contact Info) Description 03/11/2023 Refill [facility] MEDICINE 230 [place] [address] Santi Landry MD 230 [place] [address] Type 2 diabetes mellitus with diabetic polyneuropathy, with long-term current use of insulin ([facility]) Social History Tobacco Use Types [...] 2:00 PM EDT Clinical Support [facility] MED & PEDS 505 [place] [address] Karishma Rose RN 505 [place] [address] 01/30/2025 11:30 AM EDT Office Visit [facility] MEDICINE 230 [place] [address] Santi Landry MD [address] [place] [address] documented as of this encounter Visit Diagnoses Diagnosis Type 2 diabetes mellitus with diabetic polyneuropathy, with long-term current use of insulin ([facility]) documented in this encounter Additional Health Concerns Assessment Noted Time PHQ-9 Depression Total Score: 0 06/10/19 23 11:13 AM EST documented as of this encounter Care Teams Burrer Machine Relationship Specialty Start Date End Date Santi Landry MD [address] [place] [address] PCP - General Internal Medicine 06/14/14 documented as of this encounter
--- OUTSIDE RECORDS SUMMARY | 2024-11-29 10:03 | XMS_ITS | Encounter Summary ---
Author Organization [employer] Address [address] [place] [address] 7 [place] [address] Care Team Providers Care Senior Marketing Engineer Name Role Phone Santi Landry MD Primary Care Provide r Reason for Visit * Reason Onset Date Comments Med Refill 11/18/2023 Encounter Details Date Type Department Care Team ([facility] st Contact Info) Description 11/18/2023 Refill [facility] MEDICINE 230 [place] [address] Santi Landry MD 230 [place] [address] Primary hypertension Social History Tobacco Use Types [...] 12/28/2024 2:00 PM EDT Clinical Support [facility] CHC MED & PEDS 505 [place] [address] Karishma Rose, RN 505 [place] [address] 01/30/2025 11:30 AM EDT Office Visit [facility] MEDICINE 230 [place] [address] Santi Landry MD 230 [place] [address] documented as of this encounter Visit Diagnoses Diagnosis Primary hypertension Unspecified essential hypertension documented in this encounter Additional Health Concerns Assessment Noted Time PHQ-9 Depression Total Score: 0 11/09/19 24 10:18 AM EDT documented as of this encounter Care Teams Senior Marketing Engineer Relationship Specialty Start Date End Date Santi Landry MD 230 [place] [address] PCP - General Internal Medicine 06/14/14 documented as of this encounter
--- OUTSIDE RECORDS SUMMARY | 2024-11-29 10:03 | XMS_ITS | Encounter Summary ---
Author Organization [employer] Address [address] [facility] 7 [place] [address] Care Team Providers Care [employer] Airspace Control Officer Name Role Phone Santi Landry MD Primary Care Provide r Reason for Visit * Reason Onset Date Comments Med Refill 03/17/2023 Encounter Details Date Type Department Care Team ([facility] Contact Info) Description 03/17/2023 Telephone [facility] MEDICINE 230 [place] [address] Santi Landry MD 230 [place] [address] Med Refill Social History Tobacco Use Types [...] EST Tc from pt requesting medication HYDROcodone-acetaminophen ([place]) 10-325 MG tablet and oxyCODONE ER (OxyCONTIN) 10 MG 12 hr tablet be sent to [facility] - [place], [place] - [address] [facility] instead of [id number] - [place], [place] - [address] [facility]. documented in this encounter Plan of Treatment Upcoming Encounters Date Type Department Care Team ([facility] st Contact Info) Description 12/28/2024 2:00 PM EDT Clinical Support [facility] CHC MED & PEDS 505 [place] [address] Karishma Rose RN 505 [place] [address] 01/30/2025 11:30 AM EDT Office Visit [facility] MEDICINE 230 [place] [address] Santi Landry MD 230 [place] [address] documented as of this encounter Visit Diagnoses Not on filedocumented in this encounter Additional Health Concerns Assessment Noted Time PHQ-9 Depression Total Score: 0 06/10/19 23 11:13 AM EST documented as of this encounter Care Teams [employer]oc Airspace Control Officer Relationship Specialty Start Date End Date Santi Landry MD [address] [place] [address] PCP - General Internal Medicine 06/14/14 documented as of this encounter
--- OUTSIDE RECORDS SUMMARY | 2024-11-29 10:03 | XMS_ITS | Encounter Summary ---
Author Organization [employer] Address [address] [place] [address] 7 [place] [address] Care Team Providers Care Telepathist Name Role Phone Santi Landry MD Primary Care Provide r Reason for Visit * Reason Comments Med Refill Encounter Details Date Type Department Care Team ([facility] Contact Info) Description 02/22/2024 Refill [facility] 230 [place], [place] [phone] Santi Landry MD 230 [place], [place] [phone] Chronic midline low back pain without sciatica [...] Description 12/28/2024 2:00 PM EDT Clinical Support [facility] 505 [place] [address] Karishma Rose, RN 505 [place] [address] 01/30/2025 11:30 AM EDT Office Visit [facility] 230 [place] [address] Santi Landry MD [address] [place] [address] documented as of this encounter Visit Diagnoses Diagnosis Chronic midline low back pain without sciatica documented in this encounter Additional Health Concerns Assessment Noted Time PHQ-9 Depression Total Score: 0 11/09/19 24 10:18 AM EDT documented as of this encounter Care Teams Telepathist Relationship Specialty Start Date End Date Santi Landry MD [address] [place] [address] PCP - General Internal Medicine 06/14/14 documented as of this encounter
--- OUTSIDE RECORDS SUMMARY | 2024-11-29 10:03 | XMS_ITS | Encounter Summary ---
Author Organization [employer] Address [address] [place] [address] 7 [place] [address] Care Team Providers Care Retail Center Receptionist Name Role Phone Santi Landry MD Primary Care Provide r Reason for Visit * Reason Onset Date Comments Med Refill 11/18/2023 Encounter Details Date Type Department Care Team ([facility] st Contact Info) Description 11/18/2023 Refill [facility] 230 [place] [address] Santi Landry MD 230 [place] [address] Social History Tobacco Use Types Packs/Day Years [...] Description 12/28/2024 2:00 PM EDT Clinical Support [facility] 505 [place] [address] Karishma Rose, RN 505 [place] [address] 01/30/2025 11:30 AM EDT Office Visit [facility] 230 [place] [address] Santi Landry MD [address] [place] [address] documented as of this encounter Visit Diagnoses Not on filedocumented in this encounter Additional Health Concerns Assessment Noted Time PHQ-9 Depression Total Score: 0 11/09/19 24 10:18 AM EDT documented as of this encounter Care Teams Retail Center Receptionist Relationship Specialty Start Date End Date Santi Landry MD [address] [place] [address] PCP - General Internal Medicine 06/14/14 documented as of this encounter
--- OUTSIDE RECORDS SUMMARY | 2024-11-29 10:03 | XMS_ITS | Encounter Summary ---
Author Organization [employer] Address [address] [place] [address] 7 [place] [address] Care Team Providers Care Sea Kayaking Guide Name Role Phone Santi Landry MD Primary Care Provide r Reason for Visit * Reason Onset Date Comments Med Refill 02/12/2023 Encounter Details Date Type Department Care Team ([facility] st Contact Info) Description 02/12/2023 Refill [facility] 230 [place] [address] Santi Landry MD 230 [place] [address] Social History Tobacco Use Types Packs/Day Years [...] Description 12/28/2024 2:00 PM EDT Clinical Support [facility] 505 [place] [address] Karishma Rose RN 505 [place] [address] 01/30/2025 11:30 AM EDT Office Visit [facility] 230 [place] [address] Santi Landry MD 230 [place] [address] documented as of this encounter Visit Diagnoses Not on filedocumented in this encounter Additional Health Concerns Assessment Noted Time PHQ-9 Depression Total Score: 0 06/10/19 23 11:13 AM EST documented as of this encounter Care Teams Sea Kayaking Guide Relationship Specialty Start Date End Date Santi Landry MD 230 [place] [address] PCP - General Internal Medicine 06/14/14 documented as of this encounter
--- OUTSIDE RECORDS SUMMARY | 2024-11-29 10:03 | XMS_ITS | Encounter Summary ---
Author Organization [employer] Address [address] [facility] 7 [place] [address] Care Team Providers Care Director Of Placement Name Role Phone Santi Landry MD Primary Care Provide r Reason for Visit * Reason Onset Date Comments Med Refill 04/17/2024 Encounter Details Date Type Department Care Team ([facility] st Contact Info) Description 04/17/2024 Refill [facility]S [address] [place] [address] Santi Landry MD 230 [place] [address] Chronic midline low back pain without sciatica [...] 2:00 PM EDT Clinical Support [facility] 505 [place] [address] Karishma Rose, RN 505 [place] [address] 01/30/2025 11:30 AM EDT Office Visit [facility] 230 [place] [address] Santi Landry MD 230 [place] [address] documented as of this encounter Visit Diagnoses Diagnosis Chronic midline low back pain without sciatica documented in this encounter Additional Health Concerns Assessment Noted Time PHQ-9 Depression Total Score: 0 11/09/19 24 10:18 AM EDT documented as of this encounter Care Teams Director Of Placement Relationship Specialty Start Date End Date Santi Landry MD 230 [place] [address] PCP - General Internal Medicine 06/14/14 documented as of this encounter
--- OUTSIDE RECORDS SUMMARY | 2024-11-29 10:03 | XMS_ITS | Encounter Summary ---
Author Organization [employer] Address [address] [facility] [address] 7[address] [place] [address] Care Team Providers Care Water Taxi Ferry Operator Name Role Phone Santi Landry MD Primary Care Provide r Reason for Visit * Reason Onset Date Comments Med Refill 04/20/2023 Encounter Details Date Type Department Care Team ([facility] st Contact Info) Description 04/20/2023 Refill [facility]S [address] [place], [place] [phone] Santi Landry MD [address] [place], [place] [phone] Chronic midline low back pain without sciatica [...] Description 12/28/2024 2:00 PM EDT Clinical Support [facility] & PED[facility] 505 [place] [address] Karishma Rose, RN 505 [place] [address] 01/30/2025 11:30 AM EDT Office Visit [facility] 230 [place] [address] Santi Landry MD 230 [place] [address] documented as of this encounter Visit Diagnoses Diagnosis Chronic midline low back pain without sciatica documented in this encounter Additional Health Concerns Assessment Noted Time PHQ-9 Depression Total Score: 0 06/10/19 23 11:13 AM EST documented as of this encounter Care Teams Water Taxi Ferry Operator Relationship Specialty Start Date End Date Santi Landry MD 230 [place] [address] PCP - General Internal Medicine 06/14/14 documented as of this encounter
--- OUTSIDE RECORDS SUMMARY | 2024-11-29 10:03 | XMS_ITS | Encounter Summary ---
Author Organization [employer] Address [address] [facility] 7 [place] [address] Care Team Providers Care Stock Drier Tender Name Role Phone Santi Landry MD Primary Care Provide r Reason for Visit * Reason Onset Date Comments Med Refill 05/15/2024 Encounter Details Date Type Department Care Team ([facility] st Contact Info) Description 05/15/2024 Refill [facility] [address] [place] [address] Santi Landry MD 230 [place], [place] [phone] Chronic midline low back pain without sciatica [...] Description 12/28/2024 2:00 PM EDT Clinical Support [facility] 505 [place] [address] Karishma Rose, RN 505 [place] [address] 01/30/2025 11:30 AM EDT Office Visit [facility] 230 [place] [address] Santi Landry MD 230 [place] [address] documented as of this encounter Visit Diagnoses Diagnosis Chronic midline low back pain without sciatica documented in this encounter Additional Health Concerns Assessment Noted Time PHQ-9 Depression Total Score: 0 11/09/19 24 10:18 AM EDT documented as of this encounter Care Teams Stock Drier Tender Relationship Specialty Start Date End Date Santi Landry MD 230 [place] [address] PCP - General Internal Medicine 06/14/14 documented as of this encounter
--- OUTSIDE RECORDS SUMMARY | 2024-11-29 10:03 | XMS_ITS | Encounter Summary ---
Author Organization [employer] Address [address] [facility] 7 [place] [address] Care Team Providers Care Division Service Manager Name Role Phone Santi Landry MD Primary Care Provide r Reason for Visit * Reason Onset Date Comments Med Refill 04/14/2023 Encounter Details Date Type Department Care Team ([facility] st Contact Info) Description 04/14/2023 Refill [facility] 230 [place] [address] Santi Landry MD 230 [place] [address] Type 2 diabetes mellitus with diabetic polyneuropathy, with long-term current use of insulin ([facility]) Social History [...] Description 12/28/2024 2:00 PM EDT Clinical Support [facility] MED & PEDS 505 [place] [address] Karishma Rose RN 505 [place] [address] 01/30/2025 11:30 AM EDT Office Visit [facility] MEDICINE 230 [place] [address] Santi Landry MD [address] [place] [address] documented as of this encounter Visit Diagnoses Diagnosis Type 2 diabetes mellitus with diabetic polyneuropathy, with long-term current use of insulin ([facility]) documented in this encounter Additional Health Concerns Assessment Noted Time PHQ-9 Depression Total Score: 0 06/10/19 23 11:13 AM EST documented as of this encounter Care Teams Division Service Manager Relationship Specialty Start Date End Date Santi Landry MD [address] [place] [address] PCP - General Internal Medicine 06/14/14 documented as of this encounter
--- OUTSIDE RECORDS SUMMARY | 2024-11-29 10:03 | XMS_ITS | Encounter Summary ---
Author Organization [employer] Address [address] [facility] 7 [place] [address] Care Team Providers Care Rn Hyperbaric Name Role Phone Santi Landry MD Primary Care Provide r Reason for Visit * Reason Onset Date Comments Med Refill 02/12/2023 Encounter Details Date Type Department Care Team ([facility] [place] [facility] st Contact Info) Description 02/12/2023 Refill [facility] 230 [place] [address] Santi Landry MD 230 [place] [address] Atherosclerosis of [place] coronary artery of [place] heart without angina pectoris Social History Tobacco [...] Description 12/28/2024 2:00 PM EDT Clinical Support [facility] 505 [place] [address] Karishma Rose, RN 505 [place] [address] 01/30/2025 11:30 AM EDT Office Visit [facility] 230 [place] [address] Santi Landry MD 230 [place] [address] documented as of this encounter Visit Diagnoses Diagnosis Atherosclerosis of [place] coronary artery of [place] heart without angina pectoris documented in this encounter Additional Health Concerns Assessment Noted Time PHQ-9 Depression Total Score: 0 06/10/19 23 11:13 AM EST documented as of this encounter Care Teams Rn Hyperbaric Relationship Specialty Start Date End Date Santi Landry MD 230 [place] [address] PCP - General Internal Medicine 06/14/14 documented as of this encounter
--- OUTSIDE RECORDS SUMMARY | 2024-11-29 10:03 | XMS_ITS | Encounter Summary ---
Author Organization [employer] Address [address] [facility] 7 [place] [address] Care Team Providers Care Valve Mechanic Name Role Phone Santi Landry MD Primary Care Provide r Reason for Visit * Reason Onset Date Comments Med Refill 04/08/2023 Encounter Details Date Type Department Care Team ([facility] st Contact Info) Description 04/08/2023 Refill [facility] 230 [place] [address] Santi Landry MD 230 [place] [address] Type 2 diabetes mellitus with diabetic polyneuropathy, with long-term current use of insulin ([facility]) Social History Tobacco Use Types [...] 12/28/2024 2:00 PM EDT Clinical Support [facility]ED[facility] 505 [place] [address] Karishma Rose RN 505 [place] [address] 01/30/2025 11:30 AM EDT Office Visit [facility] MEDICINE 230 [place] [address] Santi Landry MD [address] [place] [address] documented as of this encounter Visit Diagnoses Diagnosis Type 2 diabetes mellitus with diabetic polyneuropathy, with long-term current use of insulin ([facility]) documented in this encounter Additional Health Concerns Assessment Noted Time PHQ-9 Depression Total Score: 0 06/10/19 23 11:13 AM EST documented as of this encounter Care Teams Valve Mechanic Relationship Specialty Start Date End Date Santi Landry MD [address] [place] [address] PCP - General Internal Medicine 06/14/14 documented as of this encounter
--- OUTSIDE RECORDS SUMMARY | 2024-11-29 10:03 | XMS_ITS | Encounter Summary ---
Author Organization [employer] Address [address] [facility] 7 [place] [address] Care Team Providers Care Toolman Name Role Phone Santi Landry MD Primary Care Provide r Reason for Visit * Reason Comments Med Refill Encounter Details Date Type Department Care Team ([facility] Contact Info) Description 02/29/2024 Refill [facility] 230 [place] [address] Michelle Carmona MD 230 [place] [address] Type 2 diabetes mellitus without complications (CMS/HCC) [...] 2:00 PM EDT Clinical Support [facility] MED [facility] PEDS 505 [place] [address] Karishma Rose, RN 505 [place] [address] 01/30/2025 11:30 AM EDT Office Visit [facility] MEDICINE 230 [place] [address] Santi Landry MD [address] [place] [address] documented as of this encounter Visit Diagnoses Diagnosis Type 2 diabetes mellitus without complications (CMS/HCC) documented in this encounter Additional Health Concerns Assessment Noted Time PHQ-9 Depression Total Score: 0 11/09/19 24 10:18 AM EDT documented as of this encounter Care Teams Toolman Relationship Specialty Start Date End Date Santi Landry MD [address] [place] [address] PCP - General Internal Medicine 06/14/14 documented as of this encounter
--- OUTSIDE RECORDS SUMMARY | 2024-11-29 10:03 | XMS_ITS | Encounter Summary ---
Author Organization [employer] Address [address] [facility] 7 [place] [address] Care Team Providers Care Personnel Adviser Name Role Phone Santi Landry MD Primary Care Provide r Reason for Visit * Reason Onset Date Comments Med Refill 03/14/2023 Encounter Details Date Type Department Care Team ([facility] st Contact Info) Description 03/14/2023 Refill [facility] 230 [place] [address] Santi Landry MD 230 [place] [address] Chronic midline low back pain without sciatica [...] Description 12/28/2024 2:00 PM EDT Clinical Support [facility] MED & PEDS 505 [place] [address] Karishma Rose, RN 505 [place] [address] 01/30/2025 11:30 AM EDT Office Visit [facility] MEDICINE 230 [place] [address] Santi Landry MD 230 [place] [address] documented as of this encounter Visit Diagnoses Diagnosis Chronic midline low back pain without sciatica documented in this encounter Additional Health Concerns Assessment Noted Time PHQ-9 Depression Total Score: 0 06/10/19 23 11:13 AM EST documented as of this encounter Care Teams Personnel Adviser Relationship Specialty Start Date End Date Santi Landry MD 230 [place] [address] PCP - General Internal Medicine 06/14/14 documented as of this encounter
--- OUTSIDE RECORDS SUMMARY | 2024-11-29 10:03 | XMS_ITS | Encounter Summary ---
Author Organization [employer] Address [address] [facility] 7 [place] [address] Care Team Providers Care Superintendent Colliery Name Role Phone Santi Landry MD Primary Care Provide r Reason for Visit * Reason Onset Date Comments Med Refill 03/12/2023 Encounter Details Date Type Department Care Team ([facility] st Contact Info) Description 03/12/2023 Refill [facility] MEDICINE 230 [place] [address] Santi Landry MD 230 [place] [address] Chronic midline low back pain without sciatica [...] 12/28/2024 2:00 PM EDT Clinical Support [facility] MED & PEDS 505 [place] [address] Karishma Rose, RN 505 [place] [address] 01/30/2025 11:30 AM EDT Office Visit [facility] MEDICINE 230 [place] [address] Santi Landry MD 230 [place] [address] documented as of this encounter Visit Diagnoses Diagnosis Chronic midline low back pain without sciatica documented in this encounter Additional Health Concerns Assessment Noted Time PHQ-9 Depression Total Score: 0 06/10/19 23 11:13 AM EST documented as of this encounter Care Teams Superintendent Colliery Relationship Specialty Start Date End Date Santi Landry MD 230 [place] [address] PCP - General Internal Medicine 06/14/14 documented as of this encounter
--- OUTSIDE RECORDS SUMMARY | 2024-11-29 10:03 | XMS_ITS | Encounter Summary ---
Author Organization [employer] Address [address] [place] [address] 7 [place] [address] Care Team Providers Care Staff Cytotechnologist Name Role Phone Santi Landry MD Primary Care Provide r Reason for Visit * Reason Onset Date Comments Med Refill 01/02/2024 Encounter Details Date Type Department Care Team ([facility] st Contact Info) Description 01/02/2024 Refill [facility] MEDICINE 230 [place] [address] Santi Landry MD 230 [place] [address] Social History Tobacco Use Types Packs/Day Years [...] Description 12/28/2024 2:00 PM EDT Clinical Support [facility] MED & PEDS 505 [place] [address] Karishma Rose, RN 505 [place] [address] 01/30/2025 11:30 AM EDT Office Visit [facility] MEDICINE 230 [place] [address] Santi Landry MD [address] [place] [address] documented as of this encounter Visit Diagnoses Not on filedocumented in this encounter Additional Health Concerns Assessment Noted Time PHQ-9 Depression Total Score: 0 11/09/19 24 10:18 AM EDT documented as of this encounter Care Teams Staff Cytotechnologist Relationship Specialty Start Date End Date Santi Landry MD [address] [place] [address] PCP - General Internal Medicine 06/14/14 documented as of this encounter
--- OUTSIDE RECORDS SUMMARY | 2024-11-29 10:03 | XMS_ITS | Encounter Summary ---
Author Organization [employer] Address [address] [place] [address] 7 [place] [address] Care Team Providers Care Atg Architect Name Role Phone Santi Landry MD Primary Care Provide r Reason for Visit * Reason Onset Date Comments Med Refill 02/12/2023 Encounter Details Date Type Department Care Team ([facility] st Contact Info) Description 02/12/2023 Refill [facility] 230 [place] [address] Santi Landry MD 230 [place] [address] Social History Tobacco Use Types Packs/Day Years [...] 2:00 PM EDT Clinical Support [facility] 505 [place] [address] Karishma Rose RN 505 [place] [address] 01/30/2025 11:30 AM EDT Office Visit [facility] [address] [place] [address] Santi Landry MD 230 [place] [address] documented as of this encounter Visit Diagnoses Not on filedocumented in this encounter Additional Health Concerns Assessment Noted Time PHQ-9 Depression Total Score: 0 06/10/19 23 11:13 AM EST documented as of this encounter Care Teams Atg Architect Relationship Specialty Start Date End Date Santi Landry MD 230 [place] [address] PCP - General Internal Medicine 06/14/14 documented as of this encounter
--- OUTSIDE RECORDS SUMMARY | 2024-11-29 10:03 | XMS_ITS | Encounter Summary ---
Author Organization [employer] Address [address] [facility] 7 [place] [address] Care Team Providers Care Program Assistant Name Role Phone Santi Landry MD Primary Care Provide r Reason for Visit * Reason Onset Date Comments Med Refill 02/12/2023 Encounter Details Date Type Department Care Team ([facility] st Contact Info) Description 02/12/2023 Refill [facility]ICINE 230 [place] [address] Santi Landry MD 230 [place] [address] Type 2 diabetes mellitus with diabetic polyneuropathy, with long-term current use of insulin ([facility]) Social History Tobacco Use Types Packs/Day Years [...] 12/28/2024 2:00 PM EDT Clinical Support [facility] MED & PEDS 505 [place] [address] Karishma Rose RN 505 [place] [address] 01/30/2025 11:30 AM EDT Office Visit [facility]ICINE 230 [place] [address] Santi Landry MD [address] [place] [address] documented as of this encounter Visit Diagnoses Diagnosis Type 2 diabetes mellitus with diabetic polyneuropathy, with long-term current use of insulin ([facility]) documented in this encounter Additional Health Concerns Assessment Noted Time PHQ-9 Depression Total Score: 0 06/10/19 23 11:13 AM EST documented as of this encounter Care Teams Program Assistant Relationship Specialty Start Date End Date Santi Landry MD [address] [place] [address] PCP - General Internal Medicine 06/14/14 documented as of this encounter
--- OUTSIDE RECORDS SUMMARY | 2024-11-29 10:03 | XMS_ITS | Encounter Summary ---
Author Organization [employer] Address [address] [place] [address] 7 [place] [address] Care Team Providers Care Paleology Professor Name Role Phone Santi Landry MD Primary Care Provide r Reason for Visit * Reason Onset Date Comments Med Refill 12/26/2023 Encounter Details Date Type Department Care Team ([facility] st Contact Info) Description 12/26/2023 Refill [facility] MEDICINE 230 [place] [address] Santi Landry MD 230 [place] [address] Social History Tobacco Use Types Packs/Day Years [...] PM EDT Clinical Support [facility] MED & PEDS 505 [place] [address] Karishma Rose, RN 505 [place] [address] 01/30/2025 11:30 AM EDT Office Visit [facility] MEDICINE 230 [place] [address] Santi Landry MD [address] [place] [address] documented as of this encounter Visit Diagnoses Not on filedocumented in this encounter Additional Health Concerns Assessment Noted Time PHQ-9 Depression Total Score: 0 11/09/19 24 10:18 AM EDT documented as of this encounter Care Teams Paleology Professor Relationship Specialty Start Date End Date Santi Landry MD [address] [place] [address] PCP - General Internal Medicine 06/14/14 documented as of this encounter
--- OUTSIDE RECORDS SUMMARY | 2024-11-29 10:03 | XMS_ITS | Encounter Summary ---
Author Organization [employer] Address 75 [facility] 7 [place] [address] Care Team Providers Care Assistant Printer Floor Covering Name Role Phone Santi Landry MD Primary Care Provide r Reason for Visit * Reason Onset Date Comments Med Refill 03/20/2024 Encounter Details Date Type Department Care Team ([facility] st Contact Info) Description 03/20/2024 Refill [facility] MED & PEDS [address] [place] [address] Santi Landry MD 230 [place] [address] Chronic midline low back pain without sciatica [...] PM EDT Clinical Support [facility] CHC MED & PEDS 505 [place] [address] Karishma Rose, RN 505 [place] [address] 01/30/2025 11:30 AM EDT Office Visit [facility] MEDICINE 230 [place] [address] Santi Landry MD 230 [place] [address] documented as of this encounter Visit Diagnoses Diagnosis Chronic midline low back pain without sciatica documented in this encounter Additional Health Concerns Assessment Noted Time PHQ-9 Depression Total Score: 0 11/09/19 24 10:18 AM EDT documented as of this encounter Care Teams Assistant Printer Floor Covering Relationship Specialty Start Date End Date Santi Landry MD 230 [place] [address] PCP - General Internal Medicine 06/14/14 documented as of this encounter
--- OUTSIDE RECORDS SUMMARY | 2024-11-29 10:03 | XMS_ITS | Encounter Summary ---
Author Organization [employer] Address [address] [place] [address] 7 [place] [address] Care Team Providers Care Binder Cutter Name Role Phone Santi Landry MD Primary Care Provide r Reason for Visit * Reason Onset Date Comments Med Refill 05/10/2023 Encounter Details Date Type Department Care Team ([facility] st Contact Info) Description 05/10/2023 Refill [facility] MEDICINE 230 [place] [address] Michelle Carmona MD 230 [place] [address] Type 2 diabetes mellitus with diabetic polyneuropathy, with long-term current use of insulin ([facility]) Social History Tobacco Use Types [...] 12/28/2024 2:00 PM EDT Clinical Support [facility] CHC MED & PEDS 505 [place] [address] Karishma Rose RN 505 [place] [address] 01/30/2025 11:30 AM EDT Office Visit [facility] MEDICINE 230 [place] [address] Santi Landry MD [address] [place] [address] documented as of this encounter Visit Diagnoses Diagnosis Type 2 diabetes mellitus with diabetic polyneuropathy, with long-term current use of insulin ([facility]) documented in this encounter Additional Health Concerns Assessment Noted Time PHQ-9 Depression Total Score: 0 06/10/19 23 11:13 AM EST documented as of this encounter Care Teams Binder Cutter Relationship Specialty Start Date End Date Santi Landry MD [address] [place] [address] PCP - General Internal Medicine 06/14/14 documented as of this encounter
--- OUTSIDE RECORDS SUMMARY | 2024-11-29 10:03 | XMS_ITS | Encounter Summary ---
Author Organization [employer] Address 75 [facility] 7 [place] [address] Care Team Providers Care Insulation Worker Apprentice Name Role Phone Santi Landry MD Primary Care Provide r Reason for Visit * Reason Onset Date Comments Med Refill 01/21/2024 Encounter Details Date Type Department Care Team ([facility] st Contact Info) Description 01/21/2024 Refill [facility] CHC MED & PEDS [address] [place] [address] Santi Landry MD 230 [place] [address] Chronic midline low back pain without sciatica [...] 12/28/2024 2:00 PM EDT Clinical Support [facility] CHC MED & PEDS 505 [place] [address] Karishma Rose, RN 505 [place] [address] 01/30/2025 11:30 AM EDT Office Visit [facility] MEDICINE 230 [place] [address] Santi Landry MD 230 [place] [address] documented as of this encounter Visit Diagnoses Diagnosis Chronic midline low back pain without sciatica documented in this encounter Additional Health Concerns Assessment Noted Time PHQ-9 Depression Total Score: 0 11/09/19 24 10:18 AM EDT documented as of this encounter Care Teams Insulation Worker Apprentice Relationship Specialty Start Date End Date Santi Landry MD 230 [place] [address] PCP - General Internal Medicine 06/14/14 documented as of this encounter
--- OUTSIDE RECORDS SUMMARY | 2024-11-29 10:03 | XMS_ITS | Encounter Summary ---
Author Organization [employer] Address 75 [facility] 7 [place] [address] Care Team Providers Care Doffer Name Role Phone Santi Landry MD Primary Care Provide r Reason for Visit * Reason Onset Date Comments Med Refill 02/12/2023 Encounter Details Date Type Department Care Team ([facility] st Contact Info) Description 02/12/2023 Refill [facility] MED & PEDS [address] [place] [address] Santi Landry MD 230 [place] [address] Social History Tobacco Use Types Packs/Day Years [...] Description 12/28/2024 2:00 PM EDT Clinical Support [facility] MED & PEDS 505 [place] [address] Karishma Rose, FATEMEH 505 [place] [address] 01/30/2025 11:30 AM EDT Office Visit [facility] MEDICINE 230 [place] [address] Santi Landry MD 230 [place] [address] documented as of this encounter Visit Diagnoses Not on filedocumented in this encounter Additional Health Concerns Assessment Noted Time PHQ-9 Depression Total Score: 0 06/10/19 23 11:13 AM EST documented as of this encounter Care Teams Doffer Relationship Specialty Start Date End Date Santi Landry MD 230 [place] [address] PCP - General Internal Medicine 06/14/14 documented as of this encounter
--- OUTSIDE RECORDS SUMMARY | 2024-11-29 10:03 | XMS_ITS | Encounter Summary ---
Author Organization [employer] Address 75 [facility] 7 [place] [address] Care Team Providers Care Fire Equipment Operator Name Role Phone Santi Landry MD Primary Care Provide r Reason for Visit * Reason Onset Date Comments Med Refill 02/12/2023 Encounter Details Date Type Department Care Team ([facility] st Contact Info) Description 02/12/2023 Refill [facility] MEDICINE 230 [place] [address] Santi Landry MD 230 [place] [address] Primary hypertension Social History Tobacco Use Types [...] Description 12/28/2024 2:00 PM EDT Clinical Support [facility] MED & PEDS 505 [place] [address] Karishma Rose, FATEMEH 505 [place] [address] 01/30/2025 11:30 AM EDT Office Visit [facility] MEDICINE 230 [place] [address] Santi Landry MD 230 [place] [address] documented as of this encounter Visit Diagnoses Diagnosis Primary hypertension Unspecified essential hypertension documented in this encounter Additional Health Concerns Assessment Noted Time PHQ-9 Depression Total Score: 0 06/10/19 23 11:13 AM EST documented as of this encounter Care Teams Fire Equipment Operator Relationship Specialty Start Date End Date Santi Landry MD 230 [place] [address] PCP - General Internal Medicine 06/14/14 documented as of this encounter
--- OUTSIDE RECORDS SUMMARY | 2024-11-29 10:03 | XMS_ITS | Encounter Summary ---
Author Organization [employer] Address 75 [facility] 7 [place] [address] Care Team Providers Care Rock Mason Name Role Phone Santi Landry MD Primary Care Provide r Reason for Visit * Reason Onset Date Comments Med Refill 02/15/2023 Encounter Details Date Type Department Care Team ([facility] st Contact Info) Description 02/15/2023 Refill [facility] MEDICINE 230 [place] [address] Santi Landry MD 230 [place] [address] Chronic midline low back pain without sciatica [...] 2:00 PM EDT Clinical Support [facility] MED & PEDS 505 [place] [address] Karishma Rose, RN 505 [place] [address] 01/30/2025 11:30 AM EDT Office Visit [facility] MEDICINE 230 [place] [address] Santi Landry MD 230 [place] [address] documented as of this encounter Visit Diagnoses Diagnosis Chronic midline low back pain without sciatica documented in this encounter Additional Health Concerns Assessment Noted Time PHQ-9 Depression Total Score: 0 06/10/19 23 11:13 AM EST documented as of this encounter Care Teams Rock Mason Relationship Specialty Start Date End Date Santi Landry MD 230 [place] [address] PCP - General Internal Medicine 06/14/14 documented as of this encounter
--- OUTSIDE RECORDS SUMMARY | 2024-11-29 10:03 | XMS_ITS | Encounter Summary ---
Author Organization [employer] Address 75 [facility] 7 [place] [address] Care Team Providers Care Gate Cutter Name Role Phone Santi Landry MD Primary Care Provide r Reason for Visit * Reason Onset Date Comments Med Refill 02/12/2023 Encounter Details Date Type Department Care Team ([facility] st Contact Info) Description 02/12/2023 Refill [facility] CHC MED & PEDS [address] [place], [place] [phone] Santi Landry MD 230 [facility] [place], [place] [phone] Type 2 diabetes mellitus with diabetic polyneuropathy, with long-term current use of insulin ([facility]) Social History Tobacco Use Types Packs/Day Years [...] 2:00 PM EDT Clinical Support [facility] MED & PEDS 505 [place] [address] Karishma Rose, FATEMEH 505 [place] [address] 01/30/2025 11:30 AM EDT Office Visit [facility] MEDICINE 230 [place] [address] Santi Landry MD 230 [place] [address] documented as of this encounter Visit Diagnoses Diagnosis Type 2 diabetes mellitus with diabetic polyneuropathy, with long-term current use of insulin ([facility]) documented in this encounter Additional Health Concerns Assessment Noted Time PHQ-9 Depression Total Score: 0 06/10/19 23 11:13 AM EST documented as of this encounter Care Teams Gate Cutter Relationship Specialty Start Date End Date Santi Landry MD 230 [place] [address] PCP - General Internal Medicine 06/14/14 documented as of this encounter
--- OUTSIDE RECORDS SUMMARY | 2024-11-29 10:03 | XMS_ITS | Encounter Summary ---
Author Organization [employer] Address [address] [place] [address] 7 [place] [address] Care Team Providers Care Fire Range Technician Name Role Phone Santi Landry MD Primary Care Provide r Reason for Visit * Reason Onset Date Comments Med Refill 02/12/2023 Encounter Details Date Type Department Care Team ([facility] st Contact Info) Description 02/12/2023 Refill [facility] MEDICINE 230 [place] [address] Santi Landry MD 230 [place] [address] Social History Tobacco Use Types Packs/Day Years [...] Description 12/28/2024 2:00 PM EDT Clinical Support [facility] CHC MED & PEDS 505 [place] [address] Karishma Rose RN 505 [place] [address] 01/30/2025 11:30 AM EDT Office Visit [facility] MEDICINE 230 [place] [address] Santi Landry MD 230 [place] [address] documented as of this encounter Visit Diagnoses Not on filedocumented in this encounter Additional Health Concerns Assessment Noted Time PHQ-9 Depression Total Score: 0 06/10/19 23 11:13 AM EST documented as of this encounter Care Teams Fire Range Technician Relationship Specialty Start Date End Date Santi Landry MD 230 [place] [address] PCP - General Internal Medicine 06/14/14 documented as of this encounter
--- OUTSIDE RECORDS SUMMARY | 2024-11-29 10:03 | XMS_ITS | Encounter Summary ---
Author Organization 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 [...] 12/28/2024 2:00 PM EDT Clinical Support [facility] CHC MED & PEDS 505 [place] [address] Karishma Roes, RN 505 [place] [address] 01/30/2025 11:30 AM EDT Office Visit [facility] MEDICINE 230 [place] [address] Santi Landry MD [address] [place] [address] documented as of this encounter Visit Diagnoses Diagnosis Chronic midline low back pain without sciatica documented in this encounter Additional Health Concerns Assessment Noted Time PHQ-9 Depression Total Score: 0 11/09/19 24 10:18 AM EDT documented as of this encounter Care Teams Geophysics Scientist Relationship Specialty Start Date End Date Santi Landry MD [address] [place] [address] PCP - General Internal Medicine 06/14/14 documented as of this encounter
--- OUTSIDE RECORDS SUMMARY | 2024-11-29 10:03 | XMS_ITS | Encounter Summary ---
Author Organization [employer] Address 75 [facility] 7 [place] [address] Care Team Providers Care Form Stripper Name Role Phone Santi Landry MD Primary Care Provide r Reason for Visit * Reason Onset Date Comments Med Refill 02/12/2023 Encounter Details Date Type Department Care Team ([facility] st Contact Info) Description 02/12/2023 Refill [facility] MED & PEDS [address] [place] [address] Santi Landry MD 230 [place] [address] Social History Tobacco Use Types Packs/Day Years [...] Description 12/28/2024 2:00 PM EDT Clinical Support [facility] MED & PEDS 505 [place] [address] Karishma Rose, FATEMEH 505 [place] [address] 01/30/2025 11:30 AM EDT Office Visit [facility] MEDICINE 230 [place] [address] Santi Landry MD 230 [place] [address] documented as of this encounter Visit Diagnoses Not on filedocumented in this encounter Additional Health Concerns Assessment Noted Time PHQ-9 Depression Total Score: 0 06/10/19 23 11:13 AM EST documented as of this encounter Care Teams Form Stripper Relationship Specialty Start Date End Date Santi Landry MD 230 [place] [address] PCP - General Internal Medicine 06/14/14 documented as of this encounter
--- OUTSIDE RECORDS SUMMARY | 2024-11-29 10:04 | XMS_ITS | Encounter Summary ---
Author Organization [employer] Address [address] [place] [address] 7 [place] [address] Care Team Providers Care Box Truck Washer Name Role Phone Santi Landry MD Primary Care Provide r Reason for Visit * Reason Onset Date Comments Med Refill 11/08/2023 Encounter Details Date Type Department Care Team ([facility] st Contact Info) Description 11/08/2023 Refill [facility] MEDICINE 230 [place] [address] Santi Landry MD 230 [place] [address] Primary hypertension Social History Tobacco Use Types [...] of Assessment Author Patient Health Questionnaire-2 Score 0 11/09/2023 10:18 AM EDT Germania Tapia MA * Over the past 2 weeks, how often have you been bothered by any of the following problems? Question Answer Date of Assessment Author Little interest or pleasure in doing things Not at all 11/09/2023 10:18 AM KACYT Germania Munson [place] Feeling down, depressed, or hopeless Not at all 11/09/2023 10:18 AM EDT Germania Munson [place] Trouble falling or staying asleep, or sleeping too much Not at all 11/09/2023 10:18 AM EDT Germania Qureshi MA Feeling tired or having little energy Not at all 11/09/2023 10:18 AM KACYT Germania Munson [place] Poor appetite or overeating Not at all 11/09/2023 10 :18 AM KACYT Germania Munson MA Feeling bad about yourself - or that you are a failure or have let yourself or your family down Not at all 11/09/2023 10:18 AM Germania Mitchlel [place] Trouble concentrating on things, such as reading the newspaper or watching television Not at all 11/09/2023 10:18 AM EDT Germania Munson MA Moving or speaking so slowly that other people could have noticed? Or the opposite - being so fidgety or restless that you have been moving around a lot more than usual. Not at all 11/09/2023 10:18 AM EDT Germania Roberts MA Thoughts that you would be better off or hurting yourself in some way Not at all 11/09/2023 10:18 AM EDT Germania Munson MA Patient Health Questionnaire-9 Score 0 11/09/2023 10:18 AM EDT Germania Tapia MA documented as of this encounter Plan of Treatment Upcoming Encounters Date Type Department Care Team (Late st Contact Info) Description 12/28/2024 2:00 PM EDT Clinical Support [facility] CHC MED & PEDS 505 [place] [address] Karishma Rose, RN 505 [place] [address] 01/30/2025 11:30 AM EDT Office Visit [facility] MEDICINE 230 [place] [address] Santi Landry MD 230 [place] [address] documented as of this encounter Visit Diagnoses Diagnosis Primary hypertension Unspecified essential hypertension documented in this encounter Additional Health Concerns Assessment Noted Time PHQ-9 Depression Total Score: 6 06/22/19 24 11:07 AM EDT documented as of this encounter Care Teams Box Truck Washer Relationship Specialty Start Date End Date Santi Landry MD 230 [place] [address] PCP - General Internal Medicine 06/14/14 documented as of this encounter
--- OUTSIDE RECORDS SUMMARY | 2024-11-29 10:04 | XMS_ITS | Encounter Summary ---
Author Organization [employer] Address 75 [facility] 7 [place] [address] Care Team Providers Care Senior Mechanical Project Engineer Name Role Phone Santi Landry MD Primary Care Provide r Reason for Visit * Reason Onset Date Comments Med Refill 02/12/2023 Encounter Details Date Type Department Care Team ([facility] st Contact Info) Description 02/12/2023 Refill [facility] MEDICINE 230 [place] [address] Santi Landry MD 230 [place] [address] Gastroesophageal reflux disease, unspecified whether esophagitis present [...] Description 12/28/2024 2:00 PM EDT Clinical Support [facility] MED & PEDS 505 [place] [address] Karishma Rose, RN 505 [place] [address] 01/30/2025 11:30 AM EDT Office Visit [facility] MEDICINE 230 [place] [address] Santi Landry MD [address] [place] [address] documented as of this encounter Visit Diagnoses Diagnosis Gastroesophageal reflux disease, unspecified whether esophagitis present documented in this encounter Additional Health Concerns Assessment Noted Time PHQ-9 Depression Total Score: 0 06/10/19 23 11:13 AM EST documented as of this encounter Care Teams Senior Mechanical Project Engineer Relationship Specialty Start Date End Date Santi Landry MD 230 [place] [address] PCP - General Internal Medicine 06/14/14 documented as of this encounter
--- OUTSIDE RECORDS SUMMARY | 2024-11-29 10:04 | XMS_ITS | Encounter Summary ---
Author Organization [employer] Address [address] [place] [address] 7 [place] [address] Care Team Providers Care Network Systems Operator Name Role Phone Santi Landry MD Primary Care Provide r Reason for Visit * Reason Onset Date Comments Med Refill 02/12/2023 Encounter Details Date Type Department Care Team ([facility] st Contact Info) Description 02/12/2023 Refill [facility] MEDICINE [address] [place] [address] Santi Landry MD 230 [place] [address] Social History Tobacco Use Types Packs/Day Years [...] 2:00 PM EDT Clinical Support [facility] CHC MED & PEDS 505 [place] [address] Karishma Rose RN 505 [place] [address] 01/30/2025 11:30 AM EDT Office Visit [facility] MEDICINE [address] [place] [address] Santi Landry MD [address] [place] [address] documented as of this encounter Visit Diagnoses Not on filedocumented in this encounter Additional Health Concerns Assessment Noted Time PHQ-9 Depression Total Score: 0 06/10/19 23 11:13 AM EST documented as of this encounter Care Teams Network Systems Operator Relationship Specialty Start Date End Date Santi Landry MD 230 [place] [address] PCP - General Internal Medicine 06/14/14 documented as of this encounter
--- OUTSIDE RECORDS SUMMARY | 2024-11-29 10:04 | XMS_ITS | Encounter Summary ---
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 [...] Clinical Support [facility] CHC MED & PEDS 505 [place] [address] Karishma Rose, RN 505 [place] [address] 01/30/2025 11:30 AM EDT Office Visit [facility] MEDICINE 230 [place] [address] Santi Landry MD [address] [place] [address] documented as of this encounter Visit Diagnoses Diagnosis Chronic midline low 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
--- OUTSIDE RECORDS SUMMARY | 2024-11-29 10:04 | XMS_ITS | Encounter Summary ---
Author Organization [employer] Address [address] [place] [address] 7 [place] [address] Care Team Providers Care Maintenance Of Way Supervisor Name Role Phone Santi Landry MD Primary Care Provide r Reason for Visit * Reason Onset Date Comments Med Refill 11/18/2023 Encounter Details Date Type Department Care Team ([facility] st Contact Info) Description 11/18/2023 Refill [facility] MEDICINE 230 [place] [address] Santi Landry MD 230 [place] [address] Social History Tobacco Use Types Packs/Day Years [...] Description 12/28/2024 2:00 PM EDT Clinical Support [facility] CHC MED & PEDS 505 [place] [address] Karishma Rose, RN 505 [place] [address] 01/30/2025 11:30 AM EDT Office Visit [facility] MEDICINE 230 [place] [address] Santi Landry MD [address] [place] [address] documented as of this encounter Visit Diagnoses Not on filedocumented in this encounter Additional Health Concerns Assessment Noted Time PHQ-9 Depression Total Score: 0 11/09/19 24 10:18 AM EDT documented as of this encounter Care Teams Maintenance Of Way Supervisor Relationship Specialty Start Date End Date Santi Landry MD [address] [place] [address] PCP - General Internal Medicine 06/14/14 documented as of this encounter
--- OUTSIDE RECORDS SUMMARY | 2024-11-29 10:04 | XMS_ITS | Encounter Summary ---
Author Organization [employer] Address [address] [place] [address] 7 [place] [address] Care Team Providers Care Sliver Lapper Name Role Phone Santi Landry MD Primary Care Provide r Reason for Visit * Reason Onset Date Comments Med Refill 11/05/2023 Encounter Details Date Type Department Care Team ([facility] Contact Info) Description 11/05/2023 Telephone [facility] MEDICINE [address] [place] [address] Santi Landry MD [address] [place] [address] Med Refill Social History Tobacco Use Types [...] OxyContin 10 mg To be sent to: [facility] documented in this encounter Plan of Treatment Upcoming Encounters Date Type Department Care Team (Late st Contact Info) Description 12/28/2024 2:00 PM EDT Clinical Support [facility] MED [facility] P[facility]S [address] [place] [address] Karishma Rose, RN 505 [place] [address] 01/30/2025 11:30 AM EDT Office Visit [facility]INE [address] [place] [address] Santi Landry MD [address] [place] [address] documented as of this encounter Visit Diagnoses Not on filedocumented in this encounter Additional Health Concerns Assessment Noted Time PHQ-9 Depression Total Score: 6 06/22/19 24 11:07 AM EDT documented as of this encounter Care Teams Sliver Lapper Relationship Specialty Start Date End Date Santi Landry MD [address] [place] [address] PCP - General Internal Medicine 06/14/14 documented as of this encounter
--- OUTSIDE RECORDS SUMMARY | 2024-11-29 10:04 | XMS_ITS | Encounter Summary ---
Author Organization [employer] Address [address] [place] [address] 7 [place] [address] Care Team Providers Care Extruder Tender Name Role Phone Santi Landry MD Primary Care Provide r Reason for Visit * Reason Onset Date Comments Med Refill 02/12/2023 Encounter Details Date Type Department Care Team ([facility] st Contact Info) Description 02/12/2023 Refill [facility] MEDICINE [address] [place] [address] Michelle Carmona MD [address] [place] [address] Social History Tobacco Use Types Packs/Day Years [...] 12/28/2024 2:00 PM EDT Clinical Support [facility] MED & PEDS [address] [place] [address] Karishma Rose RN 505 [place] [address] 01/30/2025 11:30 AM EDT Office Visit [facility] MEDICINE [address] [place] [address] Santi Landry MD [address] [place] [address] documented as of this encounter Visit Diagnoses Not on filedocumented in this encounter Additional Health Concerns Assessment Noted Time PHQ-9 Depression Total Score: 0 06/10/19 23 11:13 AM EST documented as of this encounter Care Teams Extruder Tender Relationship Specialty Start Date End Date Santi Landry MD 230 [place] [address] PCP - General Internal Medicine 06/14/14 documented as of this encounter
[2024-11-29 11:54] LABS: Alanine Aminotransferase 79 U/L (0-40); Albumin Level 4.4 g/dL (3.5-5.0); Alkaline Phosphatase 56 U/L (39-117); Anion Gap 13 (12-20); Aspartate Amino Transferase 94 U/L (5-37); Blood Urea Nitrogen 16 mg/dL (9-16); Calcium 9.6 mg/dL (8.4-10.2); Carbon Dioxide 25 mmol/L (22-29); Chloride 104 mmol/L (96-108); Cholesterol 154 mg/dL (<200); Estimated Glomerular Filt Rate > 60; HDL Cholesterol 50 mg/dL (>40); Potassium 4.2 mmol/L (3.3-5.1); Sodium 138 mmol/L (135-145); Total Protein 7.0 g/dL (6.5-8.0); Triglycerides 214 mg/dL (<150)
== END 2024-11-29 09:27 | disposition home or self-care (01) ==
LOC: HO.HHCL 09:26
PROVIDERS: PCP Internal Medicine; Visit Provider Internal Medicine
DX: I10 Essential (primary) hypertension (principal); E78.2 Mixed hyperlipidemia; M25.551 Pain in right hip
CPT/HCPCS: 36415; 73502; 80053; 80061

== ENCOUNTER → 2024-11-29 09:52 | Outpatient (BNV) | payer MEDICARE, MEDICAID, SELFPAY | PROVIDERS: PCP Internal Medicine; Visit Provider Radiology Diagnostic Radiology | DX: M16.11 Unilateral primary osteoarthritis, right hip (principal) | CPT/HCPCS: 73502 ==

== ENCOUNTER 2025-02-14 14:28 | Outpatient (AMB) | payer MEDICARE, MEDICAID, SELFPAY ==
--- NOTE | 2025-02-14 14:38 | A.OFFVIS_ITS ---
Vital Signs 02/14/25 14:47 Height 5 ft 6 in Weight 195 lb BMI 31.5 Handedness Right Intake Visit Reasons: Bilateral shoulder pain Intake Note: Immanuel is a 74 year old male who presents with complaints of bilateral shoulder pains. He describes his pains as sharp in nature. He has had cortisone injections in the past which gave him fairly good relief. He wishes to hold off on surgery if at all possible. He has tried Tylenol and anti-inflammatory medicines which gave him mild relief. today for his bilateral shoulder pains due to his impingement syndrome. He received cortisone injections on 11/14/2024 and would like to repeat these in the shoulders today. Allergies fenofibrate (From TRICOR) Allergy (Severe, Verified 02/14/25 14:48) RASH isosorbide (From Imdur) Allergy (Severe, Verified 02/14/25 14:48) H/A propoxyphene (From Darvocet-N 100) Allergy (Severe, Verified 02/14/25 14:48) RASH shellfish derived Allergy (Severe, Verified 02/14/25 14:48) Anaphylaxis gemfibrozil Allergy (Verified 02/14/25 14:48) Itching Medication List - Last Reconciled 02/15/25 by Nathan Ackerman MD albuterol sulfate 90 mcg/actuation 2 puffs inhalation Q4-6H PRN aspirin 81 mg PO DAILY bupropion HCl 100 mg PO BID clopidogrel 75 mg PO DAILY cyclobenzaprine 5 mg PO DAILY PRN dulaglutide (Trulicity) 1.5 mg subcut .QMONDAY duloxetine 40 mg PO DAILY ezetimibe 10 mg PO DAILY famotidine 20 mg PO DAILY gabapentin 800 mg PO TID glipizide 10 mg PO DAILY hydrocodone-acetaminophen 10-325 mg 1 tab PO Q4H PRN hydroxyzine HCl 25 mg PO Q8H PRN ibuprofen 200 mg PO Q8H PRN insulin degludec (Tresiba U-100 Insulin) 22 units subcut BEDTIME insulin detemir U-100 units subcut lactulose 10 grams PO DAILY lisinopril 20 mg PO DAILY metformin ER 500 mg PO DAILY metoprolol tartrate 50 mg PO BID naloxone 4 mg/actuation intranasal omega 0-rcx-ild-fish oil 1,200 (144-216) mg (Fish Oil) 1 cap PO BID omeprazole 40 mg PO DAILY oxycodone ER (OxyContin) 10 mg PO BID primidone 150 mg PO DAILY propranolol 120 mg PO BID rosuvastatin 40 mg PO BEDTIME sertraline 50 mg PO DAILY PFSH Medical History Impingement of right shoulder Impingement syndrome of left shoulder Coronary artery disease Low back pain Anxiety and depression High cholesterol Vasculopathy Ambulates with cane Wears dentures Arthritis Back pain Diabetes GERD (gastroesophageal reflux disease) Renal calculi Cataracts, bilateral Numbness and tingling of left leg HLD (hyperlipidemia) HTN (hypertension) Smoker Surgical History S/P triple vessel bypass Hx of cystoscopy Hx of colonoscopy Hx of CABG (~2002) History of back surgery Hx of left knee surgery (~1981) Family History Father Heart attack Hypertension Daughter Heart attack Hypertension Social History Household Members: Spouse Housing: Apartment Are you a primary career and technology education teacher to a significant other at home: No Do you presently have visiting nurse or other home services: No Patient Tobacco Use Status: Current everyday Tobacco user Tobacco use type: Cigarette Cigarettes Per Day: 6 Current occupational status: disabled Physical Exam Vital Signs: BMI result Body Mass Index 31.5 Extrem Other: Bilateral shoulder examination shows 4+ out of 5 strength with supraspinatus testing, positive impingement signs, no instability Office Procedures AMB Joint Injection/Aspiration Joint Injection/Aspiration Primary Site: Left Shoulder Prep: site was prepped using aseptic technique Injected: 40 mg of, DepoMedrol, with 4 mL of and 1% plain Lidocaine Procedure: The patient tolerated the procedure well Coding 40805 - Large joint Procedure code (CPT) selection complete AMB Joint Injection/Aspiration Joint Injection/Aspiration Primary Site: Right Shoulder Prep: site was prepped using aseptic technique Injected: 40 mg of, DepoMedrol, with 4 mL of and 1% plain Lidocaine Procedure: The patient tolerated the procedure well Coding 99060 - Large joint Procedure code (CPT) selection complete Assessment & Plan Assessment & Plan (1) Impingement syndrome of left shoulder: Code(s): M75.42 - Impingement syndrome of left shoulder Category: Medical (2) Impingement of right shoulder: Code(s): M25.811 - Other specified joint disorders, right shoulder Category: Medical (3) Bilateral shoulder pain: Code(s): M25.511 - Pain in right shoulder; M25.512 - Pain in left shoulder Category: Medical Plan Mr. Aftab Medina presents with bilateral shoulder pains due to impingement syndrome. The risks and benefits of bilateral shoulder cortisone injections were discussed at length with the patient. The patient wished to proceed. He tolerated the injections well. He will continue with his home exercise program. Will contact me prior to his follow-up appointment in 3 months should any questions or concerns arise. Feel free to call me at any time should questions regarding his orthopedic management arise. I spent 21 minutes in reviewing the patient's records and imaging studies, seeing the patient and documenting in the medical record. Orders: Orders AMB Joint Injection/Aspiration 02/14/25 M75.42 - Impingement syndrome of left shoulder AMB Joint Injection/Aspiration 02/14/25 M25.811 - Other specified joint disorders, right shoulder Coding Level of Care Code Est Pt Level 3 (47833) Complex EM visit Add On G2211 Diagnoses Impingement syndrome of left shoulder M75.42 Impingement of right shoulder M25.811 Bilateral shoulder pain M25.511; M25.512 CPT Codes Coding - 23833 Large joint: 33235 - Large joint ([id number]) Coding - 93312 Large joint: 24049 - Large joint ([id number])
[2025-02-14 14:47] VITALS: BMI 31.5
--- OUTSIDE RECORDS SUMMARY | 2025-02-14 17:56 | XMS_ITS | Encounter Summary ---
Author Organization [employer] Address [address] [place] [address] 7 [place] [address] Care Team Providers Care Grain Wafer Machine Operator Name Role Phone Santi Landry MD Primary Care Provide r Reason for Visit * Reason Onset Date Comments Med Refill 09/15/2023 Encounter Details Date Type Department Care Team ([facility] st Contact Info) Description 09/15/2023 Refill [facility] MEDICINE [address] [place] [address] Santi Landry MD [address] [place] [address] Social History Tobacco Use Types Packs/Day Years [...] Care Team (Late st Contact Info) Description 03/05/2025 10:00 AM EST Telemedicine [facility] MED & PEDS 505 [place] [address] Karishma Rose, RN 505 [place] [address] 04/12/2025 11:30 AM EST Office Visit [facility] MEDICINE 230 [place] [address] Santi Landry MD [address] [place] [address] documented as of this encounter Visit Diagnoses Not on filedocumented in this encounter Additional Health Concerns Assessment Noted Time PHQ-9 Depression Total Score: 6 06/22/19 24 11:07 AM EDT documented as of this encounter Care Teams Grain Wafer Machine Operator Relationship Specialty Start Date End Date Santi Landry MD [address] [place] [address] PCP - General Internal Medicine 06/14/14 documented as of this encounter
--- OUTSIDE RECORDS SUMMARY | 2025-02-14 17:56 | XMS_ITS | Encounter Summary ---
Author Organization [employer] Address [address] [place] [address] 7 [place] [address] Care Team Providers Care Cigar Binder Name Role Phone Santi Landry MD Primary Care Provide r Reason for Visit * Reason Onset Date Comments Med Refill 08/18/2023 Encounter Details Date Type Department Care Team ([facility] st Contact Info) Description 08/18/2023 Refill [facility] MEDICINE [address] [place] [address] Santi Landry MD [address] [place] [address] Social History Tobacco Use Types Packs/Day Years [...] Info) Description 03/05/2025 10:00 AM EST Telemedicine [facility] CHC MED & PEDS 505 [place] [address] Karishma Rose, RN [address] [place] [address] 04/12/2025 11:30 AM EST Office Visit [facility] MEDICINE [address] [place] [address] Santi Landry MD [address] [place] [address] documented as of this encounter Visit Diagnoses Not on filedocumented in this encounter Additional Health Concerns Assessment Noted Time PHQ-9 Depression Total Score: 6 06/22/19 24 11:07 AM EDT documented as of this encounter Care Teams Cigar Binder Relationship Specialty Start Date End Date Santi Landry MD [address] [place] [address] PCP - General Internal Medicine 06/14/14 documented as of this encounter
--- OUTSIDE RECORDS SUMMARY | 2025-02-14 17:56 | XMS_ITS | Encounter Summary ---
Author Organization [employer] Address [address] [place] [address] 7 [place] [address] Care Team Providers Care Glass Vial Bending Conveyor Feeder Name Role Phone Santi Landry MD Primary Care Provide r Reason for Visit * Reason Onset Date Comments Med Refill 08/30/2023 Encounter Details Date Type Department Care Team ([facility] st Contact Info) Description 08/30/2023 Refill [facility] MEDICINE [address] [place] [address] Santi Landry MD 230 [place] [address] Social History Tobacco Use Types Packs/Day Years [...] Info) Description 03/05/2025 10:00 AM EST Telemedicine [facility] CHC MED & PEDS 505 [place] [address] Karishma Rose, RN 505 [place] [address] 04/12/2025 11:30 AM EST Office Visit [facility] MEDICINE [address] [place] [address] Santi Landry MD 230 [place] [address] documented as of this encounter Visit Diagnoses Not on filedocumented in this encounter Additional Health Concerns Assessment Noted Time PHQ-9 Depression Total Score: 6 06/22/19 24 11:07 AM EDT documented as of this encounter Care Teams Glass Vial Bending Conveyor Feeder Relationship Specialty Start Date End Date Santi Landry MD [address] [place] [address] PCP - General Internal Medicine 06/14/14 documented as of this encounter
--- OUTSIDE RECORDS SUMMARY | 2025-02-14 17:56 | XMS_ITS | Encounter Summary ---
Author Organization [employer] Address [address] [facility] 7 [place] [address] Care Team Providers Care Operator Specialist Communications Name Role Phone Santi Landry MD Primary Care Provide r Reason for Visit * Reason Onset Date Comments Med Refill 09/07/2023 Encounter Details Date Type Department Care Team ([facility] st Contact Info) Description 09/07/2023 Refill [facility] CHC MED & PEDS [address] [place] [address] Santi Landry MD 230 [place] [address] Social History Tobacco Use Types Packs/Day Years [...] Info) Description 03/05/2025 10:00 AM EST Telemedicine [facility] CHC MED & PEDS 505 [place] [address] Karishma Rose, RN 505 [place] [address] 04/12/2025 11:30 AM EST Office Visit [facility] MEDICINE 230 [place] [address] Santi Landry MD [address] [place] [address] documented as of this encounter Visit Diagnoses Not on filedocumented in this encounter Additional Health Concerns Assessment Noted Time PHQ-9 Depression Total Score: 6 06/22/19 24 11:07 AM EDT documented as of this encounter Care Teams Operator Specialist Communications Relationship Specialty Start Date End Date Santi Landry MD [address] [place] [address] PCP - General Internal Medicine 06/14/14 documented as of this encounter
--- OUTSIDE RECORDS SUMMARY | 2025-02-14 17:56 | XMS_ITS | Encounter Summary ---
Author Organization [employer] Address [address] [place] [address] 7 [place] [address] Care Team Providers Care Internet Marketing Coordinator Name Role Phone Santi Landry MD Primary Care Provide r Reason for Visit * Reason Onset Date Comments Med Refill 09/15/2023 Encounter Details Date Type Department Care Team ([facility] st Contact Info) Description 09/15/2023 Refill [facility] MEDICINE 230 [place] [address] Santi Landry MD 230 [place] [address] Social History Tobacco Use Types Packs/Day Years [...] Description 03/05/2025 10:00 AM EST Telemedicine [facility] CHC MED & PEDS 505 [place] [address] Karishma Rose, RN 505 [place] [address] 04/12/2025 11:30 AM EST Office Visit [facility] MEDICINE [address] [place] [address] Santi Landry MD [address] [place] [address] documented as of this encounter Visit Diagnoses Not on filedocumented in this encounter Additional Health Concerns Assessment Noted Time PHQ-9 Depression Total Score: 6 06/22/19 24 11:07 AM EDT documented as of this encounter Care Teams Internet Marketing Coordinator Relationship Specialty Start Date End Date Santi Landry MD [address] [place] [address] PCP - General Internal Medicine 06/14/14 documented as of this encounter
--- OUTSIDE RECORDS SUMMARY | 2025-02-14 17:56 | XMS_ITS | Encounter Summary ---
Author Organization [employer] Address [address] [place] [address] 7 [place] [address] Care Team Providers Care Coal Trammer Name Role Phone Santi Landry MD Primary Care Provide r Reason for Visit * Reason Onset Date Comments Med Refill 08/31/2023 Encounter Details Date Type Department Care Team ([facility] st Contact Info) Description 08/31/2023 Refill [facility] MEDICINE [address] [place] [address] Santi Landry MD [address] [place] [address] Social History Tobacco Use Types Packs/Day Years [...] Info) Description 03/05/2025 10:00 AM EST Telemedicine [facility] CHC MED & PEDS 505 [place] [address] Karishma Rose, RN 505 [place] [address] 04/12/2025 11:30 AM EST Office Visit [facility] MEDICINE [address] [place] [address] Santi Landry MD [address] [place] [address] documented as of this encounter Visit Diagnoses Not on filedocumented in this encounter Additional Health Concerns Assessment Noted Time PHQ-9 Depression Total Score: 6 06/22/19 24 11:07 AM EDT documented as of this encounter Care Teams Coal Trammer Relationship Specialty Start Date End Date Santi Landry MD [address] [place] [address] PCP - General Internal Medicine 06/14/14 documented as of this encounter
--- OUTSIDE RECORDS SUMMARY | 2025-02-14 17:56 | XMS_ITS | Encounter Summary ---
Author Organization [employer] Address [address] [place] [address] 7 [place] [address] Care Team Providers Care Net Technical Architect Name Role Phone Santi Landry MD Primary Care Provide r Reason for Visit * Reason Onset Date Comments Med Refill 09/24/2023 Encounter Details Date Type Department Care Team ([facility] st Contact Info) Description 09/24/2023 Refill [facility] MEDICINE 230 [place] [address] Santi Landry MD 230 [place] [address] Social History Tobacco Use Types Packs/Day Years [...] Info) Description 03/05/2025 10:00 AM EST Telemedicine [facility] CHC MED & PEDS 505 [place] [address] Karishma Rose, RN 505 [place] [address] 04/12/2025 11:30 AM EST Office Visit [facility] MEDICINE [address] [place] [address] Santi Landry MD 230 [place] [address] documented as of this encounter Visit Diagnoses Not on filedocumented in this encounter Additional Health Concerns Assessment Noted Time PHQ-9 Depression Total Score: 6 06/22/19 24 11:07 AM EDT documented as of this encounter Care Teams Net Technical Architect Relationship Specialty Start Date End Date Santi Landry MD [address] [place] [address] PCP - General Internal Medicine 06/14/14 documented as of this encounter
--- OUTSIDE RECORDS SUMMARY | 2025-02-14 17:56 | XMS_ITS | Encounter Summary ---
Author Organization [employer] Address [address] [facility] 7 [place] [address] Care Team Providers Care Sawmill Hand Name Role Phone Santi Landry MD Primary Care Provide r Reason for Visit * Reason Onset Date Comments Med Refill 09/28/2023 Encounter Details Date Type Department Care Team ([facility] st Contact Info) Description 09/28/2023 Refill [facility] CH[facility] MED & PEDS [address] [place] [address] Santi Landry MD 230 [place] [address] Social History Tobacco Use Types Packs/Day Years [...] Info) Description 03/05/2025 10:00 AM EST Telemedicine [facility] CH[facility] MED & PEDS 505 [place] [address] Karishma Rose, RN 505 [place] [address] 04/12/2025 11:30 AM EST Office Visit [facility] MEDICINE 230 [place] [address] Santi Landry MD [address] [place] [address] documented as of this encounter Visit Diagnoses Not on filedocumented in this encounter Additional Health Concerns Assessment Noted Time PHQ-9 Depression Total Score: 6 06/22/19 24 11:07 AM EDT documented as of this encounter Care Teams Sawmill Hand Relationship Specialty Start Date End Date Santi Landry MD [address] [place] [address] PCP - General Internal Medicine 06/14/14 documented as of this encounter
--- OUTSIDE RECORDS SUMMARY | 2025-02-14 17:57 | XMS_ITS | Encounter Summary ---
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 [...] Info) Description 03/05/2025 10:00 AM EST Telemedicine [facility] CH[facility] MED & PEDS 505 [place] [address] Karishma Rose, RN 505 [place] [address] 04/12/2025 11:30 AM EST Office Visit [facility] MEDICINE 230 [place] [address] Santi Landry MD [address] [place] [address] documented as of this encounter Visit Diagnoses Diagnosis Chronic midline low back pain without sciatica documented in this encounter Additional Health Concerns Assessment Noted Time PHQ-9 Depression Total Score: 21 025 10:16 AM EDT documented as of this encounter Care Teams Check Out Clerk Relationship Specialty Start Date End Date Santi Landry MD [address] [place] [address] PCP - General Internal Medicine 06/14/14 documented as of this encounter
--- OUTSIDE RECORDS SUMMARY | 2025-02-14 17:57 | XMS_ITS | Encounter Summary ---
Author Organization [employer] Address [address] [facility] 7 [place] [address] Care Team Providers Care Jewelry Manager Name Role Phone Santi Landry MD Primary Care Provide r Reason for Visit * Reason Onset Date Comments Med Refill 05/24/2023 Encounter Details Date Type Department Care Team ([facility] st Contact Info) Description 05/24/2023 Refill [facility] MEDICINE [address] [place] [address] Michelle Carmona MD 230 [place] [address] Type 2 diabetes mellitus with diabetic polyneuropathy, with long-term current use of insulin ([facility]) Social History Tobacco Use Types Packs/Day [...] Info) Description 03/05/2025 10:00 AM EST Telemedicine [facility] MED & PEDS 505 [place] [address] Karishma Rose RN 505 [place] [address] 04/12/2025 11:30 AM EST Office Visit [facility] MEDICINE [address] [place] [address] Santi Landry MD [address] [place] [address] documented as of this encounter Visit Diagnoses Diagnosis Type 2 diabetes mellitus with diabetic polyneuropathy, with long-term current use of insulin (HCC) documented in this encounter Additional Health Concerns Assessment Noted Time PHQ-9 Depression Total Score: 0 06/10/19 23 11:13 AM EST documented as of this encounter Care Teams Jewelry Manager Relationship Specialty Start Date End Date Santi Landry MD [address] [place] [address] PCP - General Internal Medicine 06/14/14 documented as of this encounter
--- OUTSIDE RECORDS SUMMARY | 2025-02-14 17:57 | XMS_ITS | Encounter Summary ---
Author Organization [employer] Address [address] [facility] 7 [place] [address] Care Team Providers Care House Decorator Name Role Phone Santi Landry MD Primary Care Provide r Reason for Visit * Reason Onset Date Comments Med Refill 01/23/2025 Encounter Details Date Type Department Care Team ([facility] st Contact Info) Description 01/23/2025 Refill [facility] MED & PEDS [address] [place] [address] Santi Landry MD [address] [place] [address] Chronic skin ulcer, limited to breakdown of skin (CMS/HCC) (HCC) Social History Tobacco Use Types Packs/Day Years [...] Info) Description 03/05/2025 10:00 AM EST Telemedicine [facility] CHC MED & PEDS [address] [place] [address] Karishma Rose, RN [address] [place] [address] 04/12/2025 11:30 AM EST Office Visit [facility] MEDICINE [address] [place] [address] Santi Landry MD [address] [place] [address] documented as of this encounter Visit Diagnoses Diagnosis Chronic skin ulcer, limited to breakdown of skin (CMS/HCC) ([facility]) documented in this encounter Additional Health Concerns Assessment Noted Time PHQ-9 Depression Total Score: 21 025 10:16 AM EDT documented as of this encounter Care Teams House Decorator Relationship Specialty Start Date End Date Santi Landry MD [address] [place] [phone] PCP - General Internal Medicine 06/14/14 documented as of this encounter
--- OUTSIDE RECORDS SUMMARY | 2025-02-14 17:57 | XMS_ITS | Encounter Summary ---
Author Organization [employer] Address [address] [facility] 7 [place] [address] Care Team Providers Care Shop Fitter Name Role Phone Santi Landry MD Primary Care Provide r Reason for Visit * Reason Onset Date Comments Med Refill 12/14/2024 Encounter Details Date Type Department Care Team ([facility] st Contact Info) Description 12/14/2024 Telephone [facility] CHC MED & PEDS [address] [place] [address] Gertrude Mathur MD [address] [place] [address] Med Refill Social History Tobacco Use Types [...] housing situation today? I have shortymedina trevizo 10/26/[address] you [...] Telephone Encounter - Karishma Rose RN - 12/28/2024 2:18 PM EDT .What [employer] Tier would you like this patient to be? Tier 1 = HIGH RISK, Monthly [employer] visits Tier 2 = MODerate RISK, Q3 Month visits Tier 3 = LOW RISK = Q4-6 month visits documented in this encounter Plan of Treatment Upcoming Encounters Date Type Department Care Team (Late st Contact Info) Description 03/05/2025 10:00 AM EST Telemedicine [facility] CHC MED & PEDS [address] [place] [address] Karishma Rose RN [address] [place] [address] 04/12/2025 11:30 AM EST Office Visit [facility] MEDICINE [address] [place] [address] Santi Landry MD [address] [place] [address] documented as of this encounter Visit Diagnoses Diagnosis Chronic midline low back pain without sciatica documented in this encounter Additional Health Concerns Assessment Noted Time PHQ-9 Depression Total Score: 21 025 10:16 AM EDT documented as of this encounter Care Teams Shop Fitter Relationship Specialty Start Date End Date Santi Landry MD [address] [place] [address] PCP - General Internal Medicine 06/14/14 documented as of this encounter
--- OUTSIDE RECORDS SUMMARY | 2025-02-14 17:57 | XMS_ITS | Encounter Summary ---
Author Organization [employer] Address [address] [place] [address] 7 [place] [address] Care Team Providers Care Legal Instruments Examiner Name Role Phone Santi Landry MD Primary Care Provide r Reason for Visit * Reason Comments Med Refill Encounter Details Date Type Department Care Team ([facility] st Contact Info) Description 06/09/2024 Refill [facility] MEDICINE [address] [place], [place] [phone] Santi Landry MD [address] [place], [place] [phone] Type 2 diabetes mellitus without complications (CMS/HCC) [...] Info) Description 03/05/2025 10:00 AM EST Telemedicine [facility] CHC MED & PEDS [address] [place] [address] Karishma Rose, RN [address] [place] [address] 04/12/2025 11:30 AM EST Office Visit [facility] MEDICINE [address] [place] [address] Santi Landry MD [address] [place] [phone] documented as of this encounter Visit Diagnoses Diagnosis Type 2 diabetes mellitus without complications (HCC) documented in this encounter Additional Health Concerns Assessment Noted Time PHQ-9 Depression Total Score: 0 11/09/19 24 10:18 AM EDT documented as of this encounter Care Teams Legal Instruments Examiner Relationship Specialty Start Date End Date Santi Landry MD [address] [place] [phone] PCP - General Internal Medicine 06/14/14 documented as of this encounter
--- OUTSIDE RECORDS SUMMARY | 2025-02-14 17:57 | XMS_ITS | Encounter Summary ---
Author Organization [employer] Address [address] [facility] 7 [place] [address] Care Team Providers Care Label Maker Name Role Phone Santi Landry MD Primary Care Provide r Reason for Visit * Reason Onset Date Comments Med Refill 02/08/2025 Encounter Details Date Type Department Care Team ([facility] st Contact Info) Description 02/08/2025 Refill [facility] CHC MED & PEDS [address] [place] [address] Santi Landry MD 230 [place] [address] Chronic midline low back pain without sciatica [...] Info) Description 03/05/2025 10:00 AM EST Telemedicine [facility] CHC MED & PEDS 505 [place] [address] Karishma Rose, RN [address] [place] [address] 04/12/2025 11:30 AM EST Office Visit [facility] MEDICINE [address] [place] [address] Santi Landry MD [address] [place] [address] documented as of this encounter Visit Diagnoses Diagnosis Chronic midline low back pain without sciatica documented in this encounter Additional Health Concerns Assessment Noted Time PHQ-9 Depression Total Score: 21 025 10:16 AM EDT documented as of this encounter Care Teams Label Maker Relationship Specialty Start Date End Date Santi Landry MD [address] [place] [phone] PCP - General Internal Medicine 06/14/14 documented as of this encounter
--- OUTSIDE RECORDS SUMMARY | 2025-02-14 17:57 | XMS_ITS | Encounter Summary ---
Author Organization [employer] Address [address] [place] [address] Care Team Providers Care Chronic Specialist Name Role Phone Santi Landry MD Primary Care Provide r Encounter Details Date Type Department Care Team (Late Contact Info) Description 02/20/2022 Abstract [facility] MEDICINE [address] [place] [phone] Santi Landry MD [address] [place] [address] Social History Tobacco Use Types Packs/Day Years [...] Upcoming Encounters Date Type Department Care Team ([facility] Contact Info) Description 03/05/2025 10:00 AM EST Telemedicine [facility] CHC MED & PEDS [address] [place] [address] Karishma Rose, FATEMEH 505 [place] [address] 04/12/2025 11:30 AM EST Office Visit [facility] MEDICINE [address] [place] [phone] Santi Landry MD [address] [place] [address] documented as of this encounter Procedures Procedure [...] * Colonoscopy (02/08/2019) Colonoscopy Tubular Adenoma Comment:Dr sEtrada Historical Provider [employer] MAINTENANCE Edited Result - Final documented in this encounter Visit Diagnoses Not on filedocumented in this encounter Care Teams Chronic Specialist Relationship Specialty Start Date End Date Santi Landry MD [address] [place] [phone] PCP - General Internal Medicine 06/14/14 documented as of this encounter
--- OUTSIDE RECORDS SUMMARY | 2025-02-14 17:57 | XMS_ITS | Encounter Summary ---
Author Organization [employer] Address [address] [place] [address] 7 [place] [address] Care Team Providers Care General Internal Medicine Physician Name Role Phone Santi Landry MD Primary Care Provide r Reason for Visit * Reason Onset Date Comments Med Refill 06/09/2024 Encounter Details Date Type Department Care Team ([facility] st Contact Info) Description 06/09/2024 Refill [facility] MEDICINE [address] [place] [address] Santi Landry MD [address] [place] [address] Social History Tobacco Use Types Packs/Day Years [...] Info) Description 03/05/2025 10:00 AM EST Telemedicine [facility] CHC MED & PEDS [address] [place] [address] Karishma Rose, RN [address] [place] [address] 04/12/2025 11:30 AM EST Office Visit [facility] MEDICINE [address] [place] [address] Santi Landry MD [address] [place] [address] documented as of this encounter Visit Diagnoses Not on filedocumented in this encounter Additional Health Concerns Assessment Noted Time PHQ-9 Depression Total Score: 0 11/09/19 24 10:18 AM EDT documented as of this encounter Care Teams General Internal Medicine Physician Relationship Specialty Start Date End Date Santi Landry MD [address] [place] [phone] PCP - General Internal Medicine 06/14/14 documented as of this encounter
--- OUTSIDE RECORDS SUMMARY | 2025-02-14 17:57 | XMS_ITS | Encounter Summary ---
Author Organization [employer] Address [address] [place] [address] 7 [place] [address] Care Team Providers Care Director Electrical Engineering Name Role Phone Santi Landry MD Primary Care Provide r Reason for Visit * Reason Onset Date Comments Med Refill 06/06/2024 Encounter Details Date Type Department Care Team ([facility] st Contact Info) Description 06/06/[address] [facility] MEDICINE [address] [place] [address] Santi Landry MD [address] [place] [address] Chronic midline low back pain without sciatica [...] Info) Description 03/05/2025 10:[address] [facility] CHC MED & PEDS [address] [place] [address] Karishma Rose, RN [address] [place] [address] 04/12/2025 11:30 AM EST Office Visit [facility] MEDICINE [address] [place] [address] Santi Landry MD [address] [place] [address] documented as of this encounter Visit Diagnoses Diagnosis Chronic midline low back pain without sciatica documented in this encounter Additional Health Concerns Assessment Noted Time PHQ-9 Depression Total Score: 0 11/09/19 24 10:18 AM EDT documented as of this encounter Care Teams Director Electrical Engineering Relationship Specialty Start Date End Date Santi Landry MD [address] [place] [phone] PCP - General Internal Medicine 06/14/14 documented as of this encounter
--- OUTSIDE RECORDS SUMMARY | 2025-02-14 17:57 | XMS_ITS | Clinical Summary ---
Author Organization [employer] Address [address] [place] [address] [address] [place] [address] Care Team Providers Care Planisher Name Role Phone Santi Landry MD Primary Care Provide r Allergies Active Allergy Reactions Criticality Noted Date Comments Fenofibrate Itching 02/20/2014 Gemfibrozil Itching 04/01/2010 Propoxyphene Itching 02/20/2014 Medications albuterol 108 (90 Base) MCG/ACT inhaler Inhale 2 puffs every 4 (four) hours if needed. 020 Active glucose blood (FREESTYLE LITE) test strip USE TO TEST BLOOD SUGAR EVERY DAY 50 strip Active lactulose (Chronulac) 10 GM/15ML solution TAKE 15ML BY MOUTH EVERY DAY NEEDED FOR CONSTIPATION 1350 mL Active insulin syringe 29G X 1/2 0.5 mL misc USE TO INJECT EVERY DAY DIRECTED 100 each 024 Active Blood Pressure Monitoring (Omron 3 Series BP Monitor) deviceIndicatio ns:Type 2 diabetes mellitus with diabetic polyneuropathy, with long-term current use of insulin (HCC),Primary hypertension USE TO CHECK BLOOD PRESSURE EVERY DAY 1 each Active FreeStyle lancets 1 each by Other route 3 times daily. 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 2 each 2 025 2025 Active clopidogrel (Plavix) 75 MG tabletIndicatio ns:Type 2 diabetes mellitus with diabetic polyneuropathy, with long-term current use of insulin (HCC) TAKE 1 TABLET BY MOUTH EVERY DAY 90 tablet 1 025 Active Trulicity 1.5 MG/0.5ML solution auto-injectorIn dications:Type 2 diabetes mellitus with diabetic polyneuropathy, with long-term current use of insulin (HCC) INJECT ONE PEN (=1.5MG) SUBCUTANEOUSLY ONCE A WEEK DIRECTED 2 mL 025 Active metoprolol tartrate (Lopressor) 50 MG tabletIndicatio ns:Primary hypertension TAKE 1 TABLET BY MOUTH TWICE DAILY 180 tablet 1 025 Active rosuvastatin (Crestor) 40 MG tablet TAKE 1 TABLET BY MOUTH EVERY DAY AT BEDTIME 90 tablet 1 025 Active naloxone (Narcan) 4 mg/0.1 mL nasal spray Administer 1 spray (4 mg) into affected nostril(s) if needed for opioid reversal. 2 each 1 025 Active DULoxetine (Cymbalta) [address] capsule TAKE 1 CAPSULE BY MOUTH EVERY DAY 90 capsule 025 Active BD Pen Needle Bernadette Ultrafine 32G X 4 MM misc USE TO INJECT INSULIN ONCE DAILY 100 each 2 025 Active ezetimibe (Zetia) 10 MG tablet TAKE 1 TABLET BY MOUTH EVERY DAY 90 tablet 1 025 Active pantoprazole (ProtoNix) 40 MG EC tabletIndicatio ns:Gastroesopha geal reflux disease, unspecified whether esophagitis present TAKE 1 TABLET BY MOUTH TWICE DAILY, DO NOT BREAK, CRUSH, DISSOLVE OR CHEW 180 tablet 1 025 Active oxyCODONE ER (OxyCONTIN) 10 MG 12 hr tabletIndicatio ns:Chronic midline low back pain without sciatica Take 1 tablet (10 mg) by mouth every 12 (twelve) hours. Do not crush, chew, or split. 56 tablet Active lisinopril 20 MG tablet Take 1 tablet (20 mg) by mouth Once per day. 90 tablet 1 Active Insulin Degludec FlexTouch 100 UNIT/ML solution pen-injector Inject 22 Units under the skin at bedtime. 15 mL 3 Active metFORMIN XR (Glucophage-XR) 500 MG 24 hr tabletIndicatio ns:Type 2 diabetes mellitus with diabetic polyneuropathy, with long-term current use of insulin (HCC) Take 2 tablets (1,000 mg) by mouth 2 times daily. 360 tablet 1 Active bacitracin 500 UNIT/GM ointmentIndicat ions:Chronic skin ulcer, limited to breakdown of skin (CMS/HCC) (HCC) APPLY 1 GRAM TOPICALLY TO AFFECTED AREA(S) TWICE DAILY DIRECTED 14 g 3 025 Active HYDROcodone-brien taminophen (Anthony) 10-325 MG tabletIndicatio ns:Chronic midline low back pain without sciatica Take 1 tablet by mouth every 4 (four) hours if needed for severe pain for up to 28 days. 168 tablet 025 2024 Active gabapentin (Neurontin) 800 MG tablet TAKE 1 TABLET BY MOUTH EVERY 8 HOURS NEEDED 90 tablet 2 025 Active bacitracin 500 UNIT/GM ointmentIndicat ions:Chronic skin ulcer, limited to breakdown of skin (CMS/HCC) ([facility]) APPLY 1 GRAM TOPICALLY TO AFFECTED AREA(S) TWICE DAILY DIRECTED 14 g 3 024 2024 Discontinued(R eorder (will not trigger notification to Pharmacy)) pantoprazole (ProtoNix) 40 MG EC tabletIndicatio ns:Gastroesopha geal reflux disease, unspecified whether esophagitis present TAKE 1 TABLET BY MOUTH TWICE DAILY. DO NOT BREAK, CRUSH, DISSOLVE OR CHEW 180 tablet 1 025 2024 Discontinued lisinopril 20 MG tablet TAKE 1 TABLET BY MOUTH EVERY DAY 90 tablet 1 025 2024 Discontinued(R eorder (will not trigger notification to Pharmacy)) gabapentin (Neurontin) 800 MG tablet Take 1 tablet (800 mg) by mouth every 8 (eight) hours if needed (tid prn). 90 tablet 2 025 2024 Discontinued Insulin Degludec FlexTouch 100 UNIT/ML solution pen-injector INJECT 22 UNITS SUBCUTANEOUSLY AT BEDTIME 15 mL 3 025 2024 Discontinued(R eorder (will not trigger notification to Pharmacy)) metFORMIN XR (Glucophage-XR) 500 MG 24 hr tabletIndicatio ns:Type 2 diabetes mellitus with diabetic polyneuropathy, with long-term current use of insulin (HCC) TAKE 2 TABLETS BY MOUTH TWICE DAILY 360 tablet 1 025 2024 Discontinued(R eorder (will not trigger notification to Pharmacy)) oxyCODONE ER (OxyCONTIN) 10 MG 12 hr tabletIndicatio ns:Chronic midline low back pain without sciatica Take 1 tablet (10 mg) by mouth every 12 (twelve) hours. Do not crush, chew, or split. 56 tablet 025 2024 Discontinued(R eorder (will not trigger notification to Pharmacy)) HYDROcodone-brien taminophen (Anthony) 10-325 MG tabletIndicatio ns:Chronic midline low back pain without sciatica Take 1 tablet by mouth every 4 (four) hours if needed for severe pain for up to 28 days. Do not start before January 12, 2025. 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 Patient was finally seen at [facility] 03/31/2021 Their impression was that [...] stenosis and thecal sac compression at L3-L4. Qpqn-og-japzqezk central canal stenosis at L4-L5 with spondylitic [...] canal stenosis. Patient was finally seen at [facility] 03/31/2021 Their impression was that [...] stenosis and thecal sac compression at L3-L4. Fsni-ga-oqjzhjpm central canal stenosis at L4-L5 with spondylitic [...] spondylotic changes with interval progression compared with 2020. At L3-L4 there is left foraminal protrusion [...] canal stenosis. 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 to let him know that he will [...] EDT): Pt is supposed to be under [facility] last note 07/28/2023, Daughter will call to schedule appointment Assessment & Plan (03/10/2022 10:21 AM EST): Pt is under [facility] last note 11/2020, recommendation was [...] Encounters Date Type Department Care Team Description 02/13/2025 Refill [facility] [address] [place] [address] Snati Landry MD Chronic midline low back pain without sciatica 02/12/2025 Telephone [facility] [address] [place] [address] Santi Landry MD Med Refill 02/12/2025 Refill [facility] [address] [place] [address] Santi Landry MD Chronic midline low back pain without sciatica 02/09/2025 Telephone [facility] [address] [place] [address] Santi Landry MD 02/09/2025 Refill [facility] [address] [place] [address] Santi Landry MD Chronic midline low back pain without sciatica 02/09/2025 Refill [facility] [address] [place] [address] Santi Landry MD Chronic midline low back pain without sciatica 02/08/2025 Refill [facility] [address] [place] [address] Santi Landry MD Chronic midline low back pain without sciatica 02/08/2025 Refill [facility] [address] [place] [address] Santi Landry MD Chronic midline low back pain without sciatica 02/07/2025 Refill [facility] [address] [place] [address] Santi Landry MD Gastroesophageal reflux disease, unspecified whether esophagitis present 01/23/2025 Refill [facility] [address] [place] [address] Santi Landry MD Chronic skin ulcer, limited to breakdown of skin (CMS/HCC) ([facility]) 01/23/2025 Refill [facility] [address] [place] [address] Santi Landry MD Type 2 diabetes mellitus with diabetic polyneuropathy, with long-term current use of insulin (HCC); Chronic skin ulcer, limited to breakdown of skin (CMS/HCC) ([facility]) 01/22/2025 Refill [facility] [address] [place] [address] Santi Landry MD 01/22/2025 Refill [facility] [address] [place] [address] Santi Landry MD Chronic midline low back pain without sciatica 01/21/2025 Refill [facility] [address] [place] [address] Santi Landry MD Chronic midline low back pain without sciatica 01/21/2025 Refill [facility] [address] [place] [address] Santi Landry MD Gastroesophageal reflux disease, unspecified whether esophagitis present 01/05/2025 Refill [facility] [address] [place] [address] Santi Landry MD Chronic midline low back pain without sciatica 01/01/2025 Refill [facility] [address] [facility] [place] [place] [address] Santi Landry MD 12/28/2024 2:00 PM EDT Clinical Support [facility] [address] [facility] [place] [address] Karishma Rose RN Chronic midline low back pain without sciatica (Primary Dx) 12/28/2024 Travel 12/26/2024 Refill [facility] [address] [facility] [place] [address] Santi Landry MD Chronic midline low back pain without sciatica 12/25/2024 Refill [facility] [address] [facility] [place] [address] Santi Landry MD Chronic midline low back pain without sciatica 12/19/2024 Refill [facility] [address] [facility] [place] [place] [address] Santi Landry MD Chronic midline low back pain without sciatica 12/15/2024 Refill [facility] [address] [facility] [place] [address] Gertrude Mathur MD 12/14/2024 Telephone [facility] [address] [facility] [place] [address] Gertrude Mathur MD Med Refill 12/14/2024 Refill [facility] [address] [facility] [place] [address] Santi Landry MD Type 2 diabetes mellitus with diabetic polyneuropathy, with long-term current use of insulin ([facility]) 12/12/2024 Refill [facility] [address] [place] [address] Gertrude Mathur MD Chronic midline low back pain without sciatica 12/11/2024 Refill [facility] [address] [facility] [place] [place] [address] Santi Landry MD 12/07/2024 Orders Only [facility] [address] [facility] [place] [address] Santi Landry MD Intention tremor (Primary Dx) 12/03/2024 Refill [facility] [address] [place] [address] Santi Landry MD Primary hypertension 11/28/2024 Refill [facility] [address] [place] [address] Santi Landry MD Chronic midline low back pain without sciatica 11/28/2024 Refill [facility] [address] [place] [address] Santi Landry MD Chronic midline low back pain without sciatica 11/15/2024 Refill [facility] [address] [place] [address] Santi Landry MD Chronic midline low back [...] 03/05/2025 10:00 AM EST Telemedicine [facility] [address] [place] [address] Karishma Rose, RN [address] [place] [address] 04/12/2025 11:30 AM EST Office Visit [facility] [address] [place] [address] Santi Landry MD [address] [place], [place] [phone] Health Maintenance Due Date Last Done Comments [...] 06/23 Dental Oral Exam 07/23/2023 01/20/2023, 05/09/2013 Colonoscopy 02/09/2024 02/08/2019 Colorectal Cancer Screening 02/09/2024 Diabetes: Urine Protein Screening 12/01/2024 12/02/2023, 04/14/2021 COVID-19 Vaccine ( season) 2024 06/12/2021, 06/12/2021, 10/31/2020, Additional history exists Influenza Vaccine (#1) 2024 3, 02/05/2022, 01/16/2021, Additional history exists Diabetes: Hemoglobin A1C 02/02/2025 025, 12/09/2023, 09/30/2023, Additional history exists Depression Monitoring 05/05/2025 11/02/2024, 025 SDOH Screening 10/26/2025 10/26/2024 Alcohol/Substance Use Screening 11/02/2025 11/02/2024 Tobacco Screening 11/02/2025 11/02/2024 Lipid Panel 11/29/2025 11/29/2024, 11/04, 01/08/2023, Additional history exists DTaP/Tdap/Td Vaccines (2 - Td or Tdap) [...] Comments POCT OSCAR-14 URINE DRUG SCREEN Routine 12/28/2024 2:17 PM EDT Chronic midline low back pain without sciatica LIPID PANEL, STANDARD Routine 11/29/2024 9:30 AM EDT Primary hypertension Mixed hyperlipidemia COMPREHENSIVE METABOLIC PANEL Routine 11/29/2024 9:30 AM EDT Primary hypertension XR HIP 2 OR 3 VIEWS RIGHT Routine 11/29/2024 9:20 AM EDT Right hip pain POCT GLYCATED HEMOGLOBIN, TOTAL Routine 11/02/2024 9:27 AM EDT Type 2 diabetes mellitus with diabetic polyneuropathy, with long-term current use of insulin (CMS/HCC) PANORAMIC RADIOGRAPHIC IMAGE Routine 04/26/2024 10:00 AM EST HEPATITIS C AB W/REFL TO HCV RNA, QN, PCR Routine 12/08/2023 12:04 PM EDT Type 2 diabetes mellitus with diabetic polyneuropathy, with long-term current use of insulin (CMS/HCC) Preventative health care Mixed hyperlipidemia Elevated LFTs Hepatitis ALBUMIN, RANDOM URINE W/CREATININE Routine 12/02/2023 10:25 AM EDT Type 2 diabetes mellitus with diabetic polyneuropathy, with long-term current use of insulin (CMS/HCC) PERIODIC ORAL EVALUATION - ESTABLISHED PATIENT Routine 01/20/2023 9:00 AM EDT HM COLONOSCOPY Routine 02/08/2019 BITEWINGS - 4 RADIOGRAPHIC IMAGES Routine 05/09/2013 12:00 AM EST PROPHYLAXIS - ADULT Routine 02/21/2013 1 2:00 AM EST from Last 3 Months or Most Recently Relevant to Health Maintenance Results * (ABNORMAL) POCT OSCAR-14 Urine Drug Screen (12/28/2024 2:17 PM EDT) THC Positive(A) Negative Cocaine Screen, Urine Negative Negative Opiate Screen, Urine Positive(A) Negative Methamphetamine Screen Urine Negative Negative Amphetamine Screen, Urine Negative Negative Benzodiazepines Screen, Urine Negative Negative Barbiturate Screen, Urine Negative Negative Methadone Screen, Urine Negative Negative Buprenophine Screen, Urine Negative Negative TCA, Urine Negative Negative MDMA Urine Negative Negative ng/mL Oxycodone Screen, Urine Positive(A) Negative Phencyclidine (PCP), Urine Negative Negative Propoxyphene, Urine Negative Negative Fentanyl, Urine Negative Negative Urine Urine specimen obtained by clean catch procedure / Unknown 12/28/2024 2:17 PM EDT Narrative Karishma Rose, FATEMEH - 12/28/2024 2:17 PM EDT . Internal Pass Control Lot# [id number] Exp: 02-02-26 Santi Toscano MD POINT OF CARE TEST EN TER/EDIT ORDERABLES Final Result * (ABNORMAL) Lipid Panel, Standard (11/29/2024 9:30 AM EDT) Triglycerides 214(H) <150 mg/dL [facility] Comment:Desirable Triglyceri de: less than 150 mg/dLBorderline High Triglyceride 150-199 mg/dLHigh Triglyceride: 200-499 mg/dLVery High Triglyceride: greater than or equal to 5OO mg/dL Cholesterol 154 <200 mg/dL [facility] Comment:Desirable Cholestero l: less than 200 mg/dLBorderline High Cholesterol: 200-239 mg/dLHigh Cholesterol: greater than 239 mg/dL LDL Cholesterol Calculated 62 <100 mg/dL [facility] Comment:Desirable LDL: less than 100 mg/dLNear Optimal/Above Optimal LDL: 110- 129 mg/dLBorderline High LDL: 130-159 mg/dLHigh LDL: 160-189 mg/dLVery High LDL: greater than or equal to 190 mg/dL HDL Cholesterol 50 >40 mg/dL [facility] Comment:Desirable HDL: great er than 40 mg/dL Note: This HDL assay may give artificially low results in patients with liver disease. Blood Venous blood specimen / Unknown 11/29/2024 9:30 AM EDT 11/29/2024 11:02 AM EDT Santi Toscano MD LAB BLOOD ORDERABLES Final Result [facility] [address] [place] [phone] * (ABNORMAL) Comprehensive Metabolic Panel (11/29/2024 9:30 AM EDT) Sodium 138 135 - 145 mmol/L [facility] Potassium 4.2 3.3 - 5.1 mmol/L [facility] Chloride 104 96 - 108 mmol/L [facility] Carbon Dioxide 25 22 - 29 mmol/L [facility] Anion Gap 13 12 - 20 [facility] Urea Nitrogen (BUN) 16 9 - 16 mg/dL [facility] Creatinine, Serum 0.99 0.5 - 1.4 mg/dL [facility] Estimated Glomerular Filt Rate >60 [facility] Comment:Chronic Kidney Disea se: Estimated GFR < 60 mL/min/1.38m6Cxedbk Kidney Disease: Estimated GFR < 15 mL/min/1.73m2 Glucose 78 60 - 115 mg/dL [facility] Calcium 9.6 8.4 - 10.2 mg/dL [facility] Bilirubin, Total 0.4 0.0 - 1.0 mg/dL [facility] Aspartate Amino Transferase 94(H) 5 - 37 U/L [facility] Alanine Aminotransferase 79(H) 0 - 40 U/L [facility] Total Protein 7.0 6.5 - 8.0 g/dL [facility] Albumin Level 4.4 3.5 - 5.0 g/dL [facility] Alkaline Phosphatase 56 39 - 117 U/L [facility] Blood Venous blood specimen / Unknown 11/29/2024 9:30 AM EDT 11/29/2024 11:02 AM EDT us Santi Toscano MD LAB BLOOD ORDERABLES Final Result [facility] [address] [place] [phone] [phone] * XR Hip 2 or 3 Views Right (11/29/2024 9:20 AM EDT) Anatomical Region Laterality Modality Lower Extremities, Hip Right Radiograp hic Imaging 11/29/2024 9:20 AM EDT Narrative 11/29/2024 10:31 AM EDT [address] [place] [address] XRay Report Signed Patient: Immanuel Jefferson MR#: [id number] : 1950 Acct:[id number] Age/Sex: 74 / M ADM Date: 11/29/24 Loc: [facility] Attending Dr: Santi Durand MD Ordering Physician: Santi Durand MD Date of Service: 11/29/24 Procedure(s): XR hip RT min 2V Accession Number(s): [id number] cc: Santi Durand MD EXAMINATION: XR HIP 2 OR MORE VIEWS RIGHT HISTORY: right hip pain COMPARISON: Comparison is made with the prior examination of the pelvis dated 03/14/2018. FINDINGS: Two views of the right hip are submitted. Osseous mineralization is normal. There is no fracture or dislocation. There is mild joint space narrowing. There is soft tissue calcifications adjacent to the greater trochanter. There are vascular calcifications. XR/XR hip RT min 2V IMPRESSION: Mild joint space narrowing. Electronically signed by: Colton Cristina MD 11/29/2024 10:28 AM EDT RP Dictated By: Colton Cristina MD Signed By: <Electronically signed by Colton Cristina MD in OV> 11/29/24 1028 DD/ 9 TD/TT: 11/29/24 0930 Photo Finish Photographer: Procedure Note Donotuseinterpreter, Image - 11/29/[address] [address] XRay Report Signed Patient: Immanuel JeffersonMR#: [id number] : 1950cct:[id number] Age/Sex: 74 / MADM Date: 11/29/24 Loc: [facility] Attending Dr: Santi Durand MD Ordering Physician: Santi Durand MD Date of Service: 11/29/24 Procedure(s): XR hip RT min 2V Accession Number(s): [id number] cc: Santi Durand MD EXAMINATION: XR HIP 2 OR MORE VIEWS RIGHT HISTORY: right hip pain COMPARISON: Comparison is made with the prior examination of the pelvis dated 03/14/2018. FINDINGS: Two views of the right hip are submitted. Osseous mineralization is normal. There is no fracture or dislocation. There is mild joint space narrowing. There is soft tissue calcifications adjacent to the greater trochanter. There are vascular calcifications. XR/XR hip RT min 2V IMPRESSION: Mild joint space narrowing. Electronically signed by: Colton Cristina MD 11/29/2024 10:28 AM EDT RP Dictated By: Colton Cristina MD Signed By: <Electronically signed by Colton Cristina MD in OV> 11/29/24 1028 DD/ 9 TD/TT: 11/29/24929 Photo Finish Photographer: Santi Toscano MD IMG XR PROCEDURES Teodoro muriel Result - Final * (ABNORMAL) POCT HGB A1C (11/02/2024 9:27 AM EDT) Hemoglobin A1C 7.1(A) 4.0 - 5.7 % QC Media Lot # [id number] Lot# Expiration Date Blood 11/02/2024 9:27 AM EDT Santi Toscano MD POINT OF CARE TEST EN TER/EDIT ORDERABLES Final Result * Hepatitis C Antibody with Reflex to HCV, RNA, Quantitative, Real-Time PCR (12/08/2023 12:04 PM EDT) Hepatitis C Antibody Nonreactive Nonreactive [facility] Comment:Antibodies to HCV no t detected; does not exclude early acuteHCV infection. Blood Venous blood specimen / Unknown 12/08/2023 12:04 PM EDT 12/08/2023 1:14 PM EDT us Santi Toscano MD LAB BLOOD ORDERABLES Final Result Performing Organization Address [facility] Co de Phone Number [facility] [address] [place] [address] [phone] * (ABNORMAL) Albumin, Random Urine W/Creatinine (12/02/2023 10:25 AM EDT) Creatinine, Urine 427.73 mg/dL [facility] Microalbumin Urine 193.0 mg/L [facility] Microalbum Creatinine Ratio Ur 45.1(H) <30 ug/mg cr [facility] Comment:Albumin/Creatinine R atio Reference Ranges: Normal: < 30 ug/mg creatinine Microalbuminuria: 30 - 300 ug/mg creatinineClinical Albuminuria: > 300 ug/mg creatinine Urine (Urine, Random) 12/02/2023 10:25 AM EDT 12/02/2023 10:58 AM EDT Santi Toscano MD LAB URINE ORDERABLES Final Result Performing Organization Address [facility] Co de Phone Number [facility] [address] [place] [address] [phone] * Hm Colonoscopy (02/08/2019) Colonoscopy Tubular Adenoma Comment:Dr Estrada Historical Provider HEALTH MAINTENANCE Edited Result - Final from Last 3 Months or Most Recently Relevant to Health Maintenance Insurance MEDICARE [facility] STANDARD [address] [facility] [address] [place] DENTAL-[facility] MEDICAID STAND ADULT Care Teams Planisher Relationship Specialty Start Date End Date Santi Landry MD [address] [place] [address] [place] PCP - General Internal Medicine 06/14/14
--- OUTSIDE RECORDS SUMMARY | 2025-02-14 17:57 | XMS_ITS | Encounter Summary ---
Author Organization [employer] Address [address] [place] [address] 7 [place] [address] Care Team Providers Care Pump Stitcher Name Role Phone Santi Landry MD Primary Care Provide r Reason for Visit * Reason Onset Date Comments Med Refill 05/18/2023 Encounter Details Date Type Department Care Team ([facility] st Contact Info) Description 05/18/2023 Refill [facility] [address] [place] [address] Michelle Carmona MD [address] [place] [address] Social History Tobacco Use Types Packs/Day Years [...] Info) Description 03/05/2025 10:00 AM EST Telemedicine [facility] [address] [place] [address] Karishma Rose, RN [address] [place] [address] 04/12/2025 11:30 AM EST Office Visit [facility] [address] [place] [address] Santi Landry MD [address] [place] [address] documented as of this encounter Visit Diagnoses Not on filedocumented in this encounter Additional Health Concerns Assessment Noted Time PHQ-9 Depression Total Score: 0 06/10/19 23 11:13 AM EST documented as of this encounter Care Teams Pump Stitcher Relationship Specialty Start Date End Date Santi Landry MD [address] [place] [phone] PCP - General Internal Medicine 06/14/14 documented as of this encounter
--- OUTSIDE RECORDS SUMMARY | 2025-02-14 17:57 | XMS_ITS | Encounter Summary ---
Author Organization [employer] Address [address] [facility] 7 [place] [address] Care Team Providers Care Oracle Adf Consultant Name Role Phone Santi Landry MD Primary Care Provide r Reason for Visit * Reason Onset Date Comments Med Refill 06/04/2024 Encounter Details Date Type Department Care Team ([facility] st Contact Info) Description 06/04/2024 Telephone [facility] MED & PEDS [address] [place], [place] [phone] Santi Landry MD 230 [place] [address] Med Refill Social History Tobacco Use Types [...] 10:37 AM EDT Fyi. Pt here for PAPIER MACHE MOLDER. Utox pos. BAR, sending out to the lab for BAR confirmation. * Telephone Encounter - Karishma Rose RN - 06/16/2024 10:17 AM EDT .What PAPIER MACHE MOLDER Tier would you like this patient to be? Tier 1 = HIGH RISK, Monthly PAPIER MACHE MOLDER visits Tier 2 = MODerate RISK, Q3 Month visits Tier 3 = LOW RISK = Q4-6 month visits documented in this encounter Plan of Treatment Upcoming Encounters Date Type Department Care Team (Late st Contact Info) Description 03/05/2025 10:00 AM EST Telemedicine [facility] CH[facility] MED & PEDS 505 [place] [address] Karishma Rose RN 505 [place] [address] 04/12/2025 11:30 AM EST Office Visit [facility] MEDICINE 230 [place] [address] Santi Landry MD 230 [place] [address] documented as of this encounter Visit Diagnoses Diagnosis Chronic midline low back pain without sciatica documented in this encounter Additional Health Concerns Assessment Noted Time PHQ-9 Depression Total Score: 0 11/09/19 24 10:18 AM EDT documented as of this encounter Care Teams Oracle Adf Consultant Relationship Specialty Start Date End Date Santi Landry MD 230 [place] [address] PCP - General Internal Medicine 06/14/14 documented as of this encounter
--- OUTSIDE RECORDS SUMMARY | 2025-02-14 17:57 | XMS_ITS | Patient Health Record ---
Author Organization [facility] Address [address] [place] [address] Care Team Providers Care Fiberglass Laminator Name Role Phone Mayuri Toscano MD, Santi Primary Care Provide Colton Queen [phone] Allergies Allergen (clinical drug ingredient) Drug/Non Drug Allergy documented on EMR Reaction Allergy Type Onset Date Status fenofibrate Tricor Unknown Drug Allergy Activ e Endur-Acin Unknown Drug Allergy Active Darvocet A500 Unknown Drug Allergy Act xi Reason For Referral No Information Medications Medication SIG (Take, Route, Frequency, Duration) Notes Start Date End Date Status Aspir-Low 81 MG 1 tablet Orally Once a day; Duration: 30 day(s) Active NitroQuick .04mg prn po [...] Problem Status W/U Status Risk Notes Problem Screening for malignant neoplasm of colon (145072926) Encounter for screening for malignant neoplasm of colon (Z12.11) Active confirmed Problem History of adenomatous polyp of colon (045525427) History of adenomatous polyp of colon (Z86.010) Active confirmed Problem Preprocedural examination (407923082579817) Preprocedural examination (Z01.818) Active confirmed Problem Long-term current use of antiplatelet drug (897104564969179) Long-term use of aspirin therapy (Z79.82) Active confirmed Plan Of Treatment Pending Test Test Name Order Date GI BIOPSY 02/08/2019 Future Test Test Name Order Date COLONOSCOPY 06/20/2013 COLONOSCOPY 12/08/2018 Next Appt Details Provider Name:Colton Estrada , 03/15/2025 11:00:00 AM, [address] [place] [address], [address], [place], [address], Insurance Providers Payer Name Payer Address Payer Phone Subscriber Number Group Number Insured Name Patient Relationship to Insured Coverage Start Date Coverage End Date MEDICARE OF [place] [address] [place] [address] [phone] [id number] NANCY MONTES DE OCA Self - patient is the insured MEDICAID OF [facility] [address] [place] [address] [id number] NANCY MONTES DE OCA Self - patient is the insured Medical (General) History Medical History History ICD Code 02/09/2003 Colonoscopy--neg except hyperplastic polyps and internal hemorrhoids HTN IDDM Hyperlipidemia 2001-large duodenal ulcer an d a small gastric ulcer with a GI bleed--treated for H.pylori--F/U EGD in 2002 revealed healing of the ulcers-bx was neg for H.pylori Coronary artery disease--no OK-3V CABG 2 003--fine since Denies OK,CVA,Lung disease,renal disease diabetes mellitus PVD--has a stent in the RLE Kidney stone on left Arthritis-especially, shoulders and back Colonoscopy 08/2013 with a sm all tubular adenoma, diverticulosis, and internal hemorrhoids Surgical History Surgery Date(Month/Year) CABG as above 2002 Knee surgery-left Left LE vascular surgery 03/14/2018 Back surgery [facility] [address] Damon
--- OUTSIDE RECORDS SUMMARY | 2025-02-14 17:57 | XMS_ITS | Encounter Summary ---
Author Organization [employer] Address 75 [facility] 7 [place] [address] Care Team Providers Care Defect Cutter Name Role Phone Santi Landry MD Primary Care Provide r Reason for Visit * Reason Comments Med Refill Encounter Details Date Type Department Care Team ([facility] Contact Info) Description 02/09/2025 Refill [facility] CHC MED & PEDS [address] [place], [place] [phone] Santi Landry MD [address] [place] [address] Chronic midline low back pain without sciatica [...] Info) Description 03/05/2025 10:00 AM EST Telemedicine [facility] CHC MED & PEDS 505 [place] [address] Karishma Rose, RN 505 [place] [address] 04/12/2025 11:30 AM EST Office Visit [facility] MEDICINE 230 [place] [address] Santi Landry MD 230 [place] [address] documented as of this encounter Visit Diagnoses Diagnosis Chronic midline low back pain without sciatica documented in this encounter Additional Health Concerns Assessment Noted Time PHQ-9 Depression Total Score: 21 025 10:16 AM EDT documented as of this encounter Care Teams Defect Cutter Relationship Specialty Start Date End Date Santi Landry MD [address] [place] [address] PCP - General Internal Medicine 06/14/14 documented as of this encounter
--- OUTSIDE RECORDS SUMMARY | 2025-02-14 17:57 | XMS_ITS | Encounter Summary ---
Author Organization [employer] Address [address] [place] [address] 7 [place] [address] Care Team Providers Care Risk Control Director Name Role Phone Santi Landry MD Primary Care Provide r Reason for Visit * Reason Onset Date Comments Med Refill 06/03/2023 Encounter Details Date Type Department Care Team ([facility] st Contact Info) Description 06/03/2023 Refill [facility] MEDICINE 230 [place] [address] Santi Landry MD 230 [place] [address] Social History Tobacco Use Types Packs/Day Years [...] Description 03/05/2025 10:00 AM EST Telemedicine [facility] CHC MED & PEDS 505 [place] [address] Karishma Rose RN 505 [place] [address] 04/12/2025 11:30 AM EST Office Visit [facility] MEDICINE 230 [place] [address] Santi Landry MD [address] [place] [address] documented as of this encounter Visit Diagnoses Not on filedocumented in this encounter Additional Health Concerns Assessment Noted Time PHQ-9 Depression Total Score: 0 06/10/19 23 11:13 AM EST documented as of this encounter Care Teams Risk Control Director Relationship Specialty Start Date End Date Santi Landry MD 230 [place] [address] PCP - General Internal Medicine 06/14/14 documented as of this encounter
--- OUTSIDE RECORDS SUMMARY | 2025-02-14 17:57 | XMS_ITS | Encounter Summary ---
Author Organization [email or web address] Address [address] [facility] 7 [place] [address] Care Team Providers Care Beet Worker Name Role Phone Santi Landry MD Primary Care Provide r Reason for Visit * Reason Comments Med Refill Encounter Details Date Type Department Care Team ([facility] Contact Info) Description 01/22/2025 Refill [facility] MEDICINE 230 [place], [place] [phone] Santi Landry MD 230 [place], [place] [phone] Chronic midline low back pain without sciatica [...] 03/05/2025 10:00 AM EST Telemedicine [facility] CHC MED & PEDS 505 [place] [address] Karishma Rose, RN 505 [place] [address] 04/12/2025 11:30 AM EST Office Visit [facility] MEDICINE 230 [place] [address] Santi Landry MD 230 [place] [address] documented as of this encounter Visit Diagnoses Diagnosis Chronic midline low back pain without sciatica documented in this encounter Additional Health Concerns Assessment Noted Time PHQ-9 Depression Total Score: 21 025 10:16 AM EDT documented as of this encounter Care Teams Beet Worker Relationship Specialty Start Date End Date Santi Landry MD [address] [place] [address] PCP - General Internal Medicine 06/14/14 documented as of this encounter
--- OUTSIDE RECORDS SUMMARY | 2025-02-14 17:57 | XMS_ITS | Encounter Summary ---
Author Organization [employer] Address [address] [place] [address] 7 [place] [address] Care Team Providers Care Manager Athletics Name Role Phone Santi Landry MD Primary Care Provide r Reason for Visit * Reason Onset Date Comments Med Refill 02/07/2025 Encounter Details Date Type Department Care Team ([facility] st Contact Info) Description 02/07/2025 Refill [facility] MEDICINE 230 [place] [address] Santi Landry MD 230 [place] [address] Gastroesophageal reflux disease, unspecified whether esophagitis present [...] Info) Description 03/05/2025 10:00 AM EST Telemedicine [facility] CHC MED & PEDS 505 [place] [address] Karishma Rose, RN 505 [place] [address] 04/12/2025 11:30 AM EST Office Visit [facility] MEDICINE [address] [place] [address] Santi Landry MD [address] [place] [address] documented as of this encounter Visit Diagnoses Diagnosis Gastroesophageal reflux disease, unspecified whether esophagitis present documented in this encounter Additional Health Concerns Assessment Noted Time PHQ-9 Depression Total Score: 21 025 10:16 AM EDT documented as of this encounter Care Teams Manager Athletics Relationship Specialty Start Date End Date Santi Landry MD [address] [place] [address] PCP - General Internal Medicine 06/14/14 documented as of this encounter
--- OUTSIDE RECORDS SUMMARY | 2025-02-14 17:57 | XMS_ITS | Encounter Summary ---
Author Organization [employer] Address [address] [place] [address] 7 [place] [address] Care Team Providers Care Auto Transmission Mechanic Name Role Phone Santi Landry MD Primary Care Provide r Reason for Visit * Reason Comments Med Refill Encounter Details Date Type Department Care Team ([facility] Contact Info) Description 02/08/2025 Refill [facility] MEDICINE 230 [place], [place] [phone] Santi Landry MD 230 [place], [place] [phone] Chronic midline low back pain without sciatica [...] Info) Description 03/05/2025 10:00 AM EST Telemedicine [facility] CHC MED & PEDS 505 [place] [address] Karishma Rose, RN 505 [place] [address] 04/12/2025 11:30 AM EST Office Visit [facility] MEDICINE 230 [place] [address] Santi Landry MD 230 [place] [address] documented as of this encounter Visit Diagnoses Diagnosis Chronic midline low back pain without sciatica documented in this encounter Additional Health Concerns Assessment Noted Time PHQ-9 Depression Total Score: 21 025 10:16 AM EDT documented as of this encounter Care Teams Auto Transmission Mechanic Relationship Specialty Start Date End Date Santi Landry MD [address] [place] [address] PCP - General Internal Medicine 06/14/14 documented as of this encounter
--- OUTSIDE RECORDS SUMMARY | 2025-02-14 17:57 | XMS_ITS | Encounter Summary ---
Author Organization [employer] Address [address] [place] [address] 7 [place] [address] Care Team Providers Care Japanese Professor Name Role Phone Santi Landry MD Primary Care Provide r Reason for Visit * Reason Onset Date Comments Med Refill 01/22/2025 Encounter Details Date Type Department Care Team ([facility] st Contact Info) Description 01/22/2025 Refill [facility] MEDICINE 230 [place] [address] Santi Landry MD 230 [place] [address] Social History Tobacco Use Types Packs/Day Years [...] 03/05/2025 10:00 AM EST Telemedicine [facility] CHC MED & PEDS 505 [place] [address] Karishma Rose, RN 505 [place] [address] 04/12/2025 11:30 AM EST Office Visit [facility] MEDICINE 230 [place] [address] Santi Landry MD 230 [place] [address] documented as of this encounter Visit Diagnoses Not on filedocumented in this encounter Additional Health Concerns Assessment Noted Time PHQ-9 Depression Total Score: 21 025 10:16 AM EDT documented as of this encounter Care Teams Japanese Professor Relationship Specialty Start Date End Date Santi Landry MD [address] [place] [address] PCP - General Internal Medicine 06/14/14 documented as of this encounter
--- OUTSIDE RECORDS SUMMARY | 2025-02-14 17:57 | XMS_ITS | Encounter Summary ---
Author Organization [email or web address] Address 75 [facility] 7 [place] [address] Care Team Providers Care Commercial Construction Superintendent Name Role Phone Santi Landry MD Primary Care Provide r Reason for Visit * Reason Onset Date Comments Med Refill 06/05/2024 Encounter Details Date Type Department Care Team ([facility] st Contact Info) Description 06/05/2024 Refill [facility] MEDICINE 230 [place] [address] Michelle Carmona MD 230 [place] [address] Atherosclerosis of qagan tayagung[place] coronary artery of qagan [place] heart without angina pectoris Social History Tobacco [...] 03/05/2025 10:00 AM EST Telemedicine [facility] CHC MED & PEDS 505 [place] [address] Karishma Rose, RN 505 [place] [address] 04/12/2025 11:30 AM EST Office Visit [facility] MEDICINE 230 [place] [address] Santi Landry MD [address] [place] [address] documented as of this encounter Visit Diagnoses Diagnosis Atherosclerosis of qagan [place] coronary artery of [place] heart without angina pectoris documented in this encounter Additional Health Concerns Assessment Noted Time PHQ-9 Depression Total Score: 0 11/09/19 24 10:18 AM EDT documented as of this encounter Care Teams Commercial Construction Superintendent Relationship Specialty Start Date End Date Santi Landry MD [address] [place] [address] PCP - General Internal Medicine 06/14/14 documented as of this encounter
--- OUTSIDE RECORDS SUMMARY | 2025-02-14 17:57 | XMS_ITS | Encounter Summary ---
Author Organization [employer] Address [address] [place] [address] 7 [place] [address] Care Team Providers Care Aircraft Mechanic Electrical And Radio Name Role Phone Santi Landry MD Primary Care Provide r Reason for Visit * Reason Onset Date Comments Med Refill 02/09/2025 Encounter Details Date Type Department Care Team ([facility] st Contact Info) Description 02/09/2025 Refill [facility] MEDICINE 230 [place] [address] Santi Landry MD 230 [place] [address] Chronic midline low back pain without sciatica [...] * Telephone Encounter - Alem Diamond - 02/09/2025 12:21 PM EST TC from pt requesting medication refill. Medications needing refill : - HYDROcodone-acetaminophen ([place]) 10-325 MG tablet To be sent to: - [facility] - [place], [place] - [address] [place] [address] documented in this encounter Plan of Treatment Upcoming Encounters Date Type Department Care Team ([facility] st Contact Info) Description 03/05/2025 10:00 AM EST Telemedicine [facility] MED & PEDS 505 [place] [address] Karishma Rose RN 505 [place] [address] 04/12/2025 11:30 AM EST Office Visit [facility] MEDICINE 230 [place] [address] Santi Landry MD [address] [place] [address] documented as of this encounter Visit Diagnoses Diagnosis Chronic midline low back pain without sciatica documented in this encounter Additional Health Concerns Assessment Noted Time PHQ-9 Depression Total Score: 21 025 10:16 AM EDT documented as of this encounter Care Teams Aircraft Mechanic Electrical And Radio Relationship Specialty Start Date End Date Santi Landry MD 230 [place] [address] PCP - General Internal Medicine 06/14/14 documented as of this encounter
--- OUTSIDE RECORDS SUMMARY | 2025-02-14 17:57 | XMS_ITS | Encounter Summary ---
Author Organization [employer] Address [address] [place] [address] 7 [place] [address] Care Team Providers Care Field Service Consultant Name Role Phone Santi Landry MD Primary Care Provide r Reason for Visit * Reason Onset Date Comments Med Refill 06/12/2024 Encounter Details Date Type Department Care Team ([facility] st Contact Info) Description 06/12/2024 Refill [facility] MEDICINE 230 [place] [address] Santi Landry MD [address] [place] [address] Chronic midline low back pain without sciatica [...] 03/05/2025 10:00 AM EST Telemedicine [facility] CHC MED & PEDS 505 [place] [address] Karishma Rose, RN 505 [place] [address] 04/12/2025 11:30 AM EST Office Visit [facility] MEDICINE [address] [place] [address] Santi Landry MD [address] [place] [address] documented as of this encounter Visit Diagnoses Diagnosis Chronic midline low back pain without sciatica documented in this encounter Additional Health Concerns Assessment Noted Time PHQ-9 Depression Total Score: 0 11/09/19 24 10:18 AM EDT documented as of this encounter Care Teams Field Service Consultant Relationship Specialty Start Date End Date Santi Landry MD [address] [place] [address] PCP - General Internal Medicine 06/14/14 documented as of this encounter
--- OUTSIDE RECORDS SUMMARY | 2025-02-14 17:57 | XMS_ITS | Encounter Summary ---
Author Organization [employer] Address 75 [facility] 7 [place] [address] Care Team Providers Care Director Telecommunications Name Role Phone Santi Landry MD Primary Care Provide r Reason for Visit * Reason Comments Med Refill Encounter Details Date Type Department Care Team ([facility] Contact Info) Description 02/12/2025 Refill [facility] CHC MED & PEDS [address] [place], [place] [phone] Santi Landry MD [address] [place] [address] Chronic midline low back pain without sciatica [...] Description 03/05/2025 10:00 AM EST Telemedicine [facility] CHC MED & PEDS 505 [place] [address] Karishma Rose, RN 505 [place] [address] 04/12/2025 11:30 AM EST Office Visit [facility] MEDICINE [address] [place] [address] Santi Landry MD 230 [place] [address] documented as of this encounter Visit Diagnoses Diagnosis Chronic midline low back pain without sciatica documented in this encounter Additional Health Concerns Assessment Noted Time PHQ-9 Depression Total Score: 21 025 10:16 AM EDT documented as of this encounter Care Teams Director Telecommunications Relationship Specialty Start Date End Date Santi Landry MD [address] [place] [address] PCP - General Internal Medicine 06/14/14 documented as of this encounter
--- OUTSIDE RECORDS SUMMARY | 2025-02-14 17:57 | XMS_ITS | Encounter Summary ---
Author Organization [employer] Address [address] [place] [address] 7 [place] [address] Care Team Providers Care Dolly Operator Name Role Phone Santi Landry MD Primary Care Provide r Reason for Visit * Reason Onset Date Comments Med Refill 02/12/2025 Encounter Details Date Type Department Care Team ([facility] Contact Info) Description 02/12/2025 Telephone [facility] MEDICINE [address] [place] [address] Santi Landry MD 230 [place] [address] Med Refill Social History Tobacco Use Types [...] encounter Miscellaneous Notes * Telephone Encounter - Janee Sellers - 02/12/2025 12:42 PM EST TC from pt requesting medication refill. Medications needing refill : HYDROcodone-acetaminophen ([place]) 10-325 MG tablet To be sent to: [facility] documented in this encounter Plan of Treatment Upcoming Encounters Date Type Department Care Team (Late st Contact Info) Description 03/05/2025 10:00 AM EST Telemedicine [facility] MED & PEDS 505 [place] [address] Karishma Rose RN 505 [place] [address] 04/12/2025 11:30 AM EST Office Visit [facility] MEDICINE [address] [place], [place] [phone] Santi Landry MD 230 [place] [address] documented as of this encounter Visit Diagnoses Not on filedocumented in this encounter Additional Health Concerns Assessment Noted Time PHQ-9 Depression Total Score: 21 025 10:16 AM EDT documented as of this encounter Care Teams Dolly Operator Relationship Specialty Start Date End Date Santi Landry MD 230 [place] [address] PCP - General Internal Medicine 06/14/14 documented as of this encounter
--- OUTSIDE RECORDS SUMMARY | 2025-02-14 17:57 | XMS_ITS | Encounter Summary ---
Author Organization [employer] Address [address] [place] [address] 7 [place] [address] Care Team Providers Care Internet Marketing Executive Name Role Phone Santi Landry MD Primary Care Provide r Reason for Visit * Reason Comments Med Refill Encounter Details Date Type Department Care Team ([facility] st Contact Info) Description 12/19/[address] [facility] MEDICINE [address] [place], [place] [phone] Santi Landry MD 230 [place], [place] [phone] Chronic midline low back pain without sciatica [...] 03/05/2025 10:00 AM EST Telemedicine [facility] CHC MED & PEDS 505 [place] [address] Karishma Rose, RN 505 [place] [address] 04/12/2025 11:30 AM EST Office Visit [facility] MEDICINE [address] [place] [address] Santi Landry MD [address] [place] [address] documented as of this encounter Visit Diagnoses Diagnosis Chronic midline low back pain without sciatica documented in this encounter Additional Health Concerns Assessment Noted Time PHQ-9 Depression Total Score: 21 025 10:16 AM EDT documented as of this encounter Care Teams Internet Marketing Executive Relationship Specialty Start Date End Date Santi Landry MD [address] [place] [address] PCP - General Internal Medicine 06/14/14 documented as of this encounter
--- OUTSIDE RECORDS SUMMARY | 2025-02-14 17:58 | XMS_ITS | Encounter Summary ---
Author Organization [email or web address] Address [address] [place] [address] 7 [place] [address] Care Team Providers Care Adding Machine Mechanic Name Role Phone Santi Landry MD Primary Care Provide r Reason for Visit * Reason Onset Date Comments Med Refill 12/26/2023 Encounter Details Date Type Department Care Team ([facility] st Contact Info) Description 12/26/2023 Refill [facility] MEDICINE 230 [place] [address] Santi Landry MD 230 [place] [address] Social History Tobacco Use Types Packs/Day Years [...] Info) Description 03/05/2025 10:00 AM EST Telemedicine [facility] CHC MED & PEDS 505 [place] [address] Karishma Rose, RN 505 [place] [address] 04/12/2025 11:30 AM EST Office Visit [facility] MEDICINE [address] [place] [address] Santi Landry MD 230 [place] [address] documented as of this encounter Visit Diagnoses Not on filedocumented in this encounter Additional Health Concerns Assessment Noted Time PHQ-9 Depression Total Score: 0 11/09/19 24 10:18 AM EDT documented as of this encounter Care Teams Adding Machine Mechanic Relationship Specialty Start Date End Date Santi Landry MD [address] [place] [address] PCP - General Internal Medicine 06/14/14 documented as of this encounter
--- OUTSIDE RECORDS SUMMARY | 2025-02-14 17:58 | XMS_ITS | Encounter Summary ---
Author Organization [employer] Address [address] [place] [address] 7 [place] [address] Care Team Providers Care Building Estimator Name Role Phone Santi Landry MD Primary Care Provide r Reason for Visit * Reason Onset Date Comments Med Refill 01/02/2024 Encounter Details Date Type Department Care Team ([facility] st Contact Info) Description 01/02/2024 Refill [facility] MEDICINE 230 [place] [address] Santi Landry MD 230 [place] [address] Social History Tobacco Use Types Packs/Day Years [...] Description 03/05/2025 10:00 AM EST Telemedicine [facility] CHC MED & PEDS 505 [place] [address] Karishma Rose, RN 505 [place] [address] 04/12/2025 11:30 AM EST Office Visit [facility] MEDICINE 230 [place] [address] Santi Landry MD 230 [place] [address] documented as of this encounter Visit Diagnoses Not on filedocumented in this encounter Additional Health Concerns Assessment Noted Time PHQ-9 Depression Total Score: 0 11/09/19 24 10:18 AM EDT documented as of this encounter Care Teams Building Estimator Relationship Specialty Start Date End Date Santi Landry MD [address] [place] [address] PCP - General Internal Medicine 06/14/14 documented as of this encounter
--- OUTSIDE RECORDS SUMMARY | 2025-02-14 17:58 | XMS_ITS | Encounter Summary ---
Author Organization [employer] Address 75 [facility] 7 [place] [address] Care Team Providers Care Senior Strategy Analyst Name Role Phone Santi Landry MD Primary Care Provide r Reason for Visit * Reason Onset Date Comments Med Refill 02/12/2023 Encounter Details Date Type Department Care Team ([facility] st Contact Info) Description 02/12/2023 Refill [facility] MEDICINE [address] [place] [address] Santi Landry MD 230 [place] [address] Atherosclerosis of rampart coronary artery of rampart heart without angina pectoris Social History Tobacco [...] Info) Description 03/05/2025 10:00 AM EST Telemedicine [facility] MED & PEDS 505 [place] [address] Karishma Rose, RN 505 [place] [address] 04/12/2025 11:30 AM EST Office Visit [facility] MEDICINE [address] [place] [address] Santi Landry MD 230 [place] [address] documented as of this encounter Visit Diagnoses Diagnosis Atherosclerosis of rampart coronary artery of rampart heart without angina pectoris documented in this encounter Additional Health Concerns Assessment Noted Time PHQ-9 Depression Total Score: 0 06/10/19 23 11:13 AM EST documented as of this encounter Care Teams Senior Strategy Analyst Relationship Specialty Start Date End Date Santi Landry MD 230 [place] [address] PCP - General Internal Medicine 06/14/14 documented as of this encounter
--- OUTSIDE RECORDS SUMMARY | 2025-02-14 17:58 | XMS_ITS | Encounter Summary ---
Author Organization [employer] Address [address] [place] [address] 7 [place] [address] Care Team Providers Care Repair Coil Winder Name Role Phone Santi Landry MD Primary Care Provide r Reason for Visit * Reason Onset Date Comments Med Refill 05/10/2023 Encounter Details Date Type Department Care Team ([facility] st Contact Info) Description 05/10/2023 Refill [facility] MEDICINE 230 [place] [address] Santi Landry MD 230 [place] [address] Social History Tobacco Use Types Packs/Day Years [...] [facility] 505 [place] [address] Karishma Rose RN 505 [place] [address] 04/12/2025 11:30 AM EST Office Visit [facility] MEDICINE 230 [place] [address] Santi Landry MD 230 [place] [address] documented as of this encounter Visit Diagnoses Not on filedocumented in this encounter Additional Health Concerns Assessment Noted Time PHQ-9 Depression Total Score: 0 06/10/19 23 11:13 AM EST documented as of this encounter Care Teams Repair Coil Winder Relationship Specialty Start Date End Date Santi Landry MD 230 [place] [address] PCP - General Internal Medicine 06/14/14 documented as of this encounter
--- OUTSIDE RECORDS SUMMARY | 2025-02-14 17:58 | XMS_ITS | Encounter Summary ---
Author Organization [employer] Address 75 [facility] 7 [place] [address] Care Team Providers Care Cloth Printing Utility Worker Name Role Phone Santi Landry MD Primary Care Provide r Reason for Visit * Reason Onset Date Comments Med Refill 02/12/2023 Encounter Details Date Type Department Care Team ([facility] st Contact Info) Description 02/12/2023 Refill [facility] MED & PEDS [address] [place] [address] Santi Landry MD 230 [place] [address] Social History Tobacco Use Types Packs/Day Years [...] [facility] CHC MED & PEDS 505 [place] [address] Karishma Rose, RN 505 [place] [address] 04/12/2025 11:30 AM EST Office Visit [facility] MEDICINE 230 [place] [address] Santi Landry MD 230 [place] [address] documented as of this encounter Visit Diagnoses Not on filedocumented in this encounter Additional Health Concerns Assessment Noted Time PHQ-9 Depression Total Score: 0 06/10/19 23 11:13 AM EST documented as of this encounter Care Teams Cloth Printing Utility Worker Relationship Specialty Start Date End Date Santi Landry MD 230 [place] [address] PCP - General Internal Medicine 06/14/14 documented as of this encounter
--- OUTSIDE RECORDS SUMMARY | 2025-02-14 17:58 | XMS_ITS | Encounter Summary ---
Author Organization [employer] Address 75 [facility] 7 [place] [address] Care Team Providers Care Newspaper Publisher Name Role Phone Santi Landry MD Primary Care Provide r Reason for Visit * Reason Comments Med Refill Encounter Details Date Type Department Care Team ([facility] st Contact Info) Description 04/18/[address] [facility] CHC MED & PEDS [address] [place], [place] [phone] Santi Landry MD [address] [place] [address] Chronic midline low back pain without sciatica [...] Description 03/05/2025 10:[address] [facility] CHC MED & PEDS 505 [place] [address] Karishma Rose, RN 505 [place] [address] 04/12/2025 11:30 AM EST Office [address] [facility] MEDICINE 230 [place] [address] Santi Landry MD [address] [place] [address] documented as of this encounter Visit Diagnoses Diagnosis Chronic midline low back pain without sciatica documented in this encounter Additional Health Concerns Assessment Noted Time PHQ-9 Depression Total Score: 0 11/09/19 24 10:18 AM EDT documented as of this encounter Care Teams Newspaper Publisher Relationship Specialty Start Date End Date Santi Landry MD [address] [place] [address] PCP - General Internal Medicine 06/14/14 documented as of this encounter
--- OUTSIDE RECORDS SUMMARY | 2025-02-14 17:58 | XMS_ITS | Encounter Summary ---
Author Organization [employer] Address 75 [facility] 7 [place] [address] Care Team Providers Care Cigarette Maker Name Role Phone Santi Landry MD Primary Care Provide r Reason for Visit * Reason Onset Date Comments Med Refill 04/17/2024 Encounter Details Date Type Department Care Team ([facility] st Contact Info) Description 04/17/2024 Refill [facility] CHC MED & PEDS [address] [place] [address] Santi Landry MD [address] [facility] [place] [address] Chronic midline low back pain without sciatica [...] 03/05/2025 10:00 AM EST Telemedicine [facility] CHC MED & PEDS 505 [place] [address] Karishma Rose, FATEMEH 505 [place] [address] 04/12/2025 11:30 AM EST Office Visit [facility] MEDICINE 230 [place] [address] Santi Landry MD 230 [place] [address] documented as of this encounter Visit Diagnoses Diagnosis Chronic midline low back pain without sciatica documented in this encounter Additional Health Concerns Assessment Noted Time PHQ-9 Depression Total Score: 0 11/09/19 24 10:18 AM EDT documented as of this encounter Care Teams Cigarette Maker Relationship Specialty Start Date End Date Santi Landry MD 230 [place] [address] PCP - General Internal Medicine 06/14/14 documented as of this encounter
--- OUTSIDE RECORDS SUMMARY | 2025-02-14 17:58 | XMS_ITS | Encounter Summary ---
Author Organization [employer] Address 75 [facility] 7 [place] [address] Care Team Providers Care Recycling Tech Name Role Phone Santi Landry MD Primary Care Provide r Reason for Visit * Reason Onset Date Comments Med Refill 03/20/2024 Encounter Details Date Type Department Care Team ([facility] st Contact Info) Description 03/20/2024 Refill [facility] CHC MED & PEDS [address] [place] [address] Santi Landry MD 230 [place] [address] Chronic midline low back pain without sciatica [...] 03/05/2025 10:00 AM EST Telemedicine [facility] CHC MED & PEDS 505 [place] [address] Karishma Rose, FATEMEH 505 [place] [address] 04/12/2025 11:30 AM EST Office Visit [facility] MEDICINE 230 [place] [address] Santi Landry MD 230 [place] [address] documented as of this encounter Visit Diagnoses Diagnosis Chronic midline low back pain without sciatica documented in this encounter Additional Health Concerns Assessment Noted Time PHQ-9 Depression Total Score: 0 11/09/19 24 10:18 AM EDT documented as of this encounter Care Teams Recycling Tech Relationship Specialty Start Date End Date Santi Landry MD 230 [place] [address] PCP - General Internal Medicine 06/14/14 documented as of this encounter
--- OUTSIDE RECORDS SUMMARY | 2025-02-14 17:58 | XMS_ITS | Encounter Summary ---
Author Organization [employer] Address [address] [place] [address] 7 [place] [address] Care Team Providers Care Slitter Scorer Name Role Phone Santi Landry MD Primary Care Provide r Reason for Visit * Reason Comments Med Refill Encounter Details Date Type Department Care Team ([facility] Contact Info) Description 02/22/2024 Refill [facility] MEDICINE 230 [place], [place] [phone] Santi Landry MD 230 [place], [place] [phone] Chronic midline low back pain without sciatica [...] Info) Description 03/05/2025 10:00 AM EST Telemedicine [facility] CHC MED & PEDS 505 [place] [address] Karishma Rose, RN 505 [place] [address] 04/12/2025 11:30 AM EST Office Visit [facility] MEDICINE 230 [place] [address] Santi Landry MD 230 [place] [address] documented as of this encounter Visit Diagnoses Diagnosis Chronic midline low back pain without sciatica documented in this encounter Additional Health Concerns Assessment Noted Time PHQ-9 Depression Total Score: 0 11/09/19 24 10:18 AM EDT documented as of this encounter Care Teams Slitter Scorer Relationship Specialty Start Date End Date Santi Landry MD [address] [place] [address] PCP - General Internal Medicine 06/14/14 documented as of this encounter
--- OUTSIDE RECORDS SUMMARY | 2025-02-14 17:58 | XMS_ITS | Encounter Summary ---
Author Organization [employer] Address 75 [facility] 7 [place] [address] Care Team Providers Care Ladies Locker Room Attendant Name Role Phone Santi Landry MD Primary Care Provide r Reason for Visit * Reason Onset Date Comments Med Refill 05/15/2024 Encounter Details Date Type Department Care Team ([facility] st Contact Info) Description 05/15/2024 Refill [facility] CHC MED & PEDS [address] [place] [address] Santi Landry MD 230 [place] [address] Chronic midline low back pain without sciatica [...] [facility] CHC MED & PEDS 505 [place] [address] Karishma Rose, FATEMEH 505 [place] [address] 04/12/2025 11:30 AM EST Office Visit [facility] MEDICINE 230 [place] [address] Santi Landry MD 230 [place] [address] documented as of this encounter Visit Diagnoses Diagnosis Chronic midline low back pain without sciatica documented in this encounter Additional Health Concerns Assessment Noted Time PHQ-9 Depression Total Score: 0 11/09/19 24 10:18 AM EDT documented as of this encounter Care Teams Ladies Locker Room Attendant Relationship Specialty Start Date End Date Santi Landry MD 230 [place] [address] PCP - General Internal Medicine 06/14/14 documented as of this encounter
--- OUTSIDE RECORDS SUMMARY | 2025-02-14 17:58 | XMS_ITS | Encounter Summary ---
Author Organization [employer] Address [address] [place] [address] 7 [place] [address] Care Team Providers Care Chair Post Machine Operator Name Role Phone Santi Landry MD Primary Care Provide r Reason for Visit * Reason Onset Date Comments Med Refill 02/12/2023 Encounter Details Date Type Department Care Team ([facility] st Contact Info) Description 02/12/2023 Refill [facility] MEDICINE 230 [place] [address] Santi Landry MD 230 [place] [address] Social History Tobacco Use Types Packs/Day Years [...] Info) Description 03/05/2025 10:00 AM EST Telemedicine [facility] CHC MED & PEDS 505 [place] [address] Karishma Rose RN 505 [place] [address] 04/12/2025 11:30 AM EST Office Visit [facility] MEDICINE 230 [place] [address] Santi Landry MD 230 [place] [address] documented as of this encounter Visit Diagnoses Not on filedocumented in this encounter Additional Health Concerns Assessment Noted Time PHQ-9 Depression Total Score: 0 06/10/19 23 11:13 AM EST documented as of this encounter Care Teams Chair Post Machine Operator Relationship Specialty Start Date End Date Santi Landry MD 230 [place] [address] PCP - General Internal Medicine 06/14/14 documented as of this encounter
--- OUTSIDE RECORDS SUMMARY | 2025-02-14 17:58 | XMS_ITS | Encounter Summary ---
Author Organization [employer] Address 75 [facility] 7 [place] [address] Care Team Providers Care Rubber Splicer Name Role Phone Santi Landry MD Primary Care Provide r Reason for Visit * Reason Onset Date Comments Med Refill 02/12/2023 Encounter Details Date Type Department Care Team ([facility] st Contact Info) Description 02/12/2023 Refill [facility] MEDICINE 230 [place] [address] Santi Landry MD 230 [place] [address] Type 2 diabetes mellitus with diabetic polyneuropathy, with long-term current use of insulin ([facility]) Social History Tobacco Use Types Packs/Day Years [...] Info) Description 03/05/2025 10:00 AM EST Telemedicine [facility] CHC MED & PEDS 505 [place] [address] Karishma Rose, FATEMEH 505 [place] [address] 04/12/2025 11:30 AM EST Office Visit [facility] MEDICINE 230 [place] [address] Santi Landry MD 230 [place] [address] documented as of this encounter Visit Diagnoses Diagnosis Type 2 diabetes mellitus with diabetic polyneuropathy, with long-term current use of insulin (HCC) documented in this encounter Additional Health Concerns Assessment Noted Time PHQ-9 Depression Total Score: 0 06/10/19 23 11:13 AM EST documented as of this encounter Care Teams Rubber Splicer Relationship Specialty Start Date End Date Santi Landry MD [address] [place] [address] PCP - General Internal Medicine 06/14/14 documented as of this encounter
--- OUTSIDE RECORDS SUMMARY | 2025-02-14 17:58 | XMS_ITS | Encounter Summary ---
Author Organization [employer] Address [address] [place] [address] 7 [place] [address] Care Team Providers Care Applications Engineer Manufacturing Name Role Phone Santi Landry MD Primary Care Provide r Reason for Visit * Reason Onset Date Comments Med Refill 03/18/2024 Encounter Details Date Type Department Care Team ([facility] st Contact Info) Description 03/18/2024 Refill [facility] MEDICINE 230 [place] [address] Queenie Saini DO [address] [place] [address] Type 2 diabetes mellitus with diabetic polyneuropathy, with long-term current use of insulin ([facility]) Social History Tobacco Use Types Packs/Day [...] Info) Description 03/05/2025 10:00 AM EST Telemedicine [facility] CHC MED & PEDS 505 [place] [address] Karishma Rose, RN 505 [place] [address] 04/12/2025 11:30 AM EST Office Visit [facility] MEDICINE 230 [place] [address] Santi Landry MD [address] [place] [address] documented as of this encounter Visit Diagnoses Diagnosis Type 2 diabetes mellitus with diabetic polyneuropathy, with long-term current use of insulin (HCC) documented in this encounter Additional Health Concerns Assessment Noted Time PHQ-9 Depression Total Score: 0 11/09/19 24 10:18 AM EDT documented as of this encounter Care Teams Applications Engineer Manufacturing Relationship Specialty Start Date End Date Santi Landry MD [address] [place] [address] PCP - General Internal Medicine 06/14/14 documented as of this encounter
--- OUTSIDE RECORDS SUMMARY | 2025-02-14 17:58 | XMS_ITS | Encounter Summary ---
Author Organization [employer] Address [address] [facility] [address] 7[address] [place] [address] Care Team Providers Care Auth Specialist Name Role Phone Santi Landry MD Primary Care Provide r Encounter Details Date Type Department Care Team ([facility] Contact Info) Description 02/09/2025 Telephone [facility] CHC MED & PEDS [address] [place], [place] [phone] Santi Landry MD [address] [place], [place] [phone] Social History Tobacco Use Types Packs/Day Years [...] encounter Miscellaneous Notes * Telephone Encounter - Kati Snell RN - 02/09/2025 4:33 PM EST Pt requested refill on Hydrocodone. documented in this encounter Plan of Treatment Upcoming Encounters Date Type Department Care Team (Late st Contact Info) Description 03/05/2025 10:00 AM EST Telemedicine [facility] CHC MED & PEDS 505 [place] [address] Karishma Rose RN 505 [place] [address] 04/12/2025 11:30 AM EST Office Visit [facility] MEDICINE 230 [place] [address] Santi Lanrdy MD 230 [place] [address] documented as of this encounter Visit Diagnoses Not on filedocumented in this encounter Additional Health Concerns Assessment Noted Time PHQ-9 Depression Total Score: 21 025 10:16 AM EDT documented as of this encounter Care Teams Auth Specialist Relationship Specialty Start Date End Date Santi Landry MD 230 [place] [address] PCP - General Internal Medicine 06/14/14 documented as of this encounter
--- OUTSIDE RECORDS SUMMARY | 2025-02-14 17:58 | XMS_ITS | Encounter Summary ---
Author Organization [employer] Address [address] [place] [address] 7 [place] [address] Care Team Providers Care Team Assistant Name Role Phone Santi Landry MD Primary Care Provide r Reason for Visit * Reason Onset Date Comments Med Refill 01/24/2024 Encounter Details Date Type Department Care Team ([facility] st Contact Info) Description 01/24/2024 Refill [facility] MEDICINE 230 [place] [address] Santi Landry MD 230 [place] [address] Chronic midline low back pain without sciatica [...] Info) Description 03/05/2025 10:00 AM EST Telemedicine [facility] CHC MED & PEDS 505 [place] [address] Karishma Rose, RN 505 [place] [address] 04/12/2025 11:30 AM EST Office Visit [facility] MEDICINE 230 [place] [address] Santi Landry MD 230 [place] [address] documented as of this encounter Visit Diagnoses Diagnosis Chronic midline low back pain without sciatica documented in this encounter Additional Health Concerns Assessment Noted Time PHQ-9 Depression Total Score: 0 11/09/19 24 10:18 AM EDT documented as of this encounter Care Teams Team Assistant Relationship Specialty Start Date End Date Santi Landry MD [address] [place] [address] PCP - General Internal Medicine 06/14/14 documented as of this encounter
--- OUTSIDE RECORDS SUMMARY | 2025-02-14 17:58 | XMS_ITS | Encounter Summary ---
Author Organization [employer] Address 75 [facility] 7 [place] [address] Care Team Providers Care Clothing Cutter Name Role Phone Santi Landry MD Primary Care Provide r Reason for Visit * Reason Onset Date Comments Med Refill 03/14/2023 Encounter Details Date Type Department Care Team ([facility] st Contact Info) Description 03/14/2023 Refill [facility] MEDICINE [address] [place] [address] Santi Landry MD 230 [place] [address] Chronic midline low back pain without sciatica [...] Info) Description 03/05/2025 10:00 AM EST Telemedicine [facility] CHC MED & PEDS 505 [place] [address] Karishma Rose, RN 505 [place] [address] 04/12/2025 11:30 AM EST Office Visit [facility] MEDICINE [address] [place] [address] Santi Landry MD 230 [place] [address] documented as of this encounter Visit Diagnoses Diagnosis Chronic midline low back pain without sciatica documented in this encounter Additional Health Concerns Assessment Noted Time PHQ-9 Depression Total Score: 0 06/10/19 23 11:13 AM EST documented as of this encounter Care Teams Clothing Cutter Relationship Specialty Start Date End Date Santi Landry MD 230 [place] [address] PCP - General Internal Medicine 06/14/14 documented as of this encounter
--- OUTSIDE RECORDS SUMMARY | 2025-02-14 17:58 | XMS_ITS | Encounter Summary ---
Author Organization [employer] Address [address] [place] [address] 7 [place] [address] Care Team Providers Care Paraffin Plant Operator Name Role Phone Santi Landry MD Primary Care Provide r Reason for Visit * Reason Onset Date Comments Med Refill 02/12/2023 Encounter Details Date Type Department Care Team ([facility] st Contact Info) Description 02/12/2023 Refill [facility] MEDICINE 230 [place] [address] Santi Landry MD 230 [place] [address] Social History Tobacco Use Types Packs/Day Years [...] 03/05/2025 10:00 AM EST Telemedicine [facility] CHC MED & PEDS 505 [place] [address] Karishma Rose RN 505 [place] [address] 04/12/2025 11:30 AM EST Office Visit [facility] MEDICINE 230 [place] [address] Santi Landry MD 230 [place] [address] documented as of this encounter Visit Diagnoses Not on filedocumented in this encounter Additional Health Concerns Assessment Noted Time PHQ-9 Depression Total Score: 0 06/10/19 23 11:13 AM EST documented as of this encounter Care Teams Paraffin Plant Operator Relationship Specialty Start Date End Date Santi Landry MD 230 [place] [address] PCP - General Internal Medicine 06/14/14 documented as of this encounter
--- OUTSIDE RECORDS SUMMARY | 2025-02-14 17:58 | XMS_ITS | Encounter Summary ---
Author Organization [employer] Address [address] [facility] [address] 7[address] [place] [address] Care Team Providers Care Principal Statistical Programmer Name Role Phone Santi Landry MD Primary Care Provide r Reason for Visit * Reason Onset Date Comments Med Refill 04/20/2023 Encounter Details Date Type Department Care Team ([facility] st Contact Info) Description 04/20/2023 Refill [facility] MED & PEDS [address] [place], [place] [phone] Santi Landry MD [address] [place], [place] [phone] Chronic midline low back pain without sciatica [...] Description 03/05/2025 10:00 AM EST Telemedicine [facility] MED & PEDS 505 [place] [address] Karishma Rose, RN 505 [place] [address] 04/12/2025 11:30 AM EST Office Visit [facility] MEDICINE 230 [place] [address] Santi Landry MD 230 [place] [address] documented as of this encounter Visit Diagnoses Diagnosis Chronic midline low back pain without sciatica documented in this encounter Additional Health Concerns Assessment Noted Time PHQ-9 Depression Total Score: 0 06/10/19 23 11:13 AM EST documented as of this encounter Care Teams Principal Statistical Programmer Relationship Specialty Start Date End Date Santi Landry MD 230 [place] [address] PCP - General Internal Medicine 06/14/14 documented as of this encounter
--- OUTSIDE RECORDS SUMMARY | 2025-02-14 17:58 | XMS_ITS | Encounter Summary ---
Author Organization [employer] Address 75 [facility] 7 [place] [address] Care Team Providers Care Personal Care Aide Name Role Phone Santi Landry MD Primary Care Provide r Reason for Visit * Reason Onset Date Comments Med Refill 03/11/2023 Encounter Details Date Type Department Care Team ([facility] st Contact Info) Description 03/11/2023 Refill [facility] MEDICINE 230 [place] [address] Santi Landry MD 230 [place] [address] Type 2 diabetes mellitus with diabetic polyneuropathy, with long-term current use of insulin ([facility]) Social History Tobacco [...] Info) Description 03/05/2025 10:00 AM EST Telemedicine [facility] CHC MED & PEDS 505 [place] [address] Karishma Rose, FATEMEH 505 [place] [address] 04/12/2025 11:30 AM EST Office Visit [facility] MEDICINE 230 [place] [address] Santi Landry MD 230 [place] [address] documented as of this encounter Visit Diagnoses Diagnosis Type 2 diabetes mellitus with diabetic polyneuropathy, with long-term current use of insulin (HCC) documented in this encounter Additional Health Concerns Assessment Noted Time PHQ-9 Depression Total Score: 0 06/10/19 23 11:13 AM EST documented as of this encounter Care Teams Personal Care Aide Relationship Specialty Start Date End Date Santi Landry MD [address] [place] [address] PCP - General Internal Medicine 06/14/14 documented as of this encounter
--- OUTSIDE RECORDS SUMMARY | 2025-02-14 17:58 | XMS_ITS | Encounter Summary ---
Author Organization [employer] Address 75 [facility] 7 [place] [address] Care Team Providers Care Photovoltaic Subcontractor Name Role Phone Santi Landry MD Primary Care Provide r Reason for Visit * Reason Comments Med Refill Encounter Details Date Type Department Care Team ([facility] st Contact Info) Description 03/20/2024 Refill [facility] CHC MED & PEDS [address] [place], [place] [phone] Santi Landry MD [address] [place] [address] Chronic midline low back pain without sciatica [...] Info) Description 03/05/2025 10:00 AM EST Telemedicine [facility] CHC MED & PEDS 505 [place] [address] Karishma Rose, RN 505 [place] [address] 04/12/2025 11:30 AM EST Office Visit [facility] MEDICINE 230 [place] [address] Santi Landry MD [address] [place] [address] documented as of this encounter Visit Diagnoses Diagnosis Chronic midline low back pain without sciatica documented in this encounter Additional Health Concerns Assessment Noted Time PHQ-9 Depression Total Score: 0 11/09/19 24 10:18 AM EDT documented as of this encounter Care Teams Photovoltaic Subcontractor Relationship Specialty Start Date End Date Santi Landry MD [address] [place] [address] PCP - General Internal Medicine 06/14/14 documented as of this encounter
--- OUTSIDE RECORDS SUMMARY | 2025-02-14 17:58 | XMS_ITS | Encounter Summary ---
Author Organization [employer] Address 75 [facility] 7 [place] [address] Care Team Providers Care Power Distribution Engineer Name Role Phone Santi Landry MD Primary Care Provide r Reason for Visit * Reason Onset Date Comments Med Refill 03/17/2023 Encounter Details Date Type Department Care Team ([facility] Contact Info) Description 03/17/2023 Telephone [facility] MEDICINE 230 [place] [address] Santi Landry MD 230 [place] [address] Med Refill Social History Tobacco Use Types [...] EST Tc from pt requesting medication HYDROcodone-acetaminophen ([place]) 10-325 MG tablet and oxyCODONE ER (OxyCONTIN) 10 MG 12 hr tablet be sent to [facility] [place] - [address] [facility] instead of [id number] - [place], [place] - [address] [facility]. documented in this encounter Plan of Treatment Upcoming Encounters Date Type Department Care Team ([facility] st Contact Info) Description 03/05/2025 10:00 AM EST Telemedicine [facility] CHC MED & PEDS 505 [place] [address] Karishma Rose RN 505 [place] [address] 04/12/2025 11:30 AM EST Office Visit [facility] MEDICINE 230 [place] [address] Santi Landry MD 230 [place] [address] documented as of this encounter Visit Diagnoses Not on filedocumented in this encounter Additional Health Concerns Assessment Noted Time PHQ-9 Depression Total Score: 0 06/10/19 23 11:13 AM EST documented as of this encounter Care Teams Power Distribution Engineer Relationship Specialty Start Date End Date Santi Landry MD 230 [place] [address] PCP - General Internal Medicine 06/14/14 documented as of this encounter
--- OUTSIDE RECORDS SUMMARY | 2025-02-14 17:58 | XMS_ITS | Encounter Summary ---
Author Organization [employer] Address 75 [facility] 7 [place] [address] Care Team Providers Care Sleeve Turner Name Role Phone Santi Landry MD Primary Care Provide r Reason for Visit * Reason Onset Date Comments Med Refill 03/18/2024 Encounter Details Date Type Department Care Team ([facility] st Contact Info) Description 03/18/2024 Refill [facility] MED & PEDS [address] [place] [address] Santi Landry MD 230 [place] [address] Social History Tobacco Use Types Packs/Day Years [...] Info) Description 03/05/2025 10:00 AM EST Telemedicine [facility] CHC MED & PEDS 505 [place] [address] Karishma Rose, RN 505 [place] [address] 04/12/2025 11:30 AM EST Office Visit [facility] MEDICINE 230 [place] [address] Santi Landry MD [address] [place] [address] documented as of this encounter Visit Diagnoses Not on filedocumented in this encounter Additional Health Concerns Assessment Noted Time PHQ-9 Depression Total Score: 0 11/09/19 24 10:18 AM EDT documented as of this encounter Care Teams Sleeve Turner Relationship Specialty Start Date End Date Santi Landry MD [address] [place] [address] PCP - General Internal Medicine 06/14/14 documented as of this encounter
--- OUTSIDE RECORDS SUMMARY | 2025-02-14 17:58 | XMS_ITS | Encounter Summary ---
Author Organization [employer] Address 75 [facility] 7 [place] [address] Care Team Providers Care Shared Services Representative Name Role Phone Santi Landry MD Primary Care Provide r Reason for Visit * Reason Onset Date Comments Med Refill 01/21/2024 Encounter Details Date Type Department Care Team ([facility] st Contact Info) Description 01/21/2024 Refill [facility] CHC MED & PEDS [address] [place] [address] Santi Landry MD [address] [facility] [place] [address] Chronic midline low back pain without sciatica [...] 03/05/2025 10:00 AM EST Telemedicine [facility] CHC MED & PEDS 505 [place] [address] Karishma Rose, FATEMEH 505 [place] [address] 04/12/2025 11:30 AM EST Office Visit [facility] MEDICINE 230 [place] [address] Santi Landry MD 230 [place] [address] documented as of this encounter Visit Diagnoses Diagnosis Chronic midline low back pain without sciatica documented in this encounter Additional Health Concerns Assessment Noted Time PHQ-9 Depression Total Score: 0 11/09/19 24 10:18 AM EDT documented as of this encounter Care Teams Shared Services Representative Relationship Specialty Start Date End Date Santi Landry MD 230 [place] [address] PCP - General Internal Medicine 06/14/14 documented as of this encounter
--- OUTSIDE RECORDS SUMMARY | 2025-02-14 17:58 | XMS_ITS | Encounter Summary ---
Author Organization [employer] Address 75 [facility] 7 [place] [address] Care Team Providers Care Pearl Digger Name Role Phone Santi Landry MD Primary Care Provide r Reason for Visit * Reason Comments Med Refill Encounter Details Date Type Department Care Team ([facility] Contact Info) Description 02/29/2024 Refill [facility] MEDICINE 230 [place] [address] Michelle Carmona MD 230 [place] [address] Type 2 diabetes mellitus without complications (CMS/HCC) [...] [facility] CHC MED & PEDS 505 [place] [address] Karishma Rose, RN 505 [place] [address] 04/12/2025 11:30 AM EST Office Visit [facility] MEDICINE 230 [place] [address] Santi Landry MD 230 [place] [address] documented as of this encounter Visit Diagnoses Diagnosis Type 2 diabetes mellitus without complications (HCC) documented in this encounter Additional Health Concerns Assessment Noted Time PHQ-9 Depression Total Score: 0 11/09/19 24 10:18 AM EDT documented as of this encounter Care Teams Pearl Digger Relationship Specialty Start Date End Date Santi Landry MD [address] [place] [address] PCP - General Internal Medicine 06/14/14 documented as of this encounter
--- OUTSIDE RECORDS SUMMARY | 2025-02-14 17:58 | XMS_ITS | Encounter Summary ---
Author Organization [employer] Address 75 [facility] 7 [place] [address] Care Team Providers Care Server Support Technician Name Role Phone Santi Landry MD Primary Care Provide r Reason for Visit * Reason Onset Date Comments Med Refill 04/14/2023 Encounter Details Date Type Department Care Team ([facility] st Contact Info) Description 04/14/2023 Refill [facility] MEDICINE 230 [place] [address] Santi Landry MD 230 [place] [address] Type 2 diabetes mellitus with diabetic polyneuropathy, with long-term current use of insulin ([facility]) Social History Tobacco Use [...] Description 03/05/2025 10:00 AM EST Telemedicine [facility] CHC MED & PEDS 505 [place] [address] Karishma Rose, FATEMEH 505 [place] [address] 04/12/2025 11:30 AM EST Office Visit [facility] MEDICINE 230 [place] [address] Santi Landry MD 230 [place] [address] documented as of this encounter Visit Diagnoses Diagnosis Type 2 diabetes mellitus with diabetic polyneuropathy, with long-term current use of insulin (HCC) documented in this encounter Additional Health Concerns Assessment Noted Time PHQ-9 Depression Total Score: 0 06/10/19 23 11:13 AM EST documented as of this encounter Care Teams Server Support Technician Relationship Specialty Start Date End Date Santi Landry MD [address] [place] [address] PCP - General Internal Medicine 06/14/14 documented as of this encounter
--- OUTSIDE RECORDS SUMMARY | 2025-02-14 17:58 | XMS_ITS | Encounter Summary ---
Author Organization [employer] Address 75 [facility] 7 [place] [address] Care Team Providers Care Insurance Instructor Name Role Phone Santi Landry MD Primary Care Provide r Reason for Visit * Reason Comments Med Refill Encounter Details Date Type Department Care Team ([facility] st Contact Info) Description 03/17/2023 Refill [facility] MEDICINE 230 [place], [place] [phone] Santi Landry MD 230 [place], [place] [phone] Chronic midline low back pain without sciatica [...] Info) Description 03/05/2025 10:00 AM EST Telemedicine [facility] CHC MED & PEDS 505 [place] [address] Karishma Rose RN 505 [place] [address] 04/12/2025 11:30 AM EST Office Visit [facility] MEDICINE 230 [place] [address] Santi Landry MD 230 [place] [address] documented as of this encounter Visit Diagnoses Diagnosis Chronic midline low back pain without sciatica documented in this encounter Additional Health Concerns Assessment Noted Time PHQ-9 Depression Total Score: 0 06/10/19 23 11:13 AM EST documented as of this encounter Care Teams Insurance Instructor Relationship Specialty Start Date End Date Santi Landry MD 230 [place] [address] PCP - General Internal Medicine 06/14/14 documented as of this encounter
--- OUTSIDE RECORDS SUMMARY | 2025-02-14 17:58 | XMS_ITS | Encounter Summary ---
Author Organization [employer] Address 75 [facility] 7 [place] [address] Care Team Providers Care Child Care Team Lead Name Role Phone Santi Landry MD Primary Care Provide r Reason for Visit * Reason Onset Date Comments Med Refill 02/15/2023 Encounter Details Date Type Department Care Team ([facility] st Contact Info) Description 02/15/2023 Refill [facility] MEDICINE 230 [place] [address] Santi Landry MD 230 [place] [address] Chronic midline low back pain without sciatica [...] Info) Description 03/05/2025 10:00 AM EST Telemedicine [facility] CHC MED & PEDS 505 [place] [address] Karishma Rose, RN 505 [place] [address] 04/12/2025 11:30 AM EST Office Visit [facility] MEDICINE 230 [place] [address] Santi Landry MD 230 [place] [address] documented as of this encounter Visit Diagnoses Diagnosis Chronic midline low back pain without sciatica documented in this encounter Additional Health Concerns Assessment Noted Time PHQ-9 Depression Total Score: 0 06/10/19 23 11:13 AM EST documented as of this encounter Care Teams Child Care Team Lead Relationship Specialty Start Date End Date Santi Landry MD 230 [place] [address] PCP - General Internal Medicine 06/14/14 documented as of this encounter
--- OUTSIDE RECORDS SUMMARY | 2025-02-14 17:58 | XMS_ITS | Encounter Summary ---
Author Organization [employer] Address 75 [facility] 7 [place] [address] Care Team Providers Care Lining Layer Name Role Phone Santi Landry MD Primary Care Provide r Reason for Visit * Reason Onset Date Comments Med Refill 03/12/2023 Encounter Details Date Type Department Care Team ([facility] st Contact Info) Description 03/12/2023 Refill [facility] MEDICINE 230 [place] [address] Santi Landry MD 230 [place] [address] Chronic midline low back pain without sciatica [...] Info) Description 03/05/2025 10:00 AM EST Telemedicine [facility] CHC MED & PEDS 505 [place] [address] Karishma Rose, RN 505 [place] [address] 04/12/2025 11:30 AM EST Office Visit [facility] MEDICINE 230 [place] [address] Santi Landry MD 230 [place] [address] documented as of this encounter Visit Diagnoses Diagnosis Chronic midline low back pain without sciatica documented in this encounter Additional Health Concerns Assessment Noted Time PHQ-9 Depression Total Score: 0 06/10/19 23 11:13 AM EST documented as of this encounter Care Teams Lining Layer Relationship Specialty Start Date End Date Santi Landry MD 230 [place] [address] PCP - General Internal Medicine 06/14/14 documented as of this encounter
--- OUTSIDE RECORDS SUMMARY | 2025-02-14 17:58 | XMS_ITS | Encounter Summary ---
Author Organization [employer] Address 75 [facility] 7 [place] [address] Care Team Providers Care Embedded Systems Developer Name Role Phone Santi Landry MD Primary Care Provide r Reason for Visit * Reason Onset Date Comments Med Refill 02/12/2023 Encounter Details Date Type Department Care Team ([facility] st Contact Info) Description 02/12/2023 Refill [facility] MED & PEDS [address] [place] [address] Santi Landry MD 230 [place] [address] Social History Tobacco Use Types Packs/Day Years [...] Info) Description 03/05/2025 10:00 AM EST Telemedicine [facility] CHC MED & PEDS 505 [place] [address] Karishma Rose, RN 505 [place] [address] 04/12/2025 11:30 AM EST Office Visit [facility] MEDICINE 230 [place] [address] Santi Landry MD 230 [place] [address] documented as of this encounter Visit Diagnoses Not on filedocumented in this encounter Additional Health Concerns Assessment Noted Time PHQ-9 Depression Total Score: 0 06/10/19 23 11:13 AM EST documented as of this encounter Care Teams Embedded Systems Developer Relationship Specialty Start Date End Date Santi Landry MD 230 [place] [address] PCP - General Internal Medicine 06/14/14 documented as of this encounter
--- OUTSIDE RECORDS SUMMARY | 2025-02-14 17:58 | XMS_ITS | Encounter Summary ---
Author Organization [employer] Address 75 [facility] 7 [place] [address] Care Team Providers Care Sales Operations Specialist Name Role Phone Santi Landry MD Primary Care Provide r Reason for Visit * Reason Onset Date Comments Med Refill 02/12/2023 Encounter Details Date Type Department Care Team ([facility] st Contact Info) Description 02/12/2023 Refill [facility] CHC MED & PEDS [address] [place] [address] Santi Landry MD 230 [facility] [address] Type 2 diabetes mellitus with diabetic polyneuropathy, with long-term current use of insulin ([facility]) Social History Tobacco Use Types Packs/Day Years [...] Info) Description 03/05/2025 10:00 AM EST Telemedicine [facility] MED & PEDS 505 [place] [address] Karishma Rose, FATEMEH 505 [place] [address] 04/12/2025 11:30 AM EST Office Visit [facility] MEDICINE 230 [place] [address] Santi Landry MD [address] [place] [address] documented as of this encounter Visit Diagnoses Diagnosis Type 2 diabetes mellitus with diabetic polyneuropathy, with long-term current use of insulin (HCC) documented in this encounter Additional Health Concerns Assessment Noted Time PHQ-9 Depression Total Score: 0 06/10/19 23 11:13 AM EST documented as of this encounter Care Teams Sales Operations Specialist Relationship Specialty Start Date End Date Santi Landry MD [address] [place] [address] PCP - General Internal Medicine 06/14/14 documented as of this encounter
--- OUTSIDE RECORDS SUMMARY | 2025-02-14 17:58 | XMS_ITS | Encounter Summary ---
Author Organization [employer] Address 75 [facility] 7 [place] [address] Care Team Providers Care Ball Assembler Name Role Phone Santi Landry MD Primary Care Provide r Reason for Visit * Reason Onset Date Comments Med Refill 05/10/2023 Encounter Details Date Type Department Care Team ([facility] st Contact Info) Description 05/10/[address] [facility] MEDICINE 230 [place] [address] Michelle Carmona MD 230 [place] [address] Type 2 diabetes mellitus with diabetic polyneuropathy, with long-term current use of insulin ([facility]) Social History Tobacco Use Types Packs/Day Years [...] 03/05/2025 10:00 AM EST Telemedicine [facility] MED & PEDS 505 [place] [address] Karishma Rose RN 505 [place] [address] 04/12/2025 11:30 AM EST Office Visit [facility] MEDICINE 230 [place] [address] Santi Landry MD 230 [place] [address] documented as of this encounter Visit Diagnoses Diagnosis Type 2 diabetes mellitus with diabetic polyneuropathy, with long-term current use of insulin (HCC) documented in this encounter Additional Health Concerns Assessment Noted Time PHQ-9 Depression Total Score: 0 06/10/19 23 11:13 AM EST documented as of this encounter Care Teams Ball Assembler Relationship Specialty Start Date End Date Santi Landry MD [address] [place] [phone] PCP - General Internal Medicine 06/14/14 documented as of this encounter
--- OUTSIDE RECORDS SUMMARY | 2025-02-14 17:58 | XMS_ITS | Encounter Summary ---
Author Organization [employer] Address 75 [facility] 7 [place] [address] Care Team Providers Care Hand Sample Maker Name Role Phone Santi Ladnry MD Primary Care Provide r Reason for Visit * Reason Onset Date Comments Med Refill 04/08/2023 Encounter Details Date Type Department Care Team ([facility] st Contact Info) Description 04/08/2023 Refill [facility] MEDICINE 230 [place] [address] Santi Landry MD 230 [place] [address] Type 2 diabetes mellitus with diabetic polyneuropathy, with long-term current use of insulin ([facility]) Social History Tobacco Use Types Packs/Day [...] [facility] CHC MED & PEDS 505 [place] [address] Karishma Rose, FATEMEH 505 [place] [address] 04/12/2025 11:30 AM EST Office Visit [facility] MEDICINE 230 [place] [address] Santi Landry MD [address] [place] [address] documented as of this encounter Visit Diagnoses Diagnosis Type 2 diabetes mellitus with diabetic polyneuropathy, with long-term current use of insulin (HCC) documented in this encounter Additional Health Concerns Assessment Noted Time PHQ-9 Depression Total Score: 0 06/10/19 23 11:13 AM EST documented as of this encounter Care Teams Hand Sample Maker Relationship Specialty Start Date End Date Santi Landry MD [address] [place] [id number] PCP - General Internal Medicine 06/14/14 documented as of this encounter
--- OUTSIDE RECORDS SUMMARY | 2025-02-14 17:58 | XMS_ITS | Encounter Summary ---
Author Organization [employer] Address [address] [place] [address] 7 [place] [address] Care Team Providers Care Certified Surgical Technologist Name Role Phone Santi Landry MD Primary Care Provide r Reason for Visit * Reason Onset Date Comments Med Refill 02/12/2023 Encounter Details Date Type Department Care Team ([facility] st Contact Info) Description 02/12/2023 Refill [facility] MEDICINE [address] [place] [address] Santi Landry MD 230 [place] [address] Social History Tobacco Use Types Packs/Day Years [...] Description 03/05/2025 10:00 AM EST Telemedicine [facility] CHC MED & PEDS 505 [place] [address] Karishma Rose RN 505 [place] [address] 04/12/2025 11:30 AM EST Office Visit [facility] MEDICINE [address] [place] [address] Santi Landry MD 230 [place] [address] documented as of this encounter Visit Diagnoses Not on filedocumented in this encounter Additional Health Concerns Assessment Noted Time PHQ-9 Depression Total Score: 0 06/10/19 23 11:13 AM EST documented as of this encounter Care Teams Certified Surgical Technologist Relationship Specialty Start Date End Date Santi Landry MD 230 [place] [address] PCP - General Internal Medicine 06/14/14 documented as of this encounter
--- OUTSIDE RECORDS SUMMARY | 2025-02-14 17:58 | XMS_ITS | Encounter Summary ---
Author Organization [employer] Address 75 [facility] 7 [place] [address] Care Team Providers Care Technical Laboratory Asst Name Role Phone Santi Landry MD Primary Care Provide r Reason for Visit * Reason Comments Med Refill Encounter Details Date Type Department Care Team ([facility] Contact Info) Description 02/13/2025 Refill [facility] CHC MED & PEDS [address] [place], [place] [phone] Santi Landry MD [address] [place] [address] Chronic midline low back pain without sciatica [...] [facility] CHC MED & PEDS 505 [place] [address] Karishma Rose, RN 505 [place] [address] 04/12/2025 11:30 AM EST Office Visit [facility] MEDICINE 230 [place] [address] Santi Landry MD 230 [place] [address] documented as of this encounter Visit Diagnoses Diagnosis Chronic midline low back pain without sciatica documented in this encounter Additional Health Concerns Assessment Noted Time PHQ-9 Depression Total Score: 21 025 10:16 AM EDT documented as of this encounter Care Teams Technical Laboratory Asst Relationship Specialty Start Date End Date Santi Landry MD [address] [place] [address] PCP - General Internal Medicine 06/14/14 documented as of this encounter
--- OUTSIDE RECORDS SUMMARY | 2025-02-14 17:58 | XMS_ITS | Encounter Summary ---
Author Organization [employer] Address [address] [facility] 7 [place] [address] Care Team Providers Care Day Trader Name Role Phone Santi Landry MD Primary Care Provide r Reason for Visit * Reason Onset Date Comments Med Refill 02/12/2023 Encounter Details Date Type Department Care Team ([facility] st Contact Info) Description 02/12/2023 Refill [facility] MED & PEDS [address] [place] [address] Santi Landry MD 230 [place] [address] Social History Tobacco Use Types Packs/Day Years [...] Info) Description 03/05/2025 10:00 AM EST Telemedicine [facility] CHC MED & PEDS 505 [place] [address] Karishma Rose, RN 505 [place] [address] 04/12/2025 11:30 AM EST Office Visit [facility] MEDICINE 230 [place] [address] Santi Landry MD 230 [place] [address] documented as of this encounter Visit Diagnoses Not on filedocumented in this encounter Additional Health Concerns Assessment Noted Time PHQ-9 Depression Total Score: 0 06/10/19 23 11:13 AM EST documented as of this encounter Care Teams Day Trader Relationship Specialty Start Date End Date Santi Landry MD 230 [place] [address] PCP - General Internal Medicine 06/14/14 documented as of this encounter
--- OUTSIDE RECORDS SUMMARY | 2025-02-14 17:58 | XMS_ITS | Encounter Summary ---
Author Organization [employer] Address [address] [place] [address] 7 [place] [address] Care Team Providers Care Lactation Nurse Name Role Phone Santi Landry MD Primary Care Provide r Reason for Visit * Reason Onset Date Comments Med Refill 11/18/2023 Encounter Details Date Type Department Care Team ([facility] st Contact Info) Description 11/18/2023 Refill [facility] MEDICINE 230 [place] [address] Santi Landry MD 230 [place] [address] Social History Tobacco Use Types Packs/Day Years [...] Info) Description 03/05/2025 10:00 AM EST Telemedicine [facility] CHC MED & PEDS 505 [place] [address] Karishma Rose, RN 505 [place] [address] 04/12/2025 11:30 AM EST Office Visit [facility] MEDICINE 230 [place] [address] Santi Landry MD 230 [place] [address] documented as of this encounter Visit Diagnoses Not on filedocumented in this encounter Additional Health Concerns Assessment Noted Time PHQ-9 Depression Total Score: 0 11/09/19 24 10:18 AM EDT documented as of this encounter Care Teams Lactation Nurse Relationship Specialty Start Date End Date Santi Landry MD [address] [place] [address] PCP - General Internal Medicine 06/14/14 documented as of this encounter
--- OUTSIDE RECORDS SUMMARY | 2025-02-14 17:58 | XMS_ITS | Encounter Summary ---
Author Organization [employer] Address [address] [facility] 7 [place] [address] Care Team Providers Care Insurance Sales Associate Name Role Phone Santi Landry MD Primary Care Provide r Reason for Visit * Reason Comments Med Refill Encounter Details Date Type Department Care Team ([facility] st Contact Info) Description 04/17/2024 Refill [facility] CHC MED & PEDS [address] [place], [place] [phone] Santi Landry MD [address] [place] [address] Chronic midline low back pain without sciatica [...] Info) Description 03/05/2025 10:00 AM EST Telemedicine [facility] CHC MED & PEDS 505 [place] [address] Karishma Rose, RN 505 [place] [address] 04/12/2025 11:30 AM EST Office Visit [facility] MEDICINE 230 [place] [address] Santi Landry MD [address] [place] [address] documented as of this encounter Visit Diagnoses Diagnosis Chronic midline low back pain without sciatica documented in this encounter Additional Health Concerns Assessment Noted Time PHQ-9 Depression Total Score: 0 11/09/19 24 10:18 AM EDT documented as of this encounter Care Teams Insurance Sales Associate Relationship Specialty Start Date End Date Santi Landry MD [address] [place] [address] PCP - General Internal Medicine 06/14/14 documented as of this encounter
--- OUTSIDE RECORDS SUMMARY | 2025-02-14 17:59 | XMS_ITS | Encounter Summary ---
Author Organization [employer] Address [address] [place] [address] 7 [place] [address] Care Team Providers Care Rug Cutter Helper Name Role Phone Santi Landry MD Primary Care Provide r Reason for Visit * Reason Onset Date Comments Med Refill 10/04/2024 Encounter Details Date Type Department Care Team ([facility] st Contact Info) Description 10/04/2024 Refill [facility] MEDICINE 230 [place] [address] Santi Landry MD 230 [place] [address] Chronic midline low back pain without sciatica [...] Info) Description 03/05/2025 10:00 AM EST Telemedicine [facility] CHC MED & PEDS 505 [place] [address] Karishma Rose, RN 505 [place] [address] 04/12/2025 11:30 AM EST Office Visit [facility] MEDICINE 230 [place] [address] Santi Landry MD 230 [place] [address] documented as of this encounter Visit Diagnoses Diagnosis Chronic midline low back pain without sciatica documented in this encounter Additional Health Concerns Assessment Noted Time PHQ-9 Depression Total Score: 0 11/09/19 24 10:18 AM EDT documented as of this encounter Care Teams Rug Cutter Helper Relationship Specialty Start Date End Date Santi Landry MD [address] [place] [address] PCP - General Internal Medicine 06/14/14 documented as of this encounter
--- OUTSIDE RECORDS SUMMARY | 2025-02-14 17:59 | XMS_ITS | Encounter Summary ---
Author Organization [employer] Address [address] [place] [address] 7 [place] [address] Care Team Providers Care Financial Aid Coordinator Name Role Phone Santi Landry MD Primary Care Provide r Reason for Visit * Reason Onset Date Comments Med Refill 11/28/2024 Encounter Details Date Type Department Care Team ([facility] st Contact Info) Description 11/28/2024 Refill [facility] MEDICINE 230 [place] [address] Santi Landry MD 230 [place] [address] Chronic midline low back pain without sciatica [...] Info) Description 03/05/2025 10:00 AM EST Telemedicine [facility] CHC MED & PEDS 505 [place] [address] Karishma Rose, RN 505 [place] [address] 04/12/2025 11:30 AM EST Office Visit [facility] MEDICINE 230 [place] [address] Santi Landry MD [address] [place] [address] documented as of this encounter Visit Diagnoses Diagnosis Chronic midline low back pain without sciatica documented in this encounter Additional Health Concerns Assessment Noted Time PHQ-9 Depression Total Score: 21 025 10:16 AM EDT documented as of this encounter Care Teams Financial Aid Coordinator Relationship Specialty Start Date End Date Santi Landry MD [address] [place] [address] PCP - General Internal Medicine 06/14/14 documented as of this encounter
--- OUTSIDE RECORDS SUMMARY | 2025-02-14 17:59 | XMS_ITS | Encounter Summary ---
Author Organization [employer] Address [address] [place] [address] 7 [place] [address] Care Team Providers Care Dermatopathologist Name Role Phone Santi Landry MD Primary Care Provide r Reason for Visit * Reason Onset Date Comments Med Refill 06/30/2024 Encounter Details Date Type Department Care Team ([facility] st Contact Info) Description 06/30/2024 Refill [facility] MEDICINE 230 [place] [address] Santi Landry MD 230 [place] [address] Social History Tobacco Use Types Packs/Day Years [...] Info) Description 03/05/2025 10:00 AM EST Telemedicine [facility] CHC MED & PEDS 505 [place] [address] Karishma Rose, RN 505 [place] [address] 04/12/2025 11:30 AM EST Office Visit [facility] MEDICINE 230 [place] [address] Santi Landry MD 230 [place] [address] documented as of this encounter Visit Diagnoses Not on filedocumented in this encounter Additional Health Concerns Assessment Noted Time PHQ-9 Depression Total Score: 0 11/09/19 24 10:18 AM EDT documented as of this encounter Care Teams Dermatopathologist Relationship Specialty Start Date End Date Santi Landry MD [address] [place] [address] PCP - General Internal Medicine 06/14/14 documented as of this encounter
--- OUTSIDE RECORDS SUMMARY | 2025-02-14 17:59 | XMS_ITS | Encounter Summary ---
Author Organization [employer] Address 75 [facility] 7 [place] [address] Care Team Providers Care Shot Blast Equipment Operator Name Role Phone Santi Landry MD Primary Care Provide r Reason for Visit * Reason Comments Med Refill Encounter Details Date Type Department Care Team ([facility] st Contact Info) Description 07/04/2024 Refill [facility] CHC MED & PEDS [address] [place], [place] [phone] Santi Landry MD [address] [place] [address] Chronic midline low back pain without sciatica [...] [facility] CH[facility] PEDS 505 [place] [address] Karishma Rose, RN 505 [place] [address] 04/12/2025 11:30 AM EST Office Visit [facility] MEDICINE 230 [place] [address] Santi Landry MD [address] [place] [address] documented as of this encounter Visit Diagnoses Diagnosis Chronic midline low back pain without sciatica documented in this encounter Additional Health Concerns Assessment Noted Time PHQ-9 Depression Total Score: 0 11/09/19 24 10:18 AM EDT documented as of this encounter Care Teams Shot Blast Equipment Operator Relationship Specialty Start Date End Date Santi Landry MD [address] [place] [address] PCP - General Internal Medicine 06/14/14 documented as of this encounter
--- OUTSIDE RECORDS SUMMARY | 2025-02-14 17:59 | XMS_ITS | Encounter Summary ---
Author Organization [employer] Address 75 [facility] 7 [place] [address] Care Team Providers Care Creative Manager Name Role Phone Santi Landry MD Primary Care Provide r Reason for Visit * Reason Comments Med Refill Encounter Details Date Type Department Care Team ([facility] Contact Info) Description 10/08/2024 Refill [facility] MEDICINE 230 [place], [place] [phone] Santi Landry MD 230 [place], [place] [phone] Type 2 diabetes mellitus with diabetic polyneuropathy, with long-term current use of insulin ([facility]) Social History Tobacco Use Types [...] 03/05/2025 10:00 AM EST Telemedicine [facility] CHC MED & PEDS 505 [place] [address] Karishma Rose, FATEMEH 505 [place] [address] 04/12/2025 11:30 AM EST Office Visit [facility] MEDICINE 230 [place] [address] Santi Landry MD 230 [place] [address] documented as of this encounter Visit Diagnoses Diagnosis Type 2 diabetes mellitus with diabetic polyneuropathy, with long-term current use of insulin (HCC) documented in this encounter Additional Health Concerns Assessment Noted Time PHQ-9 Depression Total Score: 0 11/09/19 24 10:18 AM EDT documented as of this encounter Care Teams Creative Manager Relationship Specialty Start Date End Date Santi Landry MD 230 [place] [address] PCP - General Internal Medicine 06/14/14 documented as of this encounter
--- OUTSIDE RECORDS SUMMARY | 2025-02-14 17:59 | XMS_ITS | Encounter Summary ---
Author Organization [employer] Address 75 [facility] 7 [place] [address] Care Team Providers Care Pharmacy Services Director Name Role Phone Santi Landry MD Primary Care Provide r Reason for Visit * Reason Onset Date Comments Med Refill 02/12/2023 Encounter Details Date Type Department Care Team ([facility] st Contact Info) Description 02/12/2023 Refill [facility] MED[facility] 230 [place] [address] Santi Landry MD 230 [place] [address] Gastroesophageal reflux disease, unspecified whether esophagitis present [...] your housing situation today? I have shortymedina treivzo 01/18/[address] you li [...] Info) Description 03/05/2025 10:00 AM EST Telemedicine [facility] MED & PEDS 505 [place] [address] Karishma Rose, RN 505 [place] [address] 04/12/2025 11:30 AM EST Office Visit [facility] MEDICINE 230 [place] [address] Santi Landry MD [address] [place] [address] documented as of this encounter Visit Diagnoses Diagnosis Gastroesophageal reflux disease, unspecified whether esophagitis present documented in this encounter Additional Health Concerns Assessment Noted Time PHQ-9 Depression Total Score: 0 06/10/19 23 11:13 AM EST documented as of this encounter Care Teams Pharmacy Services Director Relationship Specialty Start Date End Date Santi Landry MD 230 [place] [address] PCP - General Internal Medicine 06/14/14 documented as of this encounter
--- OUTSIDE RECORDS SUMMARY | 2025-02-14 17:59 | XMS_ITS | Encounter Summary ---
Author Organization [employer] Address [address] [place] [address] Care Team Providers Care Home Health Assistant Name Role Phone Santi Landry MD Primary Care Provide r Reason for Visit * Reason Onset Date Comments Med Refill 11/24/2022 Encounter Details Date Type Department Care Team ([facility] Contact Info) Description 11/24/2022 Refill [facility] MEDICINE 230 [place] [address] Santi Landry MD 230 [place] [address] Chronic midline low back pain without sciatica [...] Care Team ([facility] Contact Info) Description 03/05/2025 10:00 AM EST Telemedicine [facility] CHC MED & PEDS 505 [place] [address] Karishma Rose FATEMEH 505 [place] [address] 04/12/2025 11:30 AM EST Office Visit [facility] MEDICINE [address] [place] [address] Santi Landry MD [address] [place] [address] documented as of this encounter Visit Diagnoses Diagnosis Chronic midline low back pain without sciatica documented in this encounter Additional Health Concerns Assessment Noted Time PHQ-9 Depression Total Score: 0 06/10/19 23 11:13 AM EST documented as of this encounter Care Teams Home Health Assistant Relationship Specialty Start Date End Date Santi Landry MD [address] [place] [address] PCP - General Internal Medicine 06/14/14 documented as of this encounter
--- OUTSIDE RECORDS SUMMARY | 2025-02-14 17:59 | XMS_ITS | Encounter Summary ---
Author Organization [employer] Address [address] [place] [address] 7 [place] [address] Care Team Providers Care Electro Winning Operator Name Role Phone Santi Landry MD Primary Care Provide r Encounter Details Date Type Department Care Team ([facility] Contact Info) Description 12/22/2022 Orders Only [facility] MED & PEDS 505 [place] [address] Essie Can LPN Social History Tobacco Use [...] Upcoming Encounters Date Type Department Care Team ([facility] Contact Info) Description 03/05/2025 10:00 AM EST Telemedicine [facility] MED & PEDS 505 [place] [address] Karishma Rose, FATEMEH 505 [place] [address] 04/12/2025 11:30 AM EST Office Visit [facility] MEDICINE 230 [place] [address] Santi Landry MD 230 [place] [address] documented as of this encounter Procedures Procedure Name Priority Date/Time Associated Diagnosis Comments GLUCOSE, WHOLE BLOOD Routine 10/25/2023 8:38 AM EDT GLUCOSE, WHOLE BLOOD Routine 10/11/2023 8:42 AM EDT documented in this encounter Results * Glucose, Whole Blood (10/25/2023 8:38 AM EDT) Glucose, Whole Blood 93 60 - 115 mg/dL [facility] Comment:METER #: [id number] 10/25/2023 8:38 AM EDT 10/25/2023 8:42 AM EDT us Generic External Data Provider LAB BLOOD ORDERAB LES Final Result Performing Organization Address City/[facility]/ZIP Co de Phone Number [facility] [address] [place] [phone] * (ABNORMAL) Glucose, Whole Blood (10/11/2023 8:42 AM EDT) Glucose, Whole Blood 143(H) 60 - 115 mg/dL [facility] Comment:METER #: [id number] 10/11/2023 8:42 AM EDT 10/11/2023 8:46 AM EDT us Generic External Data Provider LAB BLOOD ORDERAB LES Final Result Performing Organization Address [facility]/ZIP Co de Phone Number [facility] [address] [place] [address] [phone] documented in this encounter Visit Diagnoses Not on filedocumented in this encounter Additional Health Concerns Assessment Noted Time PHQ-9 Depression Total Score: 0 06/10/19 23 11:13 AM EST documented as of this encounter Care Teams Electro Winning Operator Relationship Specialty Start Date End Date Santi Landry MD 230 [place] [address] PCP - General Internal Medicine 06/14/14 documented as of this encounter
--- OUTSIDE RECORDS SUMMARY | 2025-02-14 17:59 | XMS_ITS | Encounter Summary ---
Author Organization [employer] Address [address] [place] [address] 7 [place] [address] Care Team Providers Care Master Control Operator Name Role Phone Santi Landry MD Primary Care Provide r Reason for Visit * Reason Onset Date Comments Med Refill 11/05/2023 Encounter Details Date Type Department Care Team ([facility] Contact Info) Description 11/05/2023 Telephone [facility] MEDICINE 230 [place] [address] Santi Landry MD 230 [place] [address] Med Refill Social History Tobacco Use Types [...] OxyContin 10 mg To be sent to: [facility] Pharmacy documented in this encounter Plan of Treatment Upcoming Encounters Date Type Department Care Team ([facility] Contact Info) Description 03/05/2025 10:00 AM EST Telemedicine [facility] CHC MED & PEDS 505 [place] [address] Karishma Rose, RN 505 [place] [address] 04/12/2025 11:30 AM EST Office Visit [facility] MEDICINE [address] [place] [address] Santi Landry MD 230 [place] [address] documented as of this encounter Visit Diagnoses Not on filedocumented in this encounter Additional Health Concerns Assessment Noted Time PHQ-9 Depression Total Score: 6 06/22/19 24 11:07 AM EDT documented as of this encounter Care Teams Master Control Operator Relationship Specialty Start Date End Date Santi Landry MD 230 [place] [address] PCP - General Internal Medicine 06/14/14 documented as of this encounter
--- OUTSIDE RECORDS SUMMARY | 2025-02-14 17:59 | XMS_ITS | Encounter Summary ---
Author Organization [employer] Address [address] [place] [address] 7 [place] [address] Care Team Providers Care Body And Frame Technician Name Role Phone Santi Landry MD Primary Care Provide r Reason for Visit * Reason Onset Date Comments Med Refill 02/12/2023 Encounter Details Date Type Department Care Team ([facility] st Contact Info) Description 02/12/2023 Refill [facility] MEDICINE 230 [place] [address] Santi Landry MD [address] [place] [address] Social History Tobacco Use Types Packs/Day Years [...] Info) Description 03/05/2025 10:00 AM EST Telemedicine [facility] CHC MED & PEDS 505 [place] [address] Karishma Rose RN 505 [place] [address] 04/12/2025 11:30 AM EST Office Visit [facility] MEDICINE 230 [place] [address] Santi Landry MD [address] [place] [address] documented as of this encounter Visit Diagnoses Not on filedocumented in this encounter Additional Health Concerns Assessment Noted Time PHQ-9 Depression Total Score: 0 06/10/19 23 11:13 AM EST documented as of this encounter Care Teams Body And Frame Technician Relationship Specialty Start Date End Date Santi Landry MD [address] [place] [address] PCP - General Internal Medicine 06/14/14 documented as of this encounter
--- OUTSIDE RECORDS SUMMARY | 2025-02-14 17:59 | XMS_ITS | Encounter Summary ---
Author Organization [employer] Address [address] [place] [address] Care Team Providers Care Investigation Division Captain Name Role Phone Santi Landry MD Primary Care Provide r Reason for Visit * Reason Comments Med Refill Encounter Details Date Type Department Care Team ([facility] Contact Info) Description 12/21/2022 Refill [facility] MEDICINE [address] [place] [address] Santi Landry MD 230 [place] [address] Social History Tobacco Use Types Packs/Day Years [...] Upcoming Encounters Date Type Department Care Team ([facility] Contact Info) Description 03/05/2025 10:00 AM EST Telemedicine [facility] MED & PEDS 505 [place], [place] [phone] Karishma Rose, FATEMEH 505 [place] [address] 04/12/2025 11:30 AM EST Office Visit [facility] MEDICINE 230 [facility] [address] Santi Landry MD 230 [place] [address] documented as of this encounter Visit Diagnoses Not on filedocumented in this encounter Additional Health Concerns Assessment Noted Time PHQ-9 Depression Total Score: 0 06/10/19 23 11:13 AM EST documented as of this encounter Care Teams Investigation Division Captain Relationship Specialty Start Date End Date Santi [place] [address] PCP - General Internal Medicine 06/14/14 documented as of this encounter
--- OUTSIDE RECORDS SUMMARY | 2025-02-14 17:59 | XMS_ITS | Encounter Summary ---
Author Organization [employer] Address [address] [place] [address] 7 [place] [address] Care Team Providers Care Shingler Name Role Phone Santi Landry MD Primary Care Provide r Reason for Visit * Reason Onset Date Comments Med Refill 11/08/2023 Encounter Details Date Type Department Care Team ([facility] st Contact Info) Description 11/08/2023 Refill [facility] MEDICINE 230 [place] [address] Santi Landry MD 230 [place] [address] Primary hypertension Social History Tobacco Use Types [...] Not at all 11/09/2023 10:18 AM Germania Mitchell [place] Trouble concentrating on things, such as [...] Info) Description 03/05/2025 10:00 AM EST Telemedicine [facility] MED & PEDS 505 [place] [address] Karishma Rose, FATEMEH 505 [place] [address] 04/12/2025 11:30 AM EST Office Visit [facility] MEDICINE 230 [place] [address] Santi Landry MD 230 [place] [address] documented as of this encounter Visit Diagnoses Diagnosis Primary hypertension Unspecified essential hypertension documented in this encounter Additional Health Concerns Assessment Noted Time PHQ-9 Depression Total Score: 6 06/22/19 24 11:07 AM EDT documented as of this encounter Care Teams Shingler Relationship Specialty Start Date End Date Santi Landry MD 230 [place] [address] PCP - General Internal Medicine 06/14/14 documented as of this encounter
--- OUTSIDE RECORDS SUMMARY | 2025-02-14 17:59 | XMS_ITS | Encounter Summary ---
Author Organization [employer] Address [address] [place] [address] 7 [place] [address] Care Team Providers Care Dog Behaviorist Name Role Phone Santi Landry MD Primary Care Provide r Reason for Visit * Reason Onset Date Comments Med Refill 07/17/2024 Encounter Details Date Type Department Care Team ([facility] st Contact Info) Description 07/17/2024 Refill [facility] MEDICINE [address] [place] [address] Santi Landry MD 230 [place] [address] Social History Tobacco Use Types Packs/Day Years [...] Info) Description 03/05/2025 10:00 AM EST Telemedicine [facility] CHC MED & PEDS 505 [place] [address] Karishma Rose, RN 505 [place] [address] 04/12/2025 11:30 AM EST Office Visit [facility] MEDICINE 230 [place] [address] Santi Landry MD 230 [place] [address] documented as of this encounter Visit Diagnoses Not on filedocumented in this encounter Additional Health Concerns Assessment Noted Time PHQ-9 Depression Total Score: 0 11/09/19 24 10:18 AM EDT documented as of this encounter Care Teams Dog Behaviorist Relationship Specialty Start Date End Date Santi Landry MD [address] [place] [address] PCP - General Internal Medicine 06/14/14 documented as of this encounter
--- OUTSIDE RECORDS SUMMARY | 2025-02-14 17:59 | XMS_ITS | Encounter Summary ---
Author Organization [employer] Address [address] [place] [address] Care Team Providers Care Engineering Operations Leader Name Role Phone Santi Landry MD Primary Care Provide r Reason for Visit * Reason Onset Date Comments Med Refill 10/01/2022 Encounter Details Date Type [facility] Description 10/01/2022 Refill [facility] MEDICINE 230 [place] [address] Santi Landry MD 230 [place] [address] Chronic midline low back pain without sciatica [...] Upcoming Encounters Date Type Department [facility] Description 03/05/2025 10:00 AM EST Telemedicine [facility] CHC MED & PEDS 505 [place] [address] Karishma Rose FATEMEH 505 [place] [address] 04/12/2025 11:30 AM EST Office Visit [facility] MEDICINE [address] [place] [address] Santi Landry MD [address] [place] [address] documented as of this encounter Visit Diagnoses Diagnosis Chronic midline low back pain without sciatica documented in this encounter Additional Health Concerns Assessment Noted Time PHQ-9 Depression Total Score: 0 06/10/19 23 11:13 AM EST documented as of this encounter Care Teams Engineering Operations Leader Relationship Specialty Start Date End Date Santi Landry MD [address] [place] [address] PCP - General Internal Medicine 06/14/14 documented as of this encounter
--- OUTSIDE RECORDS SUMMARY | 2025-02-14 17:59 | XMS_ITS | Encounter Summary ---
Author Organization [email or web address] Address [address] [place] [address] 7 [place] [address] Care Team Providers Care Engineering Mechanic Name Role Phone Santi Landry MD Primary Care Provide r Reason for Visit * Reason Onset Date Comments Med Refill 08/14/2024 Encounter Details Date Type Department Care Team ([facility] st Contact Info) Description 08/14/2024 Refill [facility] MEDICINE 230 [place] [address] Santi Landry MD 230 [place] [address] Social History Tobacco Use Types Packs/Day Years [...] Info) Description 03/05/2025 10:00 AM EST Telemedicine [facility] CHC MED & PEDS 505 [place] [address] Karishma Rose, RN 505 [place] [address] 04/12/2025 11:30 AM EST Office Visit [facility] MEDICINE 230 [place] [address] Santi Landry MD 230 [place] [address] documented as of this encounter Visit Diagnoses Not on filedocumented in this encounter Additional Health Concerns Assessment Noted Time PHQ-9 Depression Total Score: 0 11/09/19 24 10:18 AM EDT documented as of this encounter Care Teams Engineering Mechanic Relationship Specialty Start Date End Date Santi Landry MD [address] [place] [address] PCP - General Internal Medicine 06/14/14 documented as of this encounter
--- OUTSIDE RECORDS SUMMARY | 2025-02-14 17:59 | XMS_ITS | Encounter Summary ---
Author Organization [employer] Address [address] [facility] 7 [place] [address] Care Team Providers Care Toll Patrolman Name Role Phone Santi Landry MD Primary Care Provide r Reason for Visit * Reason Onset Date Comments Med Refill 02/12/2023 Encounter Details Date Type Department Care Team ([facility] st Contact Info) Description 02/12/2023 Refill [facility] MEDICINE 230 [place] [address] Santi Landry MD 230 [place] [address] Primary hypertension Social History Tobacco Use Types [...] Info) Description 03/05/2025 10:00 AM EST Telemedicine [facility] CHC MED & PEDS 505 [place] [address] Karishma Rose, RN 505 [place] [address] 04/12/2025 11:30 AM EST Office Visit [facility] MEDICINE 230 [place] [address] Santi Landry MD 230 [place] [address] documented as of this encounter Visit Diagnoses Diagnosis Primary hypertension Unspecified essential hypertension documented in this encounter Additional Health Concerns Assessment Noted Time PHQ-9 Depression Total Score: 0 06/10/19 23 11:13 AM EST documented as of this encounter Care Teams Toll Patrolman Relationship Specialty Start Date End Date Santi Landry MD 230 [place] [address] PCP - General Internal Medicine 06/14/14 documented as of this encounter
--- OUTSIDE RECORDS SUMMARY | 2025-02-14 17:59 | XMS_ITS | Encounter Summary ---
Author Organization [employer] Address [address] [place] [address] 7 [place] [address] Care Team Providers Care Tank Terminal Gauger Name Role Phone Santi Landry MD Primary Care Provide r Reason for Visit * Reason Onset Date Comments Med Refill 11/18/2023 Encounter Details Date Type Department Care Team ([facility] st Contact Info) Description 11/18/2023 Refill [facility] MEDICINE 230 [place] [address] Santi Landry MD 230 [place] [address] Social History Tobacco Use Types Packs/Day Years [...] Info) Description 03/05/2025 10:00 AM EST Telemedicine [facility] CHC MED & PEDS 505 [place] [address] Karishma Rose, RN 505 [place] [address] 04/12/2025 11:30 AM EST Office Visit [facility] MEDICINE 230 [place] [address] Santi Landry MD 230 [place] [address] documented as of this encounter Visit Diagnoses Not on filedocumented in this encounter Additional Health Concerns Assessment Noted Time PHQ-9 Depression Total Score: 0 11/09/19 24 10:18 AM EDT documented as of this encounter Care Teams Tank Terminal Gauger Relationship Specialty Start Date End Date Santi Landry MD [address] [place] [address] PCP - General Internal Medicine 06/14/14 documented as of this encounter
--- OUTSIDE RECORDS SUMMARY | 2025-02-14 17:59 | XMS_ITS | Encounter Summary ---
Author Organization [employer] Address [address] [place] [address] 7 [place] [address] Care Team Providers Care Fibrous Plasterer Name Role Phone Santi Landry MD Primary Care Provide r Reason for Visit * Reason Onset Date Comments Med Refill 08/11/2023 Encounter Details Date Type Department Care Team ([facility] Contact Info) Description 08/11/2023 Telephone [facility] MEDICINE 230 [place] [address] Santi Landry MD 230 [place] [address] Med Refill Social History Tobacco Use Types [...] medication refill. Medications needing refill : HYDROcodone-acetaminophen ([place]) 10-325 MG tablet To be sent to: [facility] - [place], [place] - [address] [place] [address] documented in this encounter Plan of Treatment Upcoming Encounters Date Type Department Care Team (Late st Contact Info) Description 03/05/2025 10:00 AM EST Telemedicine [facility] CHC MED & PEDS 505 [place] [address] Karishma Rose RN 505 [place] [address] 04/12/2025 11:30 AM EST Office Visit [facility] MEDICINE 230 [place] [address] Santi Landry MD 230 [place], [place] [phone] documented as of this encounter Visit Diagnoses Not on filedocumented in this encounter Additional Health Concerns Assessment Noted Time PHQ-9 Depression Total Score: 6 06/22/19 24 11:07 AM EDT documented as of this encounter Care Teams Fibrous Plasterer Relationship Specialty Start Date End Date Santi Landry MD 230 [place] [address] PCP - General Internal Medicine 06/14/14 documented as of this encounter
--- OUTSIDE RECORDS SUMMARY | 2025-02-14 17:59 | XMS_ITS | Encounter Summary ---
Author Organization [employer] Address [address] [place] [address] 7 [place] [address] Care Team Providers Care Mis Specialist Name Role Phone Santi Landry MD Primary Care Provide r Reason for Visit * Reason Onset Date Comments Med Refill 02/12/2023 Encounter Details Date Type Department Care Team ([facility] st Contact Info) Description 02/12/2023 Refill [facility] MEDICINE 230 [place] [address] Michelle Carmona MD 230 [place] [address] Social History Tobacco Use Types Packs/Day Years [...] Info) Description 03/05/2025 10:00 AM EST Telemedicine [facility] CHC MED & PEDS 505 [place] [address] Karishma Rose, RN 505 [place] [address] 04/12/2025 11:30 AM EST Office Visit [facility] MEDICINE 230 [place] [address] Santi Landry MD 230 [place] [address] documented as of this encounter Visit Diagnoses Not on filedocumented in this encounter Additional Health Concerns Assessment Noted Time PHQ-9 Depression Total Score: 0 06/10/19 23 11:13 AM EST documented as of this encounter Care Teams Mis Specialist Relationship Specialty Start Date End Date Santi Landry MD [address] [place] [address] PCP - General Internal Medicine 06/14/14 documented as of this encounter
--- OUTSIDE RECORDS SUMMARY | 2025-02-14 17:59 | XMS_ITS | Encounter Summary ---
Author Organization [employer] Address [address] [place] [address] 7 [place] [address] Care Team Providers Care Household Assistant Name Role Phone Santi Landry MD Primary Care Provide r Reason for Visit * Reason Onset Date Comments Med Refill 2024 Encounter Details Date Type Department Care Team ([facility] Contact Info) Description 2024 Telephone [facility] MEDICINE 230 [place] [address] Santi Landry MD 230 [place] [address] Med Refill Social History Tobacco Use Types [...] medication refill. Medications needing refill : HYDROcodone-acetaminophen ([place]) 10-325 MG tablet To be sent to: [facility] - [place], [place] - [address] [place] [address] documented in this encounter Plan of Treatment Upcoming Encounters Date Type Department Care Team (Late st Contact Info) Description 03/05/2025 10:00 AM EST Telemedicine [facility] CHC MED & PEDS 505 [place] [address] Karishma Rose RN 505 [place] [address] 04/12/2025 11:30 AM EST Office Visit [facility] MEDICINE 230 [place] [address] Santi Landry MD 230 [place] [address] documented as of this encounter Visit Diagnoses Not on filedocumented in this encounter Additional Health Concerns Assessment Noted Time PHQ-9 Depression Total Score: 0 11/09/19 24 10:18 AM EDT documented as of this encounter Care Teams Household Assistant Relationship Specialty Start Date End Date Santi Landry MD [address] [place] [address] PCP - General Internal Medicine 06/14/14 documented as of this encounter
--- OUTSIDE RECORDS SUMMARY | 2025-02-14 17:59 | XMS_ITS | Encounter Summary ---
Author Organization [employer] Address [address] [place] [address] 7 [place] [address] Care Team Providers Care Home Organizer Name Role Phone Santi Landry MD Primary Care Provide r Reason for Visit * Reason Onset Date Comments Med Refill 10/04/2024 Encounter Details Date Type Department Care Team ([facility] Contact Info) Description 10/04/2024 Telephone [facility] MEDICINE 230 [place] [address] Santi Landry MD 230 [place] [address] Med Refill Social History Tobacco Use Types [...] 12 hr tablet To be sent to: [facility] - [place], [place] - [address] [place] [address] documented in this encounter Plan of Treatment Upcoming Encounters Date Type Department Care Team ([facility] st Contact Info) Description 03/05/2025 10:00 AM EST Telemedicine [facility] CHC MED & PEDS 505 [place] [address] Karishma Rose RN 505 [place] [address] 04/12/2025 11:30 AM EST Office Visit [facility] MEDICINE 230 [place] [address] Santi Landry MD 230 [place] [address] documented as of this encounter Visit Diagnoses Not on filedocumented in this encounter Additional Health Concerns Assessment Noted Time PHQ-9 Depression Total Score: 0 11/09/19 24 10:18 AM EDT documented as of this encounter Care Teams Home Organizer Relationship Specialty Start Date End Date Santi Landry MD 230 [place] [address] PCP - General Internal Medicine 06/14/14 documented as of this encounter
--- OUTSIDE RECORDS SUMMARY | 2025-02-14 17:59 | XMS_ITS | Encounter Summary ---
Author Organization [employer] Address [address] [place] [address] 7 [place] [address] Care Team Providers Care Opthalmic Tech Name Role Phone Santi Landry MD Primary Care Provide r Reason for Visit * Reason Onset Date Comments Med Refill 08/18/2023 Encounter Details Date Type Department Care Team ([facility] st Contact Info) Description 08/18/2023 Refill [facility] MEDICINE 230 [place] [address] Michelle Carmona MD 230 [place] [address] Social History Tobacco Use Types Packs/Day Years [...] Info) Description 03/05/2025 10:00 AM EST Telemedicine [facility] CHC MED & PEDS 505 [place] [address] Karishma Rose, FATEMEH 505 [place] [address] 04/12/2025 11:30 AM EST Office Visit [facility] MEDICINE 230 [place] [address] Santi Landry MD 230 [place] [address] documented as of this encounter Visit Diagnoses Not on filedocumented in this encounter Additional Health Concerns Assessment Noted Time PHQ-9 Depression Total Score: 6 06/22/19 24 11:07 AM EDT documented as of this encounter Care Teams Opthalmic Tech Relationship Specialty Start Date End Date Santi Landry MD 230 [place] [address] PCP - General Internal Medicine 06/14/14 documented as of this encounter
--- OUTSIDE RECORDS SUMMARY | 2025-02-14 17:59 | XMS_ITS | Encounter Summary ---
Author Organization [employer] Address [address] [place] [address] 7 [place] [address] Care Team Providers Care Vamp Stitcher Name Role Phone Santi Landry MD Primary Care Provide r Reason for Visit * Reason Onset Date Comments Med Refill 2024 Encounter Details Date Type Department Care Team ([facility] st Contact Info) Description 2024 Refill [facility] MEDICINE 230 [place] [address] Santi Landry MD 230 [place] [address] Social History Tobacco Use Types Packs/Day Years [...] Info) Description 03/05/2025 10:00 AM EST Telemedicine [facility] CHC MED & PEDS 505 [place] [address] Karishma Rose, RN 505 [place] [address] 04/12/2025 11:30 AM EST Office Visit [facility] MEDICINE 230 [place] [address] Santi Landry MD 230 [place] [address] documented as of this encounter Visit Diagnoses Not on filedocumented in this encounter Additional Health Concerns Assessment Noted Time PHQ-9 Depression Total Score: 0 11/09/19 24 10:18 AM EDT documented as of this encounter Care Teams Vamp Stitcher Relationship Specialty Start Date End Date Santi Landry MD [address] [place] [address] PCP - General Internal Medicine 06/14/14 documented as of this encounter
--- OUTSIDE RECORDS SUMMARY | 2025-02-14 17:59 | XMS_ITS | Encounter Summary ---
Author Organization [employer] Address [address] [place] [address] 7 [place] [address] Care Team Providers Care Associate Theatre Professor Name Role Phone Santi Landry MD Primary Care Provide r Reason for Visit * Reason Onset Date Comments Med Refill 06/21/2024 Encounter Details Date Type Department Care Team ([facility] st Contact Info) Description 06/21/2024 Refill [facility] MEDICINE 230 [place] [address] Santi Landry MD 230 [place] [address] Type 2 diabetes mellitus with diabetic polyneuropathy, with long-term current use of insulin ([facility]) Social History Tobacco Use Types [...] Info) Description 03/05/2025 10:00 AM EST Telemedicine [facility] CHC MED & PEDS 505 [place] [address] Karishma Rose, RN 505 [place] [address] 04/12/2025 11:30 AM EST Office Visit [facility] MEDICINE 230 [place] [address] Santi Landry MD 230 [place] [address] documented as of this encounter Visit Diagnoses Diagnosis Type 2 diabetes mellitus with diabetic polyneuropathy, with long-term current use of insulin (HCC) documented in this encounter Additional Health Concerns Assessment Noted Time PHQ-9 Depression Total Score: 0 11/09/19 24 10:18 AM EDT documented as of this encounter Care Teams Associate Theatre Professor Relationship Specialty Start Date End Date Santi Landry MD [address] [place] [address] PCP - General Internal Medicine 06/14/14 documented as of this encounter
--- OUTSIDE RECORDS SUMMARY | 2025-02-14 17:59 | XMS_ITS | Encounter Summary ---
Author Organization [employer] Address [address] [place] [address] 7 [place] [address] Care Team Providers Care Solid Waste Disposal Manager Name Role Phone Santi Landry MD Primary Care Provide r Reason for Visit * Reason Onset Date Comments Med Refill 11/18/2023 Encounter Details Date Type Department Care Team ([facility] st Contact Info) Description 11/18/2023 Refill [facility] MEDICINE 230 [place] [address] Santi Landry MD 230 [place] [address] Primary hypertension Social History Tobacco Use Types [...] [facility]EDS 505 [place] [address] Karishma Rose, RN 505 [place] [address] 04/12/2025 11:30 AM EST Office Visit [facility] MEDICINE 230 [place] [address] Santi Landry MD 230 [place] [address] documented as of this encounter Visit Diagnoses Diagnosis Primary hypertension Unspecified essential hypertension documented in this encounter Additional Health Concerns Assessment Noted Time PHQ-9 Depression Total Score: 0 11/09/19 24 10:18 AM EDT documented as of this encounter Care Teams Solid Waste Disposal Manager Relationship Specialty Start Date End Date Santi Landry MD 230 [place] [address] PCP - General Internal Medicine 06/14/14 documented as of this encounter
--- OUTSIDE RECORDS SUMMARY | 2025-02-14 17:59 | XMS_ITS | Encounter Summary ---
Author Organization [id number] Address [address] [facility] 7 [place] [address] Care Team Providers Care Naphthalene Operator Helper Name Role Phone Santi Landry MD Primary Care Provide r Reason for Visit * Reason Comments Med Refill Encounter Details Date Type Department Care Team ([facility] st Contact Info) Description 11/02/2023 Refill [facility] MEDICINE 230 [place], [place] [phone] Santi Landry MD 230 [place], [place] [phone] Chronic midline low back pain without sciatica [...] Description 03/05/2025 10:00 AM EST Telemedicine [facility] CHC MED & PEDS 505 [place] [address] Karishma Rose, RN 505 [place] [address] 04/12/2025 11:30 AM EST Office Visit [facility] MEDICINE 230 [place] [address] Santi Landry MD 230 [place] [address] documented as of this encounter Visit Diagnoses Diagnosis Chronic midline low back pain without sciatica documented in this encounter Additional Health Concerns Assessment Noted Time PHQ-9 Depression Total Score: 6 06/22/19 24 11:07 AM EDT documented as of this encounter Care Teams Naphthalene Operator Helper Relationship Specialty Start Date End Date Santi Landry MD [address] [place] [address] PCP - General Internal Medicine 06/14/14 documented as of this encounter
--- OUTSIDE RECORDS SUMMARY | 2025-02-14 17:59 | XMS_ITS | Encounter Summary ---
Author Organization [employer] Address [address] [place] [address] Care Team Providers Care Ski Instructor Name Role Phone Santi Landry MD Primary Care Provide r Reason for Visit * Reason Onset Date Comments Med Refill 10/01/2022 Encounter Details Date Type Department Care Team ([facility] st Contact Info) Description 10/01/2022 Telephone [facility] MEDICINE 230 [place] [address] Santi Landry MD 230 [place] [address] Med Refill Social History Tobacco Use Types [...] 03/05/2025 10:00 AM EST Telemedicine [facility] CHC MED & PEDS 505 [place] [address] Karishma Rose, RN 505 [place] [address] 04/12/2025 11:30 AM EST Office Visit [facility] MEDICINE 230 [place] [address] Santi Landry MD 230 [place] [address] documented as of this encounter Visit Diagnoses Not on filedocumented in this encounter Additional Health Concerns Assessment Noted Time PHQ-9 Depression Total Score: 0 06/10/19 23 11:13 AM EST documented as of this encounter Care Teams Ski Instructor Relationship Specialty Start Date End Date Santi Landry MD 230 [place] [address] PCP - General Internal Medicine 06/14/14 documented as of this encounter
--- OUTSIDE RECORDS SUMMARY | 2025-02-14 17:59 | XMS_ITS | Encounter Summary ---
Author Organization [employer] Address [address] [facility] 7 [place] [address] Care Team Providers Care Psychiatric Nurse Name Role Phone Santi Landry MD Primary Care Provide r Reason for Visit * Reason Comments Med Refill Encounter Details Date Type Department Care Team ([facility] st Contact Info) Description 07/31/2024 Refill [facility] [address] [place], [place] [phone] Santi Landry MD [address] [place] [address] Chronic midline low back pain without sciatica [facility] [address] [place] [address] Karishma Rose, RN [address] [place] [address] 04/12/2025 11:30 AM EST Office Visit [facility] MEDICINE [address] [place] [address] Santi Landry MD [address] [place] [id number] documented as of this encounter Visit Diagnoses Diagnosis Chronic midline low back pain without sciatica documented in this encounter Additional Health Concerns Assessment Noted Time PHQ-9 Depression Total Score: 0 11/09/19 24 10:18 AM EDT documented as of this encounter Care Teams Psychiatric Nurse Relationship Specialty Start Date End Date Santi Landry MD [address] [place] [id number] PCP - General Internal Medicine 06/14/14 documented as of this encounter
--- OUTSIDE RECORDS SUMMARY | 2025-02-14 17:59 | XMS_ITS | Encounter Summary ---
Author Organization [employer] Address [address] [place] [address] 7 [place] [address] Care Team Providers Care Corporate Planning Manager Name Role Phone Santi Landry MD Primary Care Provide r Reason for Visit * Reason Comments Med Refill Encounter Details Date Type Department Care Team ([facility] st Contact Info) Description 11/02/2024 Refill [facility] MEDICINE [address] [place], [place] [phone] Santi Landry MD [address] [place], [place] [phone] Chronic midline low back pain without sciatica [facility] [address] [place] [address] Karishma Rose, FATEMEH [address] [place] [address] 04/12/2025 11:30 AM EST Office Visit [facility] MED[facility]INE [address] [place] [address] Santi Landry MD [address] [place] [address] documented as of this encounter Visit Diagnoses Diagnosis Chronic midline low back pain without sciatica documented in this encounter Additional Health Concerns Assessment Noted Time PHQ-9 Depression Total Score: 21 025 10:16 AM EDT documented as of this encounter Care Teams Corporate Planning Manager Relationship Specialty Start Date End Date Santi Landry MD [address] [place] [address] PCP - General Internal Medicine 06/14/14 documented as of this encounter
== END 2025-02-14 15:05 | disposition home or self-care (01) ==
LOC: HO.HOS 14:29
PROVIDERS: PCP Internal Medicine; Visit Provider Orthopaedic Surgery
DX: M75.42 Impingement syndrome of left shoulder (principal); M25.811 Other specified joint disorders, right shoulder; M25.511 Pain in right shoulder; M25.512 Pain in left shoulder
CPT/HCPCS: 20610; 99213

== ENCOUNTER → 2025-02-14 14:28 | Outpatient (BNVA) | payer MEDICARE, MEDICAID, SELFPAY | PROVIDERS: PCP Internal Medicine; Visit Provider Orthopaedic Surgery | DX: M75.42 Impingement syndrome of left shoulder (principal); M25.811 Other specified joint disorders, right shoulder; M25.511 Pain in right shoulder; M25.512 Pain in left shoulder | CPT/HCPCS: 20610; 99212; J1010; J2003 ==